=== PATIENT | female | born 1955 | race Caucasian/White ===

== ENCOUNTER 2016-07-11 09:20 | Inpatient (IN) | payer BC, MEDICARE ==
[2016-07-11] MEDS ORDERED: methylPREDNISolone Sodium Succinate 125 MG/2 ML SDV IVPUSH ONE (09:24)
[2016-07-11] MEDS ORDERED: Sodium Chloride 0.9% 1,000 ML IV ONE ×2 (09:27→10:46)
[2016-07-11] MEDS ORDERED: Levofloxacin/Dextrose 5%-Water 750 MG in Premix Bag 1 BAG IV ONE (09:28)
[2016-07-11] MEDS ORDERED: Albuterol/Ipratropium 3.0-0.5 MG/3 ML Neb Soln NEB PRN (09:31)
--- NOTE | 2016-07-11 09:35 | EDM.PDOC ---
ED HISTORY OF PRESENT ILLNESS - General Chief Complaint: Respiratory Problem Stated Complaint: LUNGS ISSUE Time Seen by Provider: 07/11/16 10:00 - History of Present Illness INITIAL COMMENTS - FREE TEXT/NARRATIVE: History of present illness: [60-year-old female history of COPD , CHF, diabetes diagnosed with DIP pneumonia presents with hypoxemia. Her oxygen saturation at home was 60% on 3 liters of oxygen. She was treated for pneumonia recently with levaquin for 5 days. She is not improving. She is sob, fever, not able to urinate, dizzy, diffuse muscle aches, productive cough. ] Review of systems: As per history of present illness and below otherwise all systems reviewed and negative. Past medical history: As per history of present illness and as reviewed below otherwise noncontributory. Surgical history: As per history of present illness and as reviewed below otherwise noncontributory. Social history: No reported history of drug or alcohol abuse. Family history: As per history of present illness and as reviewed below otherwise noncontributory. Physical exam: General: Well developed, well nourished in NAD HEENT: Atraumatic, normocephalic, pupils reactive, negative for conjunctival pallor or scleral icterus, mucous membranes moist, throat clear, neck supple, nontender, trachea midline. Lungs: Decreased breath sounds bilaterally. chest nontender. Heart: S1S2, regular, negative for clicks, rubs, or JVD. Abdomen: Soft, nondistended, nontender. Negative for masses or hepatosplenomegaly. Negative for costovertebral tenderness. Pelvis: Stable nontender. Genitourinary: Deferred. Rectal: Deferred. Extremities: Atraumatic, negative for cords or calf pain. Neurovascular unremarkable. Neuro: Awake, alert, oriented. Cranial nerves II through XII unremarkable. Cerebellum unremarkable. Motor and sensory unremarkable throughout. Exam nonfocal. Diagnostics: [ADC, CMP, chest x-ray, BMP, EKG,] Therapeutics: [IV Vanco, IV Levaquin Zosyn, IV, IV fluids x2, DuoNeb, Solu-Medrol] Impression: [Pneumonia Sepsis] Plan: [Admit to ICU for I.V antibiotics and IVF. ] Definitive disposition and diagnosis as appropriate pending reevaluation and review of above. - Related Data Allergies/ADRs: Allergies Allergy/AdvReac Type Severity Reaction Status Date / Time amlodipine besylate Allergy Headache Verified 07/11/16 09:27 [From Norvasc] ketorolac Allergy Itching Verified 07/11/16 09:27 milnacipran HCl Allergy Headache Verified 07/11/16 09:27 [From [facility]] Home Meds: Home Meds Pioglitazone [Actos] 30 mg PO DAILY 03/28/15 [History] levETIRAcetam [Keppra] 1,000 mg PO BID 03/28/15 [History] Glimepiride [Amaryl] 1 mg PO WITHBREAKFAST 09/14/15 [History] Pantoprazole [ProTONIX] 40 mg PO ACBREAKFAST 09/14/15 [History] Temazepam [Restoril] 15 mg PO BEDTIME PRN 09/14/15 [History] Citalopram Hydrobromide [Celexa] 20 mg PO DAILY 09/18/15 [History] Calcium Carbonate/Vitamin D3 [Calcium 500 + Vit D 400] 1 each PO 1200,2100 07/11 [History] Divalproex Sodium 250 mg PO TIDMEALS 07/11/16 [History] Gabapentin [Neurontin] 600 mg PO TID 07/11/16 [History] Silver Sulfadiazine [Silvadene 1% Cream 20 GM] 1 appful TOP DAILY 07/11/16 [ History] buPROPion [Wellbutrin XL] 150 mg PO DAILY 07/11/16 [History] Past Medical History HEENT History: Reports: Glaucoma Cardiovascular History: Reports: Heart Failure, Hypertension Other Cardiovascular History: CHF Respiratory History: Reports: COPD, Interstitial lung disease, Pulmonary fibrosis, Other (see below) Other Respiratory History: DIPF,. 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: Musculoskeletal History: Reports: Fibromyalgia, Osteoporosis Neurological History: Reports: Neuropathy, diabetic, Neuropathy, peripheral, Seizure Psychiatric History: Reports: Anxiety, Depression Endocrine/Metabolic History: Reports: Diabetes, type II, Obesity/BMI 30+, Osteoporosis Hematologic History: Reports: Anemia, Blood transfusion(s) Immunologic History: Reports: None Oncologic (Cancer) History: Reports: Renal, Other (see below) Other Oncologic History: mets to liver with unknown primary Dermatologic History: Reports: None - Infectious Disease History Infectious Disease History: Reports: MRSA - Past Surgical History Respiratory Surgical History: Reports: Lung Biopsies GI Surgical History: Reports: EGD, Other (see below) Other GI Surgeries/Procedures: EGD done September 15 2015 Musculoskeletal Surgical History: Reports: Other (see below) Other Musculoskeletal Surgeries/Procedures:: right ankle x3, left ankle x1 Social & Family History - Family History Family Medical History: Noncontributory - Tobacco Use Smoking Status *Q: Former Smoker Years of Tobacco use: 30 Packs/Tins Daily: 1 Used Tobacco, but Quit: Yes Month Tobacco Last Used: Feb 2015 Second Hand Smoke Exposure: No - Caffeine Use Caffeine Use: Reports: Soda, Tea - Recreational Drug Use Recreational Drug Use: No ED ROS GENERAL - Review of Systems Review Of Systems: See Below (See history of present illness) ED EXAM, GENERAL - Physical Exam Exam: See Below (See history of present illness) Course - Vital Signs Last Recorded V/S: Last Vital Signs Temp 102.1 F H 07/11/16 11:10 Pulse 83 07/11/16 11:10 Resp 26 H 07/11/16 11:10 BP 131/98 H 07/11/16 11:10 Pulse Ox 95 07/11/16 11:10 - Orders/Labs/Meds Orders: Active Orders 24 hr Category Date Time Status EKG Documentation Completion [RC] STAT Care 07/11/16 09:36 Active RT Aerosol Therapy [RC] ASDIRECTED Care 07/11/16 09:31 Active CULTURE BLOOD [BC] Stat Lab 07/11/16 09:44 Received CULTURE BLOOD [BC] Stat Lab 07/11/16 10:05 Received UA W/MICROSCOPIC [URIN] Stat Lab 07/11/16 09:50 Uncollected Albuterol/Ipratropium [DuoNeb 3.0-0.5 MG/3 ML] Med 07/11/16 09:31 Active 3 ml NEB Q4HRRT PRN Sodium Chloride 0.9% [Normal Saline] 1,000 ml Med 07/11/16 10:46 Active IV STAT Blood Culture x2 Reflex Set [OM.PC] Stat Oth 07/11/16 09:30 Ordered Medication Orders Albuterol/Ipratropium (Duoneb 3.0-0.5 Mg/3 Ml) 3 ml NEB Q4HRRT PRN PRN Reason: Shortness of Breath Last Admin: 07/11/16 10:26 Dose: 3 ml Sodium Chloride (Normal Saline) 1,000 mls @ 999 mls/hr IV STAT ONE Stop: 07/11/16 11:46 Last Admin: 07/11/16 10:50 Dose: 999 mls/hr Labs: Laboratory Tests 07/11/16 07/11/16 07/11/16 Range/Units 09:44 09:44 09:44 WBC 9.39 (4.0-11.0) K/uL RBC 2.92 L (4.30-5.90) M/uL Hgb 8.0 L (12.0-16.0) g/dL Hct 27.4 L (36.0-46.0) % MCV 93.8 (80.0-98.0) fL MCH 27.4 (27.0-32.0) pg MCHC 29.2 L (31.0-37.0) g/dL RDW Std Deviation 56.7 (28.0-62.0) fl RDW Coeff of Morales 17 H (11.0-15.0) % Plt Count 171 (150-400) K/uL MPV 8.40 (7.40-12.00) fL Neut % (Auto) 80.8 H (48.0-80.0) % Lymph % (Auto) 8.2 L (16.0-40.0) % Mora % (Auto) 8.2 (0.0-15.0) % Eos % (Auto) 2.2 (0.0-7.0) % Baso % (Auto) 0.6 (0.0-1.5) % Neut # (Auto) 7.6 H (1.4-5.7) K/uL Lymph # (Auto) 0.8 (0.6-2.4) K/uL Mora # (Auto) 0.8 (0.0-0.8) K/uL Eos # (Auto) 0.2 (0.0-0.7) K/uL Baso # (Auto) 0.1 (0.0-0.1) K/uL Nucleated RBC % 0.7 /100WBC Nucleated RBCs # 0 K/uL ABG pH (7.35-7.45) ABG pCO2 (35-45) mmHG ABG pO2 (75-100) mmHG ABG HCO3 (22-26) mEq/L ABG Total CO2 ABG Base Excess (-2.0-2.0) Lactate (0.20-2.00) mmol/L Sodium 142 (136-146) mmol/L Potassium 5.4 H (3.5-5.1) mmol/L Chloride 102 (98-110) mmol/L Carbon Dioxide 28 (21-31) mmol/L BUN 18 (6.0-23.0) mg/dL Creatinine 1.3 (0.6-1.5) mg/dL Est Cr Clr Drug Dosing 47.77 mL/min Estimated GFR (MDRD) 42.1 ml/min Glucose 142 H (60-110) mg/dL POC Glucose (60-110) mg/dL Calcium 9.1 (8.8-10.8) mg/dL Total Bilirubin 0.5 (0.1-1.5) mg/dL AST 15 (5-40) IU/L ALT 11 (8-54) IU/L Alkaline Phosphatase 91 (40-150) Troponin I < 0.10 (0.0-0.29) NG/ML B-Natriuretic Peptide (<100) PG/ML Total Protein 7.8 (6.0-8.0) g/dL Albumin 3.6 (3.5-5.0) g/dL Globulin 4.2 H (2.0-3.5) g/dL Albumin/Globulin Ratio 0.9 L (1.3-2.8) 07/11/16 07/11/16 07/11/16 Range/Units 09:44 09:44 09:55 WBC (4.0-11.0) K/uL RBC (4.30-5.90) M/uL Hgb (12.0-16.0) g/dL Hct (36.0-46.0) % MCV (80.0-98.0) fL MCH (27.0-32.0) pg MCHC (31.0-37.0) g/dL RDW Std Deviation (28.0-62.0) fl RDW Coeff of Morales (11.0-15.0) % Plt Count (150-400) K/uL MPV (7.40-12.00) fL Neut % (Auto) (48.0-80.0) % Lymph % (Auto) (16.0-40.0) % Mora % (Auto) (0.0-15.0) % Eos % (Auto) (0.0-7.0) % Baso % (Auto) (0.0-1.5) % Neut # (Auto) (1.4-5.7) K/uL Lymph # (Auto) (0.6-2.4) K/uL Mora # (Auto) (0.0-0.8) K/uL Eos # (Auto) (0.0-0.7) K/uL Baso # (Auto) (0.0-0.1) K/uL Nucleated RBC % /100WBC Nucleated RBCs # K/uL ABG pH 7.371 (7.35-7.45) ABG pCO2 64 H (35-45) mmHG ABG pO2 32 L* (75-100) mmHG ABG HCO3 37 H (22-26) mEq/L ABG Total CO2 35.8 ABG Base Excess 10.7 H (-2.0-2.0) Lactate 4.1 H (0.20-2.00) mmol/L Sodium (136-146) mmol/L Potassium (3.5-5.1) mmol/L Chloride (98-110) mmol/L Carbon Dioxide (21-31) mmol/L BUN (6.0-23.0) mg/dL Creatinine (0.6-1.5) mg/dL Est Cr Clr Drug Dosing mL/min Estimated GFR (MDRD) ml/min Glucose (60-110) mg/dL POC Glucose (60-110) mg/dL Calcium (8.8-10.8) mg/dL Total Bilirubin (0.1-1.5) mg/dL AST (5-40) IU/L ALT (8-54) IU/L Alkaline Phosphatase (40-150) Troponin I (0.0-0.29) NG/ML B-Natriuretic Peptide 542 H (<100) PG/ML Total Protein (6.0-8.0) g/dL Albumin (3.5-5.0) g/dL Globulin (2.0-3.5) g/dL Albumin/Globulin Ratio (1.3-2.8) 07/11/16 Range/Units 11:14 WBC (4.0-11.0) K/uL RBC (4.30-5.90) M/uL Hgb (12.0-16.0) g/dL Hct (36.0-46.0) % MCV (80.0-98.0) fL MCH (27.0-32.0) pg MCHC (31.0-37.0) g/dL RDW Std Deviation (28.0-62.0) fl RDW Coeff of Morales (11.0-15.0) % Plt Count (150-400) K/uL MPV (7.40-12.00) fL Neut % (Auto) (48.0-80.0) % Lymph % (Auto) (16.0-40.0) % Mora % (Auto) (0.0-15.0) % Eos % (Auto) (0.0-7.0) % Baso % (Auto) (0.0-1.5) % Neut # (Auto) (1.4-5.7) K/uL Lymph # (Auto) (0.6-2.4) K/uL Mora # (Auto) (0.0-0.8) K/uL Eos # (Auto) (0.0-0.7) K/uL Baso # (Auto) (0.0-0.1) K/uL Nucleated RBC % /100WBC Nucleated RBCs # K/uL ABG pH (7.35-7.45) ABG pCO2 (35-45) mmHG ABG pO2 (75-100) mmHG ABG HCO3 (22-26) mEq/L ABG Total CO2 ABG Base Excess (-2.0-2.0) Lactate (0.20-2.00) mmol/L Sodium (136-146) mmol/L Potassium (3.5-5.1) mmol/L Chloride (98-110) mmol/L Carbon Dioxide (21-31) mmol/L BUN (6.0-23.0) mg/dL Creatinine (0.6-1.5) mg/dL Est Cr Clr Drug Dosing mL/min Estimated GFR (MDRD) ml/min Glucose (60-110) mg/dL POC Glucose 110 (60-110) mg/dL Calcium (8.8-10.8) mg/dL Total Bilirubin (0.1-1.5) mg/dL AST (5-40) IU/L ALT (8-54) IU/L Alkaline Phosphatase (40-150) Troponin I (0.0-0.29) NG/ML B-Natriuretic Peptide (<100) PG/ML Total Protein (6.0-8.0) g/dL Albumin (3.5-5.0) g/dL Globulin (2.0-3.5) g/dL Albumin/Globulin Ratio (1.3-2.8) Meds: Medications Generic Name Dose Route Start Last Admin Trade Name Freq PRN Reason Stop Dose Admin Albuterol/Ipratropium 3 ml 07/11/16 09:31 07/11/16 10:26 Duoneb 3.0-0.5 Mg/3 Ml NEB 3 ml Q4HRRT PRN Administration Shortness of Breath Sodium Chloride 1,000 mls @ 999 mls/hr 07/11/16 10:46 07/11/16 10:50 Normal Saline IV 07/11/16 11:46 999 mls/hr STAT ONE Administration Discontinued Medications Generic Name Dose Route Start Last Admin Trade Name Freq PRN Reason Stop Dose Admin Sodium Chloride 1,000 mls @ 999 mls/hr 07/11/16 09:27 07/11/16 09:42 Normal Saline IV 07/11/16 10:27 999 mls/hr STAT ONE Administration Levofloxacin/Dextrose 750 mg/ 150 mls @ 100 mls/hr 07/11/16 09:28 07/11/16 10 :09 Premix IV 07/11/16 10:57 100 mls/hr ONETIME ONE Administration Piperacillin Sod/Tazobactam 100 mls @ 100 mls/hr 07/11/16 09:27 07/11/16 11: 20 Sod 4.5 gm/ Sodium Chloride IV 07/11/16 10:26 100 mls/hr ONETIME ONE Administration Vancomycin HCl 1 gm/ Sodium 250 mls @ 250 mls/hr 07/11/16 09:28 07/11/16 10: 20 Chloride IV 07/11/16 10:27 250 mls/hr ONETIME ONE Administration Methylprednisolone Sodium Succinate 125 mg 07/11/16 09:24 07/11/16 10:27 Solu-Medrol IVPUSH 07/11/16 09:25 125 mg ONETIME ONE Administration Departure - Departure Time of Disposition: 11:46 Disposition: Admitted As Inpatient 68 Condition: fair Clinical Impression: Sepsis, Pneumonia Referrals: Lex Mcclelland MD [Primary Care Provider] - Forms: ED Department Discharge - My Orders Last 24 Hours: My Active Orders 07/11/16 09:30 Blood Culture x2 Reflex Set [OM.PC] Stat 07/11/16 09:31 RT Aerosol Therapy [RC] ASDIRECTED Albuterol/Ipratropium [DuoNeb 3.0-0.5 MG/3 ML] 3 ml NEB Q4HRRT PRN 07/11/16 09:36 EKG Documentation Completion [RC] STAT 07/11/16 09:44 CULTURE BLOOD [BC] Stat 07/11/16 09:50 UA W/MICROSCOPIC [URIN] Stat 07/11/16 10:05 CULTURE BLOOD [BC] Stat 07/11/16 10:46 Sodium Chloride 0.9% [Normal Saline] 1,000 ml IV STAT - Assessment/Plan Last 24 Hours: My Active Orders 07/11/16 09:30 Blood Culture x2 Reflex Set [OM.PC] Stat 07/11/16 09:31 RT Aerosol Therapy [RC] ASDIRECTED Albuterol/Ipratropium [DuoNeb 3.0-0.5 MG/3 ML] 3 ml NEB Q4HRRT PRN 07/11/16 09:36 EKG Documentation Completion [RC] STAT 07/11/16 09:44 CULTURE BLOOD [BC] Stat 07/11/16 09:50 UA W/MICROSCOPIC [URIN] Stat 07/11/16 10:05 CULTURE BLOOD [BC] Stat 07/11/16 10:46 Sodium Chloride 0.9% [Normal Saline] 1,000 ml IV STAT
[2016-07-11] MEDS: Piperacillin/Tazobactam 4.5 GM in Sodium Chloride 0.9% 100 ML IV ONE ×2 (10:01→11:20)
--- NOTE | 2016-07-11 10:57 | CR ---
EXAMINATION: Portable chest radiograph. HISTORY: Shortness of breath. FINDINGS: The trachea is midline. The cardiac silhouette is not well characterized due to dense consolidation within the lower two thirds of the left hemithorax. Mildly increased interstitial prominence noted w ithin the right hemithorax. A pleural effusion is not excluded. Osseous structures appear unremarkable. IMPRESSION: 1. Dense consolidation within the left hemithorax, likely combination of infiltrate and/or pleural e ffusion.
--- NOTE | 2016-07-11 12:04 | PCM.HP ---
H&P History of Present Illness - General Date of Service: 07/11/16 Source of Information: Patient, Old records, Provider - History of Present Illness Initial Comments - Free Text/Narative: She presented to the emergency department today with a complaint of cough fever and body aches. She states she had a little vomiting. He was seen and evaluated in the emergency department and diagnosed with a left-sided pneumonia and sepsis. Admission to the hospital is recommended body Pain Score (Numeric/FACES): 6 - Related Data Allergies/Adverse Reactions: Allergies Allergy/AdvReac Type Severity Reaction Status Date / Time amlodipine besylate Allergy Headache Verified 07/11/16 09:27 [From Norvasc] ketorolac Allergy Itching Verified 07/11/16 09:27 milnacipran HCl Allergy Headache Verified 07/11/16 09:27 [From [facility]] Home Medications: Home Meds Pioglitazone [Actos] 30 mg PO DAILY 03/28/15 [History] levETIRAcetam [Keppra] 1,000 mg PO BID 03/28/15 [History] Glimepiride [Amaryl] 1 mg PO WITHBREAKFAST 09/14/15 [History] Pantoprazole [ProTONIX] 40 mg PO ACBREAKFAST 09/14/15 [History] Temazepam [Restoril] 15 mg PO BEDTIME PRN 09/14/15 [History] Citalopram Hydrobromide [Celexa] 20 mg PO DAILY 09/18/15 [History] Calcium Carbonate/Vitamin D3 [Calcium 500 + Vit D 400] 1 each PO 1200,2100 07/11 [History] Divalproex Sodium 250 mg PO TIDMEALS 07/11/16 [History] Gabapentin [Neurontin] 600 mg PO TID 07/11/16 [History] Silver Sulfadiazine [Silvadene 1% Cream 20 GM] 1 appful TOP DAILY 07/11/16 [ History] buPROPion [Wellbutrin XL] 150 mg PO DAILY 07/11/16 [History] Past Medical History HEENT History: Reports: Glaucoma Cardiovascular History: Reports: Heart Failure, Hypertension Other Cardiovascular History: CHF Respiratory History: Reports: COPD, Interstitial lung disease, Pulmonary fibrosis, Other (see below) Other Respiratory History: DIPF,. 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 Dermatologic History: Reports: None - Infectious Disease History Infectious Disease History: Reports: MRSA - Past Surgical History Respiratory Surgical History: Reports: Lung Biopsies GI Surgical History: Reports: EGD, Other (see below) Other GI Surgeries/Procedures: EGD done September 15 2015 Female Surgical History: Reports: Nephrectomy Musculoskeletal Surgical History: Reports: Other (see below) Other Musculoskeletal Surgeries/Procedures:: right ankle x3, left ankle x1 Social & Family History - Family History Family Medical History: Noncontributory - Tobacco Use Smoking Status *Q: Former Smoker Years of Tobacco use: 30 Packs/Tins Daily: 1 Used Tobacco, but Quit: Yes Month Tobacco Last Used: Feb 2015 Smoking Cessation Information Given Comment: She quit smoking about a year ago Second Hand Smoke Exposure: No - Caffeine Use Caffeine Use: Reports: Soda, Tea - Recreational Drug Use Recreational Drug Use: No H&P Review of Systems - Review of Systems: Review Of Systems: See Below General: Reports: fever, chills Pulmonary: Reports: Shortness of Breath, Cough Cardiovascular: Reports: chest pain (Diffuse body aches) Gastrointestinal: Reports: Abdominal pain (Diffuse aching over her entire torso and extremities), Vomiting. Denies: Hematemesis, Hematochezia Genitourinary: Denies: dysuria, hematuria Psychiatric: Denies: agitation Exam - Exam Exam: See Below - Vital Signs Vital Signs: Last Vital Signs Temp 102.1 F H 07/11/16 11:10 Pulse 83 07/11/16 11:10 Resp 26 H 07/11/16 11:10 BP 131/98 H 07/11/16 11:10 Pulse Ox 95 07/11/16 11:10 Weight: 153.2 kg - Exam General: alert. No: severe distress HEENT: EOMI, Other Neck: supple (Dry oral mucosa), trachea midline Lungs: Clear to auscultation, Normal respiratory effort, Other (Respiratory exam /lung exam is impaired by body habitus somewhat) Abdomen: soft, tenderness (Mild diffuse tenderness most likely tenderness of the abdominal wall). No: guarding, rigidity, rebound (Female) Exam: Deferred Extremities: edema (Open wound) Neurological: cranial nerves intact, normal speech ( no purulent drainage noted) Psychiatric: No: agitated - Patient Data Result Diagrams: 07/11/16 09:44 07/11/16 09:44 *Q Meaningful Use (ADM) - VTE *Q VTE Criteria *Q: - Stroke *Q Stroke Criteria *Q: - AMI *Q AMI Criteria *Q: - Problem List (1) History of CHF (congestive heart failure) SNOMED Code(s): 717097483 ICD Code: Z86.79 - PERSONAL HISTORY OF OTHER DISEASES OF THE CIRCULATORY SYSTEM Status: Acute Current Visit: Yes (2) Pneumonia SNOMED Code(s): 896289809 ICD Code: J18.9 - PNEUMONIA, UNSPECIFIED ORGANISM Status: Acute Current Visit: Yes (3) Sepsis SNOMED Code(s): 93062627 ICD Code: A41.9 - SEPSIS, UNSPECIFIED ORGANISM Status: Acute Current Visit: Yes (4) Diabetes SNOMED Code(s): 83155103 ICD Code: E11.9 - TYPE 2 DIABETES MELLITUS WITHOUT COMPLICATIONS Status: Acute Priority: High Current Visit: No Problem Details: Sliding scale insulin Qualifiers: Diabetes mellitus type: type 2 Diabetes mellitus complication status: with neurologic complications Diabetes mellitus complication detail: with autonomic neuropathy Diabetes mellitus intermediate manager insulin use: without retirement use Qualified Code(s): E11.43 - Type 2 diabetes mellitus with diabetic autonomic (poly)neuropathy (5) Anemia SNOMED Code(s): 598106390 ICD Code: D64.9 - ANEMIA, UNSPECIFIED Status: Chronic Priority: High Current Visit: No Qualifiers: Anemia type: iron deficiency Iron deficiency anemia type: chronic blood loss Qualified Code(s): D50.0 - Iron deficiency anemia secondary to blood loss (chronic) (6) Diffuse interstitial pulmonary fibrosis SNOMED Code(s): 302234208 ICD Code: J84.10 - PULMONARY FIBROSIS, UNSPECIFIED Status: Chronic Priority: High Current Visit: No (7) History of nephrectomy SNOMED Code(s): 43448465256885 ICD Code: Z90.5 - ACQUIRED ABSENCE OF KIDNEY Status: Acute Current Visit : Yes Problem List Initiated/Reviewed/Updated: Yes Orders Last 24hrs: Medication Orders Albuterol/Ipratropium (Duoneb 3.0-0.5 Mg/3 Ml) 3 ml NEB Q4HRRT PRN PRN Reason: Shortness of Breath Last Admin: 07/11/16 10:26 Dose: 3 ml Assessment/Plan Comment:: Admit to intensive care unit. See orders Ryan Lazo MD
[2016-07-11] MEDS ORDERED: Ondansetron 4 MG/2 ML SDV IVPUSH PRN (12:41)
[2016-07-11] MEDS ORDERED: Acetaminophen 500 MG Tab ONE (12:42)
[2016-07-11] MEDS ORDERED: Acetaminophen 500 MG Tab PO ONE (12:42)
[2016-07-11] MEDS ORDERED: Temazepam 15 MG Cap PO PRN (12:49)
--- NOTE | 2016-07-11 13:09 | PCM.SN ---
- Free Text/Narrative Note: her spouse states that she had a recent fall. She has post surgical changes after multiple ankle surgeries with fusion. Will order plain films both ankles 2 mm open wound plantar left heel. When stabilized she may need a bone scan. I discussed resuscitation status with patient and her . she will remain code level 1 at this time, for now. Ryan Lazo MD
[2016-07-11] MEDS: Gabapentin 300 MG Cap PO SCH ×2 (13:45→21:01)
[2016-07-11] MEDS: HYDROmorphone 1 MG/ML Syringe IVPUSH PRN ×2 (13:46→20:40)
[2016-07-11] MEDS: Divalproex Sodium Delayed-Release 250 MG Tab.CR PO SCH ×2 (13:52→18:02)
[2016-07-11] MEDS: Albuterol/Ipratropium 3.0-0.5 MG/3 ML Neb Soln NEB SCH ×3 (14:55→21:22)
--- NOTE | 2016-07-11 16:17 | CR ---
EXAM DATE: 07/11/16 PATIENT'S AGE: 60 Patient: VALERIA KC Facility: [place], [place] Site . Site : 1955 Study: XRay Extremity Right Ankle [id number]/30/2017 2:31:48 PM Ordering Physician: Violet Davis Final Report: Indication: Pain after fall. Comparison: 28 March 2015. Findings: Presumed resection of the distal fibula. Instrumented fusion of the tibia, through talus into calcaneus. Solid bony bridging across the tibiotalar ankle joint is not assured. Neurostimulator implant leads. No acute fracture. No hardware complication or failure. Profound diffuse osteopenia. Dictated by Rolando Menjivar MD @ Jul 11 2016 2:43PM (Electronic Signature) Report Signed by Proxy and Original Signed Document filed in the Medical Record. [employer]
--- NOTE | 2016-07-11 16:18 | CR ---
EXAM DATE: 07/11/16 PATIENT'S AGE: 60 Patient: VALERIA KC Facility: [place], [place] Site . Site : 1955 Study: XRay Extremity Left Ankle [id number]/30/2017 2:32:46 PM Ordering Physician: Violet Davis Final Report: Indication: Pain after fall. Comparison: 23 January 2016. Findings: Diffuse profound osteopenia. Instrumented fusion tibia through talus and calcaneus. Some lucency around the oblique screw extending from the posterior process of the calcaneus into the anterior tibial metaphysis. Subtle somewhat broad transverse lucency suggested on the AP view through the medial tibia roughly 3 cm above the tip of the medial malleolus. No definite lucency on the lateral. Acute fracture not excluded. Soft tissue swelling laterally. Resection of the distal fibula. Dictated by Rolando Menjivar MD @ Jul 11 2016 2:46PM (Electronic Signature) Report Signed by Proxy and Original Signed Document filed in the Medical Record. MTDD
[2016-07-11] MEDS: Insulin Aspart 100 Units/ML 3 ML Pen SUBCUT SCH (17:52)
[2016-07-11] MEDS: Piperacillin/Tazobactam 3.375 GM in Sodium Chloride 0.9% 50 ML IV SCH (18:00)
[2016-07-11] MEDS: Acetaminophen 325 MG Tab PO PRN (18:15)
[2016-07-11] MEDS: levETIRAcetam 500 MG Tab PO SCH (21:01)
[2016-07-11] MEDS: Docusate Sodium 100 MG Cap PO SCH (21:01)
[2016-07-12] MEDS: Piperacillin/Tazobactam 3.375 GM in Sodium Chloride 0.9% 50 ML IV SCH ×5 (00:13→23:37)
[2016-07-12] MEDS: Albuterol/Ipratropium 3.0-0.5 MG/3 ML Neb Soln NEB SCH ×6 (01:57→21:15)
[2016-07-12] MEDS: HYDROmorphone 1 MG/ML Syringe IVPUSH PRN ×3 (02:07→22:20)
[2016-07-12] MEDS: Acetaminophen/oxyCODONE 325-5 MG Tab PO PRN ×3 (03:31→17:13)
[2016-07-12] MEDS: Gabapentin 300 MG Cap PO SCH ×3 (06:00→22:04)
[2016-07-12] MEDS: Pantoprazole 40 MG Tab.CR PO SCH (06:31)
[2016-07-12] MEDS: Insulin Aspart 100 Units/ML 3 ML Pen SUBCUT SCH ×3 (07:24→17:21)
[2016-07-12] MEDS: Glimepiride 2 MG Tab PO SCH (08:41)
[2016-07-12] MEDS: Docusate Sodium 100 MG Cap PO SCH ×2 (08:41→20:52)
[2016-07-12] MEDS: levETIRAcetam 500 MG Tab PO SCH ×2 (08:41→20:52)
[2016-07-12] MEDS: Citalopram 20 MG Tab PO SCH (08:41)
[2016-07-12] MEDS: buPROPion 150 MG Tab.ER PO SCH (08:42)
[2016-07-12] MEDS: Divalproex Sodium Delayed-Release 250 MG Tab.CR PO SCH ×3 (08:42→17:13)
--- NOTE | 2016-07-12 11:52 | PCM.PN ---
- General Info Date of Service: 07/12/16 Admission Dx/Problem (Free Text): anemia pulmonary fibrosis, morbid obesity - Review of Systems General: Reports: Other (dyspnea during night helped by resp Rx) HEENT: Reports: no symptoms Pulmonary: Reports: shortness of breath Cardiovascular: Reports: No Symptoms Gastrointestinal: Reports: No symptoms Genitourinary: Reports: other ([place]) Musculoskeletal: Reports: foot pain Skin: Reports: no symptoms, other (reports some recent drainge R ankle ? sinus tract) Neurological: Reports: No Symptoms Psychiatric: Reports: no symptoms - Patient Data Vitals - most recent: Last Vital Signs Temp 36.6 C 07/12/16 10:49 Pulse 73 07/12/16 11:00 Resp 13 07/12/16 11:00 BP 110/44 L 07/12/16 11:00 Pulse Ox 97 07/12/16 11:00 Weight - most recent: 150.6 kg I&O - last 24 hours: Intake & Output 07/11/16 07/12/16 07/12/16 22:59 06:59 14:59 Intake Total 400 1050 0 Output Total 400 1000 Balance 0 50 0 Lab Results last 24 hrs: Laboratory Results - last 24 hr 07/11/16 07/11/16 07/11/16 Range/Units 11:50 15:21 17:52 WBC (4.0-11.0) K/uL RBC (4.30-5.90) M/uL Hgb (12.0-16.0) g/dL Hct (36.0-46.0) % MCV (80.0-98.0) fL MCH (27.0-32.0) pg MCHC (31.0-37.0) g/dL RDW Std Deviation (28.0-62.0) fl RDW Coeff of Morales (11.0-15.0) % Plt Count (150-400) K/uL MPV (7.40-12.00) fL Neut % (Auto) (48.0-80.0) % Lymph % (Auto) (16.0-40.0) % [place] % (Auto) (0.0-15.0) % Eos % (Auto) (0.0-7.0) % Baso % (Auto) (0.0-1.5) % Neut # (Auto) (1.4-5.7) K/uL Lymph # (Auto) (0.6-2.4) K/uL [place] # (Auto) (0.0-0.8) K/uL Eos # (Auto) (0.0-0.7) K/uL Baso # (Auto) (0.0-0.1) K/uL Nucleated RBC % /100WBC Nucleated RBCs # K/uL Lactate 0.6 (0.20-2.00) mmol/L Sodium (136-146) mmol/L Potassium (3.5-5.1) mmol/L Chloride (98-110) mmol/L Carbon Dioxide (21-31) mmol/L BUN (6.0-23.0) mg/dL Creatinine (0.6-1.5) mg/dL Est Cr Clr Drug Dosing mL/min Estimated GFR (MDRD) ml/min Glucose (60-110) mg/dL POC Glucose 148 H (60-110) mg/dL Calcium (8.8-10.8) mg/dL Magnesium (1.5-2.3) mEq/L Total Bilirubin (0.1-1.5) mg/dL AST (5-40) IU/L ALT (8-54) IU/L Alkaline Phosphatase (40-150) Total Protein (6.0-8.0) g/dL Albumin (3.5-5.0) g/dL Globulin (2.0-3.5) g/dL Albumin/Globulin Ratio (1.3-2.8) Urine Color YELLOW Urine Appearance CLEAR Urine pH 6.0 (5.0-8.0) Ur Specific [place] 1.015 (1.001-1.035) Urine Protein NEGATIVE (NEGATIVE) mg/dL Urine Glucose (UA) NEGATIVE (NEGATIVE) mg/dL Urine Ketones NEGATIVE (NEGATIVE) mg/dL Urine Occult Blood NEGATIVE (NEGATIVE) Urine Nitrite NEGATIVE (NEGATIVE) Urine Bilirubin NEGATIVE (NEGATIVE) Urine Urobilinogen 0.2 (<2.0) EU/dL Ur Leukocyte Esterase NEGATIVE (NEGATIVE) Urine RBC 0-1 (0-2/HPF) Urine WBC 0-1 (0-5/HPF) Ur Epithelial Cells RARE (NONE-FEW) Urine Bacteria RARE (NEGATIVE) Blood Type Antibody Screen Crossmatch 07/12/16 07/12/1607/12/17 Range/Units 04:28 04:28 04:28 WBC 7.10 (4.0-11.0) K/uL RBC 2.52 L (4.30-5.90) M/uL Hgb 6.9 L (12.0-16.0) g/dL Hct 23.5 L (36.0-46.0) % MCV 93.3 (80.0-98.0) fL MCH 27.4 (27.0-32.0) pg MCHC 29.4 L (31.0-37.0) g/dL RDW Std Deviation 55.4 (28.0-62.0) fl RDW Coeff of Morales 16 H (11.0-15.0) % Plt Count 131 L (150-400) K/uL MPV 8.50 (7.40-12.00) fL Neut % (Auto) 74.4 (48.0-80.0) % Lymph % (Auto) 14.8 L (16.0-40.0) % [place] % (Auto) 10.7 (0.0-15.0) % Eos % (Auto) 0.0 (0.0-7.0) % Baso % (Auto) 0.1 (0.0-1.5) % Neut # (Auto) 5.3 (1.4-5.7) K/uL Lymph # (Auto) 1.1 (0.6-2.4) K/uL [place] # (Auto) 0.8 (0.0-0.8) K/uL Eos # (Auto) 0.0 (0.0-0.7) K/uL Baso # (Auto) 0.0 (0.0-0.1) K/uL Nucleated RBC % 0.0 /100WBC Nucleated RBCs # 0 K/uL Lactate 0.9 (0.20-2.00) mmol/L Sodium 141 (136-146) mmol/L Potassium 4.5 (3.5-5.1) mmol/L Chloride 102 (98-110) mmol/L Carbon Dioxide 31 (21-31) mmol/L BUN 20 (6.0-23.0) mg/dL Creatinine 1.2 (0.6-1.5) mg/dL Est Cr Clr Drug Dosing 51.75 mL/min Estimated GFR (MDRD) 46.1 ml/min Glucose 86 (60-110) mg/dL POC Glucose (60-110) mg/dL Calcium 8.8 (8.8-10.8) mg/dL Magnesium 1.8 (1.5-2.3) mEq/L Total Bilirubin 0.4 (0.1-1.5) mg/dL AST 11 (5-40) IU/L ALT 9 (8-54) IU/L Alkaline Phosphatase 71 (40-150) Total Protein 7.0 (6.0-8.0) g/dL Albumin 3.1 L (3.5-5.0) g/dL Globulin 3.9 H (2.0-3.5) g/dL Albumin/Globulin Ratio 0.8 L (1.3-2.8) Urine Color Urine Appearance Urine pH (5.0-8.0) Ur Specific [place] (1.001-1.035) Urine Protein (NEGATIVE) mg/dL Urine Glucose (UA) (NEGATIVE) mg/dL Urine Ketones (NEGATIVE) mg/dL Urine Occult Blood (NEGATIVE) Urine Nitrite (NEGATIVE) Urine Bilirubin (NEGATIVE) Urine Urobilinogen (<2.0) EU/dL Ur Leukocyte Esterase (NEGATIVE) Urine RBC (0-2/HPF) Urine WBC (0-5/HPF) Ur Epithelial Cells (NONE-FEW) Urine Bacteria (NEGATIVE) Blood Type Antibody Screen Crossmatch 07/12/16 07/12/16 Range/Units 06:30 06:54 WBC (4.0-11.0) K/uL RBC (4.30-5.90) M/uL Hgb (12.0-16.0) g/dL Hct (36.0-46.0) % MCV (80.0-98.0) fL MCH (27.0-32.0) pg MCHC (31.0-37.0) g/dL RDW Std Deviation (28.0-62.0) fl RDW Coeff of Morales (11.0-15.0) % Plt Count (150-400) K/uL MPV (7.40-12.00) fL Neut % (Auto) (48.0-80.0) % Lymph % (Auto) (16.0-40.0) % [place] % (Auto) (0.0-15.0) % Eos % (Auto) (0.0-7.0) % Baso % (Auto) (0.0-1.5) % Neut # (Auto) (1.4-5.7) K/uL Lymph # (Auto) (0.6-2.4) K/uL [place] # (Auto) (0.0-0.8) K/uL Eos # (Auto) (0.0-0.7) K/uL Baso # (Auto) (0.0-0.1) K/uL Nucleated RBC % /100WBC Nucleated RBCs # K/uL Lactate (0.20-2.00) mmol/L Sodium (136-146) mmol/L Potassium (3.5-5.1) mmol/L Chloride (98-110) mmol/L Carbon Dioxide (21-31) mmol/L BUN (6.0-23.0) mg/dL Creatinine (0.6-1.5) mg/dL Est Cr Clr Drug Dosing mL/min Estimated GFR (MDRD) ml/min Glucose (60-110) mg/dL POC Glucose 121 H (60-110) mg/dL Calcium (8.8-10.8) mg/dL Magnesium (1.5-2.3) mEq/L Total Bilirubin (0.1-1.5) mg/dL AST (5-40) IU/L ALT (8-54) IU/L Alkaline Phosphatase (40-150) Total Protein (6.0-8.0) g/dL Albumin (3.5-5.0) g/dL Globulin (2.0-3.5) g/dL Albumin/Globulin Ratio (1.3-2.8) Urine Color Urine Appearance Urine pH (5.0-8.0) Ur Specific [place] (1.001-1.035) Urine Protein (NEGATIVE) mg/dL Urine Glucose (UA) (NEGATIVE) mg/dL Urine Ketones (NEGATIVE) mg/dL Urine Occult Blood (NEGATIVE) Urine Nitrite (NEGATIVE) Urine Bilirubin (NEGATIVE) Urine Urobilinogen (<2.0) EU/dL Ur Leukocyte Esterase (NEGATIVE) Urine RBC (0-2/HPF) Urine WBC (0-5/HPF) Ur Epithelial Cells (NONE-FEW) Urine Bacteria (NEGATIVE) Blood Type O POSITIVE Antibody Screen NEGATIVE Crossmatch See Detail Med Orders - Current: Current Medications Acetaminophen (Tylenol) 650 mg PO Q4H PRN PRN Reason: Pain (Mild 1-3)/fever Last Admin: 07/11/16 18:15 Dose: 650 mg Albuterol/Ipratropium (Duoneb 3.0-0.5 Mg/3 Ml) 3 ml NEB Q4HRRT [facility] Last Admin: 07/12/16 10:01 Dose: 3 ml Bupropion HCl (Wellbutrin Xl) 150 mg PO DAILY [facility] Last Admin: 07/12/16 08:42 Dose: 150 mg Citalopram Hydrobromide (Celexa) 20 mg PO DAILY [facility] Last Admin: 07/12/16 08:41 Dose: 20 mg Divalproex Sodium (Divalproex Sodium) 250 mg PO TIDMEALS [facility] Last Admin: 07/12/16 08:42 Dose: 250 mg Docusate Sodium (Colace) 100 mg PO BID [facility] Last Admin: 07/12/16 08:41 Dose: 100 mg Gabapentin (Neurontin) 600 mg PO TID [facility] Last Admin: 07/12/16 06:00 Dose: 600 mg Glimepiride (Amaryl) 1 mg PO WITHBREAKFAST [facility] Last Admin: 07/12/16 08:41 Dose: 1 mg Hydromorphone HCl (Dilaudid) 1 mg IVPUSH Q2H PRN PRN Reason: Pain (severe 7-10) Last Admin: 07/12/16 02:07 Dose: 1 mg Levofloxacin/Dextrose 750 mg/ (Premix) 150 mls @ 100 mls/hr IV Q48H [facility] Piperacillin Sod/Tazobactam (Sod 3.375 gm/ Sodium Chloride) 50 mls @ 100 mls/ hr IV Q6H [facility] Last Admin: 07/12/16 05:59 Dose: 100 mls/hr Vancomycin HCl 1,500 mg/ (Sodium Chloride) 500 mls @ 250 mls/hr IV Q12H [facility] Last Admin: 07/11/16 21:57 Dose: 250 mls/hr Insulin Aspart (Novolog) 0 - 8 unit SUBCUT TIDAC [facility] PRN Reason: Protocol Last Admin: 07/12/16 07:24 Dose: Not Given Levetiracetam (Keppra) 1,000 mg PO BID [facility] Last Admin: 07/12/16 08:41 Dose: 1,000 mg Ondansetron HCl (Zofran) 4 mg IVPUSH Q4H PRN PRN Reason: Nausea Oxycodone/Acetaminophen (Percocet 325-5 Mg) 1 tab PO Q4H PRN PRN Reason: Pain Last Admin: 07/12/16 08:56 Dose: 1 tab Pantoprazole Sodium (Protonix) 40 mg PO ACBREAKFAST [facility] Last Admin: 07/12/16 06:31 Dose: 40 mg Temazepam (Restoril) 15 mg PO BEDTIME PRN PRN Reason: Sleep Vancomycin HCl (Pharmacy To Dose - Vancomycin) 1 dose .XX ASDIRECTED [facility] Discontinued Medications Acetaminophen (Tylenol Extra Strength) 1,000 mg PO ONETIME ONE Stop: 07/11/16 12:43 Last Admin: 07/11/16 12:42 Dose: 1,000 mg Acetaminophen (Tylenol Extra Strength) Confirm Administered Dose 1,000 mg .ROUTE .STK-MED ONE Stop: 07/11/16 12:43 Last Admin: 07/11/16 15:21 Dose: Not Given Albuterol/Ipratropium (Duoneb 3.0-0.5 Mg/3 Ml) 3 ml NEB Q4HRRT PRN PRN Reason: Shortness of Breath Last Admin: 07/11/16 10:26 Dose: 3 ml Sodium Chloride (Normal Saline) 1,000 mls @ 999 mls/hr IV STAT ONE Stop: 07/11/16 10:27 Last Admin: 07/11/16 09:42 Dose: 999 mls/hr Levofloxacin/Dextrose 750 mg/ (Premix) 150 mls @ 100 mls/hr IV ONETIME ONE Stop: 07/11/16 10:57 Last Admin: 07/11/16 10:09 Dose: 100 mls/hr Piperacillin Sod/Tazobactam (Sod 4.5 gm/ Sodium Chloride) 100 mls @ 100 mls/hr IV ONETIME ONE Stop: 07/11/16 10:26 Last Admin: 07/11/16 11:20 Dose: 100 mls/hr Vancomycin HCl 1 gm/ Sodium (Chloride) 250 mls @ 250 mls/hr IV ONETIME ONE Stop: 07/11/16 10:27 Last Admin: 07/11/16 10:20 Dose: 250 mls/hr Sodium Chloride (Normal Saline) 1,000 mls @ 999 mls/hr IV STAT ONE Stop: 07/11/16 11:46 Last Admin: 07/11/16 10:50 Dose: 999 mls/hr Vancomycin HCl 1,500 mg/ (Sodium Chloride) 500 mls @ 250 mls/hr IV Q12H [facility] Methylprednisolone Sodium Succinate (Solu-Medrol) 125 mg IVPUSH ONETIME ONE Stop: 07/11/16 09:25 Last Admin: 07/11/16 10:27 Dose: 125 mg Temazepam (Restoril) 15 mg PO BEDTIME PRN PRN Reason: Insomnia - Exam Quality Assessment: supplemental oxygen General: alert HEENT: Other (not tested) Neck: trachea midline, no JVD Lungs: Decreased breath sounds Cardiovascular: Regular Rate, Regular Rhythm Abdomen: bowel sounds present, soft, no tenderness, no distension (Female) Exam: Deferred Back Exam: other (not examined) Extremities: edema (mild swelling L foot, tender, no current drainage almost pinpoint opening medial L ankle, ) Skin: warm, dry, intact Wound/Incisions: other (staff reports some bruising, no open areas) Neurological: no new focal deficit Psy/Mental Status: alert, normal affect, normal mood - Problem List Review Problem List Initiated/Reviewed/Updated: Yes - My Orders Last 24 Hours: My Active Orders 07/12/16 12:00 HEMOGLOBIN/HEMATOCRIT,HH [HEME] Routine - Assessment Assessment:: has been tranfused, re-check h&h pending will get CT L foot and ankle r/o osteo mobilize with PT consult - Plan Plan:: Admit to intensive care unit. See orders Ryan Lazo MD
--- NOTE | 2016-07-12 16:47 | NM ---
EXAMINATION: 3 phase bone scan of the bilateral feet and ankles HISTORY: Draining sinus of the left lower extremity post ORIF COMPARISON: 07/11/2016, radiographs TECHNIQUE: Planar images were obtained of the lower extremities during the angiographic phase, blood pool phase, and delayed phases following the administration of 23.4 mCi of Tech [id number] labeled MDP. FINDINGS: There is mild asymmetric blood flow to the left lower extremity. There is also increased u ptake during the blood pool phase involving the distal left tibia, hindfoot and midfoot and less so within the first digit. There is also increased delayed uptake within this region. IMPRESSION: 1. Asymmetrically increased blood flow, blood pool, and delayed uptake within the distal tibia, hind foot, and midfoot of the left lower extremity suggestive of osteomyelitis.
[2016-07-12] MEDS: Temazepam 15 MG Cap PO PRN (23:49)
[2016-07-13] MEDS: HYDROmorphone 1 MG/ML Syringe IVPUSH PRN ×7 (00:24→23:16)
[2016-07-13] MEDS: Albuterol/Ipratropium 3.0-0.5 MG/3 ML Neb Soln NEB SCH ×6 (02:14→21:07)
[2016-07-13] MEDS: Piperacillin/Tazobactam 3.375 GM in Sodium Chloride 0.9% 50 ML IV SCH ×4 (05:55→23:18)
[2016-07-13] MEDS: Gabapentin 300 MG Cap PO SCH ×3 (05:55→21:17)
[2016-07-13] MEDS: Pantoprazole 40 MG Tab.CR PO SCH (07:51)
[2016-07-13] MEDS: Insulin Aspart 100 Units/ML 3 ML Pen SUBCUT SCH ×3 (07:51→17:13)
[2016-07-13] MEDS: Docusate Sodium 100 MG Cap PO SCH ×2 (08:01→21:18)
[2016-07-13] MEDS: levETIRAcetam 500 MG Tab PO SCH ×2 (08:01→21:17)
[2016-07-13] MEDS: Divalproex Sodium Delayed-Release 250 MG Tab.CR PO SCH ×3 (08:01→16:38)
[2016-07-13] MEDS: Glimepiride 2 MG Tab PO SCH (08:01)
[2016-07-13] MEDS: Citalopram 20 MG Tab PO SCH (08:01)
[2016-07-13] MEDS: buPROPion 150 MG Tab.ER PO SCH (08:01)
--- NOTE | 2016-07-13 08:38 | PCM.PN ---
- General Info Date of Service: 07/13/16 Subjective Update: bad night. Pain in foot ,non productive cough Unhappy with diet Concerned over "low" blood sugars 64-81 Not symptomatic Functional Status: Reports: other (see above) - Review of Systems General: Reports: No Symptoms HEENT: Reports: no symptoms Pulmonary: Reports: cough Cardiovascular: Reports: No Symptoms Gastrointestinal: Reports: No symptoms Genitourinary: Reports: no symptoms Musculoskeletal: Reports: foot pain Skin: Reports: no symptoms Neurological: Reports: No Symptoms Psychiatric: Reports: depression - Patient Data Vitals - most recent: Last Vital Signs Temp 36.4 C 07/13/16 07:00 Pulse 67 07/13/16 06:00 Resp 17 07/13/16 08:00 BP 130/76 07/13/16 08:00 Pulse Ox 94 L 07/13/16 08:00 Weight - most recent: 150.3 kg I&O - last 24 hours: Intake & Output 07/12/16 07/13/16 07/13/16 22:59 06:59 14:59 Intake Total 600 2200 Output Total 2600 Balance 600 -400 Imaging Impressions - last 24 hrs: Bone scan suggest several foci of osteomyeliitis tibia fore foot and toe Lab Results last 24 hrs: Laboratory Results - last 24 hr 07/12/16 07/12/16 07/12/16 Range/Units 06:30 11:56 12:23 WBC (4.0-11.0) K/uL RBC (4.30-5.90) M/uL Hgb 8.0 L (12.0-16.0) g/dL Hct 27.1 L (36.0-46.0) % MCV (80.0-98.0) fL MCH (27.0-32.0) pg MCHC (31.0-37.0) g/dL RDW Std Deviation (28.0-62.0) fl RDW Coeff of Morales (11.0-15.0) % Plt Count (150-400) K/uL MPV (7.40-12.00) fL Neut % (Auto) (48.0-80.0) % Lymph % (Auto) (16.0-40.0) % [place] % (Auto) (0.0-15.0) % Eos % (Auto) (0.0-7.0) % Baso % (Auto) (0.0-1.5) % Neut # (Auto) (1.4-5.7) K/uL Lymph # (Auto) (0.6-2.4) K/uL [place] # (Auto) (0.0-0.8) K/uL Eos # (Auto) (0.0-0.7) K/uL Baso # (Auto) (0.0-0.1) K/uL Nucleated RBC % /100WBC Nucleated RBCs # K/uL Sodium (136-146) mmol/L Potassium (3.5-5.1) mmol/L Chloride (98-110) mmol/L Carbon Dioxide (21-31) mmol/L BUN (6.0-23.0) mg/dL Creatinine (0.6-1.5) mg/dL Est Cr Clr Drug Dosing mL/min Estimated GFR (MDRD) ml/min Glucose (60-110) mg/dL POC Glucose 81 (60-110) mg/dL Calcium (8.8-10.8) mg/dL Total Bilirubin (0.1-1.5) mg/dL AST (5-40) IU/L ALT (8-54) IU/L Alkaline Phosphatase (40-150) Total Protein (6.0-8.0) g/dL Albumin (3.5-5.0) g/dL Globulin (2.0-3.5) g/dL Albumin/Globulin Ratio (1.3-2.8) Blood Type O POSITIVE Antibody Screen NEGATIVE Crossmatch See Detail 07/12/16 07/13/16 07/13/16 Range/Units 17:18 06:45 06:45 WBC 8.43 (4.0-11.0) K/uL RBC 2.93 L (4.30-5.90) M/uL Hgb 8.1 L (12.0-16.0) g/dL Hct 27.4 L (36.0-46.0) % MCV 93.5 (80.0-98.0) fL MCH 27.6 (27.0-32.0) pg MCHC 29.6 L (31.0-37.0) g/dL RDW Std Deviation 55.8 (28.0-62.0) fl RDW Coeff of [place]ales 16 H (11.0-15.0) % Plt Count 152 (150-400) K/uL MPV 8.60 (7.40-12.00) fL Neut % (Auto) 63.4 (48.0-80.0) % Lymph % (Auto) 22.4 (16.0-40.0) % [place] % (Auto) 11.0 (0.0-15.0) % Eos % (Auto) 2.7 (0.0-7.0) % Baso % (Auto) 0.5 (0.0-1.5) % Neut # (Auto) 5.3 (1.4-5.7) K/uL Lymph # (Auto) 1.9 (0.6-2.4) K/uL [place] # (Auto) 0.9 H (0.0-0.8) K/uL Eos # (Auto) 0.2 (0.0-0.7) K/uL Baso # (Auto) 0.0 (0.0-0.1) K/uL Nucleated RBC % 0.6 /100WBC Nucleated RBCs # 0 K/uL Sodium 141 (136-146) mmol/L Potassium 4.3 (3.5-5.1) mmol/L Chloride 101 (98-110) mmol/L Carbon Dioxide 34 H (21-31) mmol/L BUN 22 (6.0-23.0) mg/dL Creatinine 1.1 (0.6-1.5) mg/dL Est Cr Clr Drug Dosing 56.46 mL/min Estimated GFR (MDRD) 51.0 ml/min Glucose 70 (60-110) mg/dL POC Glucose 68 (60-110) mg/dL Calcium 8.6 L (8.8-10.8) mg/dL Total Bilirubin 0.4 (0.1-1.5) mg/dL AST 11 (5-40) IU/L ALT 10 (8-54) IU/L Alkaline Phosphatase 70 (40-150) Total Protein 7.2 (6.0-8.0) g/dL Albumin 3.3 L (3.5-5.0) g/dL Globulin 3.9 H (2.0-3.5) g/dL Albumin/Globulin Ratio 0.9 L (1.3-2.8) Blood Type Antibody Screen Crossmatch 07/13/16 Range/Units 07:37 WBC (4.0-11.0) K/uL RBC (4.30-5.90) M/uL Hgb (12.0-16.0) g/dL Hct (36.0-46.0) % MCV (80.0-98.0) fL MCH (27.0-32.0) pg MCHC (31.0-37.0) g/dL RDW Std Deviation (28.0-62.0) fl RDW Coeff of Morales (11.0-15.0) % Plt Count (150-400) K/uL MPV (7.40-12.00) fL Neut % (Auto) (48.0-80.0) % Lymph % (Auto) (16.0-40.0) % [place] % (Auto) (0.0-15.0) % Eos % (Auto) (0.0-7.0) % Baso % (Auto) (0.0-1.5) % Neut # (Auto) (1.4-5.7) K/uL Lymph # (Auto) (0.6-2.4) K/uL [place] # (Auto) (0.0-0.8) K/uL Eos # (Auto) (0.0-0.7) K/uL Baso # (Auto) (0.0-0.1) K/uL Nucleated RBC % /100WBC Nucleated RBCs # K/uL Sodium (136-146) mmol/L Potassium (3.5-5.1) mmol/L Chloride (98-110) mmol/L Carbon Dioxide (21-31) mmol/L BUN (6.0-23.0) mg/dL Creatinine (0.6-1.5) mg/dL Est Cr Clr Drug Dosing mL/min Estimated GFR (MDRD) ml/min Glucose (60-110) mg/dL POC Glucose 64 (60-110) mg/dL Calcium (8.8-10.8) mg/dL Total Bilirubin (0.1-1.5) mg/dL AST (5-40) IU/L ALT (8-54) IU/L Alkaline Phosphatase (40-150) Total Protein (6.0-8.0) g/dL Albumin (3.5-5.0) g/dL Globulin (2.0-3.5) g/dL Albumin/Globulin Ratio (1.3-2.8) Blood Type Antibody Screen Crossmatch Med Orders - Current: Current Medications Acetaminophen (Tylenol) 650 mg PO Q4H PRN PRN Reason: Pain (Mild 1-3)/fever Last Admin: 07/11/16 18:15 Dose: 650 mg Albuterol/Ipratropium (Duoneb 3.0-0.5 Mg/3 Ml) 3 ml NEB Q4HRRT [facility] Last Admin: 07/13/16 06:14 Dose: 3 ml Bupropion HCl (Wellbutrin Xl) 150 mg PO DAILY [facility] Last Admin: 07/13/16 08:01 Dose: 150 mg Citalopram Hydrobromide (Celexa) 20 mg PO DAILY [facility] Last Admin: 07/13/16 08:01 Dose: 20 mg Divalproex Sodium (Divalproex Sodium) 250 mg PO TIDMEALS [facility] Last Admin: 07/13/16 08:01 Dose: 250 mg Docusate Sodium (Colace) 100 mg PO BID [facility] Last Admin: 07/13/16 08:01 Dose: 100 mg Gabapentin (Neurontin) 600 mg PO TID [facility] Last Admin: 07/13/16 05:55 Dose: 600 mg Glimepiride (Amaryl) 1 mg PO WITHBREAKFAST [facility] Last Admin: 07/13/16 08:01 Dose: 1 mg Hydromorphone HCl (Dilaudid) 1 mg IVPUSH Q2H PRN PRN Reason: Pain (severe 7-10) Last Admin: 07/13/16 05:55 Dose: 1 mg Levofloxacin/Dextrose 750 mg/ (Premix) 150 mls @ 100 mls/hr IV Q48H [facility] Piperacillin Sod/Tazobactam (Sod 3.375 gm/ Sodium Chloride) 50 mls @ 100 mls/ hr IV Q6H [facility] Last Admin: 07/13/16 05:55 Dose: 100 mls/hr Vancomycin HCl 1,500 mg/ (Sodium Chloride) 500 mls @ 250 mls/hr IV Q12H [facility] Last Admin: 07/13/16 00:13 Dose: 250 mls/hr Insulin Aspart (Novolog) 0 - 8 unit SUBCUT TIDAC [facility] PRN Reason: Protocol Last Admin: 07/13/16 07:51 Dose: Not Given Levetiracetam (Keppra) 1,000 mg PO BID [facility] Last Admin: 07/13/16 08:01 Dose: 1,000 mg Ondansetron HCl (Zofran) 4 mg IVPUSH Q4H PRN PRN Reason: Nausea Oxycodone/Acetaminophen (Percocet 325-5 Mg) 1 tab PO Q4H PRN PRN Reason: Pain Last Admin: 07/12/16 17:13 Dose: 1 tab Pantoprazole Sodium (Protonix) 40 mg PO ACBREAKFAST [facility] Last Admin: 07/13/16 07:51 Dose: 40 mg Temazepam (Restoril) 15 mg PO BEDTIME PRN PRN Reason: Sleep Last Admin: 07/12/16 23:49 Dose: 15 mg Vancomycin HCl (Pharmacy To Dose - Vancomycin) 1 dose .XX ASDIRECTED [facility] Discontinued Medications Acetaminophen (Tylenol Extra Strength) 1,000 mg PO ONETIME ONE Stop: 07/11/16 12:43 Last Admin: 07/11/16 12:42 Dose: 1,000 mg Acetaminophen (Tylenol Extra Strength) Confirm Administered Dose 1,000 mg .ROUTE .STK-MED ONE Stop: 07/11/16 12:43 Last Admin: 07/11/16 15:21 Dose: Not Given Albuterol/Ipratropium (Duoneb 3.0-0.5 Mg/3 Ml) 3 ml NEB Q4HRRT PRN PRN Reason: Shortness of Breath Last Admin: 07/11/16 10:26 Dose: 3 ml Sodium Chloride (Normal Saline) 1,000 mls @ 999 mls/hr IV STAT ONE Stop: 07/11/16 10:27 Last Admin: 07/11/16 09:42 Dose: 999 mls/hr Levofloxacin/Dextrose 750 mg/ (Premix) 150 mls @ 100 mls/hr IV ONETIME ONE Stop: 07/11/16 10:57 Last Admin: 07/11/16 10:09 Dose: 100 mls/hr Piperacillin Sod/Tazobactam (Sod 4.5 gm/ Sodium Chloride) 100 mls @ 100 mls/hr IV ONETIME ONE Stop: 07/11/16 10:26 Last Admin: 07/11/16 11:20 Dose: 100 mls/hr Vancomycin HCl 1 gm/ Sodium (Chloride) 250 mls @ 250 mls/hr IV ONETIME ONE Stop: 07/11/16 10:27 Last Admin: 07/11/16 10:20 Dose: 250 mls/hr Sodium Chloride (Normal Saline) 1,000 mls @ 999 mls/hr IV STAT ONE Stop: 07/11/16 11:46 Last Admin: 07/11/16 10:50 Dose: 999 mls/hr Vancomycin HCl 1,500 mg/ (Sodium Chloride) 500 mls @ 250 mls/hr IV Q12H QUINN Vancomycin HCl 1,500 mg/ (Sodium Chloride) 500 mls @ 250 mls/hr IV Q12H QUINN Last Admin: 07/12/16 12:19 Dose: Not Given Methylprednisolone Sodium Succinate (Solu-Medrol) 125 mg IVPUSH ONETIME ONE Stop: 07/11/16 09:25 Last Admin: 07/11/16 10:27 Dose: 125 mg Temazepam (Restoril) 15 mg PO BEDTIME PRN PRN Reason: Insomnia - Problem List Review Problem List Initiated/Reviewed/Updated: Yes - My Orders Last 24 Hours: My Active Orders 07/12/16 12:16 PT Evaluation and Treatment [CONS] Routine 07/13/16 08:13 Consult to Ski Technician [CONS] Routine - Assessment Assessment:: Discussed implication of bone scan with patient. Low likelyhood of resolution without further surgery. Amputation was even discussed at time of last intervention. I believe her best option is transfer to Dr Mark in [place] when her functional status improves hemoglobin still marginal at 8.1 has been tranfused, re-check h&h pending will get CT L foot and ankle r/o osteo mobilize with PT consult - Plan Plan:: Admit to intensive care unit. See orders Carlyn Davis Give further transfusion Will continue triple antibiotics , PT to get her in better shape for whatever is in the cards
[2016-07-13] MEDS: Levofloxacin/Dextrose 5%-Water 750 MG in Premix Bag 1 BAG IV SCH (12:27)
[2016-07-13] MEDS: Temazepam 15 MG Cap PO PRN (21:23)
[2016-07-13] MEDS: Acetaminophen 325 MG Tab PO PRN (23:43)
[2016-07-14] MEDS: Albuterol/Ipratropium 3.0-0.5 MG/3 ML Neb Soln NEB SCH ×6 (02:03→21:28)
[2016-07-14] MEDS: HYDROmorphone 1 MG/ML Syringe IVPUSH PRN ×5 (03:49→19:39)
[2016-07-14] MEDS: Acetaminophen 325 MG Tab PO PRN (05:32)
[2016-07-14] MEDS: Piperacillin/Tazobactam 3.375 GM in Sodium Chloride 0.9% 50 ML IV SCH ×3 (05:53→17:00)
[2016-07-14] MEDS: Gabapentin 300 MG Cap PO SCH ×3 (06:25→21:35)
[2016-07-14] MEDS: Pantoprazole 40 MG Tab.CR PO SCH (06:33)
[2016-07-14] MEDS: Insulin Aspart 100 Units/ML 3 ML Pen SUBCUT SCH ×3 (07:25→16:33)
[2016-07-14] MEDS: Glimepiride 2 MG Tab PO SCH (07:39)
[2016-07-14] MEDS: Divalproex Sodium Delayed-Release 250 MG Tab.CR PO SCH ×3 (07:55→16:34)
[2016-07-14] MEDS: Citalopram 20 MG Tab PO SCH (08:01)
[2016-07-14] MEDS: Docusate Sodium 100 MG Cap PO SCH ×2 (08:01→20:34)
[2016-07-14] MEDS: buPROPion 150 MG Tab.ER PO SCH (08:01)
[2016-07-14] MEDS: levETIRAcetam 500 MG Tab PO SCH ×2 (08:01→20:34)
--- NOTE | 2016-07-14 13:28 | PCM.PN ---
- General Info Date of Service: 07/14/16 Functional Status: Reports: tolerating diet ( brought something in) - Review of Systems General: Reports: No Symptoms HEENT: Reports: no symptoms Pulmonary: Reports: shortness of breath (says humidity makes it worse) Cardiovascular: Reports: No Symptoms Gastrointestinal: Reports: No symptoms Genitourinary: Reports: no symptoms (has del castillo) Musculoskeletal: Reports: foot pain (on and off) Skin: Reports: no symptoms Neurological: Reports: No Symptoms Psychiatric: Reports: no symptoms - Patient Data Vitals - most recent: Last Vital Signs Temp 36.2 C 07/14/16 12:00 Pulse 73 07/14/16 12:00 Resp 15 07/14/16 12:00 BP 155/61 H 07/14/16 12:00 Pulse Ox 99 07/14/16 12:00 Weight - most recent: 154.1 kg I&O - last 24 hours: Intake & Output 07/13/16 07/14/16 07/14/16 22:59 06:59 14:59 Intake Total 1730 1600 Output Total 0046 2600 Balance -245 -1000 Lab Results last 24 hrs: Laboratory Results - last 24 hr 07/12/16 07/13/16 07/14/16 Range/Units 06:30 17:12 06:35 WBC (4.0-11.0) K/uL RBC (4.30-5.90) M/uL Hgb (12.0-16.0) g/dL Hct (36.0-46.0) % MCV (80.0-98.0) fL MCH (27.0-32.0) pg MCHC (31.0-37.0) g/dL RDW Std Deviation (28.0-62.0) fl RDW Coeff of Morales (11.0-15.0) % Plt Count (150-400) K/uL MPV (7.40-12.00) fL Neut % (Auto) (48.0-80.0) % Lymph % (Auto) (16.0-40.0) % Harmon % (Auto) (0.0-15.0) % Eos % (Auto) (0.0-7.0) % Baso % (Auto) (0.0-1.5) % Neut # (Auto) (1.4-5.7) K/uL Lymph # (Auto) (0.6-2.4) K/uL Harmon # (Auto) (0.0-0.8) K/uL Eos # (Auto) (0.0-0.7) K/uL Baso # (Auto) (0.0-0.1) K/uL Nucleated RBC % /100WBC Nucleated RBCs # K/uL Sodium (136-146) mmol/L Potassium (3.5-5.1) mmol/L Chloride (98-110) mmol/L Carbon Dioxide (21-31) mmol/L BUN (6.0-23.0) mg/dL Creatinine (0.6-1.5) mg/dL Est Cr Clr Drug Dosing mL/min Estimated GFR (MDRD) ml/min Glucose (60-110) mg/dL POC Glucose 140 H 91 (60-110) mg/dL Calcium (8.8-10.8) mg/dL Vancomycin Trough (5-15) ug/mL Blood Type O POSITIVE Antibody Screen NEGATIVE Crossmatch See Detail 07/14/16 07/14/16 07/14/16 Range/Units 07:24 07:24 07:24 WBC 6.67 (4.0-11.0) K/uL RBC 3.19 L (4.30-5.90) M/uL Hgb 8.9 L (12.0-16.0) g/dL Hct 29.7 L (36.0-46.0) % MCV 93.1 (80.0-98.0) fL MCH 27.9 (27.0-32.0) pg MCHC 30.0 L (31.0-37.0) g/dL RDW Std Deviation 55.2 (28.0-62.0) fl RDW Coeff of Morales 16 H (11.0-15.0) % Plt Count 164 (150-400) K/uL MPV 8.80 (7.40-12.00) fL Neut % (Auto) 58.9 (48.0-80.0) % Lymph % (Auto) 26.2 (16.0-40.0) % Harmon % (Auto) 10.0 (0.0-15.0) % Eos % (Auto) 4.5 (0.0-7.0) % Baso % (Auto) 0.4 (0.0-1.5) % Neut # (Auto) 3.9 (1.4-5.7) K/uL Lymph # (Auto) 1.8 (0.6-2.4) K/uL Harmon # (Auto) 0.7 (0.0-0.8) K/uL Eos # (Auto) 0.3 (0.0-0.7) K/uL Baso # (Auto) 0.0 (0.0-0.1) K/uL Nucleated RBC % 0.8 /100WBC Nucleated RBCs # 0 K/uL Sodium 142 (136-146) mmol/L Potassium 4.8 (3.5-5.1) mmol/L Chloride 102 (98-110) mmol/L Carbon Dioxide 34 H (21-31) mmol/L BUN 18 (6.0-23.0) mg/dL Creatinine 1.1 (0.6-1.5) mg/dL Est Cr Clr Drug Dosing 56.46 mL/min Estimated GFR (MDRD) 51.0 ml/min Glucose 80 (60-110) mg/dL POC Glucose (60-110) mg/dL Calcium 8.9 (8.8-10.8) mg/dL Vancomycin Trough 21.0 H (5-15) ug/mL Blood Type Antibody Screen Crossmatch 07/14/16 Range/Units 12:02 WBC (4.0-11.0) K/uL RBC (4.30-5.90) M/uL Hgb (12.0-16.0) g/dL Hct (36.0-46.0) % MCV (80.0-98.0) fL MCH (27.0-32.0) pg MCHC (31.0-37.0) g/dL RDW Std Deviation (28.0-62.0) fl RDW Coeff of Morales (11.0-15.0) % Plt Count (150-400) K/uL MPV (7.40-12.00) fL Neut % (Auto) (48.0-80.0) % Lymph % (Auto) (16.0-40.0) % Harmon % (Auto) (0.0-15.0) % Eos % (Auto) (0.0-7.0) % Baso % (Auto) (0.0-1.5) % Neut # (Auto) (1.4-5.7) K/uL Lymph # (Auto) (0.6-2.4) K/uL Harmon # (Auto) (0.0-0.8) K/uL Eos # (Auto) (0.0-0.7) K/uL Baso # (Auto) (0.0-0.1) K/uL Nucleated RBC % /100WBC Nucleated RBCs # K/uL Sodium (136-146) mmol/L Potassium (3.5-5.1) mmol/L Chloride (98-110) mmol/L Carbon Dioxide (21-31) mmol/L BUN (6.0-23.0) mg/dL Creatinine (0.6-1.5) mg/dL Est Cr Clr Drug Dosing mL/min Estimated GFR (MDRD) ml/min Glucose (60-110) mg/dL POC Glucose 99 (60-110) mg/dL Calcium (8.8-10.8) mg/dL Vancomycin Trough (5-15) ug/mL Blood Type Antibody Screen Crossmatch Med Orders - Current: Current Medications Acetaminophen (Tylenol) 650 mg PO Q4H PRN PRN Reason: Pain (Mild 1-3)/fever Last Admin: 07/14/16 05:32 Dose: 650 mg Albuterol/Ipratropium (Duoneb 3.0-0.5 Mg/3 Ml) 3 ml NEB Q4HRRT [facility] Last Admin: 07/14/16 10:20 Dose: 3 ml Bupropion HCl (Wellbutrin Xl) 150 mg PO DAILY [facility] Last Admin: 07/14/16 08:01 Dose: 150 mg Citalopram Hydrobromide (Celexa) 20 mg PO DAILY [facility] Last Admin: 07/14/16 08:01 Dose: 20 mg Divalproex Sodium (Divalproex Sodium) 250 mg PO TIDMEALS [facility] Last Admin: 07/14/16 12:50 Dose: 250 mg Docusate Sodium (Colace) 100 mg PO BID [facility] Last Admin: 07/14/16 08:01 Dose: 100 mg Gabapentin (Neurontin) 600 mg PO TID [facility] Last Admin: 07/14/16 13:08 Dose: 600 mg Glimepiride (Amaryl) 1 mg PO WITHBREAKFAST [facility] Last Admin: 07/14/16 07:39 Dose: 1 mg Hydromorphone HCl (Dilaudid) 1 mg IVPUSH Q2H PRN PRN Reason: Pain (severe 7-10) Last Admin: 07/14/16 11:59 Dose: 1 mg Levofloxacin/Dextrose 750 mg/ (Premix) 150 mls @ 100 mls/hr IV Q48H [facility] Last Admin: 07/13/16 12:27 Dose: 100 mls/hr Piperacillin Sod/Tazobactam (Sod 3.375 gm/ Sodium Chloride) 50 mls @ 100 mls/ hr IV Q6H [facility] Last Admin: 07/14/16 11:52 Dose: 100 mls/hr Vancomycin HCl 1,500 mg/ (Sodium Chloride) 500 mls @ 250 mls/hr IV Q16H [facility] Last Admin: 07/14/16 08:11 Dose: 250 mls/hr Insulin Aspart (Novolog) 0 - 8 unit SUBCUT TIDAC [facility] PRN Reason: Protocol Last Admin: 07/14/16 12:03 Dose: Not Given Levetiracetam (Keppra) 1,000 mg PO BID [facility] Last Admin: 07/14/16 08:01 Dose: 1,000 mg Ondansetron HCl (Zofran) 4 mg IVPUSH Q4H PRN PRN Reason: Nausea Oxycodone/Acetaminophen (Percocet 325-5 Mg) 1 tab PO Q4H PRN PRN Reason: Pain Last Admin: 07/12/16 17:13 Dose: 1 tab Pantoprazole Sodium (Protonix) 40 mg PO ACBREAKFAST [facility] Last Admin: 07/14/16 06:33 Dose: 40 mg Temazepam (Restoril) 15 mg PO BEDTIME PRN PRN Reason: Sleep Last Admin: 07/13/16 21:23 Dose: 15 mg Vancomycin HCl (Pharmacy To Dose - Vancomycin) 1 dose .XX ASDIRECTED [facility] Discontinued Medications Acetaminophen (Tylenol Extra Strength) 1,000 mg PO ONETIME ONE Stop: 07/11/16 12:43 Last Admin: 07/11/16 12:42 Dose: 1,000 mg Acetaminophen (Tylenol Extra Strength) Confirm Administered Dose 1,000 mg .ROUTE .STK-MED ONE Stop: 07/11/16 12:43 Last Admin: 07/11/16 15:21 Dose: Not Given Albuterol/Ipratropium (Duoneb 3.0-0.5 Mg/3 Ml) 3 ml NEB Q4HRRT PRN PRN Reason: Shortness of Breath Last Admin: 07/11/16 10:26 Dose: 3 ml Sodium Chloride (Normal Saline) 1,000 mls @ 999 mls/hr IV STAT ONE Stop: 07/11/16 10:27 Last Admin: 07/11/16 09:42 Dose: 999 mls/hr Levofloxacin/Dextrose 750 mg/ (Premix) 150 mls @ 100 mls/hr IV ONETIME ONE Stop: 07/11/16 10:57 Last Admin: 07/11/16 10:09 Dose: 100 mls/hr Piperacillin Sod/Tazobactam (Sod 4.5 gm/ Sodium Chloride) 100 mls @ 100 mls/hr IV ONETIME ONE Stop: 07/11/16 10:26 Last Admin: 07/11/16 11:20 Dose: 100 mls/hr Vancomycin HCl 1 gm/ Sodium (Chloride) 250 mls @ 250 mls/hr IV ONETIME ONE Stop: 07/11/16 10:27 Last Admin: 07/11/16 10:20 Dose: 250 mls/hr Sodium Chloride (Normal Saline) 1,000 mls @ 999 mls/hr IV STAT ONE Stop: 07/11/16 11:46 Last Admin: 07/11/16 10:50 Dose: 999 mls/hr Vancomycin HCl 1,500 mg/ (Sodium Chloride) 500 mls @ 250 mls/hr IV Q12H [facility] Vancomycin HCl 1,500 mg/ (Sodium Chloride) 500 mls @ 250 mls/hr IV Q12H [facility] Last Admin: 07/12/16 12:19 Dose: Not Given Vancomycin HCl 1,500 mg/ (Sodium Chloride) 500 mls @ 250 mls/hr IV Q12H [facility] Last Admin: 07/13/16 12:07 Dose: Not Given Methylprednisolone Sodium Succinate (Solu-Medrol) 125 mg IVPUSH ONETIME ONE Stop: 07/11/16 09:25 Last Admin: 07/11/16 10:27 Dose: 125 mg Temazepam (Restoril) 15 mg PO BEDTIME PRN PRN Reason: Insomnia - Exam Quality Assessment: supplemental oxygen General: alert, no acute distress HEENT: Pupils equal Neck: trachea midline Lungs: Decreased breath sounds Cardiovascular: Regular Rate Abdomen: bowel sounds present, soft (Female) Exam: Deferred Back Exam: normal inspection Skin: warm Wound/Incisions: other (no drainage medialshin, small dry ulcer l heel w/o sign of infection) Neurological: no new focal deficit Psy/Mental Status: normal mood (much improved, jocular at times) - Problem List Review Problem List Initiated/Reviewed/Updated: Yes - My Orders Last 24 Hours: My Active Orders 07/14/16 13:03 Consult to Physician [CONS] Routine 07/14/16 13:04 Notify Provider Consults [RC] ASDIRECTED - Assessment Assessment:: Discussed implication of bone scan with patient. Low likelyhood of resolution without further surgery. Amputation was even discussed at time of last intervention. I believe her best option is transfer to Dr Mark in [place] when her functional status improves hemoglobin still marginal at 8.1 has been tranfused, re-check h&h pending will get CT L foot and ankle r/o osteo mobilize with PT consult diuresing. hemoglobin up to 8.9 w 2nd unit will continue same consult orthopedics for guidance on further course - Plan Plan:: Admit to intensive care unit. See orders Carlyn Davis Give further transfusion Will continue triple antibiotics , PT to get her in better shape for whatever is in the cards
[2016-07-15] MEDS: Piperacillin/Tazobactam 3.375 GM in Sodium Chloride 0.9% 50 ML IV SCH ×5 (00:26→23:31)
[2016-07-15] MEDS: HYDROmorphone 1 MG/ML Syringe IVPUSH PRN ×6 (01:38→23:23)
[2016-07-15] MEDS: Albuterol/Ipratropium 3.0-0.5 MG/3 ML Neb Soln NEB SCH ×6 (02:25→21:15)
[2016-07-15] MEDS: Gabapentin 300 MG Cap PO SCH ×3 (05:59→21:45)
--- NOTE | 2016-07-15 06:18 | CONS ---
DATE OF CONSULTATION: 07/14/2016 DATE OF : 1955 PRIMARY CARE PHYSICIAN: Lex Mcclelland M.D. HISTORY OF PRESENT ILLNESS: The patient is a 60-year-old female with multiple medical comorbidities, who is admitted to the hospital for the past few days, being treated for pneumonia. I was consulted today regarding evaluation of her left ankle. The patient has a very complex history with respect to her bilateral ankles. She has been treated by a foot and ankle specialist in [place]. She has had multiple surgeries on each ankle. Most recently, she had a left ankle hindfoot fusion procedure performed approximately 3 months ago. This also involved placement of a fusion stimulator device. She recently was seen by her treating orthopedic surgeon who cleared her to begin some basic physical therapy exercises. She has been attempting to perform some of these over the past couple weeks. This has resulted in some pain involving her left ankle. She has also had some slightly increased swelling over that time. There is some question as to whether there has been drainage from the ankle at any point recently. According to the patient's and the patient, there has been no drainage from either any of the incisions sites. There are incisions involving the medial ankle, lateral ankle, and a stab incision inferiorly. None have healed completely and have shown some scabbing but there has been no drainage according to the . Apparently, there may have been some drainage from the medial incision evident around the time of her admission, although this is unclear. According to the patient's , they have previously discussed the possible need for amputation of one or both of these ankles in the past. However, at the last visit, this was not discussed and the patient was told by her surgeon that things looked okay and that she could progress with some basic therapy as described previously. At baseline, the patient essentially transfers from bed to wheelchair only. She is not able to ambulate even with a walker. She has severe diabetes and obviously has a component of Charcot arthropathy. The original injuries to both ankles were fractures. On the right side, the fracture was open; on the left side, it was a closed injury. Both injuries occurred around the same time and with minimal trauma/weightbearing. PAST MEDICAL HISTORY: Heart failure, hypertension, COPD, pulmonary fibrosis, diabetes, fibromyalgia, diabetic neuropathy, anxiety, depression, obesity, anemia, renal cancer. PAST SURGICAL HISTORY: Multiple ankle surgeries as described above. She has also had a nephrectomy and lung biopsy procedures. SOCIAL HISTORY: She is a former smoker of 30 pack years. She quit about one year ago. She denies recreational drug use. She is accompanied in the hospital room by her . REVIEW OF SYSTEMS: Notable for the pulmonary issues leading to her admission as well as a recent history of abdominal pain and vomiting. PHYSICAL EXAMINATION: GENERAL: Reveals a woman in no apparent distress. She is somewhat drowsy during the examination and history and much of the history noted above was obtained by her . VITAL SIGNS: She has been afebrile. Current pulse is 73, blood pressure 155/61, respiratory rate 15, saturating 99% on oxygen by nasal cannula. EXTREMITIES: Evaluation of her left lower extremity shows mild to moderate swelling in the region of the foot and ankle. There is no redness. There is no warmth. There is no drainage from any of the incision site at this time. There is a small area of scabbing involving the central portion of the medial incision as well as the lateral incision. I am not able to express any drainage from this site. There is also a small area of scab plantarly in the region of the calcaneus. Again, I am not to express any drainage. There is no surrounding redness of either of any of these locations. She has a relatively dense neuropathy with minimal sensation to light touch involving either foot. She does have brisk capillary refill to the toes. She has mild tenderness with palpation of the calf bilaterally. RESULTS REVIEWED: Laboratory results were reviewed. Her hemoglobin is low at 8.9, hematocrit 29.7, white blood cell count is 6.67, platelets 164, 58% neutrophils. Chemistries were reviewed as well. Plain films of her bilateral ankles dated 11 July 2016 were reviewed. These show evidence of hindfoot fusion performed bilaterally. On the right side, it appears there is clear fusion of the subtalar joint. There may be fusion of the tibiotalar joint as well, although there is a bit more lucency at this location. No obvious or gross loosening of the hardware evident. The inferiorly directed posterior screw does potentially sit slightly prominent in the posterior soft tissues. Plain films of the left ankle were reviewed as well. These also show evidence of the hindfoot fusion procedure. There is a screw directed superiorly through the posterior aspect of the calcaneus. There is some lucency around the screw which could indicate loosening or possible osteomyelitis. There is diffuse and profound osteopenia. There may be some slight bony lucency involving the medial aspect of the distal tibia, although this is difficult to interpret in the setting of the diffuse osteopenic changes. There is fusion stimulation hardware in place in this extremity as well. This is true for the right ankle as well. A three phase bone scan was reviewed as well. I have access to the radiologist's interpretation. This was a three phase bone scan performed with technetium. The radiologist felt that there was asymmetrically increased blood flow, blood pool, and delayed uptake within the distal tibia, hindfoot, and midfoot of the left lower extremity suggestive of osteomyelitis. The results also need to be interpreted in the setting of an extensive surgery to this extremity 3 months ago. The areas of increased uptake do not directly correspond to lucency in the calcaneus previously described above. ASSESSMENT: Complex history of bilateral hindfoot fusion procedures in a patient with poorly- controlled diabetes and multiple comorbidities. Her most recent surgery was performed 3 months ago on the left side. There is a possible history of a draining sinus involving this extremity and bone scan findings concerning for possible osteomyelitis. On my evaluation today, I see no obvious signs of acute infection affecting her left lower extremity. There is no drainage currently. There is no warmth or significant redness. She seems to be responding well to antibiotic treatment for her pneumonia. The patient is under care for her bilateral lower extremities from a foot and ankle specialist in [place]. I think that followup with this specialist is appropriate. They have apparently discussed the possible need for amputation in the future depending on how she progresses postoperatively. There is no urgent or emergent need for consideration of amputation at this time. The possible osteomyelitis in the left lower extremity is a chronic issue and unrelated to her current acute hospital admission for pneumonia. I recommend follow up with her foot and ankle specialist in [place] for determination of whether further surgical intervention to include possible amputation will be required. This can be done on an outpatient basis if feasible from a travel perspective. As noted above, the patient did have some mild tenderness involving her calf and does have a slightly increased swelling of the left lower extremity as compared to the right. There are several reasons why this swelling could be somewhat asymmetric and including more recent surgery, possible osteomyelitis, and increased attempts at mobilization recently. I did talk with the primary provider Dr. Cardenas about potentially considering a Doppler as she is at increased risk for DVT. He will consider this and order the study if he feels it is appropriate. Thank you for this consultation. ALFONSO BURNETT /[id number]
[2016-07-15] MEDS: Pantoprazole 40 MG Tab.CR PO SCH (06:33)
[2016-07-15] MEDS: Insulin Aspart 100 Units/ML 3 ML Pen SUBCUT SCH ×3 (06:40→17:37)
[2016-07-15] MEDS: Divalproex Sodium Delayed-Release 250 MG Tab.CR PO SCH ×3 (08:19→17:37)
[2016-07-15] MEDS: buPROPion 150 MG Tab.ER PO SCH (08:20)
[2016-07-15] MEDS: Docusate Sodium 100 MG Cap PO SCH ×2 (08:20→21:45)
[2016-07-15] MEDS: levETIRAcetam 500 MG Tab PO SCH ×2 (08:20→21:45)
[2016-07-15] MEDS: Glimepiride 2 MG Tab PO SCH (08:20)
[2016-07-15] MEDS: Citalopram 20 MG Tab PO SCH (08:21)
[2016-07-15] MEDS: Acetaminophen/oxyCODONE 325-5 MG Tab PO PRN (10:43)
[2016-07-15] MEDS: Levofloxacin/Dextrose 5%-Water 750 MG in Premix Bag 1 BAG IV SCH (12:52)
--- NOTE | 2016-07-15 14:57 | PCM.PN ---
- General Info Date of Service: 07/15/16 Admission Dx/Problem (Free Text): says not feeling well yet wants to go home. Breathing hard "humidity" Functional Status: Reports: pain controlled - Review of Systems General: Reports: No Symptoms HEENT: Reports: no symptoms Pulmonary: Reports: shortness of breath Cardiovascular: Reports: No Symptoms Gastrointestinal: Reports: No symptoms Genitourinary: Reports: no symptoms Musculoskeletal: Reports: no symptoms Skin: Reports: no symptoms, dryness Psychiatric: Reports: no symptoms - Patient Data Vitals - most recent: Last Vital Signs Temp 36.3 C 07/15/16 11:00 Pulse 72 07/15/16 11:00 Resp 18 07/15/16 11:00 BP 116/54 L 07/15/16 11:00 Pulse Ox 90 L 07/15/16 11:00 Weight - most recent: 157 kg I&O - last 24 hours: Intake & Output 07/14/16 07/15/16 07/15/16 22:59 06:59 14:59 Intake Total 1550 400 Output Total 2875 2500 Balance -1325 -2100 Lab Results last 24 hrs: Laboratory Results - last 24 hr 07/14/16 07/15/16 07/15/16 Range/Units 16:33 05:13 05:13 WBC 7.08 (4.0-11.0) K/uL RBC 3.27 L (4.30-5.90) M/uL Hgb 9.1 L (12.0-16.0) g/dL Hct 30.2 L (36.0-46.0) % MCV 92.4 (80.0-98.0) fL MCH 27.8 (27.0-32.0) pg MCHC 30.1 L (31.0-37.0) g/dL RDW Std Deviation 54.0 (28.0-62.0) fl RDW Coeff of Morales 16 H (11.0-15.0) % Plt Count 154 (150-400) K/uL MPV 8.70 (7.40-12.00) fL Neut % (Auto) 62.4 (48.0-80.0) % Lymph % (Auto) 22.9 (16.0-40.0) % [place] % (Auto) 9.6 (0.0-15.0) % Eos % (Auto) 4.5 (0.0-7.0) % Baso % (Auto) 0.6 (0.0-1.5) % Neut # (Auto) 4.4 (1.4-5.7) K/uL Lymph # (Auto) 1.6 (0.6-2.4) K/uL [place] # (Auto) 0.7 (0.0-0.8) K/uL Eos # (Auto) 0.3 (0.0-0.7) K/uL Baso # (Auto) 0.0 (0.0-0.1) K/uL Nucleated RBC % 0.5 /100WBC Nucleated RBCs # 0 K/uL Sodium 142 (136-146) mmol/L Potassium 4.8 (3.5-5.1) mmol/L Chloride 102 (98-110) mmol/L Carbon Dioxide 34 H (21-31) mmol/L BUN 16 (6.0-23.0) mg/dL Creatinine 1.0 (0.6-1.5) mg/dL Est Cr Clr Drug Dosing 62.10 mL/min Estimated GFR (MDRD) 56.9 ml/min Glucose 100 (60-110) mg/dL POC Glucose 91 (60-110) mg/dL Calcium 8.9 (8.8-10.8) mg/dL 07/15/16 07/15/16 Range/Units 06:35 11:32 WBC (4.0-11.0) K/uL RBC (4.30-5.90) M/uL Hgb (12.0-16.0) g/dL Hct (36.0-46.0) % MCV (80.0-98.0) fL MCH (27.0-32.0) pg MCHC (31.0-37.0) g/dL RDW Std Deviation (28.0-62.0) fl RDW Coeff of Morales (11.0-15.0) % Plt Count (150-400) K/uL MPV (7.40-12.00) fL Neut % (Auto) (48.0-80.0) % Lymph % (Auto) (16.0-40.0) % [place] % (Auto) (0.0-15.0) % Eos % (Auto) (0.0-7.0) % Baso % (Auto) (0.0-1.5) % Neut # (Auto) (1.4-5.7) K/uL Lymph # (Auto) (0.6-2.4) K/uL [place] # (Auto) (0.0-0.8) K/uL Eos # (Auto) (0.0-0.7) K/uL Baso # (Auto) (0.0-0.1) K/uL Nucleated RBC % /100WBC Nucleated RBCs # K/uL Sodium (136-146) mmol/L Potassium (3.5-5.1) mmol/L Chloride (98-110) mmol/L Carbon Dioxide (21-31) mmol/L BUN (6.0-23.0) mg/dL Creatinine (0.6-1.5) mg/dL Est Cr Clr Drug Dosing mL/min Estimated GFR (MDRD) ml/min Glucose (60-110) mg/dL POC Glucose 160 H 71 (60-110) mg/dL Calcium (8.8-10.8) mg/dL Med Orders - Current: Current Medications Acetaminophen (Tylenol) 650 mg PO Q4H PRN PRN Reason: Pain (Mild 1-3)/fever Last Admin: 07/14/16 05:32 Dose: 650 mg Albuterol/Ipratropium (Duoneb 3.0-0.5 Mg/3 Ml) 3 ml NEB Q4HRRT [facility] Last Admin: 07/15/16 13:50 Dose: 3 ml Bupropion HCl (Wellbutrin Xl) 150 mg PO DAILY [facility] Last Admin: 07/15/16 08:20 Dose: 150 mg Citalopram Hydrobromide (Celexa) 20 mg PO DAILY [facility] Last Admin: 07/15/16 08:21 Dose: 20 mg Divalproex Sodium (Divalproex Sodium) 250 mg PO TIDMEALS [facility] Last Admin: 07/15/16 12:20 Dose: 250 mg Docusate Sodium (Colace) 100 mg PO BID [facility] Last Admin: 07/15/16 08:20 Dose: 100 mg Gabapentin (Neurontin) 600 mg PO TID [facility] Last Admin: 07/15/16 13:40 Dose: 600 mg Glimepiride (Amaryl) 1 mg PO WITHBREAKFAST [facility] Last Admin: 07/15/16 08:20 Dose: 1 mg Hydromorphone HCl (Dilaudid) 1 mg IVPUSH Q2H PRN PRN Reason: Pain (severe 7-10) Last Admin: 07/15/16 14:09 Dose: 1 mg Levofloxacin/Dextrose 750 mg/ (Premix) 150 mls @ 100 mls/hr IV Q48H [facility] Last Admin: 07/15/16 12:52 Dose: 100 mls/hr Piperacillin Sod/Tazobactam (Sod 3.375 gm/ Sodium Chloride) 50 mls @ 100 mls/ hr IV Q6H [facility] Last Admin: 07/15/16 11:54 Dose: 100 mls/hr Vancomycin HCl 1,500 mg/ (Sodium Chloride) 500 mls @ 250 mls/hr IV Q16H [facility] Last Admin: 07/15/16 01:02 Dose: 250 mls/hr Insulin Aspart (Novolog) 0 - 8 unit SUBCUT TIDAC [facility] PRN Reason: Protocol Last Admin: 07/15/16 11:37 Dose: Not Given Levetiracetam (Keppra) 1,000 mg PO BID [facility] Last Admin: 07/15/16 08:20 Dose: 1,000 mg Ondansetron HCl (Zofran) 4 mg IVPUSH Q4H PRN PRN Reason: Nausea Last Admin: 07/15/16 10:03 Dose: 4 mg Oxycodone/Acetaminophen (Percocet 325-5 Mg) 1 tab PO Q4H PRN PRN Reason: Pain Last Admin: 07/15/16 10:43 Dose: 1 tab Pantoprazole Sodium (Protonix) 40 mg PO ACBREAKFAST [facility] Last Admin: 07/15/16 06:33 Dose: 40 mg Temazepam (Restoril) 15 mg PO BEDTIME PRN PRN Reason: Sleep Last Admin: 07/13/16 21:23 Dose: 15 mg Vancomycin HCl (Pharmacy To Dose - Vancomycin) 1 dose .XX ASDIRECTED [facility] Discontinued Medications Acetaminophen (Tylenol Extra Strength) 1,000 mg PO ONETIME ONE Stop: 07/11/16 12:43 Last Admin: 07/11/16 12:42 Dose: 1,000 mg Acetaminophen (Tylenol Extra Strength) Confirm Administered Dose 1,000 mg .ROUTE .STK-MED ONE Stop: 07/11/16 12:43 Last Admin: 07/11/16 15:21 Dose: Not Given Albuterol/Ipratropium (Duoneb 3.0-0.5 Mg/3 Ml) 3 ml NEB Q4HRRT PRN PRN Reason: Shortness of Breath Last Admin: 07/11/16 10:26 Dose: 3 ml Sodium Chloride (Normal Saline) 1,000 mls @ 999 mls/hr IV STAT ONE Stop: 07/11/16 10:27 Last Admin: 07/11/16 09:42 Dose: 999 mls/hr Levofloxacin/Dextrose 750 mg/ (Premix) 150 mls @ 100 mls/hr IV ONETIME ONE Stop: 07/11/16 10:57 Last Admin: 07/11/16 10:09 Dose: 100 mls/hr Piperacillin Sod/Tazobactam (Sod 4.5 gm/ Sodium Chloride) 100 mls @ 100 mls/hr IV ONETIME ONE Stop: 07/11/16 10:26 Last Admin: 07/11/16 11:20 Dose: 100 mls/hr Vancomycin HCl 1 gm/ Sodium (Chloride) 250 mls @ 250 mls/hr IV ONETIME ONE Stop: 07/11/16 10:27 Last Admin: 07/11/16 10:20 Dose: 250 mls/hr Sodium Chloride (Normal Saline) 1,000 mls @ 999 mls/hr IV STAT ONE Stop: 07/11/16 11:46 Last Admin: 07/11/16 10:50 Dose: 999 mls/hr Vancomycin HCl 1,500 mg/ (Sodium Chloride) 500 mls @ 250 mls/hr IV Q12H [facility] Vancomycin HCl 1,500 mg/ (Sodium Chloride) 500 mls @ 250 mls/hr IV Q12H [facility] Last Admin: 07/12/16 12:19 Dose: Not Given Vancomycin HCl 1,500 mg/ (Sodium Chloride) 500 mls @ 250 mls/hr IV Q12H [facility] Last Admin: 07/13/16 12:07 Dose: Not Given Methylprednisolone Sodium Succinate (Solu-Medrol) 125 mg IVPUSH ONETIME ONE Stop: 07/11/16 09:25 Last Admin: 07/11/16 10:27 Dose: 125 mg Temazepam (Restoril) 15 mg PO BEDTIME PRN PRN Reason: Insomnia Comments:: still diuresing well Hgb today 9.1 - Exam Quality Assessment: supplemental oxygen General: alert, oriented HEENT: Pupils equal Neck: trachea midline Lungs: Decreased breath sounds Cardiovascular: Regular Rate Abdomen: soft (Female) Exam: Deferred Back Exam: full range of motion (not checked pt in bed) Extremities: no edema Skin: warm Wound/Incisions: no drainage Neurological: no new focal deficit Psy/Mental Status: alert, depressed - Problem List Review Problem List Initiated/Reviewed/Updated: Yes - Assessment Assessment:: Discussed implication of bone scan with patient. Low likelyhood of resolution without further surgery. Amputation was even discussed at time of last intervention. I believe her best option is transfer to Dr Mark in [place] when her functional status improves hemoglobin still marginal at 8.1 has been tranfused, re-check h&h pending will get CT L foot and ankle r/o osteo mobilize with PT consult diuresing. hemoglobin up to 8.9 w 2nd unit will continue same consult orthopedics for guidance on further course remains very deconditioned. Pt maintains she can transfer on own but that is doubtful - Plan Plan:: Admit to intensive care unit. See orders Carlyn Davis Give further transfusion Will continue triple antibiotics , PT to get her in better shape for whatever is in the cards continue present regimen including antibiotics. Pt continues to work in strengthening and evaluating her capacity for transfer bed to [facility] and back
--- NOTE | 2016-07-15 15:52 | ECHO ---
The echocardiogram report can be seen in this patient's EMR (Electronic Medical Record) in the Reports section. DOE
[2016-07-16] MEDS: Albuterol/Ipratropium 3.0-0.5 MG/3 ML Neb Soln NEB SCH ×6 (01:14→21:08)
[2016-07-16] MEDS: HYDROmorphone 1 MG/ML Syringe IVPUSH PRN ×6 (01:29→21:32)
[2016-07-16] MEDS: Temazepam 15 MG Cap PO PRN (01:36)
[2016-07-16] MEDS: Gabapentin 300 MG Cap PO SCH ×3 (05:32→21:41)
[2016-07-16] MEDS: Piperacillin/Tazobactam 3.375 GM in Sodium Chloride 0.9% 50 ML IV SCH (05:33)
[2016-07-16] MEDS: Insulin Aspart 100 Units/ML 3 ML Pen SUBCUT SCH ×3 (06:42→17:46)
[2016-07-16] MEDS: Pantoprazole 40 MG Tab.CR PO SCH (06:43)
[2016-07-16] MEDS: Glimepiride 2 MG Tab PO SCH (08:04)
[2016-07-16] MEDS: Divalproex Sodium Delayed-Release 250 MG Tab.CR PO SCH ×3 (08:06→18:09)
--- NOTE | 2016-07-16 09:19 | PCM.PN ---
- General Info Date of Service: 07/16/16 Functional Status: Reports: pain controlled - Review of Systems General: Reports: Other (had prolonged, more or less pleuritic upper chest pain going to back of throat associated eith burping, sl nausea, says helped by NTG at home, never tried an acid eventually went back to sleep) Pulmonary: Reports: no symptoms Cardiovascular: Reports: Chest Pain (see above) Gastrointestinal: Reports: No symptoms Genitourinary: Reports: no symptoms Musculoskeletal: Reports: no symptoms Skin: Reports: no symptoms Neurological: Reports: No Symptoms Psychiatric: Reports: no symptoms - Patient Data Vitals - most recent: Last Vital Signs Temp 36.2 C 07/16/16 07:00 Pulse 70 07/16/16 07:00 Resp 16 07/16/16 07:00 BP 136/65 07/16/16 07:00 Pulse Ox 32 L 07/16/16 07:00 Weight - most recent: 155 kg I&O - last 24 hours: Intake & Output 07/15/16 07/16/16 07/16/16 22:59 06:59 14:59 Intake Total 1700 500 500 Output Total 2500 1600 Balance -800 -1100 500 Lab Results last 24 hrs: Laboratory Results - last 24 hr 07/15/16 07/15/16 07/15/16 Range/Units 11:32 15:29 17:03 Sodium (136-146) mmol/L Potassium (3.5-5.1) mmol/L Chloride (98-110) mmol/L Carbon Dioxide (21-31) mmol/L BUN (6.0-23.0) mg/dL Creatinine (0.6-1.5) mg/dL Est Cr Clr Drug Dosing mL/min Estimated GFR (MDRD) ml/min Glucose (60-110) mg/dL POC Glucose 71 154 H (60-110) mg/dL Calcium (8.8-10.8) mg/dL Vancomycin Trough 21.4 H (5-15) ug/mL 07/16/16 Range/Units 06:10 Sodium 143 (136-146) mmol/L Potassium 4.5 (3.5-5.1) mmol/L Chloride 101 (98-110) mmol/L Carbon Dioxide 35 H (21-31) mmol/L BUN 15 (6.0-23.0) mg/dL Creatinine 1.0 (0.6-1.5) mg/dL Est Cr Clr Drug Dosing 62.10 mL/min Estimated GFR (MDRD) 56.9 ml/min Glucose 74 (60-110) mg/dL POC Glucose (60-110) mg/dL Calcium 8.9 (8.8-10.8) mg/dL Vancomycin Trough (5-15) ug/mL Med Orders - Current: Current Medications Acetaminophen (Tylenol) 650 mg PO Q4H PRN PRN Reason: Pain (Mild 1-3)/fever Last Admin: 07/14/16 05:32 Dose: 650 mg Albuterol/Ipratropium (Duoneb 3.0-0.5 Mg/3 Ml) 3 ml NEB Q4HRRT [facility] Last Admin: 07/16/16 05:57 Dose: 3 ml Bupropion HCl (Wellbutrin Xl) 150 mg PO DAILY [facility] Last Admin: 07/15/16 08:20 Dose: 150 mg Citalopram Hydrobromide (Celexa) 20 mg PO DAILY [facility] Last Admin: 07/15/16 08:21 Dose: 20 mg Divalproex Sodium (Divalproex Sodium) 250 mg PO TIDMEALS [facility] Last Admin: 07/16/16 08:06 Dose: 250 mg Docusate Sodium (Colace) 100 mg PO BID [facility] Last Admin: 07/15/16 21:45 Dose: 100 mg Gabapentin (Neurontin) 600 mg PO TID [facility] Last Admin: 07/16/16 05:32 Dose: 600 mg Glimepiride (Amaryl) 1 mg PO WITHBREAKFAST [facility] Last Admin: 07/16/16 08:04 Dose: 1 mg Hydromorphone HCl (Dilaudid) 1 mg IVPUSH Q2H PRN PRN Reason: Pain (severe 7-10) Last Admin: 07/16/16 07:56 Dose: 1 mg Levofloxacin/Dextrose 750 mg/ (Premix) 150 mls @ 100 mls/hr IV Q48H [facility] Last Admin: 07/15/16 12:52 Dose: 100 mls/hr Piperacillin Sod/Tazobactam (Sod 3.375 gm/ Sodium Chloride) 50 mls @ 100 mls/ hr IV Q6H [facility] Last Admin: 07/16/16 05:33 Dose: 100 mls/hr Vancomycin HCl 1,500 mg/ (Sodium Chloride) 500 mls @ 250 mls/hr IV Q16H [facility] Last Admin: 07/16/16 08:04 Dose: 250 mls/hr Insulin Aspart (Novolog) 0 - 8 unit SUBCUT TIDAC [facility] PRN Reason: Protocol Last Admin: 07/16/16 06:42 Dose: Not Given Levetiracetam (Keppra) 1,000 mg PO BID [facility] Last Admin: 07/15/16 21:45 Dose: 1,000 mg Ondansetron HCl (Zofran) 4 mg IVPUSH Q4H PRN PRN Reason: Nausea Last Admin: 07/15/16 10:03 Dose: 4 mg Oxycodone/Acetaminophen (Percocet 325-5 Mg) 1 tab PO Q4H PRN PRN Reason: Pain Last Admin: 07/15/16 10:43 Dose: 1 tab Pantoprazole Sodium (Protonix) 40 mg PO ACBREAKFAST [facility] Last Admin: 07/16/16 06:43 Dose: 40 mg Temazepam (Restoril) 15 mg PO BEDTIME PRN PRN Reason: Sleep Last Admin: 07/16/16 01:36 Dose: 15 mg Vancomycin HCl (Pharmacy To Dose - Vancomycin) 1 dose .XX ASDIRECTED [facility] Discontinued Medications Acetaminophen (Tylenol Extra Strength) 1,000 mg PO ONETIME ONE Stop: 07/11/16 12:43 Last Admin: 07/11/16 12:42 Dose: 1,000 mg Acetaminophen (Tylenol Extra Strength) Confirm Administered Dose 1,000 mg .ROUTE .STK-MED ONE Stop: 07/11/16 12:43 Last Admin: 07/11/16 15:21 Dose: Not Given Albuterol/Ipratropium (Duoneb 3.0-0.5 Mg/3 Ml) 3 ml NEB Q4HRRT PRN PRN Reason: Shortness of Breath Last Admin: 07/11/16 10:26 Dose: 3 ml Sodium Chloride (Normal Saline) 1,000 mls @ 999 mls/hr IV STAT ONE Stop: 07/11/16 10:27 Last Admin: 07/11/16 09:42 Dose: 999 mls/hr Levofloxacin/Dextrose 750 mg/ (Premix) 150 mls @ 100 mls/hr IV ONETIME ONE Stop: 07/11/16 10:57 Last Admin: 07/11/16 10:09 Dose: 100 mls/hr Piperacillin Sod/Tazobactam (Sod 4.5 gm/ Sodium Chloride) 100 mls @ 100 mls/hr IV ONETIME ONE Stop: 07/11/16 10:26 Last Admin: 07/11/16 11:20 Dose: 100 mls/hr Vancomycin HCl 1 gm/ Sodium (Chloride) 250 mls @ 250 mls/hr IV ONETIME ONE Stop: 07/11/16 10:27 Last Admin: 07/11/16 10:20 Dose: 250 mls/hr Sodium Chloride (Normal Saline) 1,000 mls @ 999 mls/hr IV STAT ONE Stop: 07/11/16 11:46 Last Admin: 07/11/16 10:50 Dose: 999 mls/hr Vancomycin HCl 1,500 mg/ (Sodium Chloride) 500 mls @ 250 mls/hr IV Q12H [facility] Vancomycin HCl 1,500 mg/ (Sodium Chloride) 500 mls @ 250 mls/hr IV Q12H [facility] Last Admin: 07/12/16 12:19 Dose: Not Given Vancomycin HCl 1,500 mg/ (Sodium Chloride) 500 mls @ 250 mls/hr IV Q12H [facility] Last Admin: 07/13/16 12:07 Dose: Not Given Methylprednisolone Sodium Succinate (Solu-Medrol) 125 mg IVPUSH ONETIME ONE Stop: 07/11/16 09:25 Last Admin: 07/11/16 10:27 Dose: 125 mg Temazepam (Restoril) 15 mg PO BEDTIME PRN PRN Reason: Insomnia - Exam Quality Assessment: supplemental oxygen General: alert HEENT: Pupils equal Neck: trachea midline Lungs: Clear to auscultation Cardiovascular: Regular Rhythm, Murmurs (seft ELVIE at base) Abdomen: bowel sounds present (Female) Exam: Deferred Back Exam: other (not seen, flat in bed) Extremities: no edema Skin: warm Wound/Incisions: no drainage Neurological: no new focal deficit Psy/Mental Status: normal mood - Problem List Review Problem List Initiated/Reviewed/Updated: Yes - Assessment Assessment:: Discussed implication of bone scan with patient. Low likelyhood of resolution without further surgery. Amputation was even discussed at time of last intervention. I believe her best option is transfer to Dr Alicia? in [place] when her functional status improves hemoglobin still marginal at 8.1 has been tranfused, re-check h&h pending will get CT L foot and ankle r/o osteo mobilize with PT consult diuresing. hemoglobin up to 8.9 w 2nd unit will continue same consult orthopedics for guidance on further course remains very deconditioned. Pt maintains she can transfer on own but that is doubtful marginal performance status will try to observe during PT today pneumonitis clearing up switch to oral antibiotics anemia stable - Plan Plan:: Admit to intensive care unit. See orders Carlyn Davis Give further transfusion Will continue triple antibiotics , PT to get her in better shape for whatever is in the cards continue present regimen including antibiotics. Pt continues to work in strengthening and evaluating her capacity for transfer bed to chair and back
[2016-07-16] MEDS: levETIRAcetam 500 MG Tab PO SCH ×2 (09:59→20:31)
[2016-07-16] MEDS: Docusate Sodium 100 MG Cap PO SCH ×2 (09:59→20:31)
[2016-07-16] MEDS: buPROPion 150 MG Tab.ER PO SCH (10:00)
[2016-07-16] MEDS: Citalopram 20 MG Tab PO SCH (10:00)
[2016-07-16] MEDS ORDERED: Piperacillin/Tazobactam 3.375 GM in Sodium Chloride 0.9% 50 ML IV SCH (10:00)
[2016-07-16] MEDS: Levofloxacin 500 MG Tab PO SCH (10:29)
--- NOTE | 2016-07-16 14:01 | PCM.DCSUM1 ---
Discharge Summary - Hospital Course Free Text/Narrative:: 60 y o diabetic woman with history of pulmonary fibrosis and hypercarbic COPD admitted with cough, fever and L sided infiltrate Pneumonia treated as health care associated with iv levaquin, zosyn an vancomycin switched to oral levquin on day 5 diabetes, with neuropathy moderately controlled on insulin History extensive surgery of open ankle fracture with draining sinus L [place] and probable osteomyelitis. Unfortunate acute injury to feeton being wheeled out hospital No visible injury by xray but pt cannot walk Kept overnight and plan changed to transfer to [facility], given 2 units of prbcs history of seizures pt continued on meds w.o incident morbid obesity remote history nephrectomy for cancer - Discharge Data Discharge Date: 07/17/16 Discharge Disposition: DC/Tfer to Acute Hospital 02 Condition: Fair - Patient Summary/Data Operative Procedure(s) Performed: Esophagogastroduodenoscopy with biopsy Consults: Consultations 07/12/16 12:16 PT Evaluation and Treatment [CONS] Routine 07/13/16 08:13 Consult to Aquaculture Worker [CONS] Routine 07/14/16 13:03 Consult to Physician [CONS] Routine Recommended Follow-up Testing/Procedures: will be going to [facility] for fitting of foot brace and will be seeing her surgeon Dr Whitlock at [facility] regarding the probable osteomyelitis - Patient Instructions Diet: Diabetic Diet Activity: As Tolerated - Discharge Plan Prescriptions/Med Rec: Temazepam [Restoril] 15 mg PO BEDTIME PRN #20 cap PRN Reason: Insomnia oxyCODONE HCl/Acetaminophen [oxyCODONE-Acetaminophen 5-325] 5 - 325 mg PO TID PRN #60 tablet PRN Reason: Pain Home Medications: Home Meds Pioglitazone [Actos] 30 mg PO DAILY 03/28/15 [History] levETIRAcetam [Keppra] 1,000 mg PO BID 03/28/15 [History] Glimepiride [Amaryl] 1 mg PO WITHBREAKFAST 09/14/15 [History] Pantoprazole [ProTONIX] 40 mg PO ACBREAKFAST 09/14/15 [History] Citalopram Hydrobromide [Celexa] 20 mg PO DAILY 09/18/15 [History] Calcium Carbonate/Vitamin D3 [Calcium 500 + Vit D 400] 1 each PO 1200,2100 07/11 [History] Cyclobenzaprine HCl 10 mg PO TID PRN 07/11/16 [History] Divalproex Sodium 250 mg PO TIDMEALS 07/11/16 [History] Gabapentin [Neurontin] 600 mg PO TID 07/11/16 [History] Silver Sulfadiazine [Silvadene 1% Cream 20 GM] 1 appful TOP DAILY 07/11/16 [ History] atorvaSTATin [Lipitor] 10 mg PO DAILY PRN 07/11/16 [History] buPROPion [Wellbutrin XL] 150 mg PO DAILY 07/11/16 [History] Albuterol/Ipratropium [DuoNeb 3.0-0.5 MG/3 ML] 3 ml NEB Q4HRRT neb 07/16/16 [Rx ] Insulin Aspart [NovoLOG] 0 - 8 unit SUBCUT TIDAC pen 07/16/16 [Rx] Temazepam [Restoril] 15 mg PO BEDTIME PRN #20 cap 07/16/16 [Rx] oxyCODONE HCl/Acetaminophen [oxyCODONE-Acetaminophen 5-325] 5 - 325 mg PO TID PRN #60 tablet 07/16/16 [Rx] Patient Handouts: Acetaminophen; Oxycodone capsules, Sepsis, Adult, Temazepam tablets or capsules, Levofloxacin tablets, Docusate capsules, Community- Acquired Pneumonia, Adult, [id number] Referrals: Lex Mcclelland MD [Primary Care Provider] - 07/23/16 10:15 am - Discharge Summary/Plan Comment DC Time >30 min.: Yes Discharge Summary/Plan Comment: transferred to [facility] 06/16/2016 - General Info Date of Service: 07/17/16 Functional Status: Reports: pain controlled - Review of Systems General: Reports: No Symptoms HEENT: Reports: no symptoms Pulmonary: Reports: no symptoms Cardiovascular: Reports: No Symptoms Gastrointestinal: Reports: No symptoms Genitourinary: Reports: no symptoms Musculoskeletal: Reports: no symptoms Skin: Reports: no symptoms Neurological: Reports: No Symptoms Psychiatric: Reports: no symptoms - Patient Data Vitals - Most Recent: Last Vital Signs Temp 36.6 C 07/16/16 11:00 Pulse 70 07/16/16 11:00 Resp 16 07/16/16 11:00 BP 125/64 07/16/16 11:00 Pulse Ox 88 L 07/16/16 11:00 Weight - Most Recent: 155 kg I&O - Last 24 hours: Intake & Output 07/15/16 07/16/16 07/16/16 22:59 06:59 14:59 Intake Total 1700 500 550 Output Total 2500 1600 Balance -800 -1100 550 Lab Results - Last 24 hrs: Laboratory Results - last 24 hr 07/15/16 07/15/16 07/16/16 Range/Units 15:29 17:03 06:10 WBC 6.19 (4.0-11.0) K/uL RBC 3.15 L (4.30-5.90) M/uL Hgb 8.7 L (12.0-16.0) g/dL Hct 29.3 L (36.0-46.0) % MCV 93.0 (80.0-98.0) fL MCH 27.6 (27.0-32.0) pg MCHC 29.7 L (31.0-37.0) g/dL RDW Std Deviation 55.1 (28.0-62.0) fl RDW Coeff of Morales 16 H (11.0-15.0) % Plt Count 152 (150-400) K/uL MPV 8.60 (7.40-12.00) fL Neut % (Auto) 56.3 (48.0-80.0) % Lymph % (Auto) 27.8 (16.0-40.0) % [place] % (Auto) 10.8 (0.0-15.0) % Eos % (Auto) 4.5 (0.0-7.0) % Baso % (Auto) 0.6 (0.0-1.5) % Neut # (Auto) 3.5 (1.4-5.7) K/uL Lymph # (Auto) 1.7 (0.6-2.4) K/uL [place] # (Auto) 0.7 (0.0-0.8) K/uL Eos # (Auto) 0.3 (0.0-0.7) K/uL Baso # (Auto) 0.0 (0.0-0.1) K/uL Nucleated RBC % 0.0 /100WBC Nucleated RBCs # 0 K/uL Sodium (136-146) mmol/L Potassium (3.5-5.1) mmol/L Chloride (98-110) mmol/L Carbon Dioxide (21-31) mmol/L BUN (6.0-23.0) mg/dL Creatinine (0.6-1.5) mg/dL Est Cr Clr Drug Dosing mL/min Estimated GFR (MDRD) ml/min Glucose (60-110) mg/dL POC Glucose 154 H (60-110) mg/dL Calcium (8.8-10.8) mg/dL Vancomycin Trough 21.4 H (5-15) ug/mL 07/16/16 07/16/16 07/16/16 Range/Units 06:10 06:36 08:54 WBC (4.0-11.0) K/uL RBC (4.30-5.90) M/uL Hgb (12.0-16.0) g/dL Hct (36.0-46.0) % MCV (80.0-98.0) fL MCH (27.0-32.0) pg MCHC (31.0-37.0) g/dL RDW Std Deviation (28.0-62.0) fl RDW Coeff of Morales (11.0-15.0) % Plt Count (150-400) K/uL MPV (7.40-12.00) fL Neut % (Auto) (48.0-80.0) % Lymph % (Auto) (16.0-40.0) % [place] % (Auto) (0.0-15.0) % Eos % (Auto) (0.0-7.0) % Baso % (Auto) (0.0-1.5) % Neut # (Auto) (1.4-5.7) K/uL Lymph # (Auto) (0.6-2.4) K/uL [place] # (Auto) (0.0-0.8) K/uL Eos # (Auto) (0.0-0.7) K/uL Baso # (Auto) (0.0-0.1) K/uL Nucleated RBC % /100WBC Nucleated RBCs # K/uL Sodium 143 (136-146) mmol/L Potassium 4.5 (3.5-5.1) mmol/L Chloride 101 (98-110) mmol/L Carbon Dioxide 35 H (21-31) mmol/L BUN 15 (6.0-23.0) mg/dL Creatinine 1.0 (0.6-1.5) mg/dL Est Cr Clr Drug Dosing 62.10 mL/min Estimated GFR (MDRD) 56.9 ml/min Glucose 74 (60-110) mg/dL POC Glucose 93 169 H (60-110) mg/dL Calcium 8.9 (8.8-10.8) mg/dL Vancomycin Trough (5-15) ug/mL 07/16/16 Range/Units 11:44 WBC (4.0-11.0) K/uL RBC (4.30-5.90) M/uL Hgb (12.0-16.0) g/dL Hct (36.0-46.0) % MCV (80.0-98.0) fL MCH (27.0-32.0) pg MCHC (31.0-37.0) g/dL RDW Std Deviation (28.0-62.0) fl RDW Coeff of Morales (11.0-15.0) % Plt Count (150-400) K/uL MPV (7.40-12.00) fL Neut % (Auto) (48.0-80.0) % Lymph % (Auto) (16.0-40.0) % [place] % (Auto) (0.0-15.0) % Eos % (Auto) (0.0-7.0) % Baso % (Auto) (0.0-1.5) % Neut # (Auto) (1.4-5.7) K/uL Lymph # (Auto) (0.6-2.4) K/uL Scre[place] # (Auto) (0.0-0.8) K/uL Eos # (Auto) (0.0-0.7) K/uL Baso # (Auto) (0.0-0.1) K/uL Nucleated RBC % /100WBC Nucleated RBCs # K/uL Sodium (136-146) mmol/L Potassium (3.5-5.1) mmol/L Chloride (98-110) mmol/L Carbon Dioxide (21-31) mmol/L BUN (6.0-23.0) mg/dL Creatinine (0.6-1.5) mg/dL Est Cr Clr Drug Dosing mL/min Estimated GFR (MDRD) ml/min Glucose (60-110) mg/dL POC Glucose 87 (60-110) mg/dL Calcium (8.8-10.8) mg/dL Vancomycin Trough (5-15) ug/mL Med Orders - Current: Current Medications Acetaminophen (Tylenol) 650 mg PO Q4H PRN PRN Reason: Pain (Mild 1-3)/fever Last Admin: 07/14/16 05:32 Dose: 650 mg Albuterol/Ipratropium (Duoneb 3.0-0.5 Mg/3 Ml) 3 ml NEB Q4HRRT [facility] Last Admin: 07/16/16 10:26 Dose: 3 ml Bupropion HCl (Wellbutrin Xl) 150 mg PO DAILY [facility] Last Admin: 07/16/16 10:00 Dose: 150 mg Citalopram Hydrobromide (Celexa) 20 mg PO DAILY [facility] Last Admin: 07/16/16 10:00 Dose: 20 mg Divalproex Sodium (Divalproex Sodium) 250 mg PO TIDMEALS [facility] Last Admin: 07/16/16 13:20 Dose: 250 mg Docusate Sodium (Colace) 100 mg PO BID [facility] Last Admin: 07/16/16 09:59 Dose: 100 mg Gabapentin (Neurontin) 600 mg PO TID [facility] Last Admin: 07/16/16 05:32 Dose: 600 mg Glimepiride (Amaryl) 1 mg PO WITHBREAKFAST [facility] Last Admin: 07/16/16 08:04 Dose: 1 mg Hydromorphone HCl (Dilaudid) 1 mg IVPUSH Q2H PRN PRN Reason: Pain (severe 7-10) Last Admin: 07/16/16 13:21 Dose: 1 mg Insulin Aspart (Novolog) 0 - 8 unit SUBCUT TIDAC [facility] PRN Reason: Protocol Last Admin: 07/16/16 12:03 Dose: Not Given Levetiracetam (Keppra) 1,000 mg PO BID [facility] Last Admin: 07/16/16 09:59 Dose: 1,000 mg Levofloxacin (Levaquin) 500 mg PO Q24H [facility] Last Admin: 07/16/16 10:29 Dose: 500 mg Ondansetron HCl (Zofran) 4 mg IVPUSH Q4H PRN PRN Reason: Nausea Last Admin: 07/15/16 10:03 Dose: 4 mg Oxycodone/Acetaminophen (Percocet 325-5 Mg) 1 tab PO Q4H PRN PRN Reason: Pain Last Admin: 07/15/16 10:43 Dose: 1 tab Pantoprazole Sodium (Protonix) 40 mg PO ACBREAKFAST [facility] Last Admin: 07/16/16 06:43 Dose: 40 mg Temazepam (Restoril) 15 mg PO BEDTIME PRN PRN Reason: Sleep Last Admin: 07/16/16 01:36 Dose: 15 mg Discontinued Medications Acetaminophen (Tylenol Extra Strength) 1,000 mg PO ONETIME ONE Stop: 07/11/16 12:43 Last Admin: 07/11/16 12:42 Dose: 1,000 mg Acetaminophen (Tylenol Extra Strength) Confirm Administered Dose 1,000 mg .ROUTE .STK-MED ONE Stop: 07/11/16 12:43 Last Admin: 07/11/16 15:21 Dose: Not Given Albuterol/Ipratropium (Duoneb 3.0-0.5 Mg/3 Ml) 3 ml NEB Q4HRRT PRN PRN Reason: Shortness of Breath Last Admin: 07/11/16 10:26 Dose: 3 ml Sodium Chloride (Normal Saline) 1,000 mls @ 999 mls/hr IV STAT ONE Stop: 07/11/16 10:27 Last Admin: 07/11/16 09:42 Dose: 999 mls/hr Levofloxacin/Dextrose 750 mg/ (Premix) 150 mls @ 100 mls/hr IV ONETIME ONE Stop: 07/11/16 10:57 Last Admin: 07/11/16 10:09 Dose: 100 mls/hr Piperacillin Sod/Tazobactam (Sod 4.5 gm/ Sodium Chloride) 100 mls @ 100 mls/hr IV ONETIME ONE Stop: 07/11/16 10:26 Last Admin: 07/11/16 11:20 Dose: 100 mls/hr Vancomycin HCl 1 gm/ Sodium (Chloride) 250 mls @ 250 mls/hr IV ONETIME ONE Stop: 07/11/16 10:27 Last Admin: 07/11/16 10:20 Dose: 250 mls/hr Sodium Chloride (Normal Saline) 1,000 mls @ 999 mls/hr IV STAT ONE Stop: 07/11/16 11:46 Last Admin: 07/11/16 10:50 Dose: 999 mls/hr Levofloxacin/Dextrose 750 mg/ (Premix) 150 mls @ 100 mls/hr IV Q48H [facility] Last Admin: 07/15/16 12:52 Dose: 100 mls/hr Piperacillin Sod/Tazobactam (Sod 3.375 gm/ Sodium Chloride) 50 mls @ 100 mls/ hr IV Q6H [facility] Last Admin: 07/16/16 05:33 Dose: 100 mls/hr Vancomycin HCl 1,500 mg/ (Sodium Chloride) 500 mls @ 250 mls/hr IV Q12H [facility] Vancomycin HCl 1,500 mg/ (Sodium Chloride) 500 mls @ 250 mls/hr IV Q12H [facility] Last Admin: 07/12/16 12:19 Dose: Not Given Vancomycin HCl 1,500 mg/ (Sodium Chloride) 500 mls @ 250 mls/hr IV Q12H [facility] Last Admin: 07/13/16 12:07 Dose: Not Given Vancomycin HCl 1,500 mg/ (Sodium Chloride) 500 mls @ 250 mls/hr IV Q16H [facility] Last Admin: 07/16/16 08:04 Dose: 250 mls/hr Piperacillin Sod/Tazobactam (Sod 3.375 gm/ Sodium Chloride) 50 mls @ 100 mls/ hr IV Q6H [facility] Last Admin: 07/16/16 10:14 Dose: 100 mls/hr Methylprednisolone Sodium Succinate (Solu-Medrol) 125 mg IVPUSH ONETIME ONE Stop: 07/11/16 09:25 Last Admin: 07/11/16 10:27 Dose: 125 mg Temazepam (Restoril) 15 mg PO BEDTIME PRN PRN Reason: Insomnia Vancomycin HCl (Pharmacy To Dose - Vancomycin) 1 dose .XX ASDIRECTED [facility]N - Exam General: Reports: alert HEENT: Reports: Pupils equal Neck: Reports: trachea midline Lungs: Reports: Decreased breath sounds Cardiovascular: Reports: Regular Rate Abdomen: Reports: bowel sounds present, other (enormous. several ecchymoses from injections) (Female) Exam: Deferred Rectal (Female) Exam: Deferred Back Exam: Reports: normal inspection Extremities: Reports: no edema Skin: Reports: warm Wound/Incisions: Reports: no drainage (at L ankle site) Neurological: Reports: no new focal deficit Psy/Mental Status: Reports: normal mood *Q Meaningful Use (DIS) - VTE *Q VTE Criteria *Q: - Stroke *Q Stroke Criteria *Q: - AMI *Q AMI Criteria *Q: - Orders Orders Last 24hrs: Active Orders 24 hr Category Date Time Status BASIC METABOLIC PANEL,BMP [CHEM] DAILY Lab 07/17/16 05:00 Ordered CBC WITH AUTO DIFF [HEME] DAILY Lab 07/17/16 05:00 Ordered Levofloxacin [Levaquin] Med 07/16/16 10:00 Active 500 mg PO Q24H Medication Orders Acetaminophen (Tylenol) 650 mg PO Q4H PRN PRN Reason: Pain (Mild 1-3)/fever Last Admin: 07/14/16 05:32 Dose: 650 mg Admin: 07/13/16 23:43 Dose: 650 mg Admin: 07/11/16 18:15 Dose: 650 mg Albuterol/Ipratropium (Duoneb 3.0-0.5 Mg/3 Ml) 3 ml NEB Q4HRRT [facility] Last Admin: 07/16/16 10:26 Dose: 3 ml Admin: 07/16/16 05:57 Dose: 3 ml Admin: 07/16/16 01:14 Dose: 3 ml Admin: 07/15/16 21:15 Dose: 3 ml Admin: 07/15/16 18:28 Dose: 3 ml Admin: 07/15/16 13:50 Dose: 3 ml Admin: 07/15/16 09:59 Dose: 3 ml Admin: 07/15/16 05:59 Dose: 3 ml Admin: 07/15/16 02:25 Dose: 3 ml Admin: 07/14/16 21:28 Dose: 3 ml Admin: 07/14/16 18:20 Dose: 3 ml Admin: 07/14/16 14:04 Dose: 3 ml Admin: 07/14/16 10:20 Dose: 3 ml Admin: 07/14/16 06:30 Dose: 3 ml Admin: 07/14/16 02:03 Dose: Not Given Admin: 07/13/16 21:07 Dose: 3 ml Admin: 07/13/16 17:56 Dose: 3 ml Admin: 07/13/16 13:48 Dose: 3 ml Admin: 07/13/16 10:09 Dose: 3 ml Admin: 07/13/16 06:14 Dose: 3 ml Admin: 07/13/16 02:14 Dose: Not Given Admin: 07/12/16 21:15 Dose: 3 ml Admin: 07/12/16 17:53 Dose: 3 ml Admin: 07/12/16 13:48 Dose: 3 ml Admin: 07/12/16 10:01 Dose: 3 ml Admin: 07/12/16 06:27 Dose: 3 ml Admin: 07/12/16 01:57 Dose: 3 ml Admin: 07/11/16 21:22 Dose: 3 ml Admin: 07/11/16 17:13 Dose: 3 ml Admin: 07/11/16 14:55 Dose: 3 ml Bupropion HCl (Wellbutrin Xl) 150 mg PO DAILY [facility] Last Admin: 07/16/16 10:00 Dose: 150 mg Admin: 07/15/16 08:20 Dose: 150 mg Admin: 07/14/16 08:01 Dose: 150 mg Admin: 07/13/16 08:01 Dose: 150 mg Admin: 07/12/16 08:42 Dose: 150 mg Citalopram Hydrobromide (Celexa) 20 mg PO DAILY [facility] Last Admin: 07/16/16 10:00 Dose: 20 mg Admin: 07/15/16 08:21 Dose: 20 mg Admin: 07/14/16 08:01 Dose: 20 mg Admin: 07/13/16 08:01 Dose: 20 mg Admin: 07/12/16 08:41 Dose: 20 mg Divalproex Sodium (Divalproex Sodium) 250 mg PO TIDMEALS [facility] Last Admin: 07/16/16 13:20 Dose: 250 mg Admin: 07/16/16 08:06 Dose: 250 mg Admin: 07/15/16 17:37 Dose: 250 mg Admin: 07/15/16 12:20 Dose: 250 mg Admin: 07/15/16 08:19 Dose: 250 mg Admin: 07/14/16 16:34 Dose: 250 mg Admin: 07/14/16 12:50 Dose: 250 mg Admin: 07/14/16 07:55 Dose: 250 mg Admin: 07/13/16 16:38 Dose: 250 mg Admin: 07/13/16 12:31 Dose: 250 mg Admin: 07/13/16 08:01 Dose: 250 mg Admin: 07/12/16 17:13 Dose: 250 mg Admin: 07/12/16 12:25 Dose: 250 mg Admin: 07/12/16 08:42 Dose: 250 mg Admin: 07/11/16 18:02 Dose: 250 mg Admin: 07/11/16 13:52 Dose: 250 mg Docusate Sodium (Colace) 100 mg PO BID [facility] Last Admin: 07/16/16 09:59 Dose: 100 mg Admin: 07/15/16 21:45 Dose: 100 mg Admin: 07/15/16 08:20 Dose: 100 mg Admin: 07/14/16 20:34 Dose: 100 mg Admin: 07/14/16 08:01 Dose: 100 mg Admin: 07/13/16 21:18 Dose: 100 mg Admin: 07/13/16 08:01 Dose: 100 mg Admin: 07/12/16 20:52 Dose: 100 mg Admin: 07/12/16 08:41 Dose: 100 mg Admin: 07/11/16 21:01 Dose: 100 mg Gabapentin (Neurontin) 600 mg PO TID [facility] Last Admin: 07/16/16 14:05 Dose: 600 mg Admin: 07/16/16 05:32 Dose: 600 mg Admin: 07/15/16 21:45 Dose: 600 mg Admin: 07/15/16 13:40 Dose: 600 mg Admin: 07/15/16 05:59 Dose: 600 mg Admin: 07/14/16 21:35 Dose: 600 mg Admin: 07/14/16 13:08 Dose: 600 mg Admin: 07/14/16 06:25 Dose: 600 mg Admin: 07/13/16 21:17 Dose: 600 mg Admin: 07/13/16 14:08 Dose: 600 mg Admin: 07/13/16 05:55 Dose: 600 mg Admin: 07/12/16 22:04 Dose: 600 mg Admin: 07/12/16 15:43 Dose: 600 mg Admin: 07/12/16 06:00 Dose: 600 mg Admin: 07/11/16 21:01 Dose: 600 mg Admin: 07/11/16 13:45 Dose: 600 mg Glimepiride (Amaryl) 1 mg PO WITHBREAKFAST [facility] Last Admin: 07/16/16 08:04 Dose: 1 mg Admin: 07/15/16 08:20 Dose: 1 mg Admin: 07/14/16 07:39 Dose: 1 mg Admin: 07/13/16 08:01 Dose: 1 mg Admin: 07/12/16 08:41 Dose: 1 mg Hydromorphone HCl (Dilaudid) 1 mg IVPUSH Q2H PRN PRN Reason: Pain (severe 7-10) Last Admin: 07/16/16 13:21 Dose: 1 mg Admin: 07/16/16 10:08 Dose: 1 mg Admin: 07/16/16 07:56 Dose: 1 mg Admin: 07/16/16 01:29 Dose: 1 mg Admin: 07/15/16 23:23 Dose: 1 mg Admin: 07/15/16 17:28 Dose: 1 mg Admin: 07/15/16 14:09 Dose: 1 mg Admin: 07/15/16 09:29 Dose: 1 mg Admin: 07/15/16 04:29 Dose: 1 mg Admin: 07/15/16 01:38 Dose: 1 mg Admin: 07/14/16 19:39 Dose: 1 mg Admin: 07/14/16 16:34 Dose: 1 mg Admin: 07/14/16 11:59 Dose: 1 mg Admin: 07/14/16 06:26 Dose: 1 mg Admin: 07/14/16 03:49 Dose: 1 mg Admin: 07/13/16 23:16 Dose: 1 mg Admin: 07/13/16 19:09 Dose: 1 mg Admin: 07/13/16 15:03 Dose: 1 mg Admin: 07/13/16 10:05 Dose: 1 mg Admin: 07/13/16 05:55 Dose: 1 mg Admin: 07/13/16 02:20 Dose: 1 mg Admin: 07/13/16 00:24 Dose: 1 mg Admin: 07/12/16 22:20 Dose: 1 mg Admin: 07/12/16 20:24 Dose: 1 mg Admin: 07/12/16 02:07 Dose: 1 mg Admin: 07/11/16 20:40 Dose: 1 mg Admin: 07/11/16 13:46 Dose: 1 mg Insulin Aspart (Novolog) 0 - 8 unit SUBCUT TIDAC [facility] PRN Reason: Protocol Last Admin: 07/16/16 12:03 Dose: Not Given Admin: 07/16/16 06:42 Dose: Not Given Admin: 07/15/16 17:37 Dose: 2 units Admin: 07/15/16 11:37 Dose: Not Given Admin: 07/15/16 06:40 Dose: 2 units Admin: 07/14/16 16:33 Dose: Not Given Admin: 07/14/16 12:03 Dose: Not Given Admin: 07/14/16 07:25 Dose: Not Given Admin: 07/13/16 17:13 Dose: Not Given Admin: 07/13/16 11:21 Dose: Not Given Admin: 07/13/16 07:51 Dose: Not Given Admin: 07/12/16 17:21 Dose: Not Given Admin: 07/12/16 12:24 Dose: Not Given Admin: 07/12/16 07:24 Dose: Not Given Admin: 07/11/16 17:52 Dose: Not Given Levetiracetam (Keppra) 1,000 mg PO BID [facility] Last Admin: 07/16/16 09:59 Dose: 1,000 mg Admin: 07/15/16 21:45 Dose: 1,000 mg Admin: 07/15/16 08:20 Dose: 1,000 mg Admin: 07/14/16 20:34 Dose: 1,000 mg Admin: 07/14/16 08:01 Dose: 1,000 mg Admin: 07/13/16 21:17 Dose: 1,000 mg Admin: 07/13/16 08:01 Dose: 1,000 mg Admin: 07/12/16 20:52 Dose: 1,000 mg Admin: 07/12/16 08:41 Dose: 1,000 mg Admin: 07/11/16 21:01 Dose: 1,000 mg Levofloxacin (Levaquin) 500 mg PO Q24H [facility] Last Admin: 07/16/16 10:29 Dose: 500 mg Ondansetron HCl (Zofran) 4 mg IVPUSH Q4H PRN PRN Reason: Nausea Last Admin: 07/15/16 10:03 Dose: 4 mg Oxycodone/Acetaminophen (Percocet 325-5 Mg) 1 tab PO Q4H PRN PRN Reason: Pain Last Admin: 07/15/16 10:43 Dose: 1 tab Admin: 07/12/16 17:13 Dose: 1 tab Admin: 07/12/16 08:56 Dose: 1 tab Admin: 07/12/16 03:31 Dose: 1 tab Pantoprazole Sodium (Protonix) 40 mg PO ACBREAKFAST [facility] Last Admin: 07/16/16 06:43 Dose: 40 mg Admin: 07/15/16 06:33 Dose: 40 mg Admin: 07/14/16 06:33 Dose: 40 mg Admin: 07/13/16 07:51 Dose: 40 mg Admin: 07/12/16 06:31 Dose: 40 mg Temazepam (Restoril) 15 mg PO BEDTIME PRN PRN Reason: Sleep Last Admin: 07/16/16 01:36 Dose: 15 mg Admin: 07/13/16 21:23 Dose: 15 mg Admin: 07/12/16 23:49 Dose: 15 mg
--- NOTE | 2016-07-16 17:13 | CR ---
EXAMINATION: Left knee, left tibia fibula, and left foot HISTORY: Twisted leg COMPARISON: 07/11/2016 TECHNIQUE: 2 views of the left knee, 2 views of the left tibia and fibula, and 2 views of the left f oot FINDINGS: There is no definite acute osseous abnormality, dislocation, or fracture. There is likely a healing subacute to chronic proximal fibular fracture noted. There is an intramedullary madi within the distal tibia extending into the talus and calcaneus. There is a single screw extending from the posterior calcaneus through the subtalar and tibiotalar joints. There is a single horizontal screw extending from the calcaneus into the mid tarsal bones. Overall the osseous structures appear osteop enic. A bone stimulator device projects over the medial malleolus and lateral malleolus. There is a chronic fracture deformity of the medial malleolus, grossly unchanged. There is a small ossific den sity inferior to the distal aspect of the medial malleolus, similar in appearance from the previous radiograph. Prior resection of the distal fibula is noted. There is loss of cortex overlying the med ial malleolus and the lateral aspect of the tibial plateau. There is no suprapatellar joint effusion . There is generalized edema noted. IMPRESSION: 1. Hardware fixation of the distal tibia and hindfoot. 2. No acute osseous abnormalities noted. 3. A bone growth stimulator is noted projecting over the ankle. 4. Erosive changes and loss of cortex is noted along the lateral aspect of the distal tibia and the medial malleolus. Grossly unchanged.
--- NOTE | 2016-07-16 17:14 | CR ---
EXAMINATION: Right knee HISTORY: Twisted leg COMPARISON: None TECHNIQUE: 2 views FINDINGS/IMPRESSION: There is no acute osseous abnormality, dislocation, effusion or fracture identi fied. The osseous structures appear osteopenic. There is likely a remote healed fracture of the prox imal fibular diaphysis. There is generalized soft tissue edema.
--- NOTE | 2016-07-16 17:29 | PCM.SN ---
- Free Text/Narrative Note: While being wheeled out for discharge, pt caught her foot on floor, apparently plantar flexing it despite heavy boot braces. Then trying to get in van, she was now unable to bear weight on injured foot and hurt the other one as well. Extensive xrays of the LLE and 2views of the R knee reveal no acute injury but complex hardware and stimulating device on L. as well as severe osteoporosis with loss of bone cortex in several places Pt now unable to go home. Will cancel discharge, resume prior treatment, reevaluate in a m. contact Dr Moses in [facility] .
[2016-07-17] MEDS: Temazepam 15 MG Cap PO PRN (00:32)
[2016-07-17] MEDS: Albuterol/Ipratropium 3.0-0.5 MG/3 ML Neb Soln NEB SCH ×3 (01:13→09:36)
[2016-07-17] MEDS: HYDROmorphone 1 MG/ML Syringe IVPUSH PRN ×2 (02:47→06:43)
[2016-07-17] MEDS: Gabapentin 300 MG Cap PO SCH (06:33)
[2016-07-17] MEDS: Pantoprazole 40 MG Tab.CR PO SCH (06:33)
[2016-07-17] MEDS: Insulin Aspart 100 Units/ML 3 ML Pen SUBCUT SCH ×2 (06:34→11:56)
[2016-07-17] MEDS: Divalproex Sodium Delayed-Release 250 MG Tab.CR PO SCH ×2 (08:04→11:56)
[2016-07-17] MEDS: Glimepiride 2 MG Tab PO SCH (08:04)
[2016-07-17] MEDS: buPROPion 150 MG Tab.ER PO SCH (08:05)
[2016-07-17] MEDS: Docusate Sodium 100 MG Cap PO SCH (08:05)
[2016-07-17] MEDS: levETIRAcetam 500 MG Tab PO SCH (08:05)
[2016-07-17] MEDS: Citalopram 20 MG Tab PO SCH (08:05)
[2016-07-17] MEDS: Acetaminophen/oxyCODONE 325-5 MG Tab PO PRN (08:10)
[2016-07-17] MEDS ORDERED: HYDROmorphone 2 MG/ML Syringe IVPUSH PRN (10:29)
[2016-07-17] MEDS ORDERED: Acetaminophen/oxyCODONE 325-5 MG Tab PO PRN (10:35)
[2016-07-17] MEDS ORDERED: HYDROmorphone 1 MG/ML Syringe IVPUSH PRN (10:36)
[2016-07-17] MEDS: Levofloxacin 500 MG Tab PO SCH ×2 (11:02→11:52)
[2016-07-17 14:13] VITALS: BP 130/67
== END 2016-07-17 13:30 | DRG 720 ==
LOC: MW.ED 09:20 → MW.ICU 11:48 → MW.MS 07-15 02:15
PROVIDERS: ADMIT Family Medicine; ATTEND Family Medicine
PROC: 30233N1 Transfusion of Nonautologous Red Blood Cells into Peripheral Vein, Percutaneous Approach (ICD-10-PCS; principal; 2016-07-12)
DX: A41.9 Sepsis, unspecified organism (principal); J44.0 Chronic obstructive pulmonary disease with (acute) lower respiratory infection; J18.9 Pneumonia, unspecified organism; R09.02 Hypoxemia; I50.9 Heart failure, unspecified; E11.43 Type 2 diabetes mellitus with diabetic autonomic (poly)neuropathy; D50.0 Iron deficiency anemia secondary to blood loss (chronic); J84.10 Pulmonary fibrosis, unspecified; F41.8 Other specified anxiety disorders; E66.9 Obesity, unspecified; T14.90 Injury, unspecified; X58.XXXA Exposure to other specified factors, initial encounter; Y93.89 Activity, other specified; Y92.239 Unspecified place in hospital as the place of occurrence of the external cause; Z68.45 Body mass index [BMI] 70 or greater, adult; Z79.899 Other long term (current) drug therapy; Z88.8 Allergy status to other drugs, medicaments and biological substances; Z90.5 Acquired absence of kidney; Z87.891 Personal history of nicotine dependence
CPT/HCPCS: 36415; 36430; 36600; 51703; 71010; 71010-26; 73560-26-LT; 73560-26-RT; 73560-LT; 73560-RT; 73590-26-LT; 73590-LT; 73600-26-LT; 73600-26-RT; 73600-LT; 73600-RT; 73620-26-LT; 73620-LT; 78315; 78315-26; 80048; 80053; 80202; 81001; 82607; 82728; 82746; 82803; 82962; 83605; 83735; 83880; 84484; 85014; 85018; 85025; 85045; 86850; 86900; 86901; 86920; 86921; 86922; 87040; 93005; 93306; 94640; 96365; 96366; 96368; 96375; 97110-GP; 97162-GP; 97530-GP; 97802; 99285; 99285-25; A9270-GY; A9503; J1170; J1815-GY; J1956; J2405; J2543; J2930; J3370; J7030; J7040; J7050; P9016

== ENCOUNTER 2016-07-22 13:15 | Emergency (ER) | payer BC ==
[2016-07-22] MEDS ORDERED: Lidocaine 1% 20 ML MDV INJECT ONE (13:26)
[2016-07-22] MEDS ORDERED: Bupivacaine 0.5% 10 ML SDV INJECT ONE (13:26)
--- NOTE | 2016-07-22 14:56 | EDM.PDOC ---
ED HPI Skin/Rash - General Chief Complaint: Laceration Stated Complaint: UNK Time Seen by Provider: 07/22/16 13:17 Source: Reports: Patient History Limitations: Reports: No limitations - History of Present Illness INITIAL COMMENTS - FREE TEXT/NARRATIVE: History of present illness: [] Patient is obese diabetic patient who has difficulty with mobility at home was getting out of bed to use her bedside commode and caught her left small and fourth toes on unknown object. Review of systems: As per history of present illness and below otherwise all systems reviewed and negative. Past medical history: As per history of present illness and as reviewed below otherwise noncontributory. Surgical history: As per history of present illness and as reviewed below otherwise noncontributory. Social history: No reported history of drug or alcohol abuse. Family history: As per history of present illness and as reviewed below otherwise noncontributory. Physical exam: General: Well developed, well nourished in NAD HEENT: Atraumatic, normocephalic, pupils reactive, negative for conjunctival pallor or scleral icterus, mucous membranes moist, throat clear, neck supple, nontender, trachea midline. Lungs: Clear to auscultation, breath sounds equal bilaterally, chest nontender. Heart: S1S2, regular, negative for clicks, rubs, or JVD. Abdomen: Soft, nondistended, nontender. Negative for masses or hepatosplenomegaly. Negative for costovertebral tenderness. Pelvis: Stable nontender. Genitourinary: Deferred. Rectal: Deferred. Extremities: Atraumatic, negative for cords or calf pain. Neurovascular unremarkable. Neuro: Awake, alert, oriented. Cranial nerves II through XII unremarkable. Cerebellum unremarkable. Motor and sensory unremarkable throughout. Exam nonfocal. Diagnostics: [] glucose is 91, x-ray of the foot shows fracture of the fifth phalanx with displacement Therapeutics: [] Laceration was sutured, antibiotics and given IM and a prescription by mouth patient is given a hard shoe and she is to followup with orthopedic Impression: [] Laceration left foot Plan: [] Keflex 4 times a day followup with Definitive disposition and diagnosis as appropriate pending reevaluation and review of above. - Related Data Allergies Allergy/AdvReac Type Severity Reaction Status Date / Time amlodipine besylate Allergy Headache Verified 07/22/16 13:25 [From [facility]] ketorolac Allergy Itching Verified 07/22/16 13:25 milnacipran HCl Allergy Headache Verified 07/22/16 13:25 [From [facility]] Home Meds: Ambulatory Orders Medication Instructions Recorded Confirmed Pioglitazone [Actos] 30 mg PO DAILY 03/28/15 07/22/16 levETIRAcetam [Keppra] 1,000 mg PO BID 03/28/15 07/22/16 Glimepiride [Amaryl] 1 mg PO WITHBREAKFAST 09/14/15 07/22/16 Pantoprazole [ProTONIX] 40 mg PO ACBREAKFAST 09/14/15 07/22/16 Citalopram Hydrobromide [Celexa] 20 mg PO DAILY 09/18/15 07/22/16 Calcium Carbonate/Vitamin D3 1 each PO 1200,2100 07/11/16 07/22/16 [Calcium 500 + Vit D 400] Cyclobenzaprine HCl 10 mg PO TID PRN 07/11/16 07/22/16 Divalproex Sodium 250 mg PO TIDMEALS 07/11/16 07/22/16 Gabapentin [Neurontin] 600 mg PO TID 07/11/16 07/22/16 Silver Sulfadiazine [Silvadene 1% 1 appful TOP DAILY 07/11/16 07/22/16 Cream 20 GM] atorvaSTATin [Lipitor] 10 mg PO DAILY PRN 07/11/16 07/22/16 buPROPion [Wellbutrin XL] 150 mg PO DAILY 07/11/16 07/22/16 Albuterol/Ipratropium [DuoNeb 3 ml NEB Q4HRRT neb 07/16/16 07/22/16 3.0-0.5 MG/3 ML] Insulin Aspart [NovoLOG] 0 - 8 unit SUBCUT TIDAC pen 07/16/16 07/22/16 Temazepam [Restoril] 15 mg PO BEDTIME PRN #20 cap 07/16/16 07/22/16 oxyCODONE HCl/Acetaminophen 5 - 325 mg PO TID PRN #60 tablet 07/16/16 07/22/16 [oxyCODONE-Acetaminophen 5-325] Cephalexin [Keflex] 500 mg PO QID #40 capsule 07/22/16 Past Medical History HEENT History: Reports: Glaucoma Cardiovascular History: Reports: Heart Failure, Hypertension Other Cardiovascular History: CHF Respiratory History: Reports: COPD, Interstitial lung disease, Pulmonary fibrosis, Other (see below) Other Respiratory History: DIPF,. home O2 dependent at 3L Gastrointestinal History: Reports: Gastritis Genitourinary History: Reports: Other (see below) Other Genitourinary History: only has left kidney PLAYGROUND MONITOR History: Reports: Musculoskeletal History: Reports: Fibromyalgia, Osteoporosis Neurological History: Reports: Neuropathy, diabetic, Neuropathy, peripheral, Seizure Psychiatric History: Reports: Anxiety, Depression Endocrine/Metabolic History: Reports: Diabetes, type II, Obesity/BMI 30+, Osteoporosis Hematologic History: Reports: Anemia, Blood transfusion(s) Immunologic History: Reports: None Oncologic (Cancer) History: Reports: Renal, Other (see below) Other Oncologic History: mets to liver treated without recurrence. Dermatologic History: Reports: None - Infectious Disease History Infectious Disease History: Reports: Chicken pox, Measles Other Infectious Disease History: Not sure - Past Surgical History Respiratory Surgical History: Reports: Lung Biopsies GI Surgical History: Reports: EGD, Other (see below) Other GI Surgeries/Procedures: EGD done September 15 2015 Female Surgical History: Reports: Nephrectomy Musculoskeletal Surgical History: Reports: Other (see below) Other Musculoskeletal Surgeries/Procedures:: right ankle x3, left ankle x1 Social & Family History - Family History Family Medical History: Noncontributory - Tobacco Use Smoking Status *Q: Never Smoker Years of Tobacco use: 30 Packs/Tins Daily: 1 Used Tobacco, but Quit: Yes Month Tobacco Last Used: Feb 2015 Second Hand Smoke Exposure: No - Caffeine Use Caffeine Use: Reports: Soda, Tea - Recreational Drug Use Recreational Drug Use: No ED ROS GENERAL - Review of Systems Review Of Systems: See Below (See history of present illness) ED EXAM, SKIN/RASH Exam: See Below (See history of present illness) ED SKIN PROCEDURES - Laceration/Wound Repair Left Foot Appearance: subcutaneous Anesthetic type: local Local anesthesia - Lidocaine (Xylocaine): 1% plain Local anesthesia - Bupivicaine (Marcaine): 0.5% plain Local anesthetic volume: 2cc Skin prep: saline Exploration/Debridement/Repair: wound explored Closed with: sutures Suture size: other # of sutures: 5 Repaired with: vicryl Complications: No Course - Vital Signs Last Recorded V/S: Last Vital Signs Temp 36.1 C 04/10/17 14:55 Pulse 73 07/22/16 14:55 Resp 20 07/22/16 14:55 BP 141/68 H 07/22/16 14:55 Pulse Ox 98 07/22/16 14:55 - Orders/Labs/Meds Orders: Active Orders 24 hr Category Date Time Status Blood Glucose Check, Bedside [RC] ONETIME Care 07/22/16 14:16 Active Orthopedic Device Education [RC] Click To Edit Care 07/22/16 15:15 Active Foot 2V Lt [CR] Stat Exams 07/22/16 14:16 Taken Meds: Medications Discontinued Medications Generic Name Dose Route Start Last Admin Trade Name Freq PRN Reason Stop Dose Admin Bupivacaine HCl 10 ml 07/22/16 13:26 Sensorcaine-Mpf 0.5% INJECT 07/22/16 13:27 ONETIME ONE Cefazolin Sodium 1 gm 07/22/16 15:16 Ancef IM 07/22/16 15:17 ONETIME ONE Lidocaine HCl 20 ml 07/22/16 13:26 Xylocaine 1% INJECT 07/22/16 13:27 ONETIME ONE Departure - Departure Time of Disposition: 15:21 Disposition: Home, Self-Care 01 Condition: good Clinical Impression: Open fracture of fifth toe of left foot Prescriptions: Cephalexin [Keflex] 500 mg PO QID #40 capsule Forms: ED Department Discharge Additional Instructions: The following information is given to patients seen in the emergency department who are being discharged to home. This information is to outline your options for follow-up care. We provide all patients seen in our emergency department with a follow-up referral. The need for follow-up, as well as the timing and circumstances, are variable depending upon the specifics of your emergency department visit. If you don't have a primary care physician on staff, we will provide you with a referral. We always advise you to contact your personal physician following an emergency department visit to inform them of the circumstance of the visit and for follow-up with them and/or the need for any referrals to a consulting specialist. The emergency department will also refer you to a specialist when appropriate. This referral assures that you have the opportunity for follow-up care with a specialist. All of these measure are taken in an effort to provide you with optimal care, which includes your follow-up. Under all circumstances we always encourage you to contact your private physician who remains a resource for coordinating your care. When calling for follow-up care, please make the office aware that this follow-up is from your recent emergency room visit. If for any reason you are refused follow-up, please contact the [facility] Emergency Department at and asked to speak to the emergency department charge nurse. Keflex 4 times a day for 10 days [facility] [address], [address] [place] [address] - My Orders Last 24 Hours: My Active Orders 07/22/16 14:16 Blood Glucose Check, Bedside [RC] ONETIME Foot 2V Lt [CR] Stat 07/22/16 15:15 Orthopedic Device Education [RC] Click To Edit - Assessment/Plan Last 24 Hours: My Active Orders 07/22/16 14:16 Blood Glucose Check, Bedside [RC] ONETIME Foot 2V Lt [CR] Stat 07/22/16 15:15 Orthopedic Device Education [RC] Click To Edit
[2016-07-22] MEDS ORDERED: ceFAZolin 1 GM Vial IM ONE (15:16)
--- NOTE | 2016-07-22 16:36 | CR ---
EXAM DATE: 07/22/16 PATIENT'S AGE: 60 Patient: VALERIA KC Facility: [place], [place] Site . Site : 1955 Study: XRay Extremity Left [id number]/10/2017 2:45:40 PM Ordering Physician: Aravind Workman Final Report: INDICATION: Fell. Great toe laceration. COMPARISON: 07/16/2016. FINDINGS/IMPRESSION: Left foot, 2 views. Fracture of the distal shaft of the proximal phalanx of the left 5th toe with mild lateral displacement and angulation of the distal fragment, new compared to the previous exam. Unchanged probable chronic fracture at the medial aspect of the base of the 2nd metatarsal with suggestion of mild lateral subluxation of the 2nd metatarsal base. Subacute to chronic healing fracture of the distal shaft of the 2nd metatarsal, as before. Marked diffuse osteopenia. Midfoot DJD changes. Postoperative changes of fusion of the ankle and subtalar joint, as before. Dictated by Ori Nunn MD @ 07/22/2016 3:02:28 PM Dictated by: Ori Nunn MD @ 07/22/2016 15:02:49 (Electronic Signature) Report Signed by Proxy and Original Signed Document filed in the Medical Record. MTDD
[2016-07-22 19:39] VITALS: BP 147/65
== END 2016-07-22 16:30 | disposition home or self-care (01) ==
LOC: MW.ED 13:15
DX: S92.512B Displaced fracture of proximal phalanx of left lesser toe(s), initial encounter for open fracture (principal); S91.312A Laceration without foreign body, left foot, initial encounter; W23.0XXA Caught, crushed, jammed, or pinched between moving objects, initial encounter; I10 Essential (primary) hypertension; I50.9 Heart failure, unspecified; J44.9 Chronic obstructive pulmonary disease, unspecified; F41.8 Other specified anxiety disorders; E11.9 Type 2 diabetes mellitus without complications; E66.9 Obesity, unspecified; Z68.30 Body mass index [BMI] 30.0-30.9, adult; D64.9 Anemia, unspecified; Z98.890 Other specified postprocedural states; Z87.891 Personal history of nicotine dependence; Z90.5 Acquired absence of kidney; Z79.4 Long term (current) use of insulin; Z79.899 Other long term (current) drug therapy; Z88.8 Allergy status to other drugs, medicaments and biological substances; Z88.6 Allergy status to analgesic agent
CPT/HCPCS: 12001; 73620-26-LT; 73620-LT; 99283

== ENCOUNTER 2016-08-28 18:13 | Emergency (ER) | payer BC, MEDICARE ==
--- NOTE | 2016-08-28 18:20 | EDM.PDOC ---
ED HPI GENERAL MEDICAL PROBLEM - General Stated Complaint: POSIBLE BROKEN LEG Time Seen by Provider: 08/28/16 18:15 Source of Information: Reports: Patient, EMS History Limitations: Reports: No Limitations - History of Present Illness INITIAL COMMENTS - FREE TEXT/NARRATIVE: HISTORY AND PHYSICAL: History of present illness: [Patient is brought to the emergency room by EMS. She states that she fell around 1 PM today and was unable to get herself up. She was home alone. Her found her laying on the floor around 5:30 this afternoon and called 911. She complains of bilateral lower leg pain but is unable to identify the exact location that hurts. She did not pass out nor did she hit her head. She states that when she fell she landed directly on her buttocks and that her lower legs stayed planted on the floor. Denies abdominal pain, chest pain, shortness of breath and difficulty breathing. Following x-rays patient complains of buttock pain. Has a history of bilateral ankle surgeries by Dr. Payan at [facility]. History of type 2 diabetes, CHF, osteomyelitis and bilateral ankle surgeries.] Review of systems: As per history of present illness and below otherwise all systems reviewed and negative. Past medical history: As per history of present illness and as reviewed below otherwise noncontributory. Surgical history: As per history of present illness and as reviewed below otherwise noncontributory. Social history: No reported history of drug or alcohol abuse. Family history: As per history of present illness and as reviewed below otherwise noncontributory. Physical exam: HEENT: Atraumatic, normocephalic. No tender areas to her scalp or face. PERRLA. EOMI. Oral mucous membranes moist. No C-spine tenderness. Has full range of motion of her neck. Lungs: Clear to auscultation, breath sounds equal bilaterally. Heart: S1S2, regular rate and rhythm., negative for clicks, rubs, or JVD. Abdomen: Obese. Soft, nondistended, nontender. N Genitourinary: Deferred. Rectal: Deferred. Extremities: Capillary refill 2+ and equal to bilateral lower extremities. Pupils are 2+ and equal bilaterally. Skin is somewhat cool. No edema to lower legs. Exquisitely tender with any movement of her lower extremities. Neurovascular unremarkable. Neuro: Awake, alert, oriented. Motor and sensory unremarkable throughout. Exam nonfocal. Diagnostics: [Bilateral tib/fib x-rays, bilateral knee x-rays, bilateral tib-fib x-rays] Therapeutics: [Dilaudid 1mg, zofran 4mg , morphine 2 mg IV, Wiggins catheter] Impression: [Bilateral tib-fib fractures Anemia] Plan: [Patient's hemoglobin 4.7. X-rays show bilateral tib-fib fractures. Discussed with orthopedist Dr. Hemphill at [facility] who recommends patient be transported to ER at [facility] for further evaluation and workup. Patient is notified and is in agreement with transport. [employer] will trasport patient. Definitive disposition and diagnosis as appropriate pending reevaluation and review of above. Bilateral Knee Pain Score (Numeric/FACES): 8 - Related Data Allergies Allergy/AdvReac Type Severity Reaction Status Date / Time amlodipine besylate Allergy Headache Verified 08/28/16 18:33 [From Norvasc] ketorolac Allergy Itching Verified 08/28/16 18:33 milnacipran HCl Allergy Headache Verified 08/28/16 18:33 [From Savella] Home Meds: Home Meds Pioglitazone [Actos] 30 mg PO DAILY 03/28/15 [History] levETIRAcetam [Keppra] 1,000 mg PO BID 03/28/15 [History] Glimepiride [Amaryl] 1 mg PO WITHBREAKFAST 09/14/15 [History] Pantoprazole [ProTONIX] 40 mg PO ACBREAKFAST 09/14/15 [History] Citalopram Hydrobromide [Celexa] 20 mg PO DAILY 09/18/15 [History] Calcium Carbonate/Vitamin D3 [Calcium 500 + Vit D 400] 1 each PO 1200,2100 07/11 [History] Cyclobenzaprine HCl 10 mg PO TID PRN 07/11/16 [History] Divalproex Sodium 250 mg PO TIDMEALS 07/11/16 [History] Gabapentin [Neurontin] 600 mg PO TID 07/11/16 [History] Silver Sulfadiazine [Silvadene 1% Cream 20 GM] 1 appful TOP DAILY 07/11/16 [ History] atorvaSTATin [Lipitor] 10 mg PO DAILY PRN 07/11/16 [History] buPROPion [Wellbutrin XL] 150 mg PO DAILY 07/11/16 [History] Albuterol/Ipratropium [DuoNeb 3.0-0.5 MG/3 ML] 3 ml NEB Q4HRRT neb 07/16/16 [Rx ] Insulin Aspart [NovoLOG] 0 - 8 unit SUBCUT TIDAC pen 07/16/16 [Rx] Temazepam [Restoril] 15 mg PO BEDTIME PRN #20 cap 07/16/16 [Rx] oxyCODONE HCl/Acetaminophen [oxyCODONE-Acetaminophen 5-325] 5 - 325 mg PO TID PRN #60 tablet 07/16/16 [Rx] Cephalexin [Keflex] 500 mg PO QID #40 capsule 07/22/16 [Rx] Past Medical History HEENT History: Reports: Glaucoma Cardiovascular History: Reports: Heart Failure, Hypertension Other Cardiovascular History: CHF Respiratory History: Reports: COPD, Interstitial Lung Disease, Pulmonary Fibrosis, Other (See Below) Other Respiratory History: DIPF,. 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 Dermatologic History: Reports: None - Infectious Disease History Infectious Disease History: Reports: Chicken Pox, Measles Other Infectious Disease History: Not sure - Past Surgical History GI Surgical History: Reports: EGD, Other (See Below) Musculoskeletal Surgical History: Reports: Other (See Below) Social & Family History - Family History Family Medical History: Noncontributory - Tobacco Use Smoking Status *Q: Never Smoker Years of Tobacco use: 30 Packs/Tins Daily: 1 Used Tobacco, but Quit: Yes Month Tobacco Last Used: Feb 2015 Second Hand Smoke Exposure: No - Caffeine Use Caffeine Use: Reports: Soda, Tea - Recreational Drug Use Recreational Drug Use: No Review of Systems - Review of Systems Review Of Systems: ROS reveals no pertinent complaints other than HPI. Trauma Exam - Physical Exam Exam: See Below Course - Vital Signs Last Recorded V/S: Last Vital Signs Temp 97.7 F 08/28/16 21:24 Pulse 94 08/28/16 21:24 Resp 20 08/28/16 21:24 BP 99/57 L 08/28/16 20:06 Pulse Ox 95 08/28/16 21:24 - Orders/Labs/Meds Orders: Active Orders 24 hr Category Date Time Status Communication Order [RC] PER UNIT ROUTINE Care 08/28/16 20:13 Active Wiggins Catheter Insertion [Insert Urinary Catheter] [OM. Care 08/28/16 18:45 Ordered PC] Q24H Urinary Catheter Assessment [RC] ASDIRECTED Care 08/28/16 18:37 Active Ankle 2V Lt [CR] Stat Exams 08/28/16 18:20 Taken Ankle 2V Rt [CR] Stat Exams 08/28/16 18:20 Taken Knee 1V or 2V Lt [CR] Stat Exams 08/28/16 18:20 Taken Knee 1V or 2V Rt [CR] Stat Exams 08/28/16 18:20 Taken Tibia Fibula Lt [CR] Stat Exams 08/28/16 18:20 Taken Tibia Fibula Rt [CR] Stat Exams 08/28/16 18:20 Taken RED BLOOD CELLS LP [BBK] Stat Lab 08/28/16 18:56 Results TYPE AND SCREEN [BBK] Stat Lab 08/28/16 18:56 Results Sodium Chloride 0.9% [Normal Saline] 1,000 ml Med 08/28/16 20:15 Active IV STAT Transfuse PRBC [Transfuse Red Blood Cells] [COMM] Stat Oth 08/28/16 19:22 Ordered Medication Orders Sodium Chloride (Normal Saline) 1,000 mls @ 500 mls/hr IV STAT ONE Stop: 08/28/16 22:14 Last Admin: 08/28/16 20:23 Dose: 500 mls/hr Labs: Laboratory Tests 08/28/16 08/28/16 08/28/16 Range/Units 18:34 18:34 18:56 WBC 8.36 (4.0-11.0) K/uL RBC 1.96 L (4.30-5.90) M/uL Hgb 4.7 L* (12.0-16.0) g/dL Hct 17.0 L (36.0-46.0) % MCV 86.7 (80.0-98.0) fL MCH 24.0 L (27.0-32.0) pg MCHC 27.6 L (31.0-37.0) g/dL RDW Std Deviation 56.5 (28.0-62.0) fl RDW Coeff of Morales 18 H (11.0-15.0) % Plt Count 180 (150-400) K/uL MPV 8.20 (7.40-12.00) fL Neut % (Auto) 83.8 H (48.0-80.0) % Lymph % (Auto) 7.1 L (16.0-40.0) % Davison % (Auto) 7.7 (0.0-15.0) % Eos % (Auto) 0.8 (0.0-7.0) % Baso % (Auto) 0.6 (0.0-1.5) % Neut # (Auto) 7.0 H (1.4-5.7) K/uL Lymph # (Auto) 0.6 (0.6-2.4) K/uL Davison # (Auto) 0.6 (0.0-0.8) K/uL Eos # (Auto) 0.1 (0.0-0.7) K/uL Baso # (Auto) 0.1 (0.0-0.1) K/uL Nucleated RBC % 1.7 /100WBC Nucleated RBCs # 0 K/uL Sodium 143 (136-146) mmol/L Potassium 5.0 (3.5-5.1) mmol/L Chloride 102 (98-110) mmol/L Carbon Dioxide 27 (21-31) mmol/L BUN 19 (6.0-23.0) mg/dL Creatinine 1.4 (0.6-1.5) mg/dL Est Cr Clr Drug Dosing 44.18 mL/min Estimated GFR (MDRD) 38.6 ml/min Glucose 124 H (60-110) mg/dL Calcium 9.4 (8.8-10.8) mg/dL Total Bilirubin 1.0 (0.1-1.5) mg/dL AST 73 H (5-40) IU/L ALT 98 H (8-54) IU/L Alkaline Phosphatase 128 (40-150) Creatine Kinase 358 H (9-236) IU/L Total Protein 7.3 (6.0-8.0) g/dL Albumin 3.8 (3.5-5.0) g/dL Globulin 3.5 (2.0-3.5) g/dL Albumin/Globulin Ratio 1.1 L (1.3-2.8) Urine Color Urine Appearance Urine pH (5.0-8.0) Ur Specific Lane (1.001-1.035) Urine Protein (NEGATIVE) mg/dL Urine Glucose (UA) (NEGATIVE) mg/dL Urine Ketones (NEGATIVE) mg/dL Urine Occult Blood (NEGATIVE) Urine Nitrite (NEGATIVE) Urine Bilirubin (NEGATIVE) Urine Urobilinogen (<2.0) EU/dL Ur Leukocyte Esterase (NEGATIVE) Urine RBC (0-2/HPF) Urine WBC (0-5/HPF) Ur Epithelial Cells (NONE-FEW) Urine Bacteria (NEGATIVE) Blood Type O POSITIVE Antibody Screen NEGATIVE Crossmatch See Detail 08/28/16 08/28/16 Range/Units 18:56 20:57 WBC 8.83 (4.0-11.0) K/uL RBC 1.95 L (4.30-5.90) M/uL Hgb 4.7 L* (12.0-16.0) g/dL Hct 16.8 L (36.0-46.0) % MCV 86.2 (80.0-98.0) fL MCH 24.1 L (27.0-32.0) pg MCHC 28.0 L (31.0-37.0) g/dL RDW Std Deviation 58.0 (28.0-62.0) fl RDW Coeff of Morales 18 H (11.0-15.0) % Plt Count 183 (150-400) K/uL MPV 8.10 (7.40-12.00) fL Neut % (Auto) 86.6 H (48.0-80.0) % Lymph % (Auto) 5.9 L (16.0-40.0) % Davison % (Auto) 7.1 (0.0-15.0) % Eos % (Auto) 0.1 (0.0-7.0) % Baso % (Auto) 0.3 (0.0-1.5) % Neut # (Auto) 7.6 H (1.4-5.7) K/uL Lymph # (Auto) 0.5 L (0.6-2.4) K/uL Davison # (Auto) 0.6 (0.0-0.8) K/uL Eos # (Auto) 0.0 (0.0-0.7) K/uL Baso # (Auto) 0.0 (0.0-0.1) K/uL Nucleated RBC % 2.1 /100WBC Nucleated RBCs # 0 K/uL Sodium (136-146) mmol/L Potassium (3.5-5.1) mmol/L Chloride (98-110) mmol/L Carbon Dioxide (21-31) mmol/L BUN (6.0-23.0) mg/dL Creatinine (0.6-1.5) mg/dL Est Cr Clr Drug Dosing mL/min Estimated GFR (MDRD) ml/min Glucose (60-110) mg/dL Calcium (8.8-10.8) mg/dL Total Bilirubin (0.1-1.5) mg/dL AST (5-40) IU/L ALT (8-54) IU/L Alkaline Phosphatase (40-150) Creatine Kinase (9-236) IU/L Total Protein (6.0-8.0) g/dL Albumin (3.5-5.0) g/dL Globulin (2.0-3.5) g/dL Albumin/Globulin Ratio (1.3-2.8) Urine Color YELLOW Urine Appearance CLEAR Urine pH 5.5 (5.0-8.0) Ur Specific Lane <= 1.005 (1.001-1.035) Urine Protein NEGATIVE (NEGATIVE) mg/dL Urine Glucose (UA) NEGATIVE (NEGATIVE) mg/dL Urine Ketones NEGATIVE (NEGATIVE) mg/dL Urine Occult Blood NEGATIVE (NEGATIVE) Urine Nitrite NEGATIVE (NEGATIVE) Urine Bilirubin NEGATIVE (NEGATIVE) Urine Urobilinogen 0.2 (<2.0) EU/dL Ur Leukocyte Esterase NEGATIVE (NEGATIVE) Urine RBC NONE SEEN (0-2/HPF) Urine WBC NONE SEEN (0-5/HPF) Ur Epithelial Cells OCCASIONAL (NONE-FEW) Urine Bacteria FEW (NEGATIVE) Blood Type Antibody Screen Crossmatch Meds: Medications Generic Name Dose Route Start Last Admin Trade Name Rodo PRN Reason Stop Dose Admin Sodium Chloride 1,000 mls @ 500 mls/hr 08/28/16 20:15 08/28/16 20:23 Normal Saline IV 08/28/16 22:14 500 mls/hr STAT ONE Administration Discontinued Medications Generic Name Dose Route Start Last Admin Trade Name Rodo PRN Reason Stop Dose Admin Hydromorphone HCl 0.5 mg 08/28/16 19:16 08/28/16 19:29 Dilaudid IVPUSH 08/28/16 19:17 Not Given ONETIME ONE Hydromorphone HCl 1 mg 08/28/16 19:18 08/28/16 19:20 Dilaudid IV 08/28/16 19:19 1 mg ONETIME ONE Administration Hydromorphone HCl 1 mg 08/28/16 19:31 08/28/16 21:14 Dilaudid IVPUSH 08/28/16 19:32 Not Given ONETIME ONE Sodium Chloride 1,000 mls @ 999 mls/hr 08/28/16 20:09 Normal Saline IV 08/28/16 21:09 STAT ONE Morphine Sulfate 2 mg 08/28/16 20:35 08/28/16 20:59 Morphine IVPUSH 08/28/16 20:36 2 mg ONETIME ONE Administration Ondansetron HCl 4 mg 08/28/16 19:16 08/28/16 19:22 Zofran IVPUSH 08/28/16 19:17 4 mg ONETIME ONE Administration Departure - Departure Time of Disposition: 21:30 Disposition: DC/Tfer to Acute Hospital 02 Clinical Impression: Tibia/fibula fracture Qualifiers: Encounter type: initial encounter Fracture type: closed Laterality: left Qualified Code(s): S82.202A - Unspecified fracture of shaft of left tibia, initial encounter for closed fracture; S82.402A - Unspecified fracture of shaft of left fibula, initial encounter for closed fracture Tibia/fibula fracture Qualifiers: Encounter type: initial encounter Fracture type: closed Laterality: left Qualified Code(s): S82.202A - Unspecified fracture of shaft of left tibia, initial encounter for closed fracture; S82.402A - Unspecified fracture of shaft of left fibula, initial encounter for closed fracture Tibia/fibula fracture Qualifiers: Encounter type: initial encounter Fracture type: closed Laterality: left Qualified Code(s): S82.202A - Unspecified fracture of shaft of left tibia, initial encounter for closed fracture; S82.402A - Unspecified fracture of shaft of left fibula, initial encounter for closed fracture Tibia/fibula fracture Qualifiers: Encounter type: initial encounter Fracture type: closed Laterality: left Qualified Code(s): S82.202A - Unspecified fracture of shaft of left tibia, initial encounter for closed fracture; S82.402A - Unspecified fracture of shaft of left fibula, initial encounter for closed fracture Fracture tibia/fibula Qualifiers: Encounter type: initial encounter Fracture type: closed Laterality: left Qualified Code(s): S82.202A - Unspecified fracture of shaft of left tibia, initial encounter for closed fracture; S82.402A - Unspecified fracture of shaft of left fibula, initial encounter for closed fracture - Discharge Information - My Orders Last 24 Hours: My Active Orders 08/28/16 18:20 Ankle 2V Lt [CR] Stat Ankle 2V Rt [CR] Stat Knee 1V or 2V Lt [CR] Stat Knee 1V or 2V Rt [CR] Stat Tibia Fibula Lt [CR] Stat Tibia Fibula Rt [CR] Stat 08/28/16 18:37 Urinary Catheter Assessment [RC] ASDIRECTED 08/28/16 18:45 Wiggins Catheter Insertion [Insert Urinary Catheter] [OM.PC] Q24H 08/28/16 18:56 RED BLOOD CELLS LP [BBK] Stat TYPE AND SCREEN [BBK] Stat 08/28/16 19:22 Transfuse PRBC [Transfuse Red Blood Cells] [COMM] Stat 08/28/16 20:15 Sodium Chloride 0.9% [Normal Saline] 1,000 ml IV STAT - Assessment/Plan Last 24 Hours: My Active Orders 08/28/16 18:20 Ankle 2V Lt [CR] Stat Ankle 2V Rt [CR] Stat Knee 1V or 2V Lt [CR] Stat Knee 1V or 2V Rt [CR] Stat Tibia Fibula Lt [CR] Stat Tibia Fibula Rt [CR] Stat 08/28/16 18:37 Urinary Catheter Assessment [RC] ASDIRECTED 08/28/16 18:45 Wiggins Catheter Insertion [Insert Urinary Catheter] [OM.PC] Q24H 08/28/16 18:56 RED BLOOD CELLS LP [BBK] Stat TYPE AND SCREEN [BBK] Stat 08/28/16 19:22 Transfuse PRBC [Transfuse Red Blood Cells] [COMM] Stat 08/28/16 20:15 Sodium Chloride 0.9% [Normal Saline] 1,000 ml IV STAT
[2016-08-28] MEDS ORDERED: HYDROmorphone 2 MG/ML Syringe IVPUSH ONE (19:16)
[2016-08-28] MEDS ORDERED: Ondansetron 4 MG/2 ML SDV IVPUSH ONE (19:16)
[2016-08-28] MEDS ORDERED: HYDROmorphone 1 MG/ML Syringe IV ONE (19:18)
[2016-08-28] MEDS ORDERED: HYDROmorphone 1 MG/ML Syringe IVPUSH ONE (19:31)
[2016-08-28] MEDS ORDERED: Sodium Chloride 0.9% 1,000 ML IV ONE ×2 (20:09→20:15)
[2016-08-28] MEDS ORDERED: Morphine 2 MG/ML Syringe IVPUSH ONE (20:35)
[2016-08-28 21:28] VITALS: BP 88/47
--- NOTE | 2016-08-29 10:18 | CR ---
EXAM DATE: 08/28/16 PATIENT'S AGE: 60 Patient: VALERIA KC Facility: [place], [place] Site . Site : 1955 Study: XRay Extremity Left TibFib [id number]/17/2017 7:56:19 PM Ordering Physician: Doctor Brewer Final Report: LEFT KNEE, LEFT TIBIA/FIBULA, AND LEFT ANKLE INDICATION: Fall. Bilateral lower leg pain. COMPARISON: 07/16/2016 left tibia/fibula radiographs. FINDINGS/IMPRESSION: Acute mildly comminuted fracture of the proximal left tibial diametaphysis with mild lateral displacement of the distal fragment. Acute nondisplaced fracture of the proximal fibular shaft. Status post resection of the distal left fibula and instrumented fusion of the left ankle and subtalar joint, as before, with intact surgical hardware. Electrical stimulator remains present. Dictated by Ori Nunn MD @ 08/28/2016 8:38:08 PM Dictated by: Ori Nunn MD @ 08/28/2016 20:39:08 (Electronic Signature) Report Signed by Proxy. [facility]
--- NOTE | 2016-08-29 10:18 | CR ---
EXAM DATE: 08/28/16 PATIENT'S AGE: 60 Patient: VALERIA KC Facility: [place], [place] Site . Site : 1955 Study: XRay Extremity Left Ankle [id number]/17/2017 7:54:35 PM Ordering Physician: Doctor Brewer Final Report: LEFT KNEE, LEFT TIBIA/FIBULA, AND LEFT ANKLE INDICATION: Fall. Bilateral lower leg pain. COMPARISON: 07/16/2016 left tibia/fibula radiographs. FINDINGS/IMPRESSION: Acute mildly comminuted fracture of the proximal left tibial diametaphysis with mild lateral displacement of the distal fragment. Acute nondisplaced fracture of the proximal fibular shaft. Status post resection of the distal left fibula and instrumented fusion of the left ankle and subtalar joint, as before, with intact surgical hardware. Electrical stimulator remains present. Dictated by Ori Nunn MD @ 08/28/2016 8:38:08 PM Dictated by: Ori Nunn MD @ 08/28/2016 20:38:49 (Electronic Signature) Report Signed by Proxy. [facility]
--- NOTE | 2016-08-29 10:19 | CR ---
EXAM DATE: 08/28/16 PATIENT'S AGE: 60 Patient: VALERIA KC Facility: [place], [place] Site . Site : 1955 Study: XRay Knee Left [id number]/17/2017 7:57:45 PM Ordering Physician: Doctor Brewer Final Report: LEFT KNEE, LEFT TIBIA/FIBULA, AND LEFT ANKLE INDICATION: Fall. Bilateral lower leg pain. COMPARISON: 07/16/2016 left tibia/fibula radiographs. FINDINGS/IMPRESSION: Acute mildly comminuted fracture of the proximal left tibial diametaphysis with mild lateral displacement of the distal fragment. Acute nondisplaced fracture of the proximal fibular shaft. Status post resection of the distal left fibula and instrumented fusion of the left ankle and subtalar joint, as before, with intact surgical hardware. Electrical stimulator remains present. Dictated by Ori Nunn MD @ 08/28/2016 8:38:08 PM Dictated by: Ori Nunn MD @ 08/28/2016 20:39:25 (Electronic Signature) Report Signed by Proxy. [facility]
--- NOTE | 2016-08-29 10:20 | CR ---
EXAM DATE: 08/28/16 PATIENT'S AGE: 60 Patient: VALERIA KC Facility: [place], [place] Site . Site : 1955 Study: XRay Extremity Right Ankle [id number]/17/2017 8:01:44 PM Ordering Physician: Doctor Brewer Final Report: RIGHT TIBIA/FIBULA AND RIGHT ANKLE INDICATION: Fall. Bilateral lower leg pain. COMPARISON: 07/11/2016 right ankle radiographs and 07/16/2016 right knee radiographs. FINDINGS/IMPRESSION: Acute fracture of the right proximal tibial diametaphysis with mild lateral displacement of the distal fragment. Nondisplaced vertical fractures extending into the proximal tibial shaft and extending into the tibial metaphysis at the tibial spines. No other acute fractures identified. Status post resection of the distal right fibula and instrumented fusion of the right ankle, as before, with intact surgical hardware. Electrical stimulator remains present. Dictated by Ori Nunn MD @ 08/28/2016 8:30:08 PM Dictated by: Ori Nunn MD @ 08/28/2016 20:33:26 (Electronic Signature) Report Signed by Proxy. [facility]
--- NOTE | 2016-08-29 10:21 | CR ---
EXAM DATE: 08/28/16 PATIENT'S AGE: 60 Patient: VALERIA KC Facility: [place], [place] Site . Site : 1955 Study: XRay Extremity Right TibF [id number]/17/2017 8:06:56 PM Ordering Physician: Doctor Brewer Final Report: RIGHT TIBIA/FIBULA AND RIGHT ANKLE INDICATION: Fall. Bilateral lower leg pain. COMPARISON: 07/11/2016 right ankle radiographs and 07/16/2016 right knee radiographs. FINDINGS/IMPRESSION: Acute fracture of the right proximal tibial diametaphysis with mild lateral displacement of the distal fragment. Nondisplaced vertical fractures extending into the proximal tibial shaft and extending into the tibial metaphysis at the tibial spines. No other acute fractures identified. Status post resection of the distal right fibula and instrumented fusion of the right ankle, as before, with intact surgical hardware. Electrical stimulator remains present. Dictated by Ori Nunn MD @ 08/28/2016 8:30:08 PM Dictated by: Ori Nunn MD @ 08/28/2016 20:33:10 (Electronic Signature) Report Signed by Proxy. [facility]
--- NOTE | 2016-08-29 10:22 | CR ---
EXAM DATE: 08/28/16 PATIENT'S AGE: 60 Patient: VALERIA KC Facility: [place], [place] : 1955 Study: XRay Knee Right [id number]/17/2017 8:13:56 PM Ordering Physician: Sujata Final Report: INDICATION: Status post fall, bilateral lower leg pain. TECHNIQUE: Knee radiographs 3 views COMPARISON: 07/16/2016. FINDINGS: New oblique proximal right tibial metaphysis fracture with medial displacement of the distal fracture fragment. Vertical component of fracture does not appear to extend to the tibial articular surface on this study. No joint effusion. Severe degenerative changes of patellofemoral compartment. IMPRESSION: 1. New proximal right tibial metaphysis fracture with medial displacement. No definite extension to the tibial articular surface. Dictated by Ryan Adams MD @ 08/28/2016 8:55:03 PM Dictated by: Ryan Adams MD @ 08/28/2016 20:55:13 (Electronic Signature) Report Signed by Proxy. [facility]
== END 2016-08-28 21:50 ==
LOC: MW.ED 18:13
DX: S82.252A Displaced comminuted fracture of shaft of left tibia, initial encounter for closed fracture (principal); S82.402A Unspecified fracture of shaft of left fibula, initial encounter for closed fracture; W19.XXXA Unspecified fall, initial encounter; D64.9 Anemia, unspecified; I11.0 Hypertensive heart disease with heart failure; I50.9 Heart failure, unspecified; J44.9 Chronic obstructive pulmonary disease, unspecified; M81.0 Age-related osteoporosis without current pathological fracture; F41.8 Other specified anxiety disorders; E66.9 Obesity, unspecified; E11.42 Type 2 diabetes mellitus with diabetic polyneuropathy; Z79.4 Long term (current) use of insulin; Z87.891 Personal history of nicotine dependence; Z79.899 Other long term (current) drug therapy; Z88.6 Allergy status to analgesic agent; Z88.8 Allergy status to other drugs, medicaments and biological substances; Z99.81 Dependence on supplemental oxygen
CPT/HCPCS: 36415; 36430; 73560; 73590; 73600; 80053; 81001; 82550; 85025; 86850; 86900; 86901; 86920; 86921; 86922; 96361; 96374; 96375; 99285; J1170; J2270; J2405; J7040; P9016

== ENCOUNTER 2016-12-30 18:51 | Emergency (ER) | payer BC, MEDICARE ==
--- NOTE | 2016-12-30 19:01 | EDM.PDOC ---
ED HPI GENERAL MEDICAL PROBLEM - General Chief Complaint: Genitourinary Problem Stated Complaint: URINATING BLOOD Time Seen by Provider: 12/30/16 18:58 Source of Information: Reports: Patient, EMS History Limitations: Reports: No Limitations - History of Present Illness INITIAL COMMENTS - FREE TEXT/NARRATIVE: HISTORY AND PHYSICAL: [] 61-year-old female presenting by EMS with concerns over blood in her urine History of Present Illness: []Patient has noticed this just today and is having some lower abdominal pain with this Patient has been under treatment by Dr. Mercado for her UTIs Review of Systems: As per history of present illness and below otherwise all systems reviewed and negative. Past medical history: As per history of present illness and as reviewed below otherwise noncontributory. Surgical history: As per history of present illness and as reviewed below otherwise noncontributory. Social history: No reported history of drug or alcohol abuse. Family history: As per history of present illness and as reviewed below otherwise noncontributory. Physical exam: Obese female who has oxygen history of COPD answers questions when asked. HEENT: Atraumatic, normocehpalic, pupils reactive, negative for conjunctival pallor or scleral icterus, mucous membranes moist, throat clear, neck supple, nontender, trachea midline. Lungs: Clear to auscultation, diminished breath sounds equal bilaterally, chest non tender. Heart: S1S2, regular, negative for clicks, rubs, or JVD. Abdomen: Soft, distended, tender. Negative for masses or hepatossplenmegaly. Negative for costovertebral tenderness. Pelvis: Stable nontender. Genitourinary: Deferred. Rectal: Deferred Extremities: Atraumatic, negative for cords or calf pain. Neurovascular unremarkable. Neuro: Awake, alert, oriented. Cranial nerves II through XII unremarkable. Cerebellum unremarkable. Motor and sensory unremarkable throughout. Exam nonfocal. Have discussed with family and patient that she has a UTI with hematuria. we will change her medications send her home. Patient's expresses his concern of sending her home. Diagnostics: [UA urine culture] Therapeutics: [] Impression: [Urine tract infection] Plan: []Discharged to home Definitive disposition and diagnosis as appropriate pending reevaluation and review of above. Onset: Today Abdominal Pain Score (Numeric/FACES): 7 - Related Data Allergies Allergy/AdvReac Type Severity Reaction Status Date / Time amlodipine besylate Allergy Headache Verified 12/30/16 18:58 [From [facility]] doxepin Allergy unknown Verified 12/30/16 19:00 doxycycline Allergy unknown Verified 12/30/16 19:00 hydromorphone Allergy unknown Verified 12/30/16 19:00 ketorolac Allergy Itching Verified 12/30/16 18:58 latex Allergy unknown Verified 12/30/16 19:00 milnacipran HCl Allergy Headache Verified 12/30/16 18:58 [From [facility]] aspirin AdvReac Abdominal Verified 12/30/16 19:00 Pain codeine AdvReac Itching Verified 12/30/16 19:24 Home Meds: Home Meds Pioglitazone [Actos] 30 mg PO DAILY 03/28/15 [History] levETIRAcetam [Keppra] 1,000 mg PO BID 03/28/15 [History] Pantoprazole [ProTONIX] 40 mg PO ACBREAKFAST 09/14/15 [History] Citalopram Hydrobromide [Celexa] 20 mg PO DAILY 09/18/15 [History] Calcium Carbonate/Vitamin D3 [Calcium 500 + Vit D 400] 1 each PO BID 07/11/16 [ History] Divalproex Sodium 250 mg PO TIDMEALS 07/11/16 [History] Gabapentin [Neurontin] 600 mg PO TID 07/11/16 [History] Silver Sulfadiazine [Silvadene 1% Cream 20 GM] 1 appful TOP DAILY 07/11/16 [ History] atorvaSTATin [Lipitor] 20 mg PO DAILY 07/11/16 [History] buPROPion [Wellbutrin XL] 150 mg PO DAILY 07/11/16 [History] Insulin Aspart [NovoLOG] 0 - 8 unit SUBCUT TIDAC pen 07/16/16 [Rx] Temazepam [Restoril] 15 mg PO BEDTIME PRN #20 cap 07/16/16 [Rx] Apixaban [Eliquis] 2.5 mg PO BID 12/30/16 [History] Ferrous Sulfate 325 mg PO BID 12/30/16 [History] Hydrocodone/Acetaminophen [[place] 5-325] 1 tab PO Q4HR PRN 12/30/16 [History] Nitrofurantoin 100 gm MC BID #20 powder 12/30/16 [Rx] Sulfamethoxazole/Trimethoprim [Bactrim Ds Tablet] 1 tab PO BID 12/30/16 [History ] glipiZIDE [Glucotrol XL] 2.5 mg PO DAILY 12/30/16 [History] Past Medical History HEENT History: Reports: Glaucoma Cardiovascular History: Reports: Heart Failure, Hypertension Other Cardiovascular History: CHF Respiratory History: Reports: COPD, Interstitial Lung Disease, Pulmonary Fibrosis, Other (See Below) Other Respiratory History: DIPF,. 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 Dermatologic History: Reports: None - Infectious Disease History Infectious Disease History: Reports: Chicken Pox, Measles Other Infectious Disease History: Not sure - Past Surgical History GI Surgical History: Reports: EGD, Other (See Below) Musculoskeletal Surgical History: Reports: Other (See Below) Social & Family History - Family History Family Medical History: Noncontributory - Tobacco Use Smoking Status *Q: Never Smoker Years of Tobacco use: 30 Packs/Tins Daily: 1 Used Tobacco, but Quit: Yes Month Tobacco Last Used: Feb 2015 Second Hand Smoke Exposure: No - Caffeine Use Caffeine Use: Reports: Soda, Tea - Recreational Drug Use Recreational Drug Use: No ED ROS GENERAL - Review of Systems Review Of Systems: ROS reveals no pertinent complaints other than HPI. ED EXAM, RENAL/ - Physical Exam Exam: See Below (See dictation) Course - Vital Signs Last Recorded V/S: Last Vital Signs Temp 36.6 C 12/30/16 19:01 Pulse 65 12/30/16 19:01 Resp 16 12/30/16 19:01 BP 123/62 12/30/16 19:01 Pulse Ox 94 L 12/30/16 19:01 - Orders/Labs/Meds Orders: Active Orders 24 hr Category Date Time Status CULTURE URINE [RM] Stat Lab 12/30/16 19:06 Received Labs: Laboratory Tests 12/30/16 Range/Units 19:06 Urine Color YELLOW Urine Appearance CLEAR Urine pH 6.0 (5.0-8.0) Ur Specific [place] 1.015 (1.001-1.035) Urine Protein NEGATIVE (NEGATIVE) mg/dL Urine Glucose (UA) NEGATIVE (NEGATIVE) mg/dL Urine Ketones NEGATIVE (NEGATIVE) mg/dL Urine Occult Blood MODERATE (NEGATIVE) Urine Nitrite NEGATIVE (NEGATIVE) Urine Bilirubin SMALL H (NEGATIVE) Urine Ictotest Urine Urobilinogen 0.2 (<2.0) EU/dL Ur Leukocyte Esterase MODERATE (NEGATIVE) Urine RBC 0-2 (0-2/HPF) Urine WBC 10-15 (0-5/HPF) Ur Epithelial Cells OCCASIONAL (NONE-FEW) Urine Bacteria 1+ H (NEGATIVE) Urinalysis Comment Departure - Departure Time of Disposition: 19:58 Disposition: Home, Self-Care 01 Condition: Good Clinical Impression: UTI, Urinary tract infectious disease Hematuria Qualifiers: Hematuria type: unspecified type Qualified Code(s): R31.9 - Hematuria, unspecified - Discharge Information Prescriptions: Nitrofurantoin 100 gm MC BID #20 powder Referrals: PCP,None [Primary Care Provider] - Forms: ED Department Discharge Additional Instructions: The following information is given to patients seen in the emergency department who are being discharged to home. This information is to outline your options for follow-up care. We provide all patients seen in our emergency department with a follow-up referral. The need for follow-up, as well as the timing and circumstances, are variable depending upon the specifics of your emergency department visit. If you don't have a primary care physician on staff, we will provide you with a referral. We always advise you to contact your personal physician following an emergency department visit to inform them of the circumstance of the visit and for follow-up with them and/or the need for any referrals to a consulting specialist. The emergency department will also refer you to a specialist when appropriate. This referral assures that you have the opportunity for followup care with a specialist. All of these measure are taken in an effort to provide you with optimal care, which includes your followup. Under all circumstances we always encourage you to contact your private physician who remains a resource for coordinating your care. When calling for followup care, please make the office aware that this follow-up is from your recent emergency room visit. If for any reason you are refused follow-up, please contact the [facility] emergency department at and asked to speak to the emergency department charge nurse. You were found to have loading your urine and a urinary tract infection Prescription for nitrofurantoin 100 mg twice a day has been sent to your pharmacy You were given a shot of Rocephin while in the emergency department Follow-up with your primary care doctor in 2 days - My Orders Last 24 Hours: My Active Orders 12/30/16 19:06 CULTURE URINE [RM] Stat - Assessment/Plan Last 24 Hours: My Active Orders 12/30/16 19:06 CULTURE URINE [RM] Stat
[2016-12-30 19:03] VITALS: BP 123/62
[2016-12-30] MEDS ORDERED: cefTRIAXone 1,000 MG in Lidocaine 1% 4 ML IM ONE (20:00)
== END 2016-12-30 20:40 | disposition home or self-care (01) ==
LOC: MW.ED 18:51
DX: N39.0 Urinary tract infection, site not specified (principal); I11.0 Hypertensive heart disease with heart failure; I50.9 Heart failure, unspecified; J44.9 Chronic obstructive pulmonary disease, unspecified; E11.40 Type 2 diabetes mellitus with diabetic neuropathy, unspecified; F41.9 Anxiety disorder, unspecified; F32.9 Major depressive disorder, single episode, unspecified; E66.9 Obesity, unspecified; D64.9 Anemia, unspecified; Z88.8 Allergy status to other drugs, medicaments and biological substances; Z88.1 Allergy status to other antibiotic agents; Z88.6 Allergy status to analgesic agent; Z91.040 Latex allergy status; Z88.5 Allergy status to narcotic agent; Z79.899 Other long term (current) drug therapy
CPT/HCPCS: 81001; 87086; 96372; 99283; J0696; 87088; 87186

== ENCOUNTER 2017-01-02 16:05 | Inpatient (IN) | payer BC, MEDICARE ==
[2017-01-02] MEDS ORDERED: Nystatin Crm 30 GM Tube TOP SCH (18:15)
[2017-01-02] MEDS ORDERED: Pantoprazole 40 MG in Sodium Chloride 0.9% 10 ML IVPUSH SCH (18:15)
[2017-01-02] MEDS ORDERED: Sodium Chloride 0.9% 1,000 ML IV SCH (18:15)
[2017-01-02] MEDS ORDERED: Ondansetron 4 MG/2 ML SDV IVPUSH PRN (18:18)
--- NOTE | 2017-01-02 18:57 | PCM.HP ---
H&P History of Present Illness - General Admit Problem/Dx: Admission Diagnosis/Problem Admission Diagnosis/Problem UTI, Urinary tract infectious disease - History of Present Illness Initial Comments - Free Text/Narative: 61 yo female with pmh of DM, pulmonary fibrosis, chronic respiratory failure, oxygen dependent, on Eliquis as bedridden for history of bilateral lower extremity fractures, diabetic neuropathy, and seizure disorder. She presented to the ED earlier this week do to complaints of blood in her urine. She was discharged home on antibiotic for UTI. On follow up in Dr. Mcclelland's clinic she was noted to be lethargic and requiring more than her normal 3 liters of oxygen. She reports myalgias and conitnues to have blood in urine as well as stool. Direct admission was arranged. - Related Data Allergies/Adverse Reactions: Allergies Allergy/AdvReac Type Severity Reaction Status Date / Time amlodipine besylate Allergy Headache Verified 12/30/16 18:58 [From [facility]] doxepin Allergy unknown Verified 12/30/16 19:00 doxycycline Allergy unknown Verified 12/30/16 19:00 hydromorphone Allergy unknown Verified 12/30/16 19:00 ketorolac Allergy Itching Verified 12/30/16 18:58 latex Allergy unknown Verified 12/30/16 19:00 milnacipran HCl Allergy Headache Verified 12/30/16 18:58 [From [facility]] aspirin AdvReac Abdominal Verified 12/30/16 19:00 Pain Home Medications: Home Meds Pioglitazone [Actos] 30 mg PO DAILY 03/28/15 [History] levETIRAcetam [Keppra] 1,000 mg PO BID 03/28/15 [History] Pantoprazole [ProTONIX] 40 mg PO ACBREAKFAST 09/14/15 [History] Calcium Carbonate/Vitamin D3 [Calcium 500 + Vit D 400] 1 each PO BID 07/11/16 [ History] Divalproex Sodium 250 mg PO TIDMEALS 07/11/16 [History] Gabapentin [Neurontin] 600 mg PO TID 07/11/16 [History] atorvaSTATin [Lipitor] 20 mg PO DAILY 07/11/16 [History] buPROPion [Wellbutrin XL] 150 mg PO DAILY 07/11/16 [History] Temazepam [Restoril] 15 mg PO BEDTIME PRN #20 cap 07/16/16 [Rx] Apixaban [Eliquis] 2.5 mg PO BID 12/30/16 [History] Ferrous Sulfate 325 mg PO BID 12/30/16 [History] Hydrocodone/Acetaminophen [[place] 5-325] 1 tab PO Q4HR PRN 12/30/16 [History] Nitrofurantoin 100 gm MC BID #20 powder 12/30/16 [Rx] glipiZIDE [Glucotrol XL] 2.5 mg PO DAILY 12/30/16 [History] Albuterol [IJD: Albuterol] 1 inh INH Q4H PRN 01/03/17 [History] Ascorbic Acid 1 tab PO DAILY 01/03/17 [History] Budesonide [Pulmicort] 1 inh INH BID 01/03/17 [History] Docusate Sodium [Colace] 2 cap PO DAILY 01/03/17 [History] Furosemide 1 tab PO DAILY 01/03/17 [History] Insulin Lispro [Humalog Kwikpen U-100] 0 unit SUBCUT ASDIRECTED 01/03/17 [ History] Lactobacillus Acidophilus [Acidophilus Lactobacillus] 1 cap PO BID 01/03/17 [ History] Levalbuterol HCl [Xopenex] 1 inh INH Q4H PRN 01/03/17 [History] Nitroglycerin [Nitrostat] 1 tab SL ASDIRECTED PRN 01/03/17 [History] Past Medical History HEENT History: Reports: Glaucoma Cardiovascular History: Reports: Heart Failure, Hypertension Other Cardiovascular History: CHF Respiratory History: Reports: COPD, Interstitial Lung Disease, Pulmonary Fibrosis, Other (See Below) Other Respiratory History: DIPF,. 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 Dermatologic History: Reports: None - Infectious Disease History Infectious Disease History: Reports: Chicken Pox, Measles Other Infectious Disease History: Not sure - Past Surgical History GI Surgical History: Reports: EGD, Other (See Below) Musculoskeletal Surgical History: Reports: Other (See Below) Social & Family History - Family History Family Medical History: Noncontributory - Tobacco Use Smoking Status *Q: Current Every Day Smoker Years of Tobacco use: 30 Packs/Tins Daily: 0.2 Used Tobacco, but Quit: Yes Month Tobacco Last Used: Feb 2015 Second Hand Smoke Exposure: No - Caffeine Use Caffeine Use: Reports: Coffee, Soda - Recreational Drug Use Recreational Drug Use: No H&P Review of Systems - Review of Systems: Review Of Systems: ROS reveals no pertinent complaints other than HPI. Exam - Exam Exam: See Below - Vital Signs Vital Signs: Last Vital Signs Temp Pulse Resp BP Pulse Ox 95 01/02/17 18:18 Weight: 155.3 kg - Exam General: Alert, Cooperative. No: Mild Distress HEENT: Mucosa Moist & [place], Posterior Pharynx Clear Neck: Supple Lungs: Normal Respiratory Effort, Decreased Breath Sounds Cardiovascular: Regular Rate, Regular Rhythm GI/Abdominal Exam: Normal Bowel Sounds, Soft, Non-Tender, No Distention, Pelvis Stable Extremities: Pedal Edema Skin: Warm, Dry, Intact - Patient Data Lab Results Last 24 hrs: Laboratory Results - last 24 hr 01/02/17 01/02/17 01/02/17 Range/Units 16:49 16:49 17:03 WBC 5.25 (4.0-11.0) K/uL RBC 2.57 L (4.30-5.90) M/uL Hgb 8.7 L (12.0-16.0) g/dL Hct 29.7 L (36.0-46.0) % MCV 115.6 H (80.0-98.0) fL MCH 33.9 H (27.0-32.0) pg MCHC 29.3 L (31.0-37.0) g/dL RDW Std Deviation 89.4 H (28.0-62.0) fl RDW Coeff of Morales 21 H (11.0-15.0) % Plt Count 99 L (150-400) K/uL MPV 9.70 (7.40-12.00) fL Neut % (Auto) 66.7 (48.0-80.0) % Lymph % (Auto) 17.1 (16.0-40.0) % [place] % (Auto) 12.0 (0.0-15.0) % Eos % (Auto) 3.2 (0.0-7.0) % Baso % (Auto) 1.0 (0.0-1.5) % Neut # (Auto) 3.5 (1.4-5.7) K/uL Lymph # (Auto) 0.9 (0.6-2.4) K/uL [place] # (Auto) 0.6 (0.0-0.8) K/uL Eos # (Auto) 0.2 (0.0-0.7) K/uL Baso # (Auto) 0.1 (0.0-0.1) K/uL Nucleated RBC % 1.3 /100WBC Nucleated RBCs # 0 K/uL Sodium 137 (136-146) mmol/L Potassium 4.9 (3.5-5.1) mmol/L Chloride 98 (98-110) mmol/L Carbon Dioxide 31 (21-31) mmol/L BUN 25 H (6.0-23.0) mg/dL Creatinine 1.6 H (0.6-1.5) mg/dL Est Cr Clr Drug Dosing 38.19 mL/min Estimated GFR (MDRD) 33.0 ml/min Glucose 57 L (60-110) mg/dL POC Glucose 56 L (60-110) mg/dL Calcium 9.3 (8.8-10.8) mg/dL Total Bilirubin 0.4 (0.1-1.5) mg/dL AST 50 H (5-40) IU/L ALT 41 (8-54) IU/L Alkaline Phosphatase 99 (40-150) Total Protein 7.2 (6.0-8.0) g/dL Albumin 3.4 L (3.5-5.0) g/dL Globulin 3.8 H (2.0-3.5) g/dL Albumin/Globulin Ratio 0.9 L (1.3-2.8) 01/02/17 Range/Units 17:55 WBC (4.0-11.0) K/uL RBC (4.30-5.90) M/uL Hgb (12.0-16.0) g/dL Hct (36.0-46.0) % MCV (80.0-98.0) fL MCH (27.0-32.0) pg MCHC (31.0-37.0) g/dL RDW Std Deviation (28.0-62.0) fl RDW Coeff of [place] (11.0-15.0) % Plt Count (150-400) K/uL MPV (7.40-12.00) fL Neut % (Auto) (48.0-80.0) % Lymph % (Auto) (16.0-40.0) % [place] % (Auto) (0.0-15.0) % Eos % (Auto) (0.0-7.0) % Baso % (Auto) (0.0-1.5) % Neut # (Auto) (1.4-5.7) K/uL Lymph # (Auto) (0.6-2.4) K/uL [place] # (Auto) (0.0-0.8) K/uL Eos # (Auto) (0.0-0.7) K/uL Baso # (Auto) (0.0-0.1) K/uL Nucleated RBC % /100WBC Nucleated RBCs # K/uL Sodium (136-146) mmol/L Potassium (3.5-5.1) mmol/L Chloride (98-110) mmol/L Carbon Dioxide (21-31) mmol/L BUN (6.0-23.0) mg/dL Creatinine (0.6-1.5) mg/dL Est Cr Clr Drug Dosing mL/min Estimated GFR (MDRD) ml/min Glucose (60-110) mg/dL POC Glucose 64 (60-110) mg/dL Calcium (8.8-10.8) mg/dL Total Bilirubin (0.1-1.5) mg/dL AST (5-40) IU/L ALT (8-54) IU/L Alkaline Phosphatase (40-150) Total Protein (6.0-8.0) g/dL Albumin (3.5-5.0) g/dL Globulin (2.0-3.5) g/dL Albumin/Globulin Ratio (1.3-2.8) Result Diagrams: 01/04/17 18:52 01/04/17 05:06 Jack Results Last 24 hrs: Microbiology 01/02/17 17:04 Anaerobic Blood Culture - Final Blood - Venous *Q Meaningful Use (ADM) - VTE *Q VTE Criteria *Q: - Stroke *Q Stroke Criteria *Q: - AMI *Q AMI Criteria *Q: Problem List Initiated/Reviewed/Updated: Yes Orders Last 24hrs: Active Orders 24 hr Category Date Time Status Admission Status [Patient Status] [ADT] Routine ADT 01/02/17 18:08 Active Antiembolic Devices [RC] PER UNIT ROUTINE Care 01/02/17 18:19 Active Hemoccult [Fecal Occult Blood Collection] [RC] Care 01/02/17 18:16 Active ASDIRECTED Oxygen Therapy [RC] PRN Care 01/02/17 18:18 Active Up With Assistance [RC] ASDIRECTED Care 01/02/17 18:18 Active Vital Signs [RC] Q4H Care 01/02/17 18:18 Active ADA Diabetic [[place] [employer] Diet] [DIET Diet 01/02/17 Dinner Active ] CXR [Chest 1V Frontal] [CR] Stat Exams 01/02/17 16:36 Taken ABG [BLOOD GAS ARTERIAL] [BG] Routine Lab 01/02/17 18:43 Ordered BASIC METABOLIC PANEL,BMP [CHEM] AM Lab 01/03/17 05:11 Ordered BASIC METABOLIC PANEL,BMP [CHEM] AM Lab 01/04/17 05:11 Ordered BASIC METABOLIC PANEL,BMP [CHEM] AM Lab 01/05/17 05:11 Ordered BASIC METABOLIC PANEL,BMP [CHEM] AM Lab 01/06/17 05:11 Ordered CBC WITH AUTO DIFF [HEME] AM Lab 01/03/17 05:11 Ordered CBC WITH AUTO DIFF [HEME] AM Lab 01/04/17 05:11 Ordered CBC WITH AUTO DIFF [HEME] AM Lab 01/05/17 05:11 Ordered CULTURE BLOOD [BC] Stat Lab 01/02/17 17:04 Results CULTURE BLOOD [BC] Stat Lab 01/02/17 17:20 Received CULTURE URINE [RM] Routine Lab 01/02/17 16:34 Uncollected Hemoccult [OCCULT BLOOD DIAGNOSTIC] [OP] Routine Lab 01/02/17 18:16 Uncollected UA W/MICROSCOPIC [URIN] Routine Lab 01/02/17 16:34 Uncollected VANCOMYCIN TROUGH [CHEM] Routine Lab 01/04/17 05:00 Ordered Acetaminophen/HYDROcodone [[place] 325-5 MG] Med 01/02/17 18:20 Active 1 tab PO Q4H PRN Divalproex Sodium Med 01/03/17 08:00 Active 250 mg PO TIDMEALS Ferrous Sulfate Med 01/02/17 21:00 Active 325 mg PO BID Gabapentin [Neurontin] Med 01/02/17 22:00 Active 600 mg PO TID Insulin Aspart [NovoLOG] Med 01/02/17 18:15 Active See Protocol SUBCUT TIDAC Levofloxacin/Dextrose 5%-Water [Levaquin in D5W 750 MG/ Med 01/02/17 19:00 Ordered 150 ML] 750 mg Premix Bag 1 bag IV Q24H Nystatin [Nystatin Crm] Med 01/02/17 18:15 Active 0 gm TOP TID Ondansetron [Zofran] Med 01/02/17 18:18 Active 4 mg IVPUSH Q4H PRN Pantoprazole [ProTONIX IV] 40 mg Med 01/02/17 18:15 Active Sodium Chloride 0.9% [Normal Saline] 10 ml IVPUSH Q12H Piperacillin/Tazobactam [Piperacil-Tazobact] 3.375 gm Med 01/02/17 19:00 Ordered Sodium Chloride 0.9% [Normal Saline] 50 ml IV Q6H Vancomycin 2,000 mg Med 01/02/17 17:15 Active Sodium Chloride 0.9% [Normal Saline] 500 ml IV Q12H Vancomycin Pharmacy to Dose [Pharmacy to Dose - Med 01/02/17 17:00 Active Vancomycin] 1 dose .XX ASDIRECTED atorvaSTATin [Lipitor] Med 01/03/17 09:00 Active 20 mg PO DAILY buPROPion [Wellbutrin XL] Med 01/03/17 09:00 Active 150 mg PO DAILY levETIRAcetam [Keppra] Med 01/02/17 21:00 Active 1,000 mg PO BID Blood Culture x2 Reflex Set [OM.PC] Stat Oth 01/02/17 16:42 Ordered Sequential Compression Device [OM.PC] Per Unit Routine Oth 01/02/17 18:19 Ordered Resuscitation Status Routine Resus Stat 01/02/17 18:18 Ordered Medication Orders Hydrocodone Bitart/Acetaminophen ([place] 325-5 Mg) 1 tab PO Q4H PRN PRN Reason: Pain Atorvastatin Calcium (Lipitor) 20 mg PO DAILY QUINN Bupropion HCl (Wellbutrin Xl) 150 mg PO DAILY QUINN Divalproex Sodium (Divalproex Sodium) 250 mg PO TIDMEALS QUINN Ferrous Sulfate (Ferrous Sulfate) 325 mg PO BID QUINN Gabapentin (Neurontin) 600 mg PO TID [facility] Vancomycin HCl 2,000 mg/ (Sodium Chloride) 500 mls @ 250 mls/hr IV Q12H [facility] Last Admin: 01/02/17 17:44 Dose: 250 mls/hr Pantoprazole Sodium 40 mg/ (Sodium Chloride) 10 mls @ 300 mls/hr IVPUSH Q12H QUINN Levofloxacin/Dextrose 750 mg/ (Premix) 150 mls @ 100 mls/hr IV Q24H [facility] Piperacillin Sod/Tazobactam (Sod 3.375 gm/ Sodium Chloride) 50 mls @ 100 mls/ hr IV Q6H [facility] Insulin Aspart (Novolog) 0 unit SUBCUT TIDAC [facility] PRN Reason: Protocol Levetiracetam (Keppra) 1,000 mg PO BID QUINN Nystatin (Nystatin Crm) 0 gm TOP TID QUINN Ondansetron HCl (Zofran) 4 mg IVPUSH Q4H PRN PRN Reason: Nausea Vancomycin HCl (Pharmacy To Dose - Vancomycin) 1 dose .XX ASDIRECTED [facility] Assessment/Plan Comment:: 61 yo female admitted for enterococcus UTI and possible pneumonia from gram negative madi respiratory infection. Enterococcus UTI: on Vancomycin Possible Pneumonia: CXR reports infiltrates which could be pneumonia vs pulmonary edema vs interstitial lung disease. We will treat with levaquin, zosyn, and vancomycin, cultures pending Acute on chronic respiratory failure due to pulmonary fibrosis, and pneumonia, requiring 3 L NC, Prior echo reported preserved ejection fraction, patient will likely need sleep study in future. Cellulitis vs candidial intertrigo: on antibiotics and nystatin powder Hematuria/rectal bleeding/Anemia of chronic disease: will hold eliquis, will monitor Hgb, on iron Seizure disorder: resume home meds DM: sliding scale insulin.
[2017-01-02] MEDS: Insulin Aspart 100 Units/ML 3 ML Pen SUBCUT SCH (18:58)
[2017-01-02] MEDS ORDERED: Levofloxacin/Dextrose 5%-Water 750 MG in Premix Bag 1 BAG IV SCH (19:00)
[2017-01-02] MEDS: Nicotine 14 MG/24 Hr Patch TRDERM SCH (20:25)
[2017-01-02] MEDS: Nystatin Topical Powder 15 GM Bottle TOP SCH ×2 (20:32→21:35)
[2017-01-02] MEDS: Piperacillin/Tazobactam 3.375 GM in Sodium Chloride 0.9% 50 ML IV SCH (20:32)
[2017-01-02] MEDS: Pantoprazole 40 MG in Sodium Chloride 0.9% 10 ML IVPUSH SCH (20:33)
[2017-01-02] MEDS: Ferrous Sulfate 325 MG Tab PO SCH (20:34)
[2017-01-02] MEDS ORDERED: Lidocaine 2% 5 ML SDV ONE (20:34)
[2017-01-02] MEDS: levETIRAcetam 500 MG Tab PO SCH (20:34)
--- NOTE | 2017-01-02 21:18 | PCM.SN ---
- Free Text/Narrative Note: Called to Pt bedside for ABG. Unable to feel pulse strong radial pulse. Ultrasound used and ABG obtained high radial.
[2017-01-02] MEDS: Gabapentin 300 MG Cap PO SCH (21:25)
[2017-01-02] MEDS: Levofloxacin/Dextrose 5%-Water 750 MG in Premix Bag 1 BAG IV SCH (21:25)
[2017-01-02] MEDS: Acetaminophen/HYDROcodone 325-5 MG Tab PO PRN (22:54)
[2017-01-03] MEDS: Piperacillin/Tazobactam 3.375 GM in Sodium Chloride 0.9% 50 ML IV SCH ×4 (02:18→20:43)
[2017-01-03] MEDS: Acetaminophen/HYDROcodone 325-5 MG Tab PO PRN ×3 (03:09→16:29)
[2017-01-03] MEDS: Gabapentin 300 MG Cap PO SCH ×3 (05:03→21:31)
[2017-01-03] MEDS: Nystatin Topical Powder 15 GM Bottle TOP SCH ×3 (05:03→21:51)
[2017-01-03] MEDS: Insulin Aspart 100 Units/ML 3 ML Pen SUBCUT SCH ×3 (06:45→17:08)
[2017-01-03] MEDS: levETIRAcetam 500 MG Tab PO SCH ×2 (08:03→21:51)
[2017-01-03] MEDS: atorvaSTATin 10 MG Tab PO SCH (08:03)
[2017-01-03] MEDS: buPROPion 150 MG Tab.ER PO SCH (08:03)
[2017-01-03] MEDS: Ferrous Sulfate 325 MG Tab PO SCH ×2 (08:03→20:44)
[2017-01-03] MEDS: Divalproex Sodium Delayed-Release 250 MG Tab.CR PO SCH ×3 (08:05→16:38)
[2017-01-03] MEDS: Pantoprazole 40 MG in Sodium Chloride 0.9% 10 ML IVPUSH SCH ×2 (08:05→20:43)
[2017-01-03] MEDS ORDERED: Furosemide 40 MG in Sodium Chloride 0.9% 50 ML IV STA (09:32)
[2017-01-03] MEDS ORDERED: Furosemide 40 MG/4 ML VIAL IV ONE (09:45)
--- NOTE | 2017-01-03 11:57 | CR ---
EXAM DATE: 01/02/17 PATIENT'S AGE: 61 Patient: VALERIA KC Facility: [place], [place] Site . Site : 1955 Study: XRay Chest [id number] 5:23:23 PM Ordering Physician: Luis Alberto Rivera Final Report: HISTORY: Hypoxia. FINDINGS: AP portable chest radiograph is compared with 11 July 2016. Exam is limited by technique. There is stable cardiomegaly. Pulmonary vasculature is pump and poorly-defined with increased perihilar and lower lobe density. Left hemidiaphragm is not well visualized. IMPRESSION: 1. Cardiomegaly with pulmonary venous congestion. 2. Persistent alveolar density left perihilar and in the lower lung augustine. This may represent pulmonary edema versus pneumonia. Dictated by Adelaide Lindquist MD @ 01/02/2017 5:49:42 PM Dictated by: Adelaide Lindquist MD @ 01/02/2017 17:49:52 (Electronic Signature) Report Signed by Proxy. [facility]
--- NOTE | 2017-01-03 14:19 | PCM.PN ---
- Review of Systems Systems Review Comment:: lethargic this morning, reports feeling ill, short of breath. - Patient Data Vitals - Most Recent: Last Vital Signs Temp 37.0 C 01/03/17 08:00 Pulse Resp 15 01/03/17 13:00 BP 145/54 H 01/03/17 13:00 Pulse Ox 93 L 01/03/17 13:00 Weight - Most Recent: 157.3 kg I&O - Last 24 Hours: Intake & Output 01/02/17 01/03/17 01/03/17 22:59 06:59 14:59 Intake Total 1060 700 60 Output Total 700 1000 Balance 360 -300 60 Lab Results Last 24 Hours: Laboratory Results - last 24 hr 01/02/17 01/02/17 01/02/17 Range/Units 16:49 16:49 17:03 WBC 5.25 (4.0-11.0) K/uL RBC 2.57 L (4.30-5.90) M/uL Hgb 8.7 L (12.0-16.0) g/dL Hct 29.7 L (36.0-46.0) % MCV 115.6 H (80.0-98.0) fL MCH 33.9 H (27.0-32.0) pg MCHC 29.3 L (31.0-37.0) g/dL RDW Std Deviation 89.4 H (28.0-62.0) fl RDW Coeff of Morales 21 H (11.0-15.0) % Plt Count 99 L (150-400) K/uL MPV 9.70 (7.40-12.00) fL Neut % (Auto) 66.7 (48.0-80.0) % Lymph % (Auto) 17.1 (16.0-40.0) % [place] % (Auto) 12.0 (0.0-15.0) % Eos % (Auto) 3.2 (0.0-7.0) % Baso % (Auto) 1.0 (0.0-1.5) % Neut # (Auto) 3.5 (1.4-5.7) K/uL Lymph # (Auto) 0.9 (0.6-2.4) K/uL [place] # (Auto) 0.6 (0.0-0.8) K/uL Eos # (Auto) 0.2 (0.0-0.7) K/uL Baso # (Auto) 0.1 (0.0-0.1) K/uL Nucleated RBC % 1.3 /100WBC Nucleated RBCs # 0 K/uL INR (0.86-1.11) ABG pH (7.35-7.45) ABG pCO2 (35-45) mmHG ABG pO2 (75-100) mmHG ABG HCO3 (22-26) mEq/L ABG Total CO2 ABG Base Excess (-2.0-2.0) Sodium 137 (136-146) mmol/L Potassium 4.9 (3.5-5.1) mmol/L Chloride 98 (98-110) mmol/L Carbon Dioxide 31 (21-31) mmol/L BUN 25 H (6.0-23.0) mg/dL Creatinine 1.6 H (0.6-1.5) mg/dL Est Cr Clr Drug Dosing 38.19 mL/min Estimated GFR (MDRD) 33.0 ml/min Glucose 57 L (60-110) mg/dL POC Glucose 56 L (60-110) mg/dL Calcium 9.3 (8.8-10.8) mg/dL Total Bilirubin 0.4 (0.1-1.5) mg/dL AST 50 H (5-40) IU/L ALT 41 (8-54) IU/L Alkaline Phosphatase 99 (40-150) Total Protein 7.2 (6.0-8.0) g/dL Albumin 3.4 L (3.5-5.0) g/dL Globulin 3.8 H (2.0-3.5) g/dL Albumin/Globulin Ratio 0.9 L (1.3-2.8) Urine Color Urine Appearance Urine pH (5.0-8.0) Ur Specific Gove (1.001-1.035) Urine Protein (NEGATIVE) mg/dL Urine Glucose (UA) (NEGATIVE) mg/dL Urine Ketones (NEGATIVE) mg/dL Urine Occult Blood (NEGATIVE) Urine Nitrite (NEGATIVE) Urine Bilirubin (NEGATIVE) Urine Urobilinogen (<2.0) EU/dL Ur Leukocyte Esterase (NEGATIVE) Urine RBC (0-2/HPF) Urine WBC (0-5/HPF) Ur Epithelial Cells (NONE-FEW) Urine Bacteria (NEGATIVE) Blood Type Antibody Screen 01/02/17 01/02/17 01/02/17 Range/Units 17:20 17:20 17:55 WBC (4.0-11.0) K/uL RBC (4.30-5.90) M/uL Hgb (12.0-16.0) g/dL Hct (36.0-46.0) % MCV (80.0-98.0) fL MCH (27.0-32.0) pg MCHC (31.0-37.0) g/dL RDW Std Deviation (28.0-62.0) fl RDW Coeff of [place] (11.0-15.0) % Plt Count (150-400) K/uL MPV (7.40-12.00) fL Neut % (Auto) (48.0-80.0) % Lymph % (Auto) (16.0-40.0) % [place] % (Auto) (0.0-15.0) % Eos % (Auto) (0.0-7.0) % Baso % (Auto) (0.0-1.5) % Neut # (Auto) (1.4-5.7) K/uL Lymph # (Auto) (0.6-2.4) K/uL [place] # (Auto) (0.0-0.8) K/uL Eos # (Auto) (0.0-0.7) K/uL Baso # (Auto) (0.0-0.1) K/uL Nucleated RBC % /100WBC Nucleated RBCs # K/uL INR 1.12 H (0.86-1.11) ABG pH (7.35-7.45) ABG pCO2 (35-45) mmHG ABG pO2 (75-100) mmHG ABG HCO3 (22-26) mEq/L ABG Total CO2 ABG Base Excess (-2.0-2.0) Sodium (136-146) mmol/L Potassium (3.5-5.1) mmol/L Chloride (98-110) mmol/L Carbon Dioxide (21-31) mmol/L BUN (6.0-23.0) mg/dL Creatinine (0.6-1.5) mg/dL Est Cr Clr Drug Dosing mL/min Estimated GFR (MDRD) ml/min Glucose (60-110) mg/dL POC Glucose 64 (60-110) mg/dL Calcium (8.8-10.8) mg/dL Total Bilirubin (0.1-1.5) mg/dL AST (5-40) IU/L ALT (8-54) IU/L Alkaline Phosphatase (40-150) Total Protein (6.0-8.0) g/dL Albumin (3.5-5.0) g/dL Globulin (2.0-3.5) g/dL Albumin/Globulin Ratio (1.3-2.8) Urine Color Urine Appearance Urine pH (5.0-8.0) Ur Specific [place]ove (1.001-1.035) Urine Protein (NEGATIVE) mg/dL Urine Glucose (UA) (NEGATIVE) mg/dL Urine Ketones (NEGATIVE) mg/dL Urine Occult Blood (NEGATIVE) Urine Nitrite (NEGATIVE) Urine Bilirubin (NEGATIVE) Urine Urobilinogen (<2.0) EU/dL Ur Leukocyte Esterase (NEGATIVE) Urine RBC (0-2/HPF) Urine WBC (0-5/HPF) Ur Epithelial Cells (NONE-FEW) Urine Bacteria (NEGATIVE) Blood Type O POSITIVE Antibody Screen NEGATIVE 01/02/17 01/02/17 01/02/17 Range/Units 19:47 21:10 22:36 WBC (4.0-11.0) K/uL RBC (4.30-5.90) M/uL Hgb (12.0-16.0) g/dL Hct (36.0-46.0) % MCV (80.0-98.0) fL MCH (27.0-32.0) pg MCHC (31.0-37.0) g/dL RDW Std Deviation (28.0-62.0) fl RDW Coeff of Morales (11.0-15.0) % Plt Count (150-400) K/uL MPV (7.40-12.00) fL Neut % (Auto) (48.0-80.0) % Lymph % (Auto) (16.0-40.0) % [place] % (Auto) (0.0-15.0) % Eos % (Auto) (0.0-7.0) % Baso % (Auto) (0.0-1.5) % Neut # (Auto) (1.4-5.7) K/uL Lymph # (Auto) (0.6-2.4) K/uL [place] # (Auto) (0.0-0.8) K/uL Eos # (Auto) (0.0-0.7) K/uL Baso # (Auto) (0.0-0.1) K/uL Nucleated RBC % /100WBC Nucleated RBCs # K/uL INR (0.86-1.11) ABG pH 7.297 L (7.35-7.45) ABG pCO2 70 H (35-45) mmHG ABG pO2 61 L (75-100) mmHG ABG HCO3 34 H (22-26) mEq/L ABG Total CO2 33.2 ABG Base Excess 6.4 H (-2.0-2.0) Sodium (136-146) mmol/L Potassium (3.5-5.1) mmol/L Chloride (98-110) mmol/L Carbon Dioxide (21-31) mmol/L BUN (6.0-23.0) mg/dL Creatinine (0.6-1.5) mg/dL Est Cr Clr Drug Dosing mL/min Estimated GFR (MDRD) ml/min Glucose (60-110) mg/dL POC Glucose 98 (60-110) mg/dL Calcium (8.8-10.8) mg/dL Total Bilirubin (0.1-1.5) mg/dL AST (5-40) IU/L ALT (8-54) IU/L Alkaline Phosphatase (40-150) Total Protein (6.0-8.0) g/dL Albumin (3.5-5.0) g/dL Globulin (2.0-3.5) g/dL Albumin/Globulin Ratio (1.3-2.8) Urine Color YELLOW Urine Appearance CLEAR Urine pH 6.0 (5.0-8.0) Ur Specific [place]ove 1.010 (1.001-1.035) Urine Protein NEGATIVE (NEGATIVE) mg/dL Urine Glucose (UA) NEGATIVE (NEGATIVE) mg/dL Urine Ketones NEGATIVE (NEGATIVE) mg/dL Urine Occult Blood NEGATIVE (NEGATIVE) Urine Nitrite NEGATIVE (NEGATIVE) Urine Bilirubin NEGATIVE (NEGATIVE) Urine Urobilinogen 0.2 (<2.0) EU/dL Ur Leukocyte Esterase NEGATIVE (NEGATIVE) Urine RBC 0-1 (0-2/HPF) Urine WBC 0-2 (0-5/HPF) Ur Epithelial Cells FEW (NONE-FEW) Urine Bacteria FEW (NEGATIVE) Blood Type Antibody Screen 01/03/17 01/03/17 01/03/17 Range/Units 06:05 06:05 06:38 WBC 4.59 (4.0-11.0) K/uL RBC 2.28 L (4.30-5.90) M/uL Hgb 7.7 L (12.0-16.0) g/dL Hct 26.7 L (36.0-46.0) % MCV 117.1 H (80.0-98.0) fL MCH 33.8 H (27.0-32.0) pg MCHC 28.8 L (31.0-37.0) g/dL RDW Std Deviation 89.4 H (28.0-62.0) fl RDW Coeff of Morales 21 H (11.0-15.0) % Plt Count 94 L (150-400) K/uL MPV 9.00 (7.40-12.00) fL Neut % (Auto) 56.8 (48.0-80.0) % Lymph % (Auto) 25.9 (16.0-40.0) % [place] % (Auto) 13.5 (0.0-15.0) % Eos % (Auto) 3.1 (0.0-7.0) % Baso % (Auto) 0.7 (0.0-1.5) % Neut # (Auto) 2.6 (1.4-5.7) K/uL Lymph # (Auto) 1.2 (0.6-2.4) K/uL [place] # (Auto) 0.6 (0.0-0.8) K/uL Eos # (Auto) 0.1 (0.0-0.7) K/uL Baso # (Auto) 0.0 (0.0-0.1) K/uL Nucleated RBC % 2.0 /100WBC Nucleated RBCs # 0 K/uL INR (0.86-1.11) ABG pH (7.35-7.45) ABG pCO2 (35-45) mmHG ABG pO2 (75-100) mmHG ABG HCO3 (22-26) mEq/L ABG Total CO2 ABG Base Excess (-2.0-2.0) Sodium 140 (136-146) mmol/L Potassium 5.0 (3.5-5.1) mmol/L Chloride 101 (98-110) mmol/L Carbon Dioxide 31 (21-31) mmol/L BUN 21 (6.0-23.0) mg/dL Creatinine 1.3 (0.6-1.5) mg/dL Est Cr Clr Drug Dosing 47.19 mL/min Estimated GFR (MDRD) 41.9 ml/min Glucose 74 (60-110) mg/dL POC Glucose 72 (60-110) mg/dL Calcium 9.0 (8.8-10.8) mg/dL Total Bilirubin (0.1-1.5) mg/dL AST (5-40) IU/L ALT (8-54) IU/L Alkaline Phosphatase (40-150) Total Protein (6.0-8.0) g/dL Albumin (3.5-5.0) g/dL Globulin (2.0-3.5) g/dL Albumin/Globulin Ratio (1.3-2.8) Urine Color Urine Appearance Urine pH (5.0-8.0) Ur Specific Gove (1.001-1.035) Urine Protein (NEGATIVE) mg/dL Urine Glucose (UA) (NEGATIVE) mg/dL Urine Ketones (NEGATIVE) mg/dL Urine Occult Blood (NEGATIVE) Urine Nitrite (NEGATIVE) Urine Bilirubin (NEGATIVE) Urine Urobilinogen (<2.0) EU/dL Ur Leukocyte Esterase (NEGATIVE) Urine RBC (0-2/HPF) Urine WBC (0-5/HPF) Ur Epithelial Cells (NONE-FEW) Urine Bacteria (NEGATIVE) Blood Type Antibody Screen 01/03/17 Range/Units 11:58 WBC (4.0-11.0) K/uL RBC (4.30-5.90) M/uL Hgb (12.0-16.0) g/dL Hct (36.0-46.0) % MCV (80.0-98.0) fL MCH (27.0-32.0) pg MCHC (31.0-37.0) g/dL RDW Std Deviation (28.0-62.0) fl RDW Coeff of Morales (11.0-15.0) % Plt Count (150-400) K/uL MPV (7.40-12.00) fL Neut % (Auto) (48.0-80.0) % Lymph % (Auto) (16.0-40.0) % [place] % (Auto) (0.0-15.0) % Eos % (Auto) (0.0-7.0) % Baso % (Auto) (0.0-1.5) % Neut # (Auto) (1.4-5.7) K/uL Lymph # (Auto) (0.6-2.4) K/uL [place] # (Auto) (0.0-0.8) K/uL Eos # (Auto) (0.0-0.7) K/uL Baso # (Auto) (0.0-0.1) K/uL Nucleated RBC % /100WBC Nucleated RBCs # K/uL INR (0.86-1.11) ABG pH (7.35-7.45) ABG pCO2 (35-45) mmHG ABG pO2 (75-100) mmHG ABG HCO3 (22-26) mEq/L ABG Total CO2 ABG Base Excess (-2.0-2.0) Sodium (136-146) mmol/L Potassium (3.5-5.1) mmol/L Chloride (98-110) mmol/L Carbon Dioxide (21-31) mmol/L BUN (6.0-23.0) mg/dL Creatinine (0.6-1.5) mg/dL Est Cr Clr Drug Dosing mL/min Estimated GFR (MDRD) ml/min Glucose (60-110) mg/dL POC Glucose 100 (60-110) mg/dL Calcium (8.8-10.8) mg/dL Total Bilirubin (0.1-1.5) mg/dL AST (5-40) IU/L ALT (8-54) IU/L Alkaline Phosphatase (40-150) Total Protein (6.0-8.0) g/dL Albumin (3.5-5.0) g/dL Globulin (2.0-3.5) g/dL Albumin/Globulin Ratio (1.3-2.8) Urine Color Urine Appearance Urine pH (5.0-8.0) Ur Specific [place]ove (1.001-1.035) Urine Protein (NEGATIVE) mg/dL Urine Glucose (UA) (NEGATIVE) mg/dL Urine Ketones (NEGATIVE) mg/dL Urine Occult Blood (NEGATIVE) Urine Nitrite (NEGATIVE) Urine Bilirubin (NEGATIVE) Urine Urobilinogen (<2.0) EU/dL Ur Leukocyte Esterase (NEGATIVE) Urine RBC (0-2/HPF) Urine WBC (0-5/HPF) Ur Epithelial Cells (NONE-FEW) Urine Bacteria (NEGATIVE) Blood Type Antibody Screen Jack Results Last 24 Hours: Microbiology 01/03/17 08:25 Gram Stain - Final Sputum - Expectorated 01/02/17 17:04 Anaerobic Blood Culture - Final Blood - Venous Med Orders - Current: Current Medications Hydrocodone Bitart/Acetaminophen ([place] 325-5 Mg) 1 tab PO Q4H PRN PRN Reason: Pain Last Admin: 01/03/17 08:42 Dose: 1 tab Atorvastatin Calcium (Lipitor) 20 mg PO DAILY [facility] Last Admin: 01/03/17 08:03 Dose: 20 mg Bupropion HCl (Wellbutrin Xl) 150 mg PO DAILY [facility] Last Admin: 01/03/17 08:03 Dose: 150 mg Divalproex Sodium (Divalproex Sodium) 250 mg PO TIDMEALS [facility] Last Admin: 01/03/17 12:48 Dose: 250 mg Ferrous Sulfate (Ferrous Sulfate) 325 mg PO BID [facility] Last Admin: 01/03/17 08:03 Dose: 325 mg Gabapentin (Neurontin) 600 mg PO TID [facility] Last Admin: 01/03/17 13:52 Dose: 600 mg Vancomycin HCl 2,000 mg/ (Sodium Chloride) 500 mls @ 250 mls/hr IV Q12H [facility] Last Admin: 01/03/17 05:03 Dose: 250 mls/hr Piperacillin Sod/Tazobactam (Sod 3.375 gm/ Sodium Chloride) 50 mls @ 100 mls/ hr IV Q6H [facility] Last Admin: 01/03/17 13:52 Dose: 100 mls/hr Levofloxacin/Dextrose 750 mg/ (Premix) 150 mls @ 100 mls/hr IV Q24H [facility] Last Admin: 01/02/17 21:25 Dose: 100 mls/hr Pantoprazole Sodium 40 mg/ (Sodium Chloride) 10 mls @ 300 mls/hr IVPUSH Q12H [facility] Last Admin: 01/03/17 08:05 Dose: 300 mls/hr Insulin Aspart (Novolog) 0 unit SUBCUT TIDAC QUINN PRN Reason: Protocol Last Admin: 01/03/17 12:02 Dose: Not Given Levetiracetam (Keppra) 1,000 mg PO BID [facility] Last Admin: 01/03/17 08:03 Dose: 1,000 mg Nicotine (Habitrol) 14 mg TRDERM Q24H [facility] Last Admin: 01/02/17 20:25 Dose: Not Given Nystatin (Nystop) 0 gm TOP TID [facility] Last Admin: 01/03/17 13:19 Dose: 1 applic Ondansetron HCl (Zofran) 4 mg IVPUSH Q4H PRN PRN Reason: Nausea Vancomycin HCl (Pharmacy To Dose - Vancomycin) 1 dose .XX ASDIRECTED [facility] Discontinued Medications Furosemide (Lasix) 40 mg IV ONETIME ONE Stop: 01/03/17 09:46 Last Admin: 01/03/17 10:15 Dose: 40 mg Sodium Chloride (Normal Saline) 1,000 mls @ 125 mls/hr IV ASDIRECTED [facility] Pantoprazole Sodium 40 mg/ (Sodium Chloride) 10 mls @ 300 mls/hr IVPUSH Q12H [facility] Last Admin: 01/02/17 19:30 Dose: Not Given Levofloxacin/Dextrose 750 mg/ (Premix) 150 mls @ 100 mls/hr IV Q24H [facility] Last Admin: 01/02/17 20:47 Dose: Not Given Furosemide 40 mg/ Sodium (Chloride) 54 mls @ 100 mls/hr IV NOW STA Stop: 01/03/17 10:04 Last Admin: 01/03/17 10:18 Dose: Not Given Lidocaine (Xylocaine-Mpf 2%) Confirm Administered Dose 5 ml .ROUTE .STK-MED ONE Stop: 01/02/17 20:35 Last Admin: 01/02/17 21:25 Dose: 5 ml Nystatin (Nystatin Crm) 0 gm TOP TID [facility] Last Admin: 01/02/17 19:28 Dose: Not Given - Exam General: Alert, Cooperative Lungs: Clear to Auscultation, Normal Respiratory Effort, Decreased Breath Sounds Cardiovascular: Regular Rate, Regular Rhythm GI/Abdominal Exam: Normal Bowel Sounds, Soft, No Distention Skin: Warm, Dry, Intact Neurological: No New Focal Deficit - Problem List Review Problem List Initiated/Reviewed/Updated: Yes - My Orders Last 24 Hours: My Active Orders 01/02/17 16:42 Blood Culture x2 Reflex Set [OM.PC] Stat 01/02/17 17:00 Vancomycin Pharmacy to Dose [Pharmacy to Dose - Vancomycin] 1 dose .XX ASDIRECTED 01/02/17 17:04 CULTURE BLOOD [BC] Stat 01/02/17 17:15 Vancomycin 2,000 mg Sodium Chloride 0.9% [Normal Saline] 500 ml IV Q12H 01/02/17 17:20 CULTURE BLOOD [BC] Stat 01/02/17 18:08 Admission Status [Patient Status] [ADT] Routine 01/02/17 18:15 Insulin Aspart [NovoLOG] See Protocol SUBCUT TIDAC 01/02/17 18:16 Hemoccult [Fecal Occult Blood Collection] [RC] ASDIRECTED Hemoccult [OCCULT BLOOD DIAGNOSTIC] [OP] Routine 01/02/17 18:18 Oxygen Therapy [RC] PRN Up With Assistance [RC] ASDIRECTED Vital Signs [RC] Q1H Ondansetron [Zofran] 4 mg IVPUSH Q4H PRN Resuscitation Status Routine 01/02/17 18:19 Antiembolic Devices [RC] PER UNIT ROUTINE Sequential Compression Device [OM.PC] Per Unit Routine 01/02/17 18:20 Acetaminophen/HYDROcodone [[place] 325-5 MG] 1 tab PO Q4H PRN 01/02/17 19:00 Insert Urinary Catheter [OM.PC] Stat 01/02/17 19:47 CULTURE URINE [RM] Routine 01/02/17 20:00 Nicotine [Habitrol] 14 mg TRDERM Q24H Nystatin [Nystop] See Dose Instructions TOP TID Pantoprazole [ProTONIX IV] 40 mg Sodium Chloride 0.9% [Normal Saline] 10 ml IVPUSH Q12H Piperacillin/Tazobactam [Piperacil-Tazobact] 3.375 gm Sodium Chloride 0.9% [ Normal Saline] 50 ml IV Q6H 01/02/17 21:00 Ferrous Sulfate 325 mg PO BID Levofloxacin/Dextrose 5%-Water [Levaquin in D5W 750 MG/150 ML] 750 mg Premix Bag 1 bag IV Q24H levETIRAcetam [Keppra] 1,000 mg PO BID 01/02/17 22:00 Gabapentin [Neurontin] 600 mg PO TID 01/02/17 Dinner ADA Diabetic [[place] [employer] Diet] [DIET] 01/03/17 08:00 Divalproex Sodium 250 mg PO TIDMEALS 01/03/17 08:25 CULTURE SPUTUM + SMEAR [RM] Routine 01/03/17 09:00 atorvaSTATin [Lipitor] 20 mg PO DAILY buPROPion [Wellbutrin XL] 150 mg PO DAILY 01/04/17 05:00 VANCOMYCIN TROUGH [CHEM] Routine 01/04/17 05:11 BASIC METABOLIC PANEL,BMP [CHEM] AM CBC WITH AUTO DIFF [HEME] AM 01/05/17 05:11 BASIC METABOLIC PANEL,BMP [CHEM] AM CBC WITH AUTO DIFF [HEME] AM 01/06/17 05:11 BASIC METABOLIC PANEL,BMP [CHEM] AM - Plan Plan:: 61 yo female admitted for enterococcus UTI and possible pneumonia from gram negative madi respiratory infection. Enterococcus UTI: on Vancomycin Possible Pneumonia: We will treat with levaquin, zosyn, and vancomycin, cultures pending Acute on chronic respiratory failure due to pulmonary fibrosis, with pneumonia vs pulmonary edema, requiring 3 L NC, will use BIPAP when sleeping, lasix IV given this morning Cellulitis vs candidial intertrigo: on antibiotics and nystatin powder Hematuria/rectal bleeding/Anemia of chronic disease: will hold eliquis, will monitor Hgb, on iron Seizure disorder: continue home meds DM: sliding scale insulin.
[2017-01-03] MEDS ORDERED: Albuterol 0.083% 2.5 MG/3 ML Neb Soln NEB PRN (17:14)
[2017-01-03] MEDS ORDERED: Levalbuterol HCl 0.63 MG/3 ML Neb NEB PRN (17:15)
[2017-01-03] MEDS: Docusate Sodium 100 MG Cap PO SCH (17:46)
[2017-01-03] MEDS: Nicotine 14 MG/24 Hr Patch TRDERM SCH (20:57)
[2017-01-03] MEDS: Levofloxacin/Dextrose 5%-Water 750 MG in Premix Bag 1 BAG IV SCH (21:31)
[2017-01-03] MEDS ORDERED: levETIRAcetam Soln 500 MG/5 ML Cup PO ONE (21:50)
[2017-01-04] MEDS: Calcium Carbonate 500 MG Tab.Chew PO PRN (00:12)
[2017-01-04] MEDS: Acetaminophen/HYDROcodone 325-5 MG Tab PO PRN ×3 (00:12→23:12)
[2017-01-04] MEDS: Piperacillin/Tazobactam 3.375 GM in Sodium Chloride 0.9% 50 ML IV SCH ×4 (01:30→20:07)
[2017-01-04] MEDS: Gabapentin 300 MG Cap PO SCH ×3 (06:09→21:24)
[2017-01-04] MEDS: Nystatin Topical Powder 15 GM Bottle TOP SCH ×3 (06:09→21:25)
[2017-01-04] MEDS: Insulin Aspart 100 Units/ML 3 ML Pen SUBCUT SCH ×3 (07:29→18:07)
[2017-01-04] MEDS: Divalproex Sodium Delayed-Release 250 MG Tab.CR PO SCH ×3 (08:41→18:07)
[2017-01-04] MEDS: Docusate Sodium 100 MG Cap PO SCH (08:41)
[2017-01-04] MEDS: levETIRAcetam 500 MG Tab PO SCH ×2 (08:41→21:24)
[2017-01-04] MEDS: atorvaSTATin 10 MG Tab PO SCH (08:42)
[2017-01-04] MEDS: buPROPion 150 MG Tab.ER PO SCH (08:42)
[2017-01-04] MEDS: Pantoprazole 40 MG in Sodium Chloride 0.9% 10 ML IVPUSH SCH ×2 (08:42→20:00)
[2017-01-04] MEDS: Ferrous Sulfate 325 MG Tab PO SCH ×2 (08:42→21:24)
--- NOTE | 2017-01-04 12:23 | PCM.PN ---
- Review of Systems Systems Review Comment:: patient reports feeling better today, but still lethargic - Patient Data Vitals - Most Recent: Last Vital Signs Temp 36.3 C 01/04/17 09:00 Pulse Resp 12 01/04/17 12:00 BP 152/49 H 01/04/17 12:00 Pulse Ox 95 01/04/17 12:00 Weight - Most Recent: 156.1 kg I&O - Last 24 Hours: Intake & Output 01/03/17 01/04/17 01/04/17 22:59 06:59 14:59 Intake Total 710 1100 Output Total 350 650 Balance 360 450 Lab Results Last 24 Hours: Laboratory Results - last 24 hr 01/03/17 01/03/17 01/04/17 Range/Units 16:49 20:51 05:06 WBC (4.0-11.0) K/uL RBC (4.30-5.90) M/uL Hgb (12.0-16.0) g/dL Hct (36.0-46.0) % MCV (80.0-98.0) fL MCH (27.0-32.0) pg MCHC (31.0-37.0) g/dL RDW Std Deviation (28.0-62.0) fl RDW Coeff of Morales (11.0-15.0) % Plt Count (150-400) K/uL MPV (7.40-12.00) fL Neut % (Auto) (48.0-80.0) % Lymph % (Auto) (16.0-40.0) % Anderson % (Auto) (0.0-15.0) % Eos % (Auto) (0.0-7.0) % Baso % (Auto) (0.0-1.5) % Neut # (Auto) (1.4-5.7) K/uL Lymph # (Auto) (0.6-2.4) K/uL Anderson # (Auto) (0.0-0.8) K/uL Eos # (Auto) (0.0-0.7) K/uL Baso # (Auto) (0.0-0.1) K/uL Nucleated RBC % /100WBC Nucleated RBCs # K/uL Sodium (136-146) mmol/L Potassium (3.5-5.1) mmol/L Chloride (98-110) mmol/L Carbon Dioxide (21-31) mmol/L BUN (6.0-23.0) mg/dL Creatinine (0.6-1.5) mg/dL Est Cr Clr Drug Dosing mL/min Estimated GFR (MDRD) ml/min Glucose (60-110) mg/dL POC Glucose 90 124 H (60-110) mg/dL Calcium (8.8-10.8) mg/dL Vancomycin Trough 28.3 H (5-15) ug/mL 01/04/17 01/04/17 01/04/17 Range/Units 05:06 05:06 07:16 WBC 4.50 (4.0-11.0) K/uL RBC 2.27 L (4.30-5.90) M/uL Hgb 7.7 L (12.0-16.0) g/dL Hct 26.8 L (36.0-46.0) % MCV 118.1 H (80.0-98.0) fL MCH 33.9 H (27.0-32.0) pg MCHC 28.7 L (31.0-37.0) g/dL RDW Std Deviation 90.6 H (28.0-62.0) fl RDW Coeff of Morales 21 H (11.0-15.0) % Plt Count 89 L (150-400) K/uL MPV 9.00 (7.40-12.00) fL Neut % (Auto) 58.3 (48.0-80.0) % Lymph % (Auto) 24.2 (16.0-40.0) % Anderson % (Auto) 14.4 (0.0-15.0) % Eos % (Auto) 2.2 (0.0-7.0) % Baso % (Auto) 0.9 (0.0-1.5) % Neut # (Auto) 2.6 (1.4-5.7) K/uL Lymph # (Auto) 1.1 (0.6-2.4) K/uL Anderson # (Auto) 0.7 (0.0-0.8) K/uL Eos # (Auto) 0.1 (0.0-0.7) K/uL Baso # (Auto) 0.0 (0.0-0.1) K/uL Nucleated RBC % 2.9 /100WBC Nucleated RBCs # 0 K/uL Sodium 143 (136-146) mmol/L Potassium 4.5 (3.5-5.1) mmol/L Chloride 100 (98-110) mmol/L Carbon Dioxide 36 H (21-31) mmol/L BUN 16 (6.0-23.0) mg/dL Creatinine 1.1 (0.6-1.5) mg/dL Est Cr Clr Drug Dosing 55.77 mL/min Estimated GFR (MDRD) 50.8 ml/min Glucose 72 (60-110) mg/dL POC Glucose 74 (60-110) mg/dL Calcium 8.9 (8.8-10.8) mg/dL Vancomycin Trough (5-15) ug/mL 01/04/17 Range/Units 12:12 WBC (4.0-11.0) K/uL RBC (4.30-5.90) M/uL Hgb (12.0-16.0) g/dL Hct (36.0-46.0) % MCV (80.0-98.0) fL MCH (27.0-32.0) pg MCHC (31.0-37.0) g/dL RDW Std Deviation (28.0-62.0) fl RDW Coeff of Morales (11.0-15.0) % Plt Count (150-400) K/uL MPV (7.40-12.00) fL Neut % (Auto) (48.0-80.0) % Lymph % (Auto) (16.0-40.0) % Anderson % (Auto) (0.0-15.0) % Eos % (Auto) (0.0-7.0) % Baso % (Auto) (0.0-1.5) % Neut # (Auto) (1.4-5.7) K/uL Lymph # (Auto) (0.6-2.4) K/uL Anderson # (Auto) (0.0-0.8) K/uL Eos # (Auto) (0.0-0.7) K/uL Baso # (Auto) (0.0-0.1) K/uL Nucleated RBC % /100WBC Nucleated RBCs # K/uL Sodium (136-146) mmol/L Potassium (3.5-5.1) mmol/L Chloride (98-110) mmol/L Carbon Dioxide (21-31) mmol/L BUN (6.0-23.0) mg/dL Creatinine (0.6-1.5) mg/dL Est Cr Clr Drug Dosing mL/min Estimated GFR (MDRD) ml/min Glucose (60-110) mg/dL POC Glucose 115 H (60-110) mg/dL Calcium (8.8-10.8) mg/dL Vancomycin Trough (5-15) ug/mL Jack Results Last 24 Hours: Microbiology 01/02/17 19:47 Urine Culture - Final Urine, Catheterized No Growth 01/02/17 17:20 Aerobic Blood Culture - Preliminary Blood - Venous - Lab Draw NO GROWTH AFTER 1 DAY Anaerobic Blood Culture - Preliminary NO GROWTH AFTER 1 DAY 01/02/17 17:04 Aerobic Blood Culture - Preliminary Blood - Venous NO GROWTH AFTER 1 DAY Anaerobic Blood Culture - Final 01/03/17 08:25 Gram Stain - Final Sputum - Expectorated Med Orders - Current: Current Medications Hydrocodone Bitart/Acetaminophen ([place] 325-5 Mg) 1 tab PO Q4H PRN PRN Reason: Pain Last Admin: 01/04/17 11:12 Dose: 1 tab Albuterol (Proventil Neb Soln) 2.5 mg NEB Q4HRRT PRN PRN Reason: Shortness of Breath Atorvastatin Calcium (Lipitor) 20 mg PO DAILY [facility] Last Admin: 01/04/17 08:42 Dose: 20 mg Bupropion HCl (Wellbutrin Xl) 150 mg PO DAILY [facility] Last Admin: 01/04/17 08:42 Dose: 150 mg Calcium Carbonate/Glycine (Tums) 1,000 mg PO QID PRN PRN Reason: Indigestion Last Admin: 01/04/17 00:12 Dose: 1,000 mg Divalproex Sodium (Divalproex Sodium) 250 mg PO TIDMEALS [facility] Last Admin: 01/04/17 11:13 Dose: 250 mg Docusate Sodium (Colace) 200 mg PO DAILY [facility] Last Admin: 01/04/17 08:41 Dose: 200 mg Ferrous Sulfate (Ferrous Sulfate) 325 mg PO BID [facility] Last Admin: 01/04/17 08:42 Dose: 325 mg Gabapentin (Neurontin) 600 mg PO TID [facility] Last Admin: 01/04/17 06:09 Dose: 600 mg Piperacillin Sod/Tazobactam (Sod 3.375 gm/ Sodium Chloride) 50 mls @ 100 mls/ hr IV Q6H [facility] Last Admin: 01/04/17 08:42 Dose: 100 mls/hr Levofloxacin/Dextrose 750 mg/ (Premix) 150 mls @ 100 mls/hr IV Q24H [facility] Last Admin: 01/03/17 21:31 Dose: 100 mls/hr Pantoprazole Sodium 40 mg/ (Sodium Chloride) 10 mls @ 300 mls/hr IVPUSH Q12H [facility] Last Admin: 01/04/17 08:42 Dose: 300 mls/hr Vancomycin HCl 1,250 mg/ (Sodium Chloride) 250 mls @ 166.667 mls/hr IV Q12H [facility] Insulin Aspart (Novolog) 0 unit SUBCUT TIDAC [facility] PRN Reason: Protocol Last Admin: 01/04/17 07:29 Dose: Not Given Levalbuterol HCl (Xopenex) 0.63 mg NEB Q4HRRT PRN PRN Reason: Shortness of Breath Levetiracetam (Keppra) 1,000 mg PO BID [facility] Last Admin: 01/04/17 08:41 Dose: 1,000 mg Nicotine (Habitrol) 14 mg TRDERM Q24H [facility] Last Admin: 01/03/17 20:57 Dose: Not Given Nystatin (Nystop) 0 gm TOP TID [facility] Last Admin: 01/04/17 06:09 Dose: 1 applic Ondansetron HCl (Zofran) 4 mg IVPUSH Q4H PRN PRN Reason: Nausea Vancomycin HCl (Pharmacy To Dose - Vancomycin) 1 dose .XX ASDIRECTED [facility] Discontinued Medications Furosemide (Lasix) 40 mg IV ONETIME ONE Stop: 01/03/17 09:46 Last Admin: 01/03/17 10:15 Dose: 40 mg Vancomycin HCl 2,000 mg/ (Sodium Chloride) 500 mls @ 250 mls/hr IV Q12H [facility] Last Admin: 01/04/17 05:40 Dose: Not Given Sodium Chloride (Normal Saline) 1,000 mls @ 125 mls/hr IV ASDIRECTED [facility] Pantoprazole Sodium 40 mg/ (Sodium Chloride) 10 mls @ 300 mls/hr IVPUSH Q12H [facility] Last Admin: 01/02/17 19:30 Dose: Not Given Levofloxacin/Dextrose 750 mg/ (Premix) 150 mls @ 100 mls/hr IV Q24H [facility] Last Admin: 01/02/17 20:47 Dose: Not Given Furosemide 40 mg/ Sodium (Chloride) 54 mls @ 100 mls/hr IV NOW STA Stop: 01/03/17 10:04 Last Admin: 01/03/17 10:18 Dose: Not Given Levetiracetam (Keppra) 1,000 mg PO NOW ONE Stop: 01/03/17 21:51 Last Admin: 01/03/17 21:57 Dose: 1,000 mg Lidocaine (Xylocaine-Mpf 2%) Confirm Administered Dose 5 ml .ROUTE .STK-MED ONE Stop: 01/02/17 20:35 Last Admin: 01/02/17 21:25 Dose: 5 ml Nystatin (Nystatin Crm) 0 gm TOP TID [facility] Last Admin: 01/02/17 19:28 Dose: Not Given - Exam General: Lethargic Lungs: Decreased Breath Sounds. No: Crackles, Rhonchi GI/Abdominal Exam: Other (obese) Extremities: Non-Tender, Pedal Edema Skin: Warm, Dry, Intact Neurological: No New Focal Deficit - Problem List Review Problem List Initiated/Reviewed/Updated: Yes - My Orders Last 24 Hours: My Active Orders 01/04/17 14:00 Vancomycin 1,250 mg Sodium Chloride 0.9% [Normal Saline] 250 ml IV Q12H 01/05/17 05:11 BASIC METABOLIC PANEL,BMP [CHEM] AM CBC WITH AUTO DIFF [HEME] AM 01/06/17 05:11 BASIC METABOLIC PANEL,BMP [CHEM] AM - Plan Plan:: 61 yo female admitted for enterococcus UTI and possible pneumonia from gram negative madi respiratory infection. Enterococcus UTI: on Vancomycin Possible Pneumonia: We will continue levaquin, zosyn, and vancomycin, cultures pending Acute on chronic respiratory failure due to pulmonary fibrosis, with pneumonia vs pulmonary edema, requiring 3 L NC, Bicarb increased to 36. patient not tolerating bipap for more than few hours. Cellulitis vs candidial intertrigo: on antibiotics and nystatin powder Hematuria/rectal bleeding/Anemia of chronic disease: no blood in urine or stool noted since admission, will hold eliquis, will monitor Hgb, on iron Seizure disorder: continue home meds DM: sliding scale insulin.
[2017-01-04] MEDS: Nicotine 14 MG/24 Hr Patch TRDERM SCH (20:05)
[2017-01-04] MEDS: Levofloxacin/Dextrose 5%-Water 750 MG in Premix Bag 1 BAG IV SCH (20:47)
[2017-01-05] MEDS: Piperacillin/Tazobactam 3.375 GM in Sodium Chloride 0.9% 50 ML IV SCH ×3 (02:08→13:11)
[2017-01-05] MEDS: Gabapentin 300 MG Cap PO SCH ×3 (06:00→21:03)
[2017-01-05] MEDS: Nystatin Topical Powder 15 GM Bottle TOP SCH ×3 (06:00→21:03)
[2017-01-05 06:09] LABS: CHLORIDE,CL 100 mmol/L (98-110); SODIUM,NA 143 mmol/L (136-146)
[2017-01-05] MEDS: Insulin Aspart 100 Units/ML 3 ML Pen SUBCUT SCH ×3 (06:33→17:41)
[2017-01-05] MEDS: Docusate Sodium 100 MG Cap PO SCH (08:21)
[2017-01-05] MEDS: levETIRAcetam 500 MG Tab PO SCH ×2 (08:22→20:01)
[2017-01-05] MEDS: atorvaSTATin 10 MG Tab PO SCH (08:22)
[2017-01-05] MEDS: Acetaminophen/HYDROcodone 325-5 MG Tab PO PRN ×3 (08:22→23:42)
[2017-01-05] MEDS: buPROPion 150 MG Tab.ER PO SCH (08:22)
[2017-01-05] MEDS: Pantoprazole 40 MG in Sodium Chloride 0.9% 10 ML IVPUSH SCH ×2 (08:22→19:19)
[2017-01-05] MEDS: Divalproex Sodium Delayed-Release 250 MG Tab.CR PO SCH ×3 (08:23→17:41)
[2017-01-05] MEDS: Ferrous Sulfate 325 MG Tab PO SCH ×2 (08:23→20:00)
[2017-01-05] MEDS ORDERED: Furosemide 40 MG/4 ML VIAL IVPUSH ONE (14:36)
--- NOTE | 2017-01-05 14:38 | PCM.PN ---
- Review of Systems Systems Review Comment:: patient much more alert today. - Patient Data Vitals - Most Recent: Last Vital Signs Temp 36.5 C 01/05/17 04:00 Pulse Resp 17 01/05/17 13:00 BP 108/45 L 01/05/17 13:00 Pulse Ox 94 L 01/05/17 13:00 Weight - Most Recent: 156.4 kg I&O - Last 24 Hours: Intake & Output 01/04/17 01/05/17 01/05/17 22:59 06:59 14:59 Intake Total 950 1250 Output Total 850 850 Balance 100 400 Lab Results Last 24 Hours: Laboratory Results - last 24 hr 01/04/17 01/04/17 01/05/17 Range/Units 17:59 18:52 05:37 WBC 5.57 4.87 (4.0-11.0) K/uL RBC 2.48 L 2.26 L (4.30-5.90) M/uL Hgb 8.4 L 7.7 L (12.0-16.0) g/dL Hct 29.7 L 27.1 L (36.0-46.0) % MCV 119.8 H 119.9 H (80.0-98.0) fL MCH 33.9 H 34.1 H (27.0-32.0) pg MCHC 28.3 L 28.4 L (31.0-37.0) g/dL RDW Std Deviation 90.4 H 91.1 H (28.0-62.0) fl RDW Coeff of Morales 21 H 21 H (11.0-15.0) % Plt Count 105 L 86 L (150-400) K/uL MPV 9.30 9.40 (7.40-12.00) fL Neut % (Auto) 68.0 57.6 (48.0-80.0) % Lymph % (Auto) 17.8 24.8 (16.0-40.0) % Clayton % (Auto) 11.0 12.3 (0.0-15.0) % Eos % (Auto) 2.7 4.3 (0.0-7.0) % Baso % (Auto) 0.5 1.0 (0.0-1.5) % Neut # (Auto) 3.8 2.8 (1.4-5.7) K/uL Lymph # (Auto) 1.0 1.2 (0.6-2.4) K/uL Clayton # (Auto) 0.6 0.6 (0.0-0.8) K/uL Eos # (Auto) 0.2 0.2 (0.0-0.7) K/uL Baso # (Auto) 0.0 0.1 (0.0-0.1) K/uL Nucleated RBC % 2.6 1.8 /100WBC Nucleated RBCs # 0 0 K/uL Sodium (136-146) mmol/L Potassium (3.5-5.1) mmol/L Chloride (98-110) mmol/L Carbon Dioxide (21-31) mmol/L BUN (6.0-23.0) mg/dL Creatinine (0.6-1.5) mg/dL Est Cr Clr Drug Dosing mL/min Estimated GFR (MDRD) ml/min Glucose (60-110) mg/dL POC Glucose 99 (60-110) mg/dL Calcium (8.8-10.8) mg/dL 01/05/17 01/05/17 01/05/17 Range/Units 05:37 06:18 06:58 WBC (4.0-11.0) K/uL RBC (4.30-5.90) M/uL Hgb (12.0-16.0) g/dL Hct (36.0-46.0) % MCV (80.0-98.0) fL MCH (27.0-32.0) pg MCHC (31.0-37.0) g/dL RDW Std Deviation (28.0-62.0) fl RDW Coeff of Morales (11.0-15.0) % Plt Count (150-400) K/uL MPV (7.40-12.00) fL Neut % (Auto) (48.0-80.0) % Lymph % (Auto) (16.0-40.0) % Clayton % (Auto) (0.0-15.0) % Eos % (Auto) (0.0-7.0) % Baso % (Auto) (0.0-1.5) % Neut # (Auto) (1.4-5.7) K/uL Lymph # (Auto) (0.6-2.4) K/uL Clayton # (Auto) (0.0-0.8) K/uL Eos # (Auto) (0.0-0.7) K/uL Baso # (Auto) (0.0-0.1) K/uL Nucleated RBC % /100WBC Nucleated RBCs # K/uL Sodium 143 (136-146) mmol/L Potassium 4.5 (3.5-5.1) mmol/L Chloride 100 (98-110) mmol/L Carbon Dioxide 36 H (21-31) mmol/L BUN 13 (6.0-23.0) mg/dL Creatinine 0.9 (0.6-1.5) mg/dL Est Cr Clr Drug Dosing 68.16 mL/min Estimated GFR (MDRD) > 60.0 ml/min Glucose 70 (60-110) mg/dL POC Glucose 64 101 (60-110) mg/dL Calcium 9.0 (8.8-10.8) mg/dL 01/05/17 Range/Units 12:25 WBC (4.0-11.0) K/uL RBC (4.30-5.90) M/uL Hgb (12.0-16.0) g/dL Hct (36.0-46.0) % MCV (80.0-98.0) fL MCH (27.0-32.0) pg MCHC (31.0-37.0) g/dL RDW Std Deviation (28.0-62.0) fl RDW Coeff of Morales (11.0-15.0) % Plt Count (150-400) K/uL MPV (7.40-12.00) fL Neut % (Auto) (48.0-80.0) % Lymph % (Auto) (16.0-40.0) % Clayton % (Auto) (0.0-15.0) % Eos % (Auto) (0.0-7.0) % Baso % (Auto) (0.0-1.5) % Neut # (Auto) (1.4-5.7) K/uL Lymph # (Auto) (0.6-2.4) K/uL Clayton # (Auto) (0.0-0.8) K/uL Eos # (Auto) (0.0-0.7) K/uL Baso # (Auto) (0.0-0.1) K/uL Nucleated RBC % /100WBC Nucleated RBCs # K/uL Sodium (136-146) mmol/L Potassium (3.5-5.1) mmol/L Chloride (98-110) mmol/L Carbon Dioxide (21-31) mmol/L BUN (6.0-23.0) mg/dL Creatinine (0.6-1.5) mg/dL Est Cr Clr Drug Dosing mL/min Estimated GFR (MDRD) ml/min Glucose (60-110) mg/dL POC Glucose 102 (60-110) mg/dL Calcium (8.8-10.8) mg/dL Jack Results Last 24 Hours: Microbiology 01/03/17 08:25 Gram Stain - Final Sputum - Expectorated Sputum Culture - Final Normal Eve 01/04/17 17:40 Stool Occult Blood (JACK) - Final Stool / Feces POSITIVE OCCULT BLOOD 01/02/17 17:20 Aerobic Blood Culture - Preliminary Blood - Venous - Lab Draw NO GROWTH AFTER 2 DAYS Anaerobic Blood Culture - Preliminary NO GROWTH AFTER 2 DAYS 01/02/17 17:04 Aerobic Blood Culture - Preliminary Blood - Venous NO GROWTH AFTER 2 DAYS Anaerobic Blood Culture - Final Med Orders - Current: Current Medications Hydrocodone Bitart/Acetaminophen ([place] 325-5 Mg) 1 tab PO Q4H PRN PRN Reason: Pain Last Admin: 01/05/17 08:22 Dose: 1 tab Albuterol (Proventil Neb Soln) 2.5 mg NEB Q4HRRT PRN PRN Reason: Shortness of Breath Atorvastatin Calcium (Lipitor) 20 mg PO DAILY [facility] Last Admin: 01/05/17 08:22 Dose: 20 mg Bupropion HCl (Wellbutrin Xl) 150 mg PO DAILY [facility] Last Admin: 01/05/17 08:22 Dose: 150 mg Calcium Carbonate/Glycine (Tums) 1,000 mg PO QID PRN PRN Reason: Indigestion Last Admin: 01/04/17 00:12 Dose: 1,000 mg Divalproex Sodium (Divalproex Sodium) 250 mg PO TIDMEALS [facility] Last Admin: 01/05/17 13:11 Dose: 250 mg Docusate Sodium (Colace) 200 mg PO DAILY [facility] Last Admin: 01/05/17 08:21 Dose: 200 mg Ferrous Sulfate (Ferrous Sulfate) 325 mg PO BID [facility] Last Admin: 01/05/17 08:23 Dose: 325 mg Gabapentin (Neurontin) 600 mg PO TID [facility] Last Admin: 01/05/17 13:11 Dose: 600 mg Levofloxacin/Dextrose 750 mg/ (Premix) 150 mls @ 100 mls/hr IV Q24H [facility] Last Admin: 01/04/17 20:47 Dose: 100 mls/hr Pantoprazole Sodium 40 mg/ (Sodium Chloride) 10 mls @ 300 mls/hr IVPUSH Q12H [facility] Last Admin: 01/05/17 08:22 Dose: 300 mls/hr Vancomycin HCl 1,250 mg/ (Sodium Chloride) 250 mls @ 166.667 mls/hr IV Q12H [facility] Last Admin: 01/05/17 13:46 Dose: 166.667 mls/hr Insulin Aspart (Novolog) 0 unit SUBCUT TIDAC [facility] PRN Reason: Protocol Last Admin: 01/05/17 12:26 Dose: Not Given Levalbuterol HCl (Xopenex) 0.63 mg NEB Q4HRRT PRN PRN Reason: Shortness of Breath Levetiracetam (Keppra) 1,000 mg PO BID [facility] Last Admin: 01/05/17 08:22 Dose: 1,000 mg Nicotine (Habitrol) 14 mg TRDERM Q24H [facility] Last Admin: 01/04/17 20:05 Dose: Not Given Nystatin (Nystop) 0 gm TOP TID [facility] Last Admin: 01/05/17 13:12 Dose: 1 applic Ondansetron HCl (Zofran) 4 mg IVPUSH Q4H PRN PRN Reason: Nausea Vancomycin HCl (Pharmacy To Dose - Vancomycin) 1 dose .XX ASDIRECTED [facility] Discontinued Medications Furosemide (Lasix) 40 mg IV ONETIME ONE Stop: 01/03/17 09:46 Last Admin: 01/03/17 10:15 Dose: 40 mg Vancomycin HCl 2,000 mg/ (Sodium Chloride) 500 mls @ 250 mls/hr IV Q12H [facility] Last Admin: 01/04/17 05:40 Dose: Not Given Sodium Chloride (Normal Saline) 1,000 mls @ 125 mls/hr IV ASDIRECTED [facility] Pantoprazole Sodium 40 mg/ (Sodium Chloride) 10 mls @ 300 mls/hr IVPUSH Q12H [facility] Last Admin: 01/02/17 19:30 Dose: Not Given Levofloxacin/Dextrose 750 mg/ (Premix) 150 mls @ 100 mls/hr IV Q24H [facility] Last Admin: 01/02/17 20:47 Dose: Not Given Piperacillin Sod/Tazobactam (Sod 3.375 gm/ Sodium Chloride) 50 mls @ 100 mls/ hr IV Q6H [facility] Last Admin: 01/05/17 13:11 Dose: 100 mls/hr Furosemide 40 mg/ Sodium (Chloride) 54 mls @ 100 mls/hr IV NOW STA Stop: 01/03/17 10:04 Last Admin: 01/03/17 10:18 Dose: Not Given Levetiracetam (Keppra) 1,000 mg PO NOW ONE Stop: 01/03/17 21:51 Last Admin: 01/03/17 21:57 Dose: 1,000 mg Lidocaine (Xylocaine-Mpf 2%) Confirm Administered Dose 5 ml .ROUTE .STK-MED ONE Stop: 01/02/17 20:35 Last Admin: 01/02/17 21:25 Dose: 5 ml Nystatin (Nystatin Crm) 0 gm TOP TID [facility] Last Admin: 01/02/17 19:28 Dose: Not Given - Exam General: Alert, Oriented Lungs: Clear to Auscultation, Normal Respiratory Effort Cardiovascular: Regular Rate, Regular Rhythm GI/Abdominal Exam: Normal Bowel Sounds, No Distention Extremities: Pedal Edema Skin: Warm, Dry, Intact Neurological: No New Focal Deficit - Problem List Review Problem List Initiated/Reviewed/Updated: Yes - My Orders Last 24 Hours: My Active Orders 01/04/17 14:00 Vancomycin 1,250 mg Sodium Chloride 0.9% [Normal Saline] 250 ml IV Q12H 01/05/17 06:31 Accu Check [Blood Glucose Check, Bedside] [RC] TIDAC 01/06/17 01:00 VANCOMYCIN TROUGH [CHEM] Routine 01/06/17 05:11 BASIC METABOLIC PANEL,BMP [CHEM] AM CBC WITH AUTO DIFF [HEME] AM 01/07/17 05:11 CBC WITH AUTO DIFF [HEME] AM - Plan Plan:: 61 yo female admitted for enterococcus UTI and possible pneumonia Enterococcus UTI: on Vancomycin Possible Pneumonia: will continue levaquin, d/c zosyn. lasix prn Cellulitis vs candidial intertrigo: on antibiotics and nystatin powder Hematuria/rectal bleeding/Anemia of chronic disease: will hold eliquis, will monitor Hgb, on iron Seizure disorder: resume home meds DM: sliding scale insulin. dispo: likely discharge home tomorrow.
[2017-01-05] MEDS: Nicotine 14 MG/24 Hr Patch TRDERM SCH (19:56)
[2017-01-05] MEDS: Levofloxacin/Dextrose 5%-Water 750 MG in Premix Bag 1 BAG IV SCH (20:01)
[2017-01-05] MEDS: Calcium Carbonate 500 MG Tab.Chew PO PRN (20:21)
[2017-01-06] MEDS: Gabapentin 300 MG Cap PO SCH (05:48)
[2017-01-06] MEDS: Nystatin Topical Powder 15 GM Bottle TOP SCH (06:13)
[2017-01-06] MEDS: Insulin Aspart 100 Units/ML 3 ML Pen SUBCUT SCH ×2 (07:03→11:22)
[2017-01-06 07:25] VITALS: BP 105/58
[2017-01-06] MEDS: Pantoprazole 40 MG in Sodium Chloride 0.9% 10 ML IVPUSH SCH (07:53)
[2017-01-06] MEDS: Docusate Sodium 100 MG Cap PO SCH ×2 (08:03→08:10)
[2017-01-06] MEDS: Acetaminophen/HYDROcodone 325-5 MG Tab PO PRN (08:03)
[2017-01-06] MEDS: Ferrous Sulfate 325 MG Tab PO SCH (08:04)
[2017-01-06] MEDS: buPROPion 150 MG Tab.ER PO SCH (08:04)
[2017-01-06] MEDS: atorvaSTATin 10 MG Tab PO SCH (08:04)
[2017-01-06] MEDS: Divalproex Sodium Delayed-Release 250 MG Tab.CR PO SCH ×2 (09:36→11:18)
[2017-01-06] MEDS: levETIRAcetam 500 MG Tab PO SCH (09:36)
--- NOTE | 2017-01-06 09:41 | PCM.DCSUM1 ---
Discharge Summary - Hospital Course Brief History: This 61 yo female with pmh of DM, pulmonary fibrosis, chronic respiratory failure, oxygen dependent, on Eliquis as bedridden for history of bilateral lower extremity fractures, diabetic neuropathy, and seizure disorder. She presented to the ED earlier this week do to complaints of blood in her urine. She was discharged home on antibiotic for UTI. On follow up in Dr. Mcclelland's clinic she was noted to be lethargic and requiring more than her normal 3 liters of oxygen. She reports myalgias and continues to have blood in urine as well as stool. Direct admission was arranged. On admission WBC 5,250. Hgb 8.7, pH 7.29, PCO2 70, PO2 61 BUN 25, Cr 1.6. Stool was heme positive. UC from ED admission returned with Enterococcus resistant to many antibiotics. She was admitted for Enterococcus UTI, possible pneumonia, and hematuria, rectal bleeding. PCP, Dr Mcclelland. - Discharge Data Discharge Date: 01/06/17 Discharge Disposition: Home, Self-Care 01 Condition: Good - Patient Instructions Diet: Diabetic Diet Activity: As Tolerated Showering/Bathing: May Shower Notify Provider of: Fever, Increased Pain, Swelling and Redness, Drainage, Nausea and/or Vomiting - Discharge Plan Prescriptions/Med Rec: Azithromycin [IJD: Azithromycin] 250 mg PO DAILY #2 tab Linezolid 600 mg PO BID #14 tablet Nicotine [Habitrol] 14 mg TRDERM Q24H #30 patch Nystatin [Nystop] 100,000 units TOP TID #1 bottle Home Medications: Home Meds Pioglitazone [Actos] 30 mg PO DAILY 03/28/15 [History] levETIRAcetam [Keppra] 1,000 mg PO BID 03/28/15 [History] Pantoprazole [ProTONIX] 40 mg PO ACBREAKFAST 09/14/15 [History] Calcium Carbonate/Vitamin D3 [Calcium 500 + Vit D 400] 1 each PO BID 07/11/16 [ History] Divalproex Sodium 250 mg PO TIDMEALS 07/11/16 [History] Gabapentin [Neurontin] 600 mg PO TID 07/11/16 [History] atorvaSTATin [Lipitor] 20 mg PO DAILY 07/11/16 [History] buPROPion [Wellbutrin XL] 150 mg PO DAILY 07/11/16 [History] Temazepam [Restoril] 15 mg PO BEDTIME PRN #20 cap 07/16/16 [Rx] Ferrous Sulfate 325 mg PO BID 12/30/16 [History] Hydrocodone/Acetaminophen [Macon 5-325] 1 tab PO Q4HR PRN 12/30/16 [History] Nitrofurantoin 100 gm MC BID #20 powder 12/30/16 [Rx] glipiZIDE [Glucotrol XL] 2.5 mg PO DAILY 12/30/16 [History] Albuterol [IJD: Albuterol] 1 inh INH Q4H PRN 01/03/17 [History] Ascorbic Acid 1 tab PO DAILY 01/03/17 [History] Budesonide [Pulmicort] 1 inh INH BID 01/03/17 [History] Docusate Sodium [Colace] 2 cap PO DAILY 01/03/17 [History] Furosemide 1 tab PO DAILY 01/03/17 [History] Insulin Lispro [Humalog Kwikpen U-100] 0 unit SUBCUT ASDIRECTED 01/03/17 [ History] Lactobacillus Acidophilus [Acidophilus Lactobacillus] 1 cap PO BID 01/03/17 [ History] Levalbuterol HCl [Xopenex] 1 inh INH Q4H PRN 01/03/17 [History] Nitroglycerin [Nitrostat] 1 tab SL ASDIRECTED PRN 01/03/17 [History] Azithromycin [IJD: Azithromycin] 250 mg PO DAILY #2 tab 01/06/17 [Rx] Linezolid 600 mg PO BID #14 tablet 01/06/17 [Rx] Nicotine [Habitrol] 14 mg TRDERM Q24H #30 patch 01/06/17 [Rx] Nystatin [Nystop] 100,000 units TOP TID #1 bottle 01/06/17 [Rx] Patient Handouts: Nystatin topical powder, Linezolid tablets, Azithromycin tablets, Urinary Tract Infection, Adult, Nicotine skin patches Referrals: [facility] [Outside] Lex Mcclelland MD [Physician] - 01/13/17 2:00 pm - Discharge Summary/Plan Comment DC Time >30 min.: No Discharge Summary/Plan Comment: Discharge Diagnoses: Acute on chronic hypoxic respiratory failure. Enterococcus UTI Pneumonia DM type 2 with neuropathy pulmonary fibrosis Oxygen dependent Non-ambulatory hx Bilateral lower leg fractures Obesity Seizure disorder Depression Alley was admitted and treated with broad spectrum IV antibiotics for suspected gram negative pneumonia and Enterococcus UTI. She was treated with Bipap sparingly due to tolerance for acute hypercapnic respiratory failure. This acute on chronic respiratory failure was likely secondary to VENKATA, pulmonary fibrosis and pneumonia. Over next couple days she become more alert. She reported not being able to tolerate Bipap, because of clausterphobia with the mask over her face. She was urged to have sleep study due to VENKATA, she will follow with PCP regarding this. Today she is requesting discharge home. During her stay anemia was noted and her Eliquis was held. Dr. Sahu spoke with Dr. Mcclelland, PCP, who recommended stopping it due to bleeding. She will be high risk for PE due to non-ambulatory status. He will monitor her as outpatient. She will be discharged today with Linezolid 600 mg BID for 7 more days for Enterococcus UTI and Azithromycin for 2 more days for PNA. Due to severe interaction with Linezolid, Wellbutrin will be held during her treatment course and then restarted 24 hours after last dose. Patient and son Donny instructed explicitly regarding this. Otherwise she would need IV antibiotic treatment for UTI, which she declined wanting to do. Dr. Mcclelland was notified of interaction and plan to hold Wellbutrin during treatment and to monitor for Serotonin syndrome closely. Wiggins was removed and she was able to void per self. Patient continues to be alert and requests discharge today. Will discharge home with all home medications, except Eliquis and with orders to HOLD Wellbutrin from next 11 days. She is to follow up with Dr. Mcclelland in 1 week. Monitor hgb, today 7.9, which is stable. She is to monitor for any bleeding at home and return to clinic or ED if concerns should arise. We have encouraged Home Health to follow at this time. She would benefit from this due to needing assistance with medications administration. She also would benefit from PT/OT to evaluate and treated due to continued deconditioning from wheelchair bound and for home safety evaluation. She is wheelchair bound and is unable to leave home without assistance of caregiver to leave home and is unable to drive. If she accepts home health and they will follow, Dr. Mcclelland PCP, will follow plan of care. - General Info Date of Service: 01/06/17 Admission Dx/Problem (Free Text: Admission Diagnosis/Problem Admission Diagnosis/Problem UTI, Urinary tract infectious disease Subjective Update: Alert and oriented. Awake upon assessment, continues to request discharge today and wants to leave [facility]. Functional Status: Reports: Pain Controlled, Tolerating Diet, Urinating - Review of Systems General: Reports: No Symptoms. Denies: Fever HEENT: Reports: No Symptoms. Denies: Headaches, Sinus Congestion, Sore Throat Pulmonary: Reports: Cough, Sputum (light green). Denies: Shortness of Breath, Hemoptysis Cardiovascular: Reports: No Symptoms. Denies: Chest Pain, Palpitations, Edema Gastrointestinal: Reports: Melena. Denies: Abdominal Pain, Nausea, Vomiting Genitourinary: Reports: No Symptoms. Denies: Dysuria, Frequency, Burning, Pain Musculoskeletal: Reports: No Symptoms Skin: Reports: No Symptoms Neurological: Reports: No Symptoms Psychiatric: Reports: No Symptoms - Patient Data Vitals - Most Recent: Last Vital Signs Temp 98.2 F 01/06/17 07:24 Pulse 62 01/06/17 04:00 Resp 18 01/06/17 07:24 BP 105/58 L 01/06/17 07:24 Pulse Ox 92 L 01/06/17 07:24 Weight - Most Recent: 155.3 kg I&O - Last 24 hours: Intake & Output 01/05/17 01/06/17 01/06/17 22:59 06:59 14:59 Intake Total 760 1000 Output Total 2500 4100 Balance -1740 -3100 Lab Results - Last 24 hrs: Laboratory Results - last 24 hr 01/05/17 01/05/17 01/06/17 Range/Units 12:25 17:43 01:09 WBC (4.0-11.0) K/uL RBC (4.30-5.90) M/uL Hgb (12.0-16.0) g/dL Hct (36.0-46.0) % MCV (80.0-98.0) fL MCH (27.0-32.0) pg MCHC (31.0-37.0) g/dL RDW Std Deviation (28.0-62.0) fl RDW Coeff of Morales (11.0-15.0) % Plt Count (150-400) K/uL MPV (7.40-12.00) fL Neut % (Auto) (48.0-80.0) % Lymph % (Auto) (16.0-40.0) % [place] % (Auto) (0.0-15.0) % Eos % (Auto) (0.0-7.0) % Baso % (Auto) (0.0-1.5) % Neut # (Auto) (1.4-5.7) K/uL Lymph # (Auto) (0.6-2.4) K/uL [place] # (Auto) (0.0-0.8) K/uL Eos # (Auto) (0.0-0.7) K/uL Baso # (Auto) (0.0-0.1) K/uL Nucleated RBC % /100WBC Nucleated RBCs # K/uL Sodium 144 (136-146) mmol/L Potassium 4.2 (3.5-5.1) mmol/L Chloride 98 (98-110) mmol/L Carbon Dioxide 38 H (21-31) mmol/L BUN 12 (6.0-23.0) mg/dL Creatinine 1.0 (0.6-1.5) mg/dL Est Cr Clr Drug Dosing 61.35 mL/min Estimated GFR (MDRD) 56.7 ml/min Glucose 126 H (60-110) mg/dL POC Glucose 102 135 H (60-110) mg/dL Calcium 9.0 (8.8-10.8) mg/dL Vancomycin Trough (5-15) ug/mL 01/06/17 01/06/17 01/06/17 Range/Units 01:09 01:09 05:54 WBC 5.91 (4.0-11.0) K/uL RBC 2.31 L (4.30-5.90) M/uL Hgb 7.9 L (12.0-16.0) g/dL Hct 27.6 L (36.0-46.0) % MCV 119.5 H (80.0-98.0) fL MCH 34.2 H (27.0-32.0) pg MCHC 28.6 L (31.0-37.0) g/dL RDW Std Deviation 90.3 H (28.0-62.0) fl RDW Coeff of Morales 21 H (11.0-15.0) % Plt Count 90 L (150-400) K/uL MPV 9.10 (7.40-12.00) fL Neut % (Auto) 63.5 (48.0-80.0) % Lymph % (Auto) 20.3 (16.0-40.0) % [place] % (Auto) 11.3 (0.0-15.0) % Eos % (Auto) 4.1 (0.0-7.0) % Baso % (Auto) 0.8 (0.0-1.5) % Neut # (Auto) 3.8 (1.4-5.7) K/uL Lymph # (Auto) 1.2 (0.6-2.4) K/uL [place] # (Auto) 0.7 (0.0-0.8) K/uL Eos # (Auto) 0.2 (0.0-0.7) K/uL Baso # (Auto) 0.1 (0.0-0.1) K/uL Nucleated RBC % 1.3 /100WBC Nucleated RBCs # 0 K/uL Sodium (136-146) mmol/L Potassium (3.5-5.1) mmol/L Chloride (98-110) mmol/L Carbon Dioxide (21-31) mmol/L BUN (6.0-23.0) mg/dL Creatinine (0.6-1.5) mg/dL Est Cr Clr Drug Dosing mL/min Estimated GFR (MDRD) ml/min Glucose (60-110) mg/dL POC Glucose 88 (60-110) mg/dL Calcium (8.8-10.8) mg/dL Vancomycin Trough 26.4 H (5-15) ug/mL MYAH Results - Last 24 hrs: Microbiology 01/02/17 17:20 Aerobic Blood Culture - Preliminary Blood - Venous - Lab Draw NO GROWTH AFTER 3 DAYS Anaerobic Blood Culture - Preliminary NO GROWTH AFTER 3 DAYS 01/02/17 17:04 Aerobic Blood Culture - Preliminary Blood - Venous NO GROWTH AFTER 3 DAYS Anaerobic Blood Culture - Final 01/03/17 08:25 Gram Stain - Final Sputum - Expectorated Sputum Culture - Final Normal Eve Med Orders - Current: Current Medications Hydrocodone Bitart/Acetaminophen (Macon 325-5 Mg) 1 tab PO Q4H PRN PRN Reason: Pain Last Admin: 01/06/17 08:03 Dose: 1 tab Albuterol (Proventil Neb Soln) 2.5 mg NEB Q4HRRT PRN PRN Reason: Shortness of Breath Atorvastatin Calcium (Lipitor) 20 mg PO DAILY [facility] Last Admin: 01/06/17 08:04 Dose: 20 mg Bupropion HCl (Wellbutrin Xl) 150 mg PO DAILY [facility] Last Admin: 01/06/17 08:04 Dose: 150 mg Calcium Carbonate/Glycine (Tums) 1,000 mg PO QID PRN PRN Reason: Indigestion Last Admin: 01/05/17 20:21 Dose: 1,000 mg Divalproex Sodium (Divalproex Sodium) 250 mg PO TIDMEALS [facility] Last Admin: 01/06/17 09:36 Dose: 250 mg Docusate Sodium (Colace) 200 mg PO DAILY [facility] Last Admin: 01/06/17 08:10 Dose: Not Given Ferrous Sulfate (Ferrous Sulfate) 325 mg PO BID [facility] Last Admin: 01/06/17 08:04 Dose: 325 mg Gabapentin (Neurontin) 600 mg PO TID [facility] Last Admin: 01/06/17 05:48 Dose: 600 mg Levofloxacin/Dextrose 750 mg/ (Premix) 150 mls @ 100 mls/hr IV Q24H [facility] Last Admin: 01/05/17 20:01 Dose: 100 mls/hr Pantoprazole Sodium 40 mg/ (Sodium Chloride) 10 mls @ 300 mls/hr IVPUSH Q12H [facility] Last Admin: 01/06/17 07:53 Dose: 300 mls/hr Vancomycin HCl 0.75 gm/ Sodium (Chloride) 250 mls @ 166.667 mls/hr IV Q12H [facility] Last Admin: 01/06/17 09:19 Dose: 166.667 mls/hr Insulin Aspart (Novolog) 0 unit SUBCUT TIDAC [facility] PRN Reason: Protocol Last Admin: 01/06/17 07:03 Dose: Not Given Levalbuterol HCl (Xopenex) 0.63 mg NEB Q4HRRT PRN PRN Reason: Shortness of Breath Levetiracetam (Keppra) 1,000 mg PO BID [facility] Last Admin: 01/06/17 09:36 Dose: 1,000 mg Nicotine (Habitrol) 14 mg TRDERM Q24H [facility] Last Admin: 01/05/17 19:56 Dose: Not Given Nystatin (Nystop) 0 gm TOP TID [facility] Last Admin: 01/06/17 06:13 Dose: 1 applic Ondansetron HCl (Zofran) 4 mg IVPUSH Q4H PRN PRN Reason: Nausea Last Admin: 01/05/17 21:41 Dose: 4 mg Vancomycin HCl (Pharmacy To Dose - Vancomycin) 1 dose .XX ASDIRECTED [facility] Discontinued Medications Furosemide (Lasix) 40 mg IV ONETIME ONE Stop: 01/03/17 09:46 Last Admin: 01/03/17 10:15 Dose: 40 mg Furosemide (Lasix) 40 mg IVPUSH NOW ONE Stop: 01/05/17 14:37 Last Admin: 01/05/17 15:33 Dose: 40 mg Vancomycin HCl 2,000 mg/ (Sodium Chloride) 500 mls @ 250 mls/hr IV Q12H [facility] Last Admin: 01/04/17 05:40 Dose: Not Given Sodium Chloride (Normal Saline) 1,000 mls @ 125 mls/hr IV ASDIRECTED [facility] Pantoprazole Sodium 40 mg/ (Sodium Chloride) 10 mls @ 300 mls/hr IVPUSH Q12H [facility] Last Admin: 01/02/17 19:30 Dose: Not Given Levofloxacin/Dextrose 750 mg/ (Premix) 150 mls @ 100 mls/hr IV Q24H [facility] Last Admin: 01/02/17 20:47 Dose: Not Given Piperacillin Sod/Tazobactam (Sod 3.375 gm/ Sodium Chloride) 50 mls @ 100 mls/ hr IV Q6H [facility] Last Admin: 01/05/17 13:11 Dose: 100 mls/hr Furosemide 40 mg/ Sodium (Chloride) 54 mls @ 100 mls/hr IV NOW STA Stop: 01/03/17 10:04 Last Admin: 01/03/17 10:18 Dose: Not Given Vancomycin HCl 1,250 mg/ (Sodium Chloride) 250 mls @ 166.667 mls/hr IV Q12H [facility] Last Admin: 01/05/17 13:46 Dose: 166.667 mls/hr Levetiracetam (Keppra) 1,000 mg PO NOW ONE Stop: 01/03/17 21:51 Last Admin: 09/22/17 21:57 Dose: 1,000 mg Lidocaine (Xylocaine-Mpf 2%) Confirm Administered Dose 5 ml .ROUTE .STK-MED ONE Stop: 01/02/17 20:35 Last Admin: 01/02/17 21:25 Dose: 5 ml Nystatin (Nystatin Crm) 0 gm TOP TID QUINN Last Admin: 01/02/17 19:28 Dose: Not Given - Exam Quality Assessment: Reports: Supplemental Oxygen (3-4 L NC) General: Reports: Alert, Oriented, Cooperative, No Acute Distress Lungs: Reports: Clear to Auscultation, Normal Respiratory Effort, Other Cardiovascular: Reports: Regular Rate, Regular Rhythm GI/Abdominal Exam: Normal Bowel Sounds, Soft, Non-Tender, No Organomegaly, No Distention, No Abnormal Bruit, No Mass, Pelvis Stable. No: Distended Extremities: Normal Inspection, Normal Range of Motion, Non-Tender, No Pedal Edema, Normal Capillary Refill Psy/Mental Status: Reports: Alert, Normal Affect, Normal Mood *Q Meaningful Use (DIS) - VTE *Q VTE Criteria *Q: - Stroke *Q Stroke Criteria *Q: - AMI *Q AMI Criteria *Q:
== END 2017-01-06 12:05 | disposition home or self-care (01) | DRG 463 ==
LOC: MW.ICU 16:05
PROVIDERS: ADMIT Internal Medicine; ATTEND Internal Medicine
DX: N39.0 Urinary tract infection, site not specified (principal); B95.2 Enterococcus as the cause of diseases classified elsewhere; J18.9 Pneumonia, unspecified organism; R31.9 Hematuria, unspecified; K62.5 Hemorrhage of anus and rectum; J84.10 Pulmonary fibrosis, unspecified; E11.9 Type 2 diabetes mellitus without complications; J96.10 Chronic respiratory failure, unspecified whether with hypoxia or hypercapnia; E11.42 Type 2 diabetes mellitus with diabetic polyneuropathy; G40.909 Epilepsy, unspecified, not intractable, without status epilepticus; G47.33 Obstructive sleep apnea (adult) (pediatric); F32.9 Major depressive disorder, single episode, unspecified; Z99.81 Dependence on supplemental oxygen
CPT/HCPCS: 36415; 36600; 51701; 71010; 71010-26; 80048; 80053; 80202; 81001; 82272; 82803; 82962; 85025; 85610; 86850; 86900; 86901; 87040; 87070; 87086; 87205; 94660; A9270-GY; C9113; J1940; J1956; J2405; J2543; J3370; J7040; J7050

== ENCOUNTER 2017-01-11 21:07 | Inpatient (IN) | payer BC, MEDICARE ==
[2017-01-11] MEDS ORDERED: Sodium Chloride 0.9% 10 ML Syringe FLUSH PRN (21:19)
[2017-01-11] MEDS ORDERED: Sodium Chloride 0.9% 2.5 ML Syringe FLUSH PRN (21:19)
[2017-01-11] MEDS ORDERED: Sodium Chloride 0.9% 1,000 ML IV ONE (21:23)
--- NOTE | 2017-01-11 21:38 | EDM.PDOC ---
ED HPI GENERAL MEDICAL PROBLEM - General Chief Complaint: Respiratory Problem Stated Complaint: WEAKNESS Time Seen by Provider: 01/11/17 21:11 Source of Information: Reports: Patient History Limitations: Reports: No Limitations - History of Present Illness INITIAL COMMENTS - FREE TEXT/NARRATIVE: HISTORY AND PHYSICAL: History of present illness: Patient is a 61-year-old female who presents to the emergency room today via EMS with complaints of shortness of breath, coughing, weakness 3 days. Patient reports that she was just discharged from the hospital after having pneumonia and a UTI. States since her discharge she has progressively felt her symptoms return. She lives at home alone but does have a caregiver that does come in daily to assess her and assist with her medications. She states that she has a motorized wheelchair which helps her ambulate in her home and remembers reports that for the past 2 days she has been in bed and then sleeping most of the day. EMS reports that when they came to assess patient her oxygen sat was 75% on 5 L per nasal cannula. Upon her arrival to our emergency department her O2 is reading at 90% per nasal cannula. Patient is talking with her eyes closed but easily arousable. Performing her physical examination she does complain of some generalized abdominal tenderness. Patient states she has had some episodes of diarrhea and incontinence of urine and stool. She states she is unable to get up to use the bathroom in an appropriate timeframe. Some bandages are noted to her left arm and right lower extremity area and she denies any recent falls or trauma. Patient denies any headache, fever or chills, or chest pain. Patient has a past medical history of diabetes type 2, pulmonary fibrosis, chronic respiratory failure, oxygen dependent at home, seizure disorder, frequent UTIs, and COPD. Review of systems: As per history of present illness and below otherwise all systems reviewed and negative. Past medical history: As per history of present illness and as reviewed below otherwise noncontributory. Surgical history: As per history of present illness and as reviewed below otherwise noncontributory. Social history: No reported history of drug or alcohol abuse. Family history: As per history of present illness and as reviewed below otherwise noncontributory. Physical exam: Gen.: Obese 61-year-old female. Appears drowsyAble to speak in short sentences however becomes short of breath easily. HEENT: Atraumatic, normocephalic, pupils reactive, negative for conjunctival pallor or scleral icterus, mucous membranes moist, throat clear, neck supple, nontender, trachea midline. Lungs: Diminished throughout, with poor air exchange, chest nontender. Heart: S1S2, regular rate and rhythm Abdomen: Soft, morbidly obese, nondistended, generalized tenderness. Negative for masses. Negative for costovertebral tenderness. Pelvis: Stable nontender. Genitourinary: Deferred. Rectal: Deferred. Extremities: Atraumatic, negative for cords or calf pain. Neurovascular unremarkable. Neuro: Awake, alert, oriented. Cranial nerves II through XII unremarkable. Cerebellum unremarkable. Motor and sensory unremarkable throughout. Exam nonfocal. RT went to the room to perform an ABG, she refused this diagnostic. She was educated on the necessity of this test still declined. Dr. Sahu was consulted on this patient. Here to see patient at 2200. Dr. Farias will monitor for the rest of the lab results to return and will call Dr. Sahu with those results. Care was handed off on patient at 2200. Diagnostics: CBC, CMP, lactic acid, ABG, EKG, chest x-ray, blood cultures 2 Therapeutics: Oxygen, [employer], saline lock Impression: Multi lobular pneumonia, hypoxia Plan: Admit to ICU Definitive disposition and diagnosis as appropriate pending reevaluation and review of above. Onset: Gradual Duration: Day(s): abdominal pain Pain Score (Numeric/FACES): 10 - Related Data Allergies Allergy/AdvReac Type Severity Reaction Status Date / Time amlodipine besylate Allergy Headache Verified 01/11/17 21:11 [From [facility]] doxepin Allergy unknown Verified 01/11/17 21:11 doxycycline Allergy unknown Verified 01/11/17 21:11 hydromorphone Allergy unknown Verified 01/11/17 21:11 ketorolac Allergy Itching Verified 01/11/17 21:11 latex Allergy unknown Verified 01/11/17 21:11 milnacipran HCl Allergy Headache Verified 01/11/17 21:11 [From [facility]] aspirin AdvReac Abdominal Verified 01/11/17 21:11 Pain Home Meds: Home Meds Pioglitazone [Actos] 30 mg PO DAILY 03/28/15 [History] levETIRAcetam [Keppra] 1,000 mg PO BID 03/28/15 [History] Pantoprazole [ProTONIX] 40 mg PO ACBREAKFAST 09/14/15 [History] Calcium Carbonate/Vitamin D3 [Calcium 500 + Vit D 400] 1 each PO BID 07/11/16 [ History] Divalproex Sodium 250 mg PO TIDMEALS 07/11/16 [History] Gabapentin [Neurontin] 600 mg PO TID 07/11/16 [History] atorvaSTATin [Lipitor] 20 mg PO DAILY 07/11/16 [History] buPROPion [Wellbutrin XL] 150 mg PO DAILY 07/11/16 [History] Temazepam [Restoril] 15 mg PO BEDTIME PRN #20 cap 07/16/16 [Rx] Ferrous Sulfate 325 mg PO BID 12/30/16 [History] Hydrocodone/Acetaminophen [Atkins 5-325] 1 tab PO Q4HR PRN 12/30/16 [History] Nitrofurantoin 100 gm MC BID #20 powder 12/30/16 [Rx] glipiZIDE [Glucotrol XL] 2.5 mg PO DAILY 12/30/16 [History] Albuterol [IJD: Albuterol] 1 inh INH Q4H PRN 01/03/17 [History] Ascorbic Acid 1 tab PO DAILY 01/03/17 [History] Budesonide [Pulmicort] 1 inh INH BID 01/03/17 [History] Docusate Sodium [Colace] 2 cap PO DAILY 01/03/17 [History] Furosemide 1 tab PO DAILY 01/03/17 [History] Insulin Lispro [Humalog Kwikpen U-100] 0 unit SUBCUT ASDIRECTED 01/03/17 [ History] Lactobacillus Acidophilus [Acidophilus Lactobacillus] 1 cap PO BID 01/03/17 [ History] Levalbuterol HCl [Xopenex] 1 inh INH Q4H PRN 01/03/17 [History] Nitroglycerin [Nitrostat] 1 tab SL ASDIRECTED PRN 01/03/17 [History] Azithromycin [IJD: Azithromycin] 250 mg PO DAILY #2 tab 01/06/17 [Rx] Linezolid 600 mg PO BID #14 tablet 01/06/17 [Rx] Nicotine [Habitrol] 14 mg TRDERM Q24H #30 patch 01/06/17 [Rx] Nystatin [Nystop] 100,000 units TOP TID #1 bottle 01/06/17 [Rx] Past Medical History HEENT History: Reports: Glaucoma Cardiovascular History: Reports: Heart Failure, Hypertension Other Cardiovascular History: CHF Respiratory History: Reports: COPD, Interstitial Lung Disease, Pulmonary Fibrosis, Other (See Below) Other Respiratory History: DIPF,. home O2 dependent at 3L Gastrointestinal History: Reports: Gastritis Genitourinary History: Reports: Other (See Below) Other Genitourinary History: only has left kidney [employer] History: Reports: Musculoskeletal History: Reports: Fibromyalgia, Osteoporosis Neurological History: Reports: Neuropathy, Diabetic, Neuropathy, Peripheral, Seizure Psychiatric History: Reports: Anxiety, Depression Endocrine/Metabolic History: Reports: Diabetes, Type II, Obesity/BMI 30+, Osteoporosis Hematologic History: Reports: Anemia, Blood Transfusion(s) Immunologic History: Reports: None Oncologic (Cancer) History: Reports: Renal, Other (See Below) Other Oncologic History: mets to liver treated without recurrence. Dermatologic History: Reports: None - Infectious Disease History Infectious Disease History: Reports: Chicken Pox, Measles Other Infectious Disease History: Not sure - Past Surgical History GI Surgical History: Reports: EGD, Other (See Below) Musculoskeletal Surgical History: Reports: Other (See Below) Social & Family History - Family History Family Medical History: Noncontributory - Tobacco Use Smoking Status *Q: Current Every Day Smoker Years of Tobacco use: 30 Packs/Tins Daily: 0.2 Used Tobacco, but Quit: Yes Month Tobacco Last Used: Feb 2015 Second Hand Smoke Exposure: No - Caffeine Use Caffeine Use: Reports: Coffee, Soda - Recreational Drug Use Recreational Drug Use: No ED ROS GENERAL - Review of Systems Review Of Systems: ROS reveals no pertinent complaints other than HPI. ED EXAM, GENERAL - Physical Exam Exam: See Below (See dictation) Course - Vital Signs Last Recorded V/S: Last Vital Signs Temp 36.3 C 01/11/17 21:10 Pulse 71 01/11/17 21:10 Resp 22 H 01/11/17 21:10 BP 106/53 L 01/11/17 21:10 Pulse Ox 97 01/11/17 21:10 - Orders/Labs/Meds Orders: Active Orders 24 hr Category Date Time Status Admission Status [Patient Status] [ADT] Stat ADT 01/11/17 21:56 Ordered EKG Documentation Completion [RC] STAT Care 01/11/17 21:19 Ordered RT Aerosol Therapy [RC] ASDIRECTED Care 01/11/17 21:56 Ordered Chest 1V Frontal [CR] Stat Exams 01/11/17 21:19 Ordered ABG [BLOOD GAS ARTERIAL] [BG] Stat Lab 01/11/17 21:19 Ordered B-TYPE NATRIURETIC PEPTIDE,BNP [CHEM] Stat Lab 01/11/17 21:27 Ordered COMPREHENSIVE METABOLIC PN,CMP [CHEM] Stat Lab 01/11/17 21:19 Ordered CULTURE BLOOD [BC] Stat Lab 01/11/17 21:19 Ordered CULTURE BLOOD [BC] Stat Lab 01/11/17 21:49 Ordered TROPONIN I [CHEM] Stat Lab 01/11/17 21:19 Ordered UA W/MICROSCOPIC [URIN] Stat Lab 01/11/17 21:23 Uncollected Cefepime [Maxipime in D5W 2 GM/50 ML] 2 gm Med 01/11/17 21:54 Ordered Premix Bag 1 bag IV ONETIME Sodium Chloride 0.9% [Saline Flush] Med 01/11/17 21:19 Active 10 ml FLUSH ASDIRECTED PRN Sodium Chloride 0.9% [Saline Flush] Med 01/11/17 21:19 Active 2.5 ml FLUSH ASDIRECTED PRN Vancomycin [Vancocin] 1 gm Med 01/11/17 21:54 Ordered Sodium Chloride 0.9% [Normal Saline] 250 ml IV ONETIME Saline Lock Insert [OM.PC] Stat Oth 01/11/17 21:19 Ordered Medication Orders Cefepime HCl 2 gm/ Premix 50 mls @ 100 mls/hr IV ONETIME ONE Stop: 01/11/17 22:23 Vancomycin HCl 1 gm/ Sodium (Chloride) 250 mls @ 166 mls/hr IV ONETIME ONE Stop: 01/11/17 23:24 Sodium Chloride (Saline Flush) 10 ml FLUSH ASDIRECTED PRN PRN Reason: Keep Vein Open Sodium Chloride (Saline Flush) 2.5 ml FLUSH ASDIRECTED PRN PRN Reason: Keep Vein Open Labs: Laboratory Tests 01/11/17 01/11/17 01/11/17 Range/Units 21:36 21:39 21:39 WBC 4.84 (4.0-11.0) K/uL RBC 2.62 L (4.30-5.90) M/uL Hgb 8.8 L (12.0-16.0) g/dL Hct 31.2 L (36.0-46.0) % MCV 119.1 H (80.0-98.0) fL MCH 33.6 H (27.0-32.0) pg MCHC 28.2 L (31.0-37.0) g/dL RDW Std Deviation 82.5 H (28.0-62.0) fl RDW Coeff of Morales 19 H (11.0-15.0) % Plt Count 80 L (150-400) K/uL MPV 9.00 (7.40-12.00) fL Neut % (Auto) 70.9 (48.0-80.0) % Lymph % (Auto) 15.7 L (16.0-40.0) % Hall % (Auto) 10.3 (0.0-15.0) % Eos % (Auto) 1.9 (0.0-7.0) % Baso % (Auto) 1.2 (0.0-1.5) % Neut # (Auto) 3.4 (1.4-5.7) K/uL Lymph # (Auto) 0.8 (0.6-2.4) K/uL Hall # (Auto) 0.5 (0.0-0.8) K/uL Eos # (Auto) 0.1 (0.0-0.7) K/uL Baso # (Auto) 0.1 (0.0-0.1) K/uL Nucleated RBC % 0.6 /100WBC Nucleated RBCs # 0 K/uL Lactate 1.0 (0.20-2.00) mmol/L Urine Color YELLOW Urine Appearance CLEAR Urine pH 6.0 (5.0-8.0) Ur Specific [place] 1.025 (1.001-1.035) Urine Protein NEGATIVE (NEGATIVE) mg/dL Urine Glucose (UA) NEGATIVE (NEGATIVE) mg/dL Urine Ketones NEGATIVE (NEGATIVE) mg/dL Urine Occult Blood NEGATIVE (NEGATIVE) Urine Nitrite NEGATIVE (NEGATIVE) Urine Bilirubin NEGATIVE (NEGATIVE) Urine Urobilinogen 0.2 (<2.0) EU/dL Ur Leukocyte Esterase NEGATIVE (NEGATIVE) Meds: Medications Generic Name Dose Route Start Last Admin Trade Name Freq PRN Reason Stop Dose Admin Cefepime HCl 2 gm/ Premix 50 mls @ 100 mls/hr 01/11/17 21:54 IV 01/11/17 22:23 ONETIME ONE Vancomycin HCl 1 gm/ Sodium 250 mls @ 166 mls/hr 01/11/17 21:54 Chloride IV 01/11/17 23:24 ONETIME ONE Sodium Chloride 10 ml 01/11/17 21:19 Saline Flush FLUSH ASDIRECTED PRN Keep Vein Open Sodium Chloride 2.5 ml 01/11/17 21:19 Saline Flush FLUSH ASDIRECTED PRN Keep Vein Open Discontinued Medications Generic Name Dose Route Start Last Admin Trade Name Freq PRN Reason Stop Dose Admin Albuterol/Ipratropium 3 ml 01/11/17 21:56 Duoneb 3.0-0.5 Mg/3 Ml NEB 01/11/17 21:57 ONETIME ONE Sodium Chloride 1,000 mls @ 999 mls/hr 01/11/17 21:23 Normal Saline IV 01/11/17 22:23 STAT ONE Departure - Departure Time of Disposition: 22:00 Disposition: Admitted As Inpatient 68 Clinical Impression: Pneumonia, Hypoxia - Discharge Information Forms: ED Department Discharge - My Orders Last 24 Hours: My Active Orders 01/11/17 21:19 EKG Documentation Completion [RC] STAT Chest 1V Frontal [CR] Stat ABG [BLOOD GAS ARTERIAL] [BG] Stat COMPREHENSIVE METABOLIC PN,CMP [CHEM] Stat CULTURE BLOOD [BC] Stat TROPONIN I [CHEM] Stat Sodium Chloride 0.9% [Saline Flush] 10 ml FLUSH ASDIRECTED PRN Sodium Chloride 0.9% [Saline Flush] 2.5 ml FLUSH ASDIRECTED PRN Saline Lock Insert [OM.PC] Stat 01/11/17 21:23 UA W/MICROSCOPIC [URIN] Stat 01/11/17 21:27 B-TYPE NATRIURETIC PEPTIDE,BNP [CHEM] Stat 01/11/17 21:49 CULTURE BLOOD [BC] Stat 01/11/17 21:54 Cefepime [Maxipime in D5W 2 GM/50 ML] 2 gm Premix Bag 1 bag IV ONETIME Vancomycin [Vancocin] 1 gm Sodium Chloride 0.9% [Normal Saline] 250 ml IV ONETIME 01/11/17 21:56 Admission Status [Patient Status] [ADT] Stat RT Aerosol Therapy [RC] ASDIRECTED - Assessment/Plan Last 24 Hours: My Active Orders 01/11/17 21:19 EKG Documentation Completion [RC] STAT Chest 1V Frontal [CR] Stat ABG [BLOOD GAS ARTERIAL] [BG] Stat COMPREHENSIVE METABOLIC PN,CMP [CHEM] Stat CULTURE BLOOD [BC] Stat TROPONIN I [CHEM] Stat Sodium Chloride 0.9% [Saline Flush] 10 ml FLUSH ASDIRECTED PRN Sodium Chloride 0.9% [Saline Flush] 2.5 ml FLUSH ASDIRECTED PRN Saline Lock Insert [OM.PC] Stat 01/11/17 21:23 UA W/MICROSCOPIC [URIN] Stat 01/11/17 21:27 B-TYPE NATRIURETIC PEPTIDE,BNP [CHEM] Stat 01/11/17 21:49 CULTURE BLOOD [BC] Stat 01/11/17 21:54 Cefepime [Maxipime in D5W 2 GM/50 ML] 2 gm Premix Bag 1 bag IV ONETIME Vancomycin [Vancocin] 1 gm Sodium Chloride 0.9% [Normal Saline] 250 ml IV ONETIME 01/11/17 21:56 Admission Status [Patient Status] [ADT] Stat RT Aerosol Therapy [RC] ASDIRECTED
[2017-01-11] MEDS ORDERED: Cefepime 2 GM in Premix Bag 1 BAG IV ONE (21:54)
[2017-01-11] MEDS ORDERED: Albuterol/Ipratropium 3.0-0.5 MG/3 ML Neb Soln NEB ONE (21:56)
[2017-01-11] MEDS ORDERED: Levofloxacin/Dextrose 5%-Water 750 MG in Premix Bag 1 BAG IV ONE (22:15)
[2017-01-11] MEDS ORDERED: Ondansetron 4 MG/2 ML SDV IVPUSH PRN (22:26)
--- NOTE | 2017-01-11 22:38 | PCM.HP ---
H&P History of Present Illness - General Admit Problem/Dx: Admission Diagnosis/Problem Admission Diagnosis/Problem Pneumonia - History of Present Illness Initial Comments - Free Text/Narative: 61 yo female with pmh of DM, pulmonary fibrosis, chronic respiratory failure, oxygen dependent who was discharge last week after hospitalization for acute hypercapnic respiratory failure, Enterococcus UTI, pneumonia and cellulitis. She was discharged on linezolid. She was doing well the first few days after discharge but has had progressive generalized weakness and lethargy. She has been falling asleep during conversations. She has a history of sleep apnea but does not tolerate the mask and has had plans for mask fittings. She is also scheduled for endoscopy in [place] on Friday due to rectal bleeding. Her Eloquis was discontinued during her last hospitalization. Her Hgb today is up from discharge at 8.8. CXR is suggestive of multilobar pneumonia. She had refused ABG and Bipap. abdominal pain Pain Score (Numeric/FACES): 10 - Related Data Allergies/Adverse Reactions: Allergies Allergy/AdvReac Type Severity Reaction Status Date / Time amlodipine besylate Allergy Headache Verified 01/11/17 21:11 [From Norvasc] doxepin Allergy unknown Verified 01/11/17 21:11 doxycycline Allergy unknown Verified 01/11/17 21:11 hydromorphone Allergy unknown Verified 01/11/17 21:11 ketorolac Allergy Itching Verified 01/11/17 21:11 latex Allergy unknown Verified 01/11/17 21:11 milnacipran HCl Allergy Headache Verified 01/11/17 21:11 [From [facility]] aspirin AdvReac Abdominal Verified 01/11/17 21:11 Pain Home Medications: Home Meds Pioglitazone [Actos] 30 mg PO DAILY 03/28/15 [History] levETIRAcetam [Keppra] 1,000 mg PO BID 03/28/15 [History] Pantoprazole [ProTONIX] 40 mg PO ACBREAKFAST 09/14/15 [History] Calcium Carbonate/Vitamin D3 [Calcium 500 + Vit D 400] 1 each PO BID 07/11/16 [ History] Divalproex Sodium 250 mg PO TIDMEALS 07/11/16 [History] Gabapentin [Neurontin] 600 mg PO TID 07/11/16 [History] atorvaSTATin [Lipitor] 20 mg PO DAILY 07/11/16 [History] Temazepam [Restoril] 15 mg PO BEDTIME PRN #20 cap 07/16/16 [Rx] Ferrous Sulfate 325 mg PO BID 12/30/16 [History] Hydrocodone/Acetaminophen [[place] 5-325] 1 tab PO Q4HR PRN 12/30/16 [History] Nitrofurantoin 100 gm MC BID #20 powder 12/30/16 [Rx] glipiZIDE [Glucotrol XL] 2.5 mg PO DAILY 12/30/16 [History] Albuterol [IJD: Albuterol] 1 inh INH Q4H PRN 01/03/17 [History] Ascorbic Acid 1 tab PO DAILY 01/03/17 [History] Budesonide [Pulmicort] 1 inh INH BID 01/03/17 [History] Docusate Sodium [Colace] 2 cap PO DAILY 01/03/17 [History] Furosemide 1 tab PO DAILY 01/03/17 [History] Insulin Lispro [Humalog Kwikpen U-100] 0 unit SUBCUT ASDIRECTED 01/03/17 [ History] Lactobacillus Acidophilus [Acidophilus Lactobacillus] 1 cap PO BID 01/03/17 [ History] Levalbuterol HCl [Xopenex] 1 inh INH Q4H PRN 01/03/17 [History] Nitroglycerin [Nitrostat] 1 tab SL ASDIRECTED PRN 01/03/17 [History] Azithromycin [IJD: Azithromycin] 250 mg PO DAILY #2 tab 01/06/17 [Rx] Linezolid 600 mg PO BID #14 tablet 01/06/17 [Rx] Nicotine [Habitrol] 14 mg TRDERM Q24H #30 patch 01/06/17 [Rx] Nystatin [Nystop] 100,000 units TOP TID #1 bottle 01/06/17 [Rx] Cefuroxime [Ceftin] 500 mg PO BID 5 Days #10 tablet 01/14/17 [Rx] Past Medical History HEENT History: Reports: Glaucoma Cardiovascular History: Reports: Heart Failure, Hypertension Other Cardiovascular History: CHF Respiratory History: Reports: COPD, Interstitial Lung Disease, Pulmonary Fibrosis, Other (See Below) Other Respiratory History: DIPF,. home O2 dependent at 3L Gastrointestinal History: Reports: Gastritis Genitourinary History: Reports: Other (See Below) Other Genitourinary History: only has left kidney [employer] WORK[employer] History: Reports: Musculoskeletal History: Reports: Fibromyalgia, Osteoporosis Neurological History: Reports: Neuropathy, Diabetic, Neuropathy, Peripheral, Seizure Psychiatric History: Reports: Anxiety, Depression Endocrine/Metabolic History: Reports: Diabetes, Type II, Obesity/BMI 30+, Osteoporosis Hematologic History: Reports: Anemia, Blood Transfusion(s) Immunologic History: Reports: None Oncologic (Cancer) History: Reports: Renal, Other (See Below) Other Oncologic History: mets to liver treated without recurrence. Dermatologic History: Reports: None - Infectious Disease History Infectious Disease History: Reports: Chicken Pox, Measles Other Infectious Disease History: Not sure - Past Surgical History GI Surgical History: Reports: EGD, Other (See Below) Musculoskeletal Surgical History: Reports: Other (See Below) Social & Family History - Family History Family Medical History: Noncontributory - Tobacco Use Smoking Status *Q: Current Every Day Smoker Years of Tobacco use: 30 Packs/Tins Daily: 0.2 Used Tobacco, but Quit: Yes Month Tobacco Last Used: Feb 2015 Second Hand Smoke Exposure: No - Caffeine Use Caffeine Use: Reports: Coffee, Soda - Recreational Drug Use Recreational Drug Use: No H&P Review of Systems - Review of Systems: Review Of Systems: ROS reveals no pertinent complaints other than HPI. Exam - Exam Exam: See Below - Vital Signs Vital Signs: Last Vital Signs Temp 36.3 C 01/11/17 21:10 Pulse 71 01/11/17 21:10 Resp 22 H 01/11/17 21:10 BP 106/53 L 01/11/17 21:10 Pulse Ox 97 01/11/17 21:10 Weight: 158.9 kg - Exam General: Cooperative, Lethargic HEENT: Mucosa Moist & [place], Posterior Pharynx Clear Neck: Supple Lungs: Decreased Breath Sounds Cardiovascular: Regular Rate, Regular Rhythm GI/Abdominal Exam: Normal Bowel Sounds, Soft, Non-Tender, Other (obese) Extremities: Pedal Edema (mild pedal edema, multiple abrassion of lower extremities) - Patient Data Lab Results Last 24 hrs: Laboratory Results - last 24 hr 01/11/17 01/11/17 01/11/17 Range/Units 21:36 21:39 21:39 WBC 4.84 (4.0-11.0) K/uL RBC 2.62 L (4.30-5.90) M/uL Hgb 8.8 L (12.0-16.0) g/dL Hct 31.2 L (36.0-46.0) % MCV 119.1 H (80.0-98.0) fL MCH 33.6 H (27.0-32.0) pg MCHC 28.2 L (31.0-37.0) g/dL RDW Std Deviation 82.5 H (28.0-62.0) fl RDW Coeff of Morales 19 H (11.0-15.0) % Plt Count 80 L (150-400) K/uL MPV 9.00 (7.40-12.00) fL Neut % (Auto) 70.9 (48.0-80.0) % Lymph % (Auto) 15.7 L (16.0-40.0) % [place] % (Auto) 10.3 (0.0-15.0) % Eos % (Auto) 1.9 (0.0-7.0) % Baso % (Auto) 1.2 (0.0-1.5) % Neut # (Auto) 3.4 (1.4-5.7) K/uL Lymph # (Auto) 0.8 (0.6-2.4) K/uL [place] # (Auto) 0.5 (0.0-0.8) K/uL Eos # (Auto) 0.1 (0.0-0.7) K/uL Baso # (Auto) 0.1 (0.0-0.1) K/uL Nucleated RBC % 0.6 /100WBC Nucleated RBCs # 0 K/uL Lactate (0.20-2.00) mmol/L Sodium 140 (136-146) mmol/L Potassium 4.4 (3.5-5.1) mmol/L Chloride 95 L (98-110) mmol/L Carbon Dioxide 37 H (21-31) mmol/L BUN 17 (6.0-23.0) mg/dL Creatinine 1.4 (0.6-1.5) mg/dL Est Cr Clr Drug Dosing 43.82 mL/min Estimated GFR (MDRD) 38.5 ml/min Glucose 102 (60-110) mg/dL Calcium 9.2 (8.8-10.8) mg/dL Total Bilirubin 0.3 (0.1-1.5) mg/dL AST 11 (5-40) IU/L ALT 12 (8-54) IU/L Alkaline Phosphatase 90 (40-150) Troponin I (0.0-0.29) NG/ML B-Natriuretic Peptide (<100) PG/ML Total Protein 6.9 (6.0-8.0) g/dL Albumin 3.3 L (3.5-5.0) g/dL Globulin 3.6 H (2.0-3.5) g/dL Albumin/Globulin Ratio 0.9 L (1.3-2.8) Urine Color YELLOW Urine Appearance CLEAR Urine pH 6.0 (5.0-8.0) Ur Specific [place] 1.025 (1.001-1.035) Urine Protein NEGATIVE (NEGATIVE) mg/dL Urine Glucose (UA) NEGATIVE (NEGATIVE) mg/dL Urine Ketones NEGATIVE (NEGATIVE) mg/dL Urine Occult Blood NEGATIVE (NEGATIVE) Urine Nitrite NEGATIVE (NEGATIVE) Urine Bilirubin NEGATIVE (NEGATIVE) Urine Urobilinogen 0.2 (<2.0) EU/dL Ur Leukocyte Esterase NEGATIVE (NEGATIVE) Urine RBC 0-4 (0-2/HPF) Urine WBC 5-10 (0-5/HPF) Ur Epithelial Cells MODERATE (NONE-FEW) Urine Bacteria 1+ H (NEGATIVE) Urine Yeast MODERATE 01/11/17 01/11/17 01/11/17 Range/Units 21:39 21:39 21:39 WBC (4.0-11.0) K/uL RBC (4.30-5.90) M/uL Hgb (12.0-16.0) g/dL Hct (36.0-46.0) % MCV (80.0-98.0) fL MCH (27.0-32.0) pg MCHC (31.0-37.0) g/dL RDW Std Deviation (28.0-62.0) fl RDW Coeff of [place] (11.0-15.0) % Plt Count (150-400) K/uL MPV (7.40-12.00) fL Neut % (Auto) (48.0-80.0) % Lymph % (Auto) (16.0-40.0) % [place] % (Auto) (0.0-15.0) % Eos % (Auto) (0.0-7.0) % Baso % (Auto) (0.0-1.5) % Neut # (Auto) (1.4-5.7) K/uL Lymph # (Auto) (0.6-2.4) K/uL [place] # (Auto) (0.0-0.8) K/uL Eos # (Auto) (0.0-0.7) K/uL Baso # (Auto) (0.0-0.1) K/uL Nucleated RBC % /100WBC Nucleated RBCs # K/uL Lactate 1.0 (0.20-2.00) mmol/L Sodium (136-146) mmol/L Potassium (3.5-5.1) mmol/L Chloride (98-110) mmol/L Carbon Dioxide (21-31) mmol/L BUN (6.0-23.0) mg/dL Creatinine (0.6-1.5) mg/dL Est Cr Clr Drug Dosing mL/min Estimated GFR (MDRD) ml/min Glucose (60-110) mg/dL Calcium (8.8-10.8) mg/dL Total Bilirubin (0.1-1.5) mg/dL AST (5-40) IU/L ALT (8-54) IU/L Alkaline Phosphatase (40-150) Troponin I < 0.10 (0.0-0.29) NG/ML B-Natriuretic Peptide 819 H (<100) PG/ML Total Protein (6.0-8.0) g/dL Albumin (3.5-5.0) g/dL Globulin (2.0-3.5) g/dL Albumin/Globulin Ratio (1.3-2.8) Urine Color Urine Appearance Urine pH (5.0-8.0) Ur Specific [place] (1.001-1.035) Urine Protein (NEGATIVE) mg/dL Urine Glucose (UA) (NEGATIVE) mg/dL Urine Ketones (NEGATIVE) mg/dL Urine Occult Blood (NEGATIVE) Urine Nitrite (NEGATIVE) Urine Bilirubin (NEGATIVE) Urine Urobilinogen (<2.0) EU/dL Ur Leukocyte Esterase (NEGATIVE) Urine RBC (0-2/HPF) Urine WBC (0-5/HPF) Ur Epithelial Cells (NONE-FEW) Urine Bacteria (NEGATIVE) Urine Yeast Result Diagrams: 01/14/17 04:53 01/14/17 04:53 *Q Meaningful Use (ADM) - VTE *Q VTE Criteria *Q: - Stroke *Q Stroke Criteria *Q: - AMI *Q AMI Criteria *Q: Problem List Initiated/Reviewed/Updated: Yes Orders Last 24hrs: Active Orders 24 hr Category Date Time Status Admission Status [Patient Status] [ADT] Stat ADT 01/11/17 21:56 Active Antiembolic Devices [RC] PER UNIT ROUTINE Care 01/11/17 22:29 Active Blood Glucose Check, Bedside [RC] TIDMEALS Care 01/11/17 22:26 Active EKG Documentation Completion [RC] STAT Care 01/11/17 21:19 Active Insert Urinary Catheter [OM.PC] Q24H Care 01/11/17 22:15 Ordered Intake and Output [RC] QSHIFT Care 01/11/17 22:28 Active Oxygen Therapy [RC] PRN Care 01/11/17 22:26 Active RT Aerosol Therapy [RC] ASDIRECTED Care 01/11/17 21:56 Active RT Aerosol Therapy [RC] ASDIRECTED Care 01/11/17 22:29 Active Up ad Tara [RC] ASDIRECTED Care 01/11/17 22:26 Active Urinary Catheter Assessment [RC] ASDIRECTED Care 01/11/17 22:02 Active VTE/DVT Education [RC] PER UNIT ROUTINE Care 01/11/17 22:26 Active Vital Signs [RC] Q4H Care 01/11/17 22:26 Active [place] [employer] Diet [DIET] Diet 01/11/17 Breakfast Active Chest 1V Frontal [CR] Stat Exams 01/11/17 21:19 Taken ABG [BLOOD GAS ARTERIAL] [BG] Stat Lab 01/11/17 21:19 Ordered CBC W/O DIFF,HEMOGRAM [HEME] AM Lab 01/12/17 05:11 Ordered COMPREHENSIVE METABOLIC PN,CMP [CHEM] AM Lab 01/12/17 05:11 Ordered CULTURE BLOOD [BC] Stat Lab 01/11/17 21:39 Received CULTURE BLOOD [BC] Stat Lab 01/11/17 21:58 Received CULTURE SPUTUM + SMEAR [RM] Routine Lab 01/11/17 22:23 Uncollected Albuterol/Ipratropium [DuoNeb 3.0-0.5 MG/3 ML] Med 01/12/17 00:00 Active 3 ml NEB Q6HRRT Budesonide [Pulmicort] Med 01/12/17 09:00 Active 0.5 mg INH BID Cefepime [Maxipime in D5W 2 GM/50 ML] 2 gm Med 01/12/17 06:00 Active Premix Bag 1 bag IV Q8H Insulin Aspart [NovoLOG] Med 01/11/17 22:30 Active See Protocol SUBCUT TIDAC Levofloxacin/Dextrose 5%-Water [Levaquin in D5W 750 MG/ Med 01/11/17 22:15 Active 150 ML] 750 mg Premix Bag 1 bag IV ONETIME Levofloxacin/Dextrose 5%-Water [Levaquin in D5W 750 MG/ Med 01/12/17 22:30 Active 150 ML] 750 mg Premix Bag 1 bag IV Q24H Nystatin [Nystop] Med 01/12/17 06:00 Active 2 gm TOP TID Ondansetron [Zofran] Med 01/11/17 22:26 Active 4 mg IVPUSH Q4H PRN Sodium Chloride 0.9% [Saline Flush] Med 01/11/17 21:19 Active 10 ml FLUSH ASDIRECTED PRN Sodium Chloride 0.9% [Saline Flush] Med 01/11/17 21:19 Active 2.5 ml FLUSH ASDIRECTED PRN Vancomycin Pharmacy to Dose [Pharmacy to Dose - Med 01/11/17 22:30 Ordered Vancomycin] 1 dose .XX ASDIRECTED Vancomycin [Vancocin] 1 gm Med 01/11/17 21:54 Active Sodium Chloride 0.9% [Normal Saline] 250 ml IV ONETIME levETIRAcetam [Keppra] Med 01/12/17 09:00 Active 1,000 mg PO BID predniSONE Med 01/11/17 22:30 Active 40 mg PO DAILY Saline Lock Insert [OM.PC] Stat Oth 01/11/17 21:19 Ordered Sequential Compression Device [OM.PC] Per Unit Routine Oth 01/11/17 22:28 Ordered Resuscitation Status Routine Resus Stat 01/11/17 22:26 Ordered Medication Orders Albuterol/Ipratropium (Duoneb 3.0-0.5 Mg/3 Ml) 3 ml NEB Q6HRRT QUINN Budesonide (Pulmicort) 0.5 mg INH BID QUINN Vancomycin HCl 1 gm/ Sodium (Chloride) 250 mls @ 166 mls/hr IV ONETIME ONE Stop: 01/11/17 23:24 Last Admin: 01/11/17 22:16 Dose: 166 mls/hr Levofloxacin/Dextrose 750 mg/ (Premix) 150 mls @ 100 mls/hr IV ONETIME ONE Stop: 01/11/17 23:44 Cefepime HCl 2 gm/ Premix 50 mls @ 100 mls/hr IV Q8H QUINN Levofloxacin/Dextrose 750 mg/ (Premix) 150 mls @ 100 mls/hr IV Q24H [facility] Insulin Aspart (Novolog) 0 unit SUBCUT TIDAC QUINN PRN Reason: Protocol Levetiracetam (Keppra) 1,000 mg PO BID QUINN Nystatin (Nystop) 2 gm TOP TID QUINN Ondansetron HCl (Zofran) 4 mg IVPUSH Q4H PRN PRN Reason: Nausea Prednisone (Prednisone) 40 mg PO DAILY [facility] Sodium Chloride (Saline Flush) 10 ml FLUSH ASDIRECTED PRN PRN Reason: Keep Vein Open Sodium Chloride (Saline Flush) 2.5 ml FLUSH ASDIRECTED PRN PRN Reason: Keep Vein Open Vancomycin HCl (Pharmacy To Dose - Vancomycin) 1 dose .XX ASDIRECTED [facility] Assessment/Plan Comment:: 61 yo female admitted with pneumonia. Pneumonia: vancomycin, cefepime, and levaquin Acute on chronic respiratory failure: BIPAP as tolerated, DM: sliding scale insuline seizure disorder: resume home meds.
[2017-01-12] MEDS ORDERED: CEFEPIME ONE (00:54)
[2017-01-12] MEDS: Albuterol/Ipratropium 3.0-0.5 MG/3 ML Neb Soln NEB SCH ×4 (00:57→18:14)
[2017-01-12] MEDS ORDERED: Cefepime 50 ML ONE (00:57)
[2017-01-12] MEDS: predniSONE 10 MG Tab PO SCH ×2 (00:57→08:48)
[2017-01-12] MEDS: Sodium Chloride 0.9% 1,000 ML IV SCH ×2 (01:38→12:40)
[2017-01-12] MEDS: Insulin Aspart 100 Units/ML 3 ML Pen SUBCUT SCH ×4 (01:42→17:51)
[2017-01-12] MEDS: Acetaminophen 325 MG Tab PO PRN (04:09)
[2017-01-12] MEDS: Nystatin Topical Powder 15 GM Bottle TOP SCH ×3 (05:04→22:33)
[2017-01-12] MEDS: Cefepime 2 GM in Premix Bag 1 BAG IV SCH ×2 (08:48→16:20)
[2017-01-12] MEDS: levETIRAcetam 500 MG Tab PO SCH ×2 (08:48→20:01)
[2017-01-12] MEDS ORDERED: Budesonide 0.5 MG/2 ML Neb Susp INH SCH (09:00)
[2017-01-12] MEDS: Gabapentin 300 MG Cap PO SCH ×4 (10:49→22:34)
[2017-01-12] MEDS ORDERED: Budesonide 0.5 MG/2 ML Neb Susp NEB ONE ×2 (12:00→18:00)
--- NOTE | 2017-01-12 14:25 | PCM.PN ---
- General Info Admission Dx/Problem (Free Text): Admission Diagnosis/Problem Admission Diagnosis/Problem Pneumonia Subjective Update: Patient feeling somewhat better. no overnight events. - Patient Data Vitals - Most Recent: Last Vital Signs Temp 36.4 C 01/12/17 12:00 Pulse 74 01/11/17 22:54 Resp 16 01/12/17 13:00 BP 132/45 L 01/12/17 13:00 Pulse Ox 91 L 01/12/17 13:00 Weight - Most Recent: 157.4 kg I&O - Last 24 Hours: Intake & Output 01/11/17 01/12/17 01/12/17 22:59 06:59 14:59 Intake Total 1050 1050 Output Total 400 Balance 650 1050 Lab Results Last 24 Hours: Laboratory Results - last 24 hr 01/12/17 01/12/17 01/12/17 Range/Units 01:31 05:58 05:58 WBC 4.42 (4.0-11.0) K/uL RBC 2.60 L (4.30-5.90) M/uL Hgb 8.8 L (12.0-16.0) g/dL Hct 31.1 L (36.0-46.0) % MCV 119.6 H (80.0-98.0) fL MCH 33.8 H (27.0-32.0) pg MCHC 28.3 L (31.0-37.0) g/dL RDW Std Deviation 80.6 H (28.0-62.0) fl RDW Coeff of Mor[place] 19 H (11.0-15.0) % Plt Count 65 L (150-400) K/uL MPV 9.30 (7.40-12.00) fL Nucleated RBC % 0.7 /100WBC Nucleated RBCs # 0 K/uL Sodium 141 (136-146) mmol/L Potassium 4.6 (3.5-5.1) mmol/L Chloride 96 L (98-110) mmol/L Carbon Dioxide 38 H (21-31) mmol/L BUN 18 (6.0-23.0) mg/dL Creatinine 1.2 (0.6-1.5) mg/dL Est Cr Clr Drug Dosing 51.12 mL/min Estimated GFR (MDRD) 46.0 ml/min Glucose 150 H (60-110) mg/dL POC Glucose 80 (60-110) mg/dL Calcium 9.0 (8.8-10.8) mg/dL Total Bilirubin 0.3 (0.1-1.5) mg/dL AST 10 (5-40) IU/L ALT 11 (8-54) IU/L Alkaline Phosphatase 83 (40-150) Total Protein 6.6 (6.0-8.0) g/dL Albumin 3.1 L (3.5-5.0) g/dL Globulin 3.5 (2.0-3.5) g/dL Albumin/Globulin Ratio 0.9 L (1.3-2.8) 01/12/17 01/12/17 Range/Units 07:24 11:33 WBC (4.0-11.0) K/uL RBC (4.30-5.90) M/uL Hgb (12.0-16.0) g/dL Hct (36.0-46.0) % MCV (80.0-98.0) fL MCH (27.0-32.0) pg MCHC (31.0-37.0) g/dL RDW Std Deviation (28.0-62.0) fl RDW Coeff of Morales (11.0-15.0) % Plt Count (150-400) K/uL MPV (7.40-12.00) fL Nucleated RBC % /100WBC Nucleated RBCs # K/uL Sodium (136-146) mmol/L Potassium (3.5-5.1) mmol/L Chloride (98-110) mmol/L Carbon Dioxide (21-31) mmol/L BUN (6.0-23.0) mg/dL Creatinine (0.6-1.5) mg/dL Est Cr Clr Drug Dosing mL/min Estimated GFR (MDRD) ml/min Glucose (60-110) mg/dL POC Glucose 161 H 170 H (60-110) mg/dL Calcium (8.8-10.8) mg/dL Total Bilirubin (0.1-1.5) mg/dL AST (5-40) IU/L ALT (8-54) IU/L Alkaline Phosphatase (40-150) Total Protein (6.0-8.0) g/dL Albumin (3.5-5.0) g/dL Globulin (2.0-3.5) g/dL Albumin/Globulin Ratio (1.3-2.8) Jack Results Last 24 Hours: Microbiology 01/12/17 08:01 Gram Stain - Preliminary Sputum - Expectorated Med Orders - Current: Current Medications Acetaminophen (Tylenol) 650 mg PO Q6H PRN PRN Reason: Pain Last Admin: 01/12/17 04:09 Dose: 650 mg Hydrocodone Bitart/Acetaminophen ([place] 325-5 Mg) 1 tab PO Q4H PRN PRN Reason: Pain Albuterol/Ipratropium (Duoneb 3.0-0.5 Mg/3 Ml) 3 ml NEB Q6HRRT [facility] Last Admin: 01/12/17 11:27 Dose: 3 ml Budesonide (Pulmicort) 0.5 mg NEB BIDRT@0600,1200 [facility] Gabapentin (Neurontin) 600 mg PO TID [facility] Last Admin: 01/12/17 10:49 Dose: 600 mg Cefepime HCl 2 gm/ Premix 50 mls @ 100 mls/hr IV Q8H [facility] Last Admin: 01/12/17 08:48 Dose: 100 mls/hr Levofloxacin/Dextrose 750 mg/ (Premix) 150 mls @ 100 mls/hr IV Q24H [facility] Vancomycin HCl 2 gm/ Sodium (Chloride) 500 mls @ 333.333 mls/hr IV Q24H [facility] Sodium Chloride (Normal Saline) 1,000 mls @ 100 mls/hr IV ASDIRECTED [facility] Last Admin: 01/12/17 12:40 Dose: 100 mls/hr Insulin Aspart (Novolog) 0 unit SUBCUT TIDAC [facility] PRN Reason: Protocol Last Admin: 01/12/17 12:37 Dose: 1 unit Levetiracetam (Keppra) 1,000 mg PO BID [facility] Last Admin: 01/12/17 08:48 Dose: 1,000 mg Nystatin (Nystop) 2 gm TOP TID [facility] Last Admin: 01/12/17 05:04 Dose: 1 applic Ondansetron HCl (Zofran) 4 mg IVPUSH Q4H PRN PRN Reason: Nausea Prednisone (Prednisone) 40 mg PO DAILY [facility] Last Admin: 01/12/17 08:48 Dose: 40 mg Sodium Chloride (Saline Flush) 10 ml FLUSH ASDIRECTED PRN PRN Reason: Keep Vein Open Sodium Chloride (Saline Flush) 2.5 ml FLUSH ASDIRECTED PRN PRN Reason: Keep Vein Open Vancomycin HCl (Pharmacy To Dose - Vancomycin) 1 dose .XX ASDIRECTED QUINN Discontinued Medications Albuterol/Ipratropium (Duoneb 3.0-0.5 Mg/3 Ml) 3 ml NEB ONETIME ONE Stop: 01/11/17 21:57 Last Admin: 01/11/17 22:16 Dose: 3 ml Budesonide (Pulmicort) 0.5 mg NEB ONETIME ONE Stop: 01/12/17 12:01 Last Admin: 01/12/17 11:28 Dose: 0.5 mg Sodium Chloride (Normal Saline) 1,000 mls @ 999 mls/hr IV STAT ONE Stop: 01/11/17 22:23 Last Admin: 01/12/17 09:27 Dose: Not Given Cefepime HCl 2 gm/ Premix 50 mls @ 100 mls/hr IV ONETIME ONE Stop: 01/11/17 22:23 Last Admin: 01/12/17 00:59 Dose: 100 mls/hr Vancomycin HCl 1 gm/ Sodium (Chloride) 250 mls @ 166 mls/hr IV ONETIME ONE Stop: 01/11/17 23:24 Last Admin: 01/11/17 22:16 Dose: 166 mls/hr Levofloxacin/Dextrose 750 mg/ (Premix) 150 mls @ 100 mls/hr IV ONETIME ONE Stop: 01/11/17 23:44 Last Admin: 01/12/17 02:47 Dose: 100 mls/hr Vancomycin HCl 1 gm/ Sodium (Chloride) 250 mls @ 166 mls/hr IV ONETIME ONE Stop: 01/12/17 00:30 Last Admin: 01/12/17 01:23 Dose: 166 mls/hr Cefepime HCl (Maxipime In D5w 1 Gm/50 Ml) Confirm Administered Dose 50 mls @ as directed .ROUTE .STK-MED ONE Stop: 01/12/17 00:55 Last Admin: 01/12/17 00:58 Dose: Not Given Cefepime HCl (Maxipime In D5w 2 Gm/50 Ml) Confirm Administered Dose 50 mls @ as directed .ROUTE .STK-MED ONE Stop: 01/12/17 00:58 Last Admin: 01/12/17 01:11 Dose: Not Given - Exam General: Cooperative, No Acute Distress HEENT: Pupils Equal Neck: Supple, No JVD Lungs: Decreased Breath Sounds Cardiovascular: Regular Rate, Regular Rhythm - Problem List Review Problem List Initiated/Reviewed/Updated: Yes - My Orders Last 24 Hours: My Active Orders 01/12/17 09:02 RT Aerosol Therapy [RC] ASDIRECTED 01/13/17 06:00 Budesonide [Pulmicort] 0.5 mg NEB BIDRT@0600,1200 - Plan Plan:: 61 yo female admitted with pneumonia. Pneumonia: continue vancomycin, cefepime, and levaquin Acute on chronic respiratory failure: BIPAP as tolerated, DM: sliding scale insuline seizure disorder: resume home meds.
[2017-01-12] MEDS: Acetaminophen/HYDROcodone 325-5 MG Tab PO PRN (14:46)
[2017-01-12] MEDS ORDERED: Temazepam 15 MG Cap PO PRN (19:04)
[2017-01-12] MEDS ORDERED: Nitroglycerin 0.4 MG Tab.SL SL PRN (19:04)
[2017-01-12] MEDS: Pantoprazole 40 MG in Sodium Chloride 0.9% 10 ML IVPUSH SCH (20:00)
[2017-01-12] MEDS: Ferrous Sulfate 325 MG Tab PO SCH (20:01)
[2017-01-12] MEDS: Calcium Carbonate/Vitamin D3 1500 MG-400 Units Tab PO SCH (20:01)
[2017-01-12] MEDS: Divalproex Sodium Delayed-Release 250 MG Tab.CR PO SCH (20:01)
[2017-01-12] MEDS ORDERED: Furosemide 40 MG Tab PO ONE (20:01)
[2017-01-12] MEDS: Vancomycin 2 GM in Sodium Chloride 0.9% 500 ML IV SCH (22:34)
[2017-01-13] MEDS ORDERED: Levofloxacin/Dextrose 5%-Water 750 MG in Premix Bag 1 BAG IV SCH (03:30)
[2017-01-13] MEDS: Nystatin Topical Powder 15 GM Bottle TOP SCH ×3 (05:07→21:18)
[2017-01-13] MEDS: Gabapentin 300 MG Cap PO SCH ×3 (05:08→21:17)
[2017-01-13 06:19] LABS: CHLORIDE,CL 100 mmol/L (98-110); SODIUM,NA 141 mmol/L (136-146)
[2017-01-13] MEDS: Insulin Aspart 100 Units/ML 3 ML Pen SUBCUT SCH ×3 (06:48→17:33)
[2017-01-13] MEDS: Albuterol/Ipratropium 3.0-0.5 MG/3 ML Neb Soln NEB SCH ×4 (06:58→18:09)
[2017-01-13] MEDS: Budesonide 0.5 MG/2 ML Neb Susp NEB SCH ×3 (06:59→18:09)
[2017-01-13] MEDS: buPROPion 150 MG Tab.ER PO SCH (08:42)
[2017-01-13] MEDS: Cefepime 2 GM in Premix Bag 1 BAG IV SCH ×4 (08:42→16:41)
[2017-01-13] MEDS: Furosemide 40 MG Tab PO SCH (08:42)
[2017-01-13] MEDS: atorvaSTATin 10 MG Tab PO SCH (08:43)
[2017-01-13] MEDS: levETIRAcetam 500 MG Tab PO SCH ×2 (08:43→20:23)
[2017-01-13] MEDS: predniSONE 10 MG Tab PO SCH (08:43)
[2017-01-13] MEDS: Divalproex Sodium Delayed-Release 250 MG Tab.CR PO SCH ×3 (08:43→16:40)
[2017-01-13] MEDS: Calcium Carbonate/Vitamin D3 1500 MG-400 Units Tab PO SCH ×2 (08:44→20:23)
[2017-01-13] MEDS: Ferrous Sulfate 325 MG Tab PO SCH ×2 (08:44→20:23)
[2017-01-13] MEDS: Docusate Sodium 100 MG Cap PO SCH (08:45)
[2017-01-13] MEDS: Pantoprazole 40 MG in Sodium Chloride 0.9% 10 ML IVPUSH SCH ×2 (08:48→20:24)
[2017-01-13] MEDS: Acetaminophen 325 MG Tab PO PRN ×3 (09:24→22:25)
--- NOTE | 2017-01-13 14:10 | CR ---
EXAM DATE: 01/11/17 PATIENT'S AGE: 61 Patient: VALERIA KC Facility: [place], [place] Site . Site : 1955 Study: XRay Chest [id number]/30/2017 9:45:10 PM Ordering Physician: Doctor Brewer Final Report: INDICATION: 72 percent oxygen. Technique: AP portable chest x-ray. Comparison: Chest x-ray 01/02/2017. Findings: New development of near complete opacification of the left hemithorax with some remaining aerated left lung in the left lung apex and possibly in the left lung base. Findings could be related to progressive diffuse infiltrates and consolidation and/or a component of atelectasis and collapse due to central mucous plugging. Cannot exclude superimposed left pleural effusion. Bronchovascular markings in the right medial lung are increased consistent pulmonary venous congestion. Increased opacity in the right lung base medially could be related to some postop from posed infiltrate. Heart size is stable and within normal limits. Moderately calcified aorta. Chest otherwise negative. Dictated by Kike Shankar MD @ Jan 11 2017 9:57PM (Electronic Signature) Report Signed by Proxy. DOE
[2017-01-13] MEDS ORDERED: Albuterol/Ipratropium 3.0-0.5 MG/3 ML Neb Soln NEB PRN (14:13)
--- NOTE | 2017-01-13 14:20 | PCM.PN ---
- Review of Systems Systems Review Comment:: she aches all over, and reports shortness of breath - Patient Data Vitals - Most Recent: Last Vital Signs Temp 36.1 C 01/13/17 08:00 Pulse 74 01/11/17 22:54 Resp 16 01/13/17 12:00 BP 151/56 H 01/13/17 12:00 Pulse Ox 94 L 01/13/17 12:00 Weight - Most Recent: 161.3 kg I&O - Last 24 Hours: Intake & Output 01/12/17 01/13/17 01/13/17 22:59 06:59 14:59 Intake Total 50 1310 60 Output Total 1225 Balance 50 85 60 Lab Results Last 24 Hours: Laboratory Results - last 24 hr 01/12/17 01/13/17 01/13/17 Range/Units 17:33 05:11 05:11 WBC 5.40 (4.0-11.0) K/uL RBC 2.32 L (4.30-5.90) M/uL Hgb 8.8 L (12.0-16.0) g/dL Hct 26.9 L (36.0-46.0) % MCV 115.9 H (80.0-98.0) fL MCH 37.9 H (27.0-32.0) pg MCHC 32.7 (31.0-37.0) g/dL RDW Std Deviation 75.8 H (28.0-62.0) fl RDW Coeff of Morales 18 H (11.0-15.0) % Plt Count 151 (150-400) K/uL MPV 10.10 (7.40-12.00) fL Neut % (Auto) 65.9 (48.0-80.0) % Lymph % (Auto) 18.9 (16.0-40.0) % [place] % (Auto) 14.1 (0.0-15.0) % Eos % (Auto) 0.4 (0.0-7.0) % Baso % (Auto) 0.7 (0.0-1.5) % Neut # (Auto) 3.6 (1.4-5.7) K/uL Lymph # (Auto) 1.0 (0.6-2.4) K/uL [place] # (Auto) 0.8 (0.0-0.8) K/uL Eos # (Auto) 0.0 (0.0-0.7) K/uL Baso # (Auto) 0.0 (0.0-0.1) K/uL Nucleated RBC % 0.0 /100WBC Nucleated RBCs # 0 K/uL Sodium 141 (136-146) mmol/L Potassium 5.1 (3.5-5.1) mmol/L Chloride 100 (98-110) mmol/L Carbon Dioxide 35 H (21-31) mmol/L Anion Gap 11.1 BUN 18 (6.0-23.0) mg/dL Creatinine 0.9 (0.6-1.5) mg/dL Est Cr Clr Drug Dosing 68.16 mL/min Estimated GFR (MDRD) > 60.0 ml/min BUN/Creatinine Ratio 20.00 Glucose 82 (60-110) mg/dL POC Glucose 146 H (60-110) mg/dL Calcium 8.9 (8.8-10.8) mg/dL Phosphorus 3.0 (2.4-4.7) mg/dL Albumin 3.0 L (3.5-5.0) g/dL 01/13/17 01/13/17 Range/Units 06:47 11:36 WBC (4.0-11.0) K/uL RBC (4.30-5.90) M/uL Hgb (12.0-16.0) g/dL Hct (36.0-46.0) % MCV (80.0-98.0) fL MCH (27.0-32.0) pg MCHC (31.0-37.0) g/dL RDW Std Deviation (28.0-62.0) fl RDW Coeff of Morales (11.0-15.0) % Plt Count (150-400) K/uL MPV (7.40-12.00) fL Neut % (Auto) (48.0-80.0) % Lymph % (Auto) (16.0-40.0) % [place] % (Auto) (0.0-15.0) % Eos % (Auto) (0.0-7.0) % Baso % (Auto) (0.0-1.5) % Neut # (Auto) (1.4-5.7) K/uL Lymph # (Auto) (0.6-2.4) K/uL [place] # (Auto) (0.0-0.8) K/uL Eos # (Auto) (0.0-0.7) K/uL Baso # (Auto) (0.0-0.1) K/uL Nucleated RBC % /100WBC Nucleated RBCs # K/uL Sodium (136-146) mmol/L Potassium (3.5-5.1) mmol/L Chloride (98-110) mmol/L Carbon Dioxide (21-31) mmol/L Anion Gap BUN (6.0-23.0) mg/dL Creatinine (0.6-1.5) mg/dL Est Cr Clr Drug Dosing mL/min Estimated GFR (MDRD) ml/min BUN/Creatinine Ratio Glucose (60-110) mg/dL POC Glucose 82 114 H (60-110) mg/dL Calcium (8.8-10.8) mg/dL Phosphorus (2.4-4.7) mg/dL Albumin (3.5-5.0) g/dL Jack Results Last 24 Hours: Microbiology 01/12/17 08:01 Gram Stain - Preliminary Sputum - Expectorated Med Orders - Current: Current Medications Acetaminophen (Tylenol) 650 mg PO Q6H PRN PRN Reason: Pain Last Admin: 01/13/17 09:24 Dose: 650 mg Hydrocodone Bitart/Acetaminophen ([place] 325-5 Mg) 1 tab PO Q4H PRN PRN Reason: Pain Last Admin: 01/12/17 14:46 Dose: 1 tab Albuterol/Ipratropium (Duoneb 3.0-0.5 Mg/3 Ml) 3 ml NEB Q6HRRT [facility] Last Admin: 01/13/17 12:06 Dose: 3 ml Albuterol/Ipratropium (Duoneb 3.0-0.5 Mg/3 Ml) 3 ml NEB Q1H PRN PRN Reason: Wheezing Atorvastatin Calcium (Lipitor) 20 mg PO DAILY [facility] Last Admin: 01/13/17 08:43 Dose: 20 mg Budesonide (Pulmicort) 0.5 mg NEB BIDRT@0600,1800 [facility] Bupropion HCl (Wellbutrin Xl) 150 mg PO DAILY [facility] Last Admin: 01/13/17 08:42 Dose: 150 mg Calcium Carbonate (Caltrate 600+D 1500 Mg-400 Units) 1 tab PO BID [facility] Last Admin: 01/13/17 08:44 Dose: 1 tab Divalproex Sodium (Divalproex Sodium) 250 mg PO TIDMEALS [facility] Last Admin: 01/13/17 11:48 Dose: 250 mg Docusate Sodium (Colace) 200 mg PO DAILY [facility] Last Admin: 01/13/17 08:45 Dose: Not Given Ferrous Sulfate (Ferrous Sulfate) 325 mg PO BID [facility] Last Admin: 01/13/17 08:44 Dose: 325 mg Furosemide (Lasix) 40 mg PO DAILY [facility] Last Admin: 01/13/17 08:42 Dose: 40 mg Gabapentin (Neurontin) 600 mg PO TID [facility] Last Admin: 01/13/17 14:03 Dose: 600 mg Cefepime HCl 2 gm/ Premix 50 mls @ 100 mls/hr IV Q8H [facility] Last Admin: 01/13/17 08:42 Dose: 100 mls/hr Levofloxacin/Dextrose 750 mg/ (Premix) 150 mls @ 100 mls/hr IV Q24H [facility] Last Admin: 01/13/17 02:35 Dose: 100 mls/hr Vancomycin HCl 2 gm/ Sodium (Chloride) 500 mls @ 333.333 mls/hr IV Q24H [facility] Last Admin: 01/12/17 22:34 Dose: 333.333 mls/hr Pantoprazole Sodium 40 mg/ (Sodium Chloride) 10 mls @ 300 mls/hr IVPUSH BID [facility] Last Admin: 01/13/17 08:48 Dose: 300 mls/hr Insulin Aspart (Novolog) 0 unit SUBCUT TIDAC [facility] PRN Reason: Protocol Last Admin: 01/13/17 11:39 Dose: Not Given Levetiracetam (Keppra) 1,000 mg PO BID [facility] Last Admin: 01/13/17 08:43 Dose: 1,000 mg Nitroglycerin (Nitrostat) 0.4 mg SL ASDIRECTED PRN PRN Reason: Chest Pain Nystatin (Nystop) 2 gm TOP TID [facility] Last Admin: 01/13/17 14:09 Dose: 1 applic Ondansetron HCl (Zofran) 4 mg IVPUSH Q4H PRN PRN Reason: Nausea Prednisone (Prednisone) 40 mg PO DAILY [facility] Last Admin: 01/13/17 08:43 Dose: 40 mg Sodium Chloride (Saline Flush) 10 ml FLUSH ASDIRECTED PRN PRN Reason: Keep Vein Open Sodium Chloride (Saline Flush) 2.5 ml FLUSH ASDIRECTED PRN PRN Reason: Keep Vein Open Temazepam (Restoril) 15 mg PO BEDTIME PRN PRN Reason: Insomnia Last Admin: 01/12/17 21:43 Dose: 15 mg Vancomycin HCl (Pharmacy To Dose - Vancomycin) 1 dose .XX ASDIRECTED [facility] Discontinued Medications Albuterol/Ipratropium (Duoneb 3.0-0.5 Mg/3 Ml) 3 ml NEB ONETIME ONE Stop: 01/11/17 21:57 Last Admin: 01/11/17 22:16 Dose: 3 ml Budesonide (Pulmicort) 0.5 mg NEB ONETIME ONE Stop: 01/12/17 12:01 Last Admin: 01/12/17 11:28 Dose: 0.5 mg Budesonide (Pulmicort) 0.5 mg NEB BIDRT@0600,1200 [facility] Last Admin: 01/13/17 14:11 Dose: Not Given Budesonide (Pulmicort) 0.5 mg NEB ONETIME ONE Stop: 01/12/17 18:01 Last Admin: 01/12/17 18:14 Dose: 0.5 mg Furosemide (Lasix) 40 mg PO ONETIME ONE Stop: 01/12/17 20:02 Last Admin: 01/12/17 20:37 Dose: Not Given Gabapentin (Neurontin) 600 mg PO TID [facility] Last Admin: 01/12/17 21:42 Dose: 600 mg Sodium Chloride (Normal Saline) 1,000 mls @ 999 mls/hr IV STAT ONE Stop: 01/11/17 22:23 Last Admin: 01/12/17 09:27 Dose: Not Given Cefepime HCl 2 gm/ Premix 50 mls @ 100 mls/hr IV ONETIME ONE Stop: 01/11/17 22:23 Last Admin: 01/12/17 00:59 Dose: 100 mls/hr Vancomycin HCl 1 gm/ Sodium (Chloride) 250 mls @ 166 mls/hr IV ONETIME ONE Stop: 01/11/17 23:24 Last Admin: 01/11/17 22:16 Dose: 166 mls/hr Levofloxacin/Dextrose 750 mg/ (Premix) 150 mls @ 100 mls/hr IV ONETIME ONE Stop: 01/11/17 23:44 Last Admin: 01/12/17 02:47 Dose: 100 mls/hr Vancomycin HCl 1 gm/ Sodium (Chloride) 250 mls @ 166 mls/hr IV ONETIME ONE Stop: 01/12/17 00:30 Last Admin: 01/12/17 01:23 Dose: 166 mls/hr Cefepime HCl (Maxipime In D5w 1 Gm/50 Ml) Confirm Administered Dose 50 mls @ as directed .ROUTE .STK-MED ONE Stop: 01/12/17 00:55 Last Admin: 01/12/17 00:58 Dose: Not Given Cefepime HCl (Maxipime In D5w 2 Gm/50 Ml) Confirm Administered Dose 50 mls @ as directed .ROUTE .STK-MED ONE Stop: 01/12/17 00:58 Last Admin: 01/12/17 01:11 Dose: Not Given Sodium Chloride (Normal Saline) 1,000 mls @ 20 mls/hr IV ASDIRECTED [facility] Last Admin: 01/12/17 12:40 Dose: 100 mls/hr - Exam General: Alert, Cooperative Lungs: Decreased Breath Sounds, Rhonchi, Wheezing Cardiovascular: Regular Rate, Regular Rhythm GI/Abdominal Exam: Other (obese) Extremities: Pedal Edema Skin: Warm, Dry, Intact Neurological: No New Focal Deficit - Problem List Review Problem List Initiated/Reviewed/Updated: Yes - My Orders Last 24 Hours: My Active Orders 01/12/17 23:00 Vancomycin 2 gm Sodium Chloride 0.9% [Normal Saline] 500 ml IV Q24H 01/13/17 14:13 Albuterol/Ipratropium [DuoNeb 3.0-0.5 MG/3 ML] 3 ml NEB Q1H PRN 01/13/17 14:14 RT Aerosol Therapy [RC] ASDIRECTED ABG [BLOOD GAS ARTERIAL] [BG] Routine 01/14/17 22:30 VANCOMYCIN TROUGH [CHEM] Routine - Plan Plan:: 61 yo female admitted with pneumonia. Pneumonia: antibiotics cover for possible gram negative madi respiratory infection with vancomycin, cefepime, and levaquin COPD: on prednisone and duonebs Acute on chronic respiratory failure: BIPAP as tolerated, patient currently is refusing bipap DM: sliding scale insulin seizure disorder: resume home meds.
[2017-01-13] MEDS: Acetaminophen/HYDROcodone 325-5 MG Tab PO PRN (20:31)
[2017-01-13] MEDS: Vancomycin 2 GM in Sodium Chloride 0.9% 500 ML IV SCH (22:28)
[2017-01-14] MEDS: Albuterol/Ipratropium 3.0-0.5 MG/3 ML Neb Soln NEB SCH ×3 (00:13→12:22)
[2017-01-14] MEDS: Cefepime 2 GM in Premix Bag 1 BAG IV SCH ×2 (00:17→08:06)
[2017-01-14] MEDS: Gabapentin 300 MG Cap PO SCH (06:09)
[2017-01-14] MEDS: Nystatin Topical Powder 15 GM Bottle TOP SCH (06:10)
[2017-01-14] MEDS: Insulin Aspart 100 Units/ML 3 ML Pen SUBCUT SCH ×2 (06:52→12:22)
[2017-01-14] MEDS: Budesonide 0.5 MG/2 ML Neb Susp NEB SCH ×2 (06:54→09:13)
[2017-01-14] MEDS: Ferrous Sulfate 325 MG Tab PO SCH (08:05)
[2017-01-14] MEDS: levETIRAcetam 500 MG Tab PO SCH (08:05)
[2017-01-14] MEDS: Divalproex Sodium Delayed-Release 250 MG Tab.CR PO SCH ×2 (08:05→11:13)
[2017-01-14] MEDS: buPROPion 150 MG Tab.ER PO SCH (08:05)
[2017-01-14] MEDS: Calcium Carbonate/Vitamin D3 1500 MG-400 Units Tab PO SCH (08:05)
[2017-01-14] MEDS: predniSONE 10 MG Tab PO SCH (08:05)
[2017-01-14] MEDS: atorvaSTATin 10 MG Tab PO SCH (08:05)
[2017-01-14] MEDS: Furosemide 40 MG Tab PO SCH (08:05)
[2017-01-14] MEDS: Pantoprazole 40 MG in Sodium Chloride 0.9% 10 ML IVPUSH SCH (08:48)
[2017-01-14] MEDS: Docusate Sodium 100 MG Cap PO SCH (09:00)
[2017-01-14] MEDS ORDERED: Folic Acid/Vitamin B Complex With C Cap PO SCH (09:00)
[2017-01-14 09:11] VITALS: BP 160/50
--- NOTE | 2017-01-14 09:54 | PCM.PN ---
- General Info Date of Service: 01/14/17 - Patient Data Vitals - Most Recent: Last Vital Signs Temp 36.0 C 01/14/17 08:00 Pulse 64 01/14/17 07:11 Resp 15 01/14/17 09:00 BP 160/50 H 01/14/17 09:00 Pulse Ox 94 L 01/14/17 09:00 Weight - Most Recent: 162.477 kg I&O - Last 24 Hours: Intake & Output 01/13/17 01/14/17 01/14/17 22:59 06:59 14:59 Intake Total 800 1050 50 Output Total 1200 725 Balance -400 325 50 Lab Results Last 24 Hours: Laboratory Results - last 24 hr 01/13/17 01/13/17 01/13/17 Range/Units 05:11 11:36 16:52 WBC (4.0-11.0) K/uL RBC (4.30-5.90) M/uL Hgb (12.0-16.0) g/dL Hct (36.0-46.0) % MCV (80.0-98.0) fL MCH (27.0-32.0) pg MCHC (31.0-37.0) g/dL RDW Std Deviation (28.0-62.0) fl RDW Coeff of Morales (11.0-15.0) % Plt Count 30 L (150-400) K/uL MPV (7.40-12.00) fL Neut % (Auto) (48.0-80.0) % Lymph % (Auto) (16.0-40.0) % [place] % (Auto) (0.0-15.0) % Eos % (Auto) (0.0-7.0) % Baso % (Auto) (0.0-1.5) % Neut # (Auto) (1.4-5.7) K/uL Lymph # (Auto) (0.6-2.4) K/uL [place] # (Auto) (0.0-0.8) K/uL Eos # (Auto) (0.0-0.7) K/uL Baso # (Auto) (0.0-0.1) K/uL Nucleated RBC % /100WBC Nucleated RBCs # K/uL Sodium (136-146) mmol/L Potassium (3.5-5.1) mmol/L Chloride (98-110) mmol/L Carbon Dioxide (21-31) mmol/L BUN (6.0-23.0) mg/dL Creatinine (0.6-1.5) mg/dL Est Cr Clr Drug Dosing mL/min Estimated GFR (MDRD) ml/min Glucose (60-110) mg/dL POC Glucose 114 H 190 H (60-110) mg/dL Calcium (8.8-10.8) mg/dL Magnesium (1.5-2.3) mEq/L 01/14/17 01/14/17 01/14/17 Range/Units 04:53 04:53 06:37 WBC 4.63 (4.0-11.0) K/uL RBC 2.58 L (4.30-5.90) M/uL Hgb 8.6 L (12.0-16.0) g/dL Hct 30.4 L (36.0-46.0) % MCV 117.8 H (80.0-98.0) fL MCH 33.3 H (27.0-32.0) pg MCHC 28.3 L (31.0-37.0) g/dL RDW Std Deviation 76.6 H (28.0-62.0) fl RDW Coeff of [place]ales 18 H (11.0-15.0) % Plt Count 56 L (150-400) K/uL MPV 8.90 (7.40-12.00) fL Neut % (Auto) 61.4 (48.0-80.0) % Lymph % (Auto) 26.8 (16.0-40.0) % [place] % (Auto) 11.0 (0.0-15.0) % Eos % (Auto) 0.4 (0.0-7.0) % Baso % (Auto) 0.4 (0.0-1.5) % Neut # (Auto) 2.8 (1.4-5.7) K/uL Lymph # (Auto) 1.2 (0.6-2.4) K/uL [place] # (Auto) 0.5 (0.0-0.8) K/uL Eos # (Auto) 0.0 (0.0-0.7) K/uL Baso # (Auto) 0.0 (0.0-0.1) K/uL Nucleated RBC % 0.0 /100WBC Nucleated RBCs # 0 K/uL Sodium 142 (136-146) mmol/L Potassium 4.6 (3.5-5.1) mmol/L Chloride 96 L (98-110) mmol/L Carbon Dioxide 41 H (21-31) mmol/L BUN 22 (6.0-23.0) mg/dL Creatinine 1.0 (0.6-1.5) mg/dL Est Cr Clr Drug Dosing 61.35 mL/min Estimated GFR (MDRD) 56.7 ml/min Glucose 86 (60-110) mg/dL POC Glucose 97 (60-110) mg/dL Calcium 9.2 (8.8-10.8) mg/dL Magnesium 1.7 (1.5-2.3) mEq/L Jack Results Last 24 Hours: Microbiology 01/12/17 08:01 Gram Stain - Final Sputum - Expectorated Med Orders - Current: Current Medications Acetaminophen (Tylenol) 650 mg PO Q6H PRN PRN Reason: Pain Last Admin: 01/13/17 22:25 Dose: 650 mg Hydrocodone Bitart/Acetaminophen ([place] 325-5 Mg) 1 tab PO Q4H PRN PRN Reason: Pain Last Admin: 01/13/17 20:31 Dose: 1 tab Albuterol/Ipratropium (Duoneb 3.0-0.5 Mg/3 Ml) 3 ml NEB Q6HRRT [facility] Last Admin: 01/14/17 06:54 Dose: 3 ml Albuterol/Ipratropium (Duoneb 3.0-0.5 Mg/3 Ml) 3 ml NEB Q1H PRN PRN Reason: Wheezing Atorvastatin Calcium (Lipitor) 20 mg PO DAILY [facility] Last Admin: 01/14/17 08:05 Dose: 20 mg Budesonide (Pulmicort) 0.5 mg NEB BIDRT@0600,1800 [facility] Last Admin: 01/14/17 09:13 Dose: Not Given Bupropion HCl (Wellbutrin Xl) 150 mg PO DAILY [facility] Last Admin: 01/14/17 08:05 Dose: 150 mg Calcium Carbonate (Caltrate 600+D 1500 Mg-400 Units) 1 tab PO BID [facility] Last Admin: 01/14/17 08:05 Dose: 1 tab Divalproex Sodium (Divalproex Sodium) 250 mg PO TIDMEALS [facility] Last Admin: 01/14/17 08:05 Dose: 250 mg Docusate Sodium (Colace) 200 mg PO DAILY [facility] Last Admin: 01/14/17 09:00 Dose: Not Given Ferrous Sulfate (Ferrous Sulfate) 325 mg PO BID [facility] Last Admin: 01/14/17 08:05 Dose: 325 mg Furosemide (Lasix) 40 mg PO DAILY [facility] Last Admin: 01/14/17 08:05 Dose: 40 mg Gabapentin (Neurontin) 600 mg PO TID [facility] Last Admin: 01/14/17 06:09 Dose: 600 mg Cefepime HCl 2 gm/ Premix 50 mls @ 100 mls/hr IV Q8H [facility] Last Admin: 01/14/17 08:06 Dose: 100 mls/hr Vancomycin HCl 2 gm/ Sodium (Chloride) 500 mls @ 333.333 mls/hr IV Q24H [facility] [place] Last Admin: 01/13/17 22:28 Dose: 333.333 mls/hr Pantoprazole Sodium 40 mg/ (Sodium Chloride) 10 mls @ 300 mls/hr IVPUSH BID [facility] Last Admin: 01/14/17 08:48 Dose: 300 mls/hr Insulin Aspart (Novolog) 0 unit SUBCUT TIDAC [facility] PRN Reason: Protocol Last Admin: 01/14/17 06:52 Dose: Not Given Levetiracetam (Keppra) 1,000 mg PO BID [facility] Last Admin: 01/14/17 08:05 Dose: 1,000 mg Multivit/Ca Carb/B Cmplx/FA/Prenat (Renal Caps Softgel) 1 cap PO DAILY [facility] Nitroglycerin (Nitrostat) 0.4 mg SL ASDIRECTED PRN PRN Reason: Chest Pain Nystatin (Nystop) 2 gm TOP TID [facility] Last Admin: 01/14/17 06:10 Dose: 1 applic Ondansetron HCl (Zofran) 4 mg IVPUSH Q4H PRN PRN Reason: Nausea Prednisone (Prednisone) 40 mg PO DAILY [facility] [place] Last Admin: 01/14/17 08:05 Dose: 40 mg Sodium Chloride (Saline Flush) 10 ml FLUSH ASDIRECTED PRN PRN Reason: Keep Vein Open Sodium Chloride (Saline Flush) 2.5 ml FLUSH ASDIRECTED PRN PRN Reason: Keep Vein Open Vancomycin HCl (Pharmacy To Dose - Vancomycin) 1 dose .XX ASDIRECTED [facility] Discontinued Medications Albuterol/Ipratropium (Duoneb 3.0-0.5 Mg/3 Ml) 3 ml NEB ONETIME ONE Stop: 01/11/17 21:57 Last Admin: 01/11/17 22:16 Dose: 3 ml Budesonide (Pulmicort) 0.5 mg NEB ONETIME ONE Stop: 01/12/17 12:01 Last Admin: 01/12/17 11:28 Dose: 0.5 mg Budesonide (Pulmicort) 0.5 mg NEB BIDRT@0600,1200 [facility] Last Admin: 01/14/17 06:54 Dose: 0.5 mg Budesonide (Pulmicort) 0.5 mg NEB ONETIME ONE Stop: 01/12/17 18:01 Last Admin: 01/12/17 18:14 Dose: 0.5 mg Furosemide (Lasix) 40 mg PO ONETIME ONE Stop: 01/12/17 20:02 Last Admin: 01/12/17 20:37 Dose: Not Given Gabapentin (Neurontin) 600 mg PO TID [facility] [place] Last Admin: 01/12/17 21:42 Dose: 600 mg Sodium Chloride (Normal Saline) 1,000 mls @ 999 mls/hr IV STAT ONE Stop: 01/11/17 22:23 Last Admin: 01/12/17 09:27 Dose: Not Given Cefepime HCl 2 gm/ Premix 50 mls @ 100 mls/hr IV ONETIME ONE Stop: 01/11/17 22:23 Last Admin: 01/12/17 00:59 Dose: 100 mls/hr Vancomycin HCl 1 gm/ Sodium (Chloride) 250 mls @ 166 mls/hr IV ONETIME ONE Stop: 01/11/17 23:24 Last Admin: 01/11/17 22:16 Dose: 166 mls/hr Levofloxacin/Dextrose 750 mg/ (Premix) 150 mls @ 100 mls/hr IV ONETIME ONE Stop: 01/11/17 23:44 Last Admin: 01/12/17 02:47 Dose: 100 mls/hr Levofloxacin/Dextrose 750 mg/ (Premix) 150 mls @ 100 mls/hr IV Q24H [facility] Last Admin: 01/13/17 02:35 Dose: 100 mls/hr Vancomycin HCl 1 gm/ Sodium (Chloride) 250 mls @ 166 mls/hr IV ONETIME ONE Stop: 01/12/17 00:30 Last Admin: 01/12/17 01:23 Dose: 166 mls/hr Cefepime HCl (Maxipime In D5w 1 Gm/50 Ml) Confirm Administered Dose 50 mls @ as directed .ROUTE .[facility]-MED ONE Stop: 01/12/17 00:55 Last Admin: 01/12/17 00:58 Dose: Not Given Cefepime HCl (Maxipime In D5w 2 Gm/50 Ml) Confirm Administered Dose 50 mls @ as directed .ROUTE .[facility] ONE Stop: 01/12/17 00:58 Last Admin: 01/12/17 01:11 Dose: Not Given Sodium Chloride (Normal Saline) 1,000 mls @ 20 mls/hr IV ASDIRECTED [facility] Last Admin: 01/12/17 12:40 Dose: 100 mls/hr Temazepam (Restoril) 15 mg PO BEDTIME PRN PRN Reason: Insomnia Last Admin: 01/12/17 21:43 Dose: 15 mg - My Orders Last 24 Hours: My Active Orders 01/13/17 09:00 Docusate Sodium [Colace] 200 mg PO DAILY Furosemide [Lasix] 40 mg PO DAILY atorvaSTATin [Lipitor] 20 mg PO DAILY buPROPion [Wellbutrin XL] 150 mg PO DAILY 01/13/17 18:00 Budesonide [Pulmicort] 0.5 mg NEB BIDRT@0600,1800 01/14/17 09:00 Folic Acid/Vitamin B Comp W-C [Renal Caps Softgel] 1 cap PO DAILY - Plan Plan:: 61 yo female admitted with pneumonia. Pneumonia: antibiotics cover for possible gram negative madi respiratory infection with vancomycin, cefepime, and levaquin COPD: on prednisone and duonebs Acute on chronic respiratory failure: BIPAP as tolerated, patient currently is refusing bipap DM: sliding scale insulin seizure disorder: resume home meds. CAP: awaiting cultures macrocytosis chronic respiratory failure: CO2 worsening.
[2017-01-14] MEDS: Acetaminophen 325 MG Tab PO PRN (11:13)
--- NOTE | 2017-01-14 11:40 | PCM.DCSUM1 ---
<Balzuleyka,Brice - Last Filed: 01/14/17 11:32> Discharge Summary - Hospital Course Free Text/Narrative:: 61 year old fm with history of chronic respiratory failure, DM, Seizure disorder , and non-adherence to medical instructions admitted for CAP and Acute on Chronic Respiratory Failure. She was being treating with Vancomycin and Cefepime. On 01/14/17 she informed us that she knows her prognosis is poor and she would like to spend the rest of time at home with family and therefore she would like to be discharged immediately. She was encouraged to stay for IV treatment of pneumonia and worsening of acute respiratory failure. Patient refused and left AMA. She was given prescription of Cefuroxime and recommended to resume her Linezolid which she was on at admission. - Discharge Data Discharge Date: 01/14/17 Discharge Disposition: Against Medical Advice 07 Condition: Stable - Patient Summary/Data Consults: Consultations 01/13/17 19:36 PT Evaluation and Treatment [CONS] Routine - Discharge Plan Prescriptions/Med Rec: Cefuroxime [Ceftin] 500 mg PO BID 5 Days #10 tablet Home Medications: Home Meds Pioglitazone [Actos] 30 mg PO DAILY 03/28/15 [History] levETIRAcetam [Keppra] 1,000 mg PO BID 03/28/15 [History] Pantoprazole [ProTONIX] 40 mg PO ACBREAKFAST 09/14/15 [History] Calcium Carbonate/Vitamin D3 [Calcium 500 + Vit D 400] 1 each PO BID 07/11/16 [ History] Divalproex Sodium 250 mg PO TIDMEALS 07/11/16 [History] Gabapentin [Neurontin] 600 mg PO TID 07/11/16 [History] atorvaSTATin [Lipitor] 20 mg PO DAILY 07/11/16 [History] Temazepam [Restoril] 15 mg PO BEDTIME PRN #20 cap 07/16/16 [Rx] Ferrous Sulfate 325 mg PO BID 12/30/16 [History] Hydrocodone/Acetaminophen [Marathon 5-325] 1 tab PO Q4HR PRN 12/30/16 [History] Nitrofurantoin 100 gm MC BID #20 powder 12/30/16 [Rx] glipiZIDE [Glucotrol XL] 2.5 mg PO DAILY 12/30/16 [History] Albuterol [IJD: Albuterol] 1 inh INH Q4H PRN 01/03/17 [History] Ascorbic Acid 1 tab PO DAILY 01/03/17 [History] Budesonide [Pulmicort] 1 inh INH BID 01/03/17 [History] Docusate Sodium [Colace] 2 cap PO DAILY 01/03/17 [History] Furosemide 1 tab PO DAILY 01/03/17 [History] Insulin Lispro [Humalog Kwikpen U-100] 0 unit SUBCUT ASDIRECTED 01/03/17 [ History] Lactobacillus Acidophilus [Acidophilus Lactobacillus] 1 cap PO BID 01/03/17 [ History] Levalbuterol HCl [Xopenex] 1 inh INH Q4H PRN 01/03/17 [History] Nitroglycerin [Nitrostat] 1 tab SL ASDIRECTED PRN 01/03/17 [History] Azithromycin [IJD: Azithromycin] 250 mg PO DAILY #2 tab 01/06/17 [Rx] Linezolid 600 mg PO BID #14 tablet 01/06/17 [Rx] Nicotine [Habitrol] 14 mg TRDERM Q24H #30 patch 01/06/17 [Rx] Nystatin [Nystop] 100,000 units TOP TID #1 bottle 01/06/17 [Rx] Cefuroxime [Ceftin] 500 mg PO BID 5 Days #10 tablet 01/14/17 [Rx] Patient Handouts: Cefuroxime tablets, Community-Acquired Pneumonia, Adult, Easy -to-Read Referrals: Lex Mcclelland MD [Physician] - - Patient Data Vitals - Most Recent: Last Vital Signs Temp 36.0 C 01/14/17 08:00 Pulse 64 01/14/17 07:11 Resp 15 01/14/17 09:00 BP 160/50 H 01/14/17 09:00 Pulse Ox 94 L 01/14/17 09:00 Weight - Most Recent: 162.477 kg I&O - Last 24 hours: Intake & Output 01/13/17 01/14/17 01/14/17 22:59 06:59 14:59 Intake Total 800 1050 50 Output Total 1200 725 Balance -400 325 50 Lab Results - Last 24 hrs: Laboratory Results - last 24 hr 01/13/17 01/13/17 01/13/17 Range/Units 05:11 11:36 16:52 WBC (4.0-11.0) K/uL RBC (4.30-5.90) M/uL Hgb (12.0-16.0) g/dL Hct (36.0-46.0) % MCV (80.0-98.0) fL MCH (27.0-32.0) pg MCHC (31.0-37.0) g/dL RDW Std Deviation (28.0-62.0) fl RDW Coeff of Morales (11.0-15.0) % Plt Count 30 L (150-400) K/uL MPV (7.40-12.00) fL Neut % (Auto) (48.0-80.0) % Lymph % (Auto) (16.0-40.0) % Cass % (Auto) (0.0-15.0) % Eos % (Auto) (0.0-7.0) % Baso % (Auto) (0.0-1.5) % Neut # (Auto) (1.4-5.7) K/uL Lymph # (Auto) (0.6-2.4) K/uL Cass # (Auto) (0.0-0.8) K/uL Eos # (Auto) (0.0-0.7) K/uL Baso # (Auto) (0.0-0.1) K/uL Nucleated RBC % /100WBC Nucleated RBCs # K/uL Sodium (136-146) mmol/L Potassium (3.5-5.1) mmol/L Chloride (98-110) mmol/L Carbon Dioxide (21-31) mmol/L BUN (6.0-23.0) mg/dL Creatinine (0.6-1.5) mg/dL Est Cr Clr Drug Dosing mL/min Estimated GFR (MDRD) ml/min Glucose (60-110) mg/dL POC Glucose 114 H 190 H (60-110) mg/dL Calcium (8.8-10.8) mg/dL Magnesium (1.5-2.3) mEq/L 01/14/17 01/14/17 01/14/17 Range/Units 04:53 04:53 06:37 WBC 4.63 (4.0-11.0) K/uL RBC 2.58 L (4.30-5.90) M/uL Hgb 8.6 L (12.0-16.0) g/dL Hct 30.4 L (36.0-46.0) % MCV 117.8 H (80.0-98.0) fL MCH 33.3 H (27.0-32.0) pg MCHC 28.3 L (31.0-37.0) g/dL RDW Std Deviation 76.6 H (28.0-62.0) fl RDW Coeff of Morales 18 H (11.0-15.0) % Plt Count 56 L (150-400) K/uL MPV 8.90 (7.40-12.00) fL Neut % (Auto) 61.4 (48.0-80.0) % Lymph % (Auto) 26.8 (16.0-40.0) % Cass % (Auto) 11.0 (0.0-15.0) % Eos % (Auto) 0.4 (0.0-7.0) % Baso % (Auto) 0.4 (0.0-1.5) % Neut # (Auto) 2.8 (1.4-5.7) K/uL Lymph # (Auto) 1.2 (0.6-2.4) K/uL Cass # (Auto) 0.5 (0.0-0.8) K/uL Eos # (Auto) 0.0 (0.0-0.7) K/uL Baso # (Auto) 0.0 (0.0-0.1) K/uL Nucleated RBC % 0.0 /100WBC Nucleated RBCs # 0 K/uL Sodium 142 (136-146) mmol/L Potassium 4.6 (3.5-5.1) mmol/L Chloride 96 L (98-110) mmol/L Carbon Dioxide 41 H (21-31) mmol/L BUN 22 (6.0-23.0) mg/dL Creatinine 1.0 (0.6-1.5) mg/dL Est Cr Clr Drug Dosing 61.35 mL/min Estimated GFR (MDRD) 56.7 ml/min Glucose 86 (60-110) mg/dL POC Glucose 97 (60-110) mg/dL Calcium 9.2 (8.8-10.8) mg/dL Magnesium 1.7 (1.5-2.3) mEq/L MYAH Results - Last 24 hrs: Microbiology 01/12/17 08:01 Gram Stain - Final Sputum - Expectorated Sputum Culture - Final YEAST Normal Respiratory Eve Med Orders - Current: Current Medications Acetaminophen (Tylenol) 650 mg PO Q6H PRN PRN Reason: Pain Last Admin: 01/14/17 11:13 Dose: 650 mg Hydrocodone Bitart/Acetaminophen (Marathon 325-5 Mg) 1 tab PO Q4H PRN PRN Reason: Pain Last Admin: 01/13/17 20:31 Dose: 1 tab Albuterol/Ipratropium (Duoneb 3.0-0.5 Mg/3 Ml) 3 ml NEB Q6HRRT [facility] Last Admin: 01/14/17 06:54 Dose: 3 ml Albuterol/Ipratropium (Duoneb 3.0-0.5 Mg/3 Ml) 3 ml NEB Q1H PRN PRN Reason: Wheezing Atorvastatin Calcium (Lipitor) 20 mg PO DAILY [facility] Last Admin: 01/14/17 08:05 Dose: 20 mg Budesonide (Pulmicort) 0.5 mg NEB BIDRT@0600,1800 [facility] Last Admin: 01/14/17 09:13 Dose: Not Given Bupropion HCl (Wellbutrin Xl) 150 mg PO DAILY [facility] Last Admin: 01/14/17 08:05 Dose: 150 mg Calcium Carbonate (Caltrate 600+D 1500 Mg-400 Units) 1 tab PO BID [facility] Last Admin: 01/14/17 08:05 Dose: 1 tab Divalproex Sodium (Divalproex Sodium) 250 mg PO TIDMEALS [facility] Last Admin: 01/14/17 11:13 Dose: 250 mg Docusate Sodium (Colace) 200 mg PO DAILY [facility] Last Admin: 01/14/17 09:00 Dose: Not Given Ferrous Sulfate (Ferrous Sulfate) 325 mg PO BID [facility] Last Admin: 01/14/17 08:05 Dose: 325 mg Furosemide (Lasix) 40 mg PO DAILY [facility] Last Admin: 01/14/17 08:05 Dose: 40 mg Gabapentin (Neurontin) 600 mg PO TID [facility] Last Admin: 01/14/17 06:09 Dose: 600 mg Cefepime HCl 2 gm/ Premix 50 mls @ 100 mls/hr IV Q8H [facility] Last Admin: 01/14/17 08:06 Dose: 100 mls/hr Vancomycin HCl 2 gm/ Sodium (Chloride) 500 mls @ 333.333 mls/hr IV Q24H [facility] Last Admin: 01/13/17 22:28 Dose: 333.333 mls/hr Pantoprazole Sodium 40 mg/ (Sodium Chloride) 10 mls @ 300 mls/hr IVPUSH BID [facility] Last Admin: 01/14/17 08:48 Dose: 300 mls/hr Insulin Aspart (Novolog) 0 unit SUBCUT TIDAC [facility] PRN Reason: Protocol Last Admin: 01/14/17 06:52 Dose: Not Given Levetiracetam (Keppra) 1,000 mg PO BID [facility] Last Admin: 01/14/17 08:05 Dose: 1,000 mg Multivit/Ca Carb/B Cmplx/FA/Prenat (Renal Caps Softgel) 1 cap PO DAILY [facility] Nitroglycerin (Nitrostat) 0.4 mg SL ASDIRECTED PRN PRN Reason: Chest Pain Nystatin (Nystop) 2 gm TOP TID [facility] Last Admin: 01/14/17 06:10 Dose: 1 applic Ondansetron HCl (Zofran) 4 mg IVPUSH Q4H PRN PRN Reason: Nausea Prednisone (Prednisone) 40 mg PO DAILY [facility] Last Admin: 01/14/17 08:05 Dose: 40 mg Sodium Chloride (Saline Flush) 10 ml FLUSH ASDIRECTED PRN PRN Reason: Keep Vein Open Sodium Chloride (Saline Flush) 2.5 ml FLUSH ASDIRECTED PRN PRN Reason: Keep Vein Open Vancomycin HCl (Pharmacy To Dose - Vancomycin) 1 dose .XX ASDIRECTED [facility] Discontinued Medications Albuterol/Ipratropium (Duoneb 3.0-0.5 Mg/3 Ml) 3 ml NEB ONETIME ONE Stop: 01/11/17 21:57 Last Admin: 01/11/17 22:16 Dose: 3 ml Budesonide (Pulmicort) 0.5 mg NEB ONETIME ONE Stop: 01/12/17 12:01 Last Admin: 01/12/17 11:28 Dose: 0.5 mg Budesonide (Pulmicort) 0.5 mg NEB BIDRT@0600,1200 [facility] Last Admin: 01/14/17 06:54 Dose: 0.5 mg Budesonide (Pulmicort) 0.5 mg NEB ONETIME ONE Stop: 01/12/17 18:01 Last Admin: 01/12/17 18:14 Dose: 0.5 mg Furosemide (Lasix) 40 mg PO ONETIME ONE Stop: 01/12/17 20:02 Last Admin: 01/12/17 20:37 Dose: Not Given Gabapentin (Neurontin) 600 mg PO TID [facility] Last Admin: 01/12/17 21:42 Dose: 600 mg Sodium Chloride (Normal Saline) 1,000 mls @ 999 mls/hr IV STAT ONE Stop: 01/11/17 22:23 Last Admin: 01/12/17 09:27 Dose: Not Given Cefepime HCl 2 gm/ Premix 50 mls @ 100 mls/hr IV ONETIME ONE Stop: 01/11/17 22:23 Last Admin: 01/12/17 00:59 Dose: 100 mls/hr Vancomycin HCl 1 gm/ Sodium (Chloride) 250 mls @ 166 mls/hr IV ONETIME ONE Stop: 01/11/17 23:24 Last Admin: 01/11/17 22:16 Dose: 166 mls/hr Levofloxacin/Dextrose 750 mg/ (Premix) 150 mls @ 100 mls/hr IV ONETIME ONE Stop: 01/11/17 23:44 Last Admin: 01/12/17 02:47 Dose: 100 mls/hr Levofloxacin/Dextrose 750 mg/ (Premix) 150 mls @ 100 mls/hr IV Q24H [facility] Last Admin: 01/13/17 02:35 Dose: 100 mls/hr Vancomycin HCl 1 gm/ Sodium (Chloride) 250 mls @ 166 mls/hr IV ONETIME ONE Stop: 01/12/17 00:30 Last Admin: 01/12/17 01:23 Dose: 166 mls/hr Cefepime HCl (Maxipime In D5w 1 Gm/50 Ml) Confirm Administered Dose 50 mls @ as directed .ROUTE .STK-MED ONE Stop: 01/12/17 00:55 Last Admin: 01/12/17 00:58 Dose: Not Given Cefepime HCl (Maxipime In D5w 2 Gm/50 Ml) Confirm Administered Dose 50 mls @ as directed .ROUTE .STK-MED ONE Stop: 01/12/17 00:58 Last Admin: 01/12/17 01:11 Dose: Not Given Sodium Chloride (Normal Saline) 1,000 mls @ 20 mls/hr IV ASDIRECTED [facility] Last Admin: 01/12/17 12:40 Dose: 100 mls/hr Temazepam (Restoril) 15 mg PO BEDTIME PRN PRN Reason: Insomnia Last Admin: 01/12/17 21:43 Dose: 15 mg *Q Meaningful Use (DIS) - VTE *Q VTE Criteria *Q: - Stroke *Q Stroke Criteria *Q: - AMI *Q AMI Criteria *Q: <Miguel Sahu - Last Filed: 01/15/17 15:49> Discharge Summary - Patient Summary/Data Consults: Consultations 01/13/17 19:36 PT Evaluation and Treatment [CONS] Routine - Patient Data Vitals - Most Recent: Last Vital Signs Temp 36.0 C 01/14/17 08:00 Pulse 64 01/14/17 07:11 Resp 15 01/14/17 09:00 BP 160/50 H 01/14/17 09:00 Pulse Ox 94 L 01/14/17 09:00 Med Orders - Current: Current Medications Discontinued Medications Acetaminophen (Tylenol) 650 mg PO Q6H PRN PRN Reason: Pain Last Admin: 01/14/17 11:13 Dose: 650 mg Hydrocodone Bitart/Acetaminophen (Marathon 325-5 Mg) 1 tab PO Q4H PRN PRN Reason: Pain Last Admin: 01/14/17 11:59 Dose: 1 tab Albuterol/Ipratropium (Duoneb 3.0-0.5 Mg/3 Ml) 3 ml NEB ONETIME ONE Stop: 01/11/17 21:57 Last Admin: 01/11/17 22:16 Dose: 3 ml Albuterol/Ipratropium (Duoneb 3.0-0.5 Mg/3 Ml) 3 ml NEB Q6HRRT [facility] Last Admin: 01/14/17 12:22 Dose: Not Given Albuterol/Ipratropium (Duoneb 3.0-0.5 Mg/3 Ml) 3 ml NEB Q1H PRN PRN Reason: Wheezing Atorvastatin Calcium (Lipitor) 20 mg PO DAILY [facility] Last Admin: 01/14/17 08:05 Dose: 20 mg Budesonide (Pulmicort) 0.5 mg NEB ONETIME ONE Stop: 01/12/17 12:01 Last Admin: 01/12/17 11:28 Dose: 0.5 mg Budesonide (Pulmicort) 0.5 mg NEB BIDRT@0600,1200 [facility] Last Admin: 01/14/17 06:54 Dose: 0.5 mg Budesonide (Pulmicort) 0.5 mg NEB ONETIME ONE Stop: 01/12/17 18:01 Last Admin: 01/12/17 18:14 Dose: 0.5 mg Budesonide (Pulmicort) 0.5 mg NEB BIDRT@0600,1800 [facility] Last Admin: 01/14/17 09:13 Dose: Not Given Bupropion HCl (Wellbutrin Xl) 150 mg PO DAILY [facility] Last Admin: 01/14/17 08:05 Dose: 150 mg Calcium Carbonate (Caltrate 600+D 1500 Mg-400 Units) 1 tab PO BID [facility] Last Admin: 01/14/17 08:05 Dose: 1 tab Divalproex Sodium (Divalproex Sodium) 250 mg PO TIDMEALS [facility] Last Admin: 01/14/17 11:13 Dose: 250 mg Docusate Sodium (Colace) 200 mg PO DAILY [facility] Last Admin: 01/14/17 09:00 Dose: Not Given Ferrous Sulfate (Ferrous Sulfate) 325 mg PO BID [facility] Last Admin: 01/14/17 08:05 Dose: 325 mg Furosemide (Lasix) 40 mg PO DAILY [facility] Last Admin: 01/14/17 08:05 Dose: 40 mg Furosemide (Lasix) 40 mg PO ONETIME ONE Stop: 01/12/17 20:02 Last Admin: 01/12/17 20:37 Dose: Not Given Gabapentin (Neurontin) 600 mg PO TID [facility] Last Admin: 01/12/17 21:42 Dose: 600 mg Gabapentin (Neurontin) 600 mg PO TID [facility] Last Admin: 01/14/17 06:09 Dose: 600 mg Sodium Chloride (Normal Saline) 1,000 mls @ 999 mls/hr IV STAT ONE Stop: 01/11/17 22:23 Last Admin: 01/12/17 09:27 Dose: Not Given Cefepime HCl 2 gm/ Premix 50 mls @ 100 mls/hr IV ONETIME ONE Stop: 01/11/17 22:23 Last Admin: 01/12/17 00:59 Dose: 100 mls/hr Vancomycin HCl 1 gm/ Sodium (Chloride) 250 mls @ 166 mls/hr IV ONETIME ONE Stop: 01/11/17 23:24 Last Admin: 01/11/17 22:16 Dose: 166 mls/hr Levofloxacin/Dextrose 750 mg/ (Premix) 150 mls @ 100 mls/hr IV ONETIME ONE Stop: 01/11/17 23:44 Last Admin: 01/12/17 02:47 Dose: 100 mls/hr Cefepime HCl 2 gm/ Premix 50 mls @ 100 mls/hr IV Q8H [facility] Last Admin: 01/14/17 08:06 Dose: 100 mls/hr Levofloxacin/Dextrose 750 mg/ (Premix) 150 mls @ 100 mls/hr IV Q24H [facility] Last Admin: 01/13/17 02:35 Dose: 100 mls/hr Vancomycin HCl 1 gm/ Sodium (Chloride) 250 mls @ 166 mls/hr IV ONETIME ONE Stop: 01/12/17 00:30 Last Admin: 01/12/17 01:23 Dose: 166 mls/hr Vancomycin HCl 2 gm/ Sodium (Chloride) 500 mls @ 333.333 mls/hr IV Q24H [facility] Last Admin: 01/13/17 22:28 Dose: 333.333 mls/hr Cefepime HCl (Maxipime In D5w 1 Gm/50 Ml) Confirm Administered Dose 50 mls @ as directed .ROUTE .STK-MED ONE Stop: 01/12/17 00:55 Last Admin: 01/12/17 00:58 Dose: Not Given Cefepime HCl (Maxipime In D5w 2 Gm/50 Ml) Confirm Administered Dose 50 mls @ as directed .ROUTE .STK-MED ONE Stop: 01/12/17 00:58 Last Admin: 01/12/17 01:11 Dose: Not Given Sodium Chloride (Normal Saline) 1,000 mls @ 20 mls/hr IV ASDIRECTED [facility] Last Admin: 01/12/17 12:40 Dose: 100 mls/hr Pantoprazole Sodium 40 mg/ (Sodium Chloride) 10 mls @ 300 mls/hr IVPUSH BID [facility] Last Admin: 01/14/17 08:48 Dose: 300 mls/hr Insulin Aspart (Novolog) 0 unit SUBCUT TIDAC QUINN PRN Reason: Protocol Last Admin: 01/14/17 12:22 Dose: Not Given Levetiracetam (Keppra) 1,000 mg PO BID [facility] Last Admin: 01/14/17 08:05 Dose: 1,000 mg Multivit/Ca Carb/B Cmplx/FA/Prenat (Renal Caps Softgel) 1 cap PO DAILY [facility] Last Admin: 01/14/17 12:30 Dose: 1 cap Nitroglycerin (Nitrostat) 0.4 mg SL ASDIRECTED PRN PRN Reason: Chest Pain Nystatin (Nystop) 2 gm TOP TID [facility] Last Admin: 01/14/17 06:10 Dose: 1 applic Ondansetron HCl (Zofran) 4 mg IVPUSH Q4H PRN PRN Reason: Nausea Prednisone (Prednisone) 40 mg PO DAILY [facility] Last Admin: 01/14/17 08:05 Dose: 40 mg Sodium Chloride (Saline Flush) 10 ml FLUSH ASDIRECTED PRN PRN Reason: Keep Vein Open Sodium Chloride (Saline Flush) 2.5 ml FLUSH ASDIRECTED PRN PRN Reason: Keep Vein Open Temazepam (Restoril) 15 mg PO BEDTIME PRN PRN Reason: Insomnia Last Admin: 01/12/17 21:43 Dose: 15 mg Vancomycin HCl (Pharmacy To Dose - Vancomycin) 1 dose .XX ASDIRECTED QUINN *Q Meaningful Use (DIS) - VTE *Q VTE Criteria *Q: - Stroke *Q Stroke Criteria *Q: - AMI *Q AMI Criteria *Q: - Free Text/Narrative Note: I have examined the patient. I have discussed findings and treatment plan with resident. I agree with the assessment and plan outlined in the following resident's note.
[2017-01-14] MEDS: Acetaminophen/HYDROcodone 325-5 MG Tab PO PRN (11:59)
== END 2017-01-14 12:53 | disposition left against medical advice (07) | DRG 139 ==
LOC: MW.ED 21:07 → MW.ICU 22:29
PROVIDERS: ADMIT Internal Medicine; ATTEND Internal Medicine
DX: J18.9 Pneumonia, unspecified organism (principal); J96.10 Chronic respiratory failure, unspecified whether with hypoxia or hypercapnia; E11.9 Type 2 diabetes mellitus without complications; G40.909 Epilepsy, unspecified, not intractable, without status epilepticus; I50.9 Heart failure, unspecified; I10 Essential (primary) hypertension; J44.9 Chronic obstructive pulmonary disease, unspecified; E11.40 Type 2 diabetes mellitus with diabetic neuropathy, unspecified; F41.8 Other specified anxiety disorders; F17.200 Nicotine dependence, unspecified, uncomplicated; Z79.4 Long term (current) use of insulin; Z99.81 Dependence on supplemental oxygen; Z91.14 Patient's other noncompliance with medication regimen; Z88.8 Allergy status to other drugs, medicaments and biological substances; Z79.899 Other long term (current) drug therapy
CPT/HCPCS: 36415; 71010; 71010-26; 80048; 80053; 80069; 81001; 82962; 83605; 83735; 83880; 84484; 85025; 85027; 87040; 87070; 87205; 93005; 94640; 96365; 99283; 99285-25; A9270-GY; C9113; J0692; J1815-GY; J1956; J3370; J7040; J7050

== ENCOUNTER 2017-01-27 20:42 | Emergency (ER) | payer BC, MEDICARE ==
[2017-01-27] MEDS ORDERED: Sodium Chloride 0.9% 2.5 ML Syringe FLUSH PRN (20:44)
[2017-01-27] MEDS ORDERED: Sodium Chloride 0.9% 10 ML Syringe FLUSH PRN (20:44)
--- NOTE | 2017-01-27 20:48 | EDM.PDOC ---
ED HPI GENERAL MEDICAL PROBLEM - General Chief Complaint: Respiratory Problem Stated Complaint: MENTAL Time Seen by Provider: 01/27/17 20:44 - History of Present Illness INITIAL COMMENTS - FREE TEXT/NARRATIVE: HISTORY AND PHYSICAL: History of present illness: Patient is a 61-year-old white female is well-known to our emergency department history of COPD and multiple other medical problems presents with concern of altered mental status she is also noted be hypoxemic paramedics transported nonrebreather and also noted blood pressure in the systolic 80s to no reported fever no other history available patient has had similar presentations in the past. Review of systems: As per history of present illness and below otherwise all systems reviewed and negative. Past medical history: As per history of present illness and as reviewed below otherwise noncontributory. Surgical history: As per history of present illness and as reviewed below otherwise noncontributory. Social history: No reported history of drug or alcohol abuse. Family history: As per history of present illness and as reviewed below otherwise noncontributory. Physical exam: HEENT: Atraumatic, normocephalic, pupils reactive, negative for conjunctival pallor or scleral icterus, mucous membranes moist, throat clear, neck supple, nontender, trachea midline. Lungs: Clear to auscultation, diminished bilaterally breath sounds equal bilaterally, chest nontender. Heart: S1S2, regular, negative for clicks, rubs, or JVD. Abdomen: Soft, nondistended, nontender. Negative for masses or hepatosplenomegaly. Negative for costovertebral tenderness. Pelvis: Stable nontender. Genitourinary: Deferred. Rectal: Deferred. Extremities: Atraumatic, negative for cords or calf pain. Neurovascular unremarkable. Neuro: Patient follows commands is arousable to voice was all extremities is limited but grossly nonfocal exam Diagnostics: CBC CMP troponin PT/INR urine drug screen ABG chest x-ray CT brain UA urine culture and sensitivity blood culture 2 lactic acid Therapeutics: IV O2 monitor BiPAP Impression: #1 altered mental status #2 history of COPD Definitive disposition and diagnosis as appropriate pending reevaluation and review of above. Patient received 45 minutes of critical care time exclusive of procedures - Related Data Allergies Allergy/AdvReac Type Severity Reaction Status Date / Time amlodipine besylate Allergy Headache Verified 01/11/17 21:11 [From [facility]] doxepin Allergy unknown Verified 01/11/17 21:11 doxycycline Allergy unknown Verified 01/11/17 21:11 hydromorphone Allergy unknown Verified 01/11/17 21:11 ketorolac Allergy Itching Verified 01/11/17 21:11 latex Allergy unknown Verified 01/11/17 21:11 milnacipran HCl Allergy Headache Verified 01/11/17 21:11 [From [facility]] aspirin AdvReac Abdominal Verified 01/11/17 21:11 Pain Home Meds: Home Meds Pioglitazone [Actos] 30 mg PO DAILY 03/28/15 [History] levETIRAcetam [Keppra] 1,000 mg PO BID 03/28/15 [History] Pantoprazole [ProTONIX] 40 mg PO ACBREAKFAST 09/14/15 [History] Calcium Carbonate/Vitamin D3 [Calcium 500 + Vit D 400] 1 each PO BID 07/11/16 [ History] Divalproex Sodium 250 mg PO TIDMEALS 07/11/16 [History] Gabapentin [Neurontin] 600 mg PO TID 07/11/16 [History] atorvaSTATin [Lipitor] 20 mg PO DAILY 07/11/16 [History] Temazepam [Restoril] 15 mg PO BEDTIME PRN #20 cap 07/16/16 [Rx] Ferrous Sulfate 325 mg PO BID 12/30/16 [History] Hydrocodone/Acetaminophen [Plato 5-325] 1 tab PO Q4HR PRN 12/30/16 [History] Nitrofurantoin 100 gm MC BID #20 powder 12/30/16 [Rx] glipiZIDE [Glucotrol XL] 2.5 mg PO DAILY 12/30/16 [History] Albuterol [IJD: Albuterol] 1 inh INH Q4H PRN 01/03/17 [History] Ascorbic Acid 1 tab PO DAILY 01/03/17 [History] Budesonide [Pulmicort] 1 inh INH BID 01/03/17 [History] Docusate Sodium [Colace] 2 cap PO DAILY 01/03/17 [History] Furosemide 1 tab PO DAILY 01/03/17 [History] Insulin Lispro [Humalog Kwikpen U-100] 0 unit SUBCUT ASDIRECTED 01/03/17 [ History] Lactobacillus Acidophilus [Acidophilus Lactobacillus] 1 cap PO BID 01/03/17 [ History] Levalbuterol HCl [Xopenex] 1 inh INH Q4H PRN 01/03/17 [History] Nitroglycerin [Nitrostat] 1 tab SL ASDIRECTED PRN 01/03/17 [History] Azithromycin [IJD: Azithromycin] 250 mg PO DAILY #2 tab 01/06/17 [Rx] Linezolid 600 mg PO BID #14 tablet 01/06/17 [Rx] Nicotine [Habitrol] 14 mg TRDERM Q24H #30 patch 01/06/17 [Rx] Nystatin [Nystop] 100,000 units TOP TID #1 bottle 01/06/17 [Rx] Cefuroxime [Ceftin] 500 mg PO BID 5 Days #10 tablet 01/14/17 [Rx] Past Medical History HEENT History: Reports: Glaucoma Cardiovascular History: Reports: Heart Failure, Hypertension Other Cardiovascular History: CHF Respiratory History: Reports: COPD, Interstitial Lung Disease, Pulmonary Fibrosis, Other (See Below) Other Respiratory History: DIPF,. home O2 dependent at 3L Gastrointestinal History: Reports: Gastritis Genitourinary History: Reports: Other (See Below) Other Genitourinary History: only has left kidney [employer] History: Reports: Musculoskeletal History: Reports: Fibromyalgia, Osteoporosis Neurological History: Reports: Neuropathy, Diabetic, Neuropathy, Peripheral, Seizure Psychiatric History: Reports: Anxiety, Depression Endocrine/Metabolic History: Reports: Diabetes, Type II, Obesity/BMI 30+, Osteoporosis Hematologic History: Reports: Anemia, Blood Transfusion(s) Immunologic History: Reports: None Oncologic (Cancer) History: Reports: Renal, Other (See Below) Other Oncologic History: mets to liver treated without recurrence. Dermatologic History: Reports: None - Infectious Disease History Infectious Disease History: Reports: Chicken Pox, Measles Other Infectious Disease History: Not sure - Past Surgical History GI Surgical History: Reports: EGD, Other (See Below) Musculoskeletal Surgical History: Reports: Other (See Below) Social & Family History - Family History Family Medical History: Noncontributory - Tobacco Use Smoking Status *Q: Current Some Day Smoker Years of Tobacco use: 40 Packs/Tins Daily: 0.1 Used Tobacco, but Quit: Yes Month Tobacco Last Used: Feb 2015 Second Hand Smoke Exposure: No - Caffeine Use Caffeine Use: Reports: Soda - Recreational Drug Use Recreational Drug Use: No ED ROS GENERAL - Review of Systems Review Of Systems: ROS reveals no pertinent complaints other than HPI. ED EXAM, GENERAL - Physical Exam Exam: See Below (See dictation) Course - Vital Signs Last Recorded V/S: Last Vital Signs Temp 35.8 C 01/27/17 20:44 Pulse 61 01/27/17 20:44 Resp 26 H 01/27/17 20:44 BP 117/89 01/27/17 20:44 Pulse Ox 89 L 01/27/17 20:44 - Orders/Labs/Meds Orders: Active Orders 24 hr Category Date Time Status BIPAP Adult [RT BiPAP/CPAP] [RC] ASDIRECTED Care 01/27/17 21:36 Active Cardiac Monitoring [RC] . DIRECTED Care 01/27/17 20:44 Active EKG Documentation Completion [RC] STAT Care 01/27/17 20:44 Active Oxygen Therapy, ED [RC] ASDIRECTED Care 01/27/17 20:44 Active Pulse Oximetry [RC] ASDIRECTED Care 01/27/17 20:44 Active Chest 1V Frontal [CR] Stat Exams 01/27/17 20:45 Taken Head wo Cont [CT] Stat Exams 01/27/17 20:45 Taken BLOOD GAS ARTERIAL [BG] Stat Lab 01/27/17 21:38 Ordered CULTURE BLOOD [BC] Stat Lab 01/27/17 20:54 Received CULTURE BLOOD [BC] Stat Lab 01/27/17 21:04 Received CULTURE URINE [RM] Stat Lab 01/27/17 21:02 Received Sodium Chloride 0.9% [Normal Saline] 1,000 ml Med 01/27/17 21:15 Active IV ASDIRECTED Sodium Chloride 0.9% [Saline Flush] Med 01/27/17 20:44 Active 10 ml FLUSH ASDIRECTED PRN Sodium Chloride 0.9% [Saline Flush] Med 01/27/17 20:44 Active 2.5 ml FLUSH ASDIRECTED PRN cefTRIAXone [Rocephin in Dextrose,Iso-Osm 2 GM/50 ML] 2 Med 01/27/17 22:31 Ordered gm Premix Bag 1 bag IV ONETIME Blood Culture x2 Reflex Set [OM.PC] Stat Oth 01/27/17 20:44 Ordered Saline Lock Insert [OM.PC] Stat Oth 01/27/17 20:44 Ordered Medication Orders Sodium Chloride (Normal Saline) 1,000 mls @ 125 mls/hr IV ASDIRECTED QUINN Last Admin: 01/27/17 21:11 Dose: 125 mls/hr Ceftriaxone Sodium/Dextrose 2 (gm/ Premix) 50 mls @ 100 mls/hr IV ONETIME ONE Stop: 01/27/17 23:00 Sodium Chloride (Saline Flush) 10 ml FLUSH ASDIRECTED PRN PRN Reason: Keep Vein Open Last Admin: 01/27/17 21:11 Dose: 10 ml Sodium Chloride (Saline Flush) 2.5 ml FLUSH ASDIRECTED PRN PRN Reason: Keep Vein Open Last Admin: 01/27/17 21:11 Dose: 2.5 ml Labs: Laboratory Tests 01/27/17 01/27/17 01/27/17 Range/Units 20:54 20:54 20:54 WBC (4.0-11.0) K/uL RBC (4.30-5.90) M/uL Hgb (12.0-16.0) g/dL Hct (36.0-46.0) % MCV (80.0-98.0) fL MCH (27.0-32.0) pg MCHC (31.0-37.0) g/dL RDW Std Deviation (28.0-62.0) fl RDW Coeff of Morales (11.0-15.0) % Plt Count (150-400) K/uL MPV (7.40-12.00) fL Neut % (Auto) (48.0-80.0) % Lymph % (Auto) (16.0-40.0) % Cross % (Auto) (0.0-15.0) % Eos % (Auto) (0.0-7.0) % Baso % (Auto) (0.0-1.5) % Neut # (Auto) (1.4-5.7) K/uL Lymph # (Auto) (0.6-2.4) K/uL Cross # (Auto) (0.0-0.8) K/uL Eos # (Auto) (0.0-0.7) K/uL Baso # (Auto) (0.0-0.1) K/uL Nucleated RBC % /100WBC Nucleated RBCs # K/uL INR 1.10 (0.86-1.11) ABG pH (7.35-7.45) ABG pCO2 (35-45) mmHG ABG pO2 (75-100) mmHG ABG HCO3 (22-26) mEq/L ABG Total CO2 ABG Base Excess (-2.0-2.0) Lactate (0.20-2.00) mmol/L Sodium 146 (136-146) mmol/L Potassium 4.8 (3.5-5.1) mmol/L Chloride 93 L (98-110) mmol/L Carbon Dioxide > 43 H (21-31) mmol/L BUN 20 (6.0-23.0) mg/dL Creatinine 1.6 H (0.6-1.5) mg/dL Est Cr Clr Drug Dosing TNP Estimated GFR (MDRD) 33.0 ml/min Glucose 54 L (60-110) mg/dL POC Glucose (60-110) mg/dL Calcium 9.6 (8.8-10.8) mg/dL Total Bilirubin 0.5 (0.1-1.5) mg/dL AST 9 (5-40) IU/L ALT 12 (8-54) IU/L Alkaline Phosphatase 84 (40-150) Troponin I (0.0-0.29) NG/ML B-Natriuretic Peptide 1240 H (<100) PG/ML Total Protein 6.5 (6.0-8.0) g/dL Albumin 3.4 L (3.5-5.0) g/dL Globulin 3.1 (2.0-3.5) g/dL Albumin/Globulin Ratio 1.1 L (1.3-2.8) TSH 3rd Generation 2.75 (0.47-5.0) uIU/mL Urine Color Urine Appearance Urine pH (5.0-8.0) Ur Specific [place] (1.001-1.035) Urine Protein (NEGATIVE) mg/dL Urine Glucose (UA) (NEGATIVE) mg/dL Urine Ketones (NEGATIVE) mg/dL Urine Occult Blood (NEGATIVE) Urine Nitrite (NEGATIVE) Urine Bilirubin (NEGATIVE) Urine Urobilinogen (<2.0) EU/dL Ur Leukocyte Esterase (NEGATIVE) Urine RBC (0-2/HPF) Urine WBC (0-5/HPF) Ur Epithelial Cells (NONE-FEW) Calcium Oxalate Crystal (NEGATIVE) Urine Bacteria (NEGATIVE) Urine Yeast Urine Opiates Screen (NEGATIVE) Ur Oxycodone Screen (NEGATIVE) Urine Methadone Screen (NEGATIVE) Ur Barbiturates Screen (NEGATIVE) Ur Phencyclidine Scrn (NEGATIVE) Ur Amphetamine Screen (NEGATIVE) U Methamphetamines Scrn (NEGATIVE) U Benzodiazepines Scrn (NEGATIVE) U Cocaine Metab Screen (NEGATIVE) U Marijuana (THC) Screen (NEGATIVE) 01/27/17 01/27/17 01/27/17 Range/Units 20:56 20:59 21:02 WBC 5.66 (4.0-11.0) K/uL RBC 2.86 L (4.30-5.90) M/uL Hgb 9.1 L (12.0-16.0) g/dL Hct 33.4 L (36.0-46.0) % MCV 116.8 H (80.0-98.0) fL MCH 31.8 (27.0-32.0) pg MCHC 27.2 L (31.0-37.0) g/dL RDW Std Deviation 71.0 H (28.0-62.0) fl RDW Coeff of Morales 17 H (11.0-15.0) % Plt Count 99 L (150-400) K/uL MPV 9.90 (7.40-12.00) fL Neut % (Auto) 65.5 (48.0-80.0) % Lymph % (Auto) 20.7 (16.0-40.0) % Cross % (Auto) 10.1 (0.0-15.0) % Eos % (Auto) 3.0 (0.0-7.0) % Baso % (Auto) 0.7 (0.0-1.5) % Neut # (Auto) 3.7 (1.4-5.7) K/uL Lymph # (Auto) 1.2 (0.6-2.4) K/uL Cross # (Auto) 0.6 (0.0-0.8) K/uL Eos # (Auto) 0.2 (0.0-0.7) K/uL Baso # (Auto) 0.0 (0.0-0.1) K/uL Nucleated RBC % 0.5 /100WBC Nucleated RBCs # 0 K/uL INR (0.86-1.11) ABG pH (7.35-7.45) ABG pCO2 (35-45) mmHG ABG pO2 (75-100) mmHG ABG HCO3 (22-26) mEq/L ABG Total CO2 ABG Base Excess (-2.0-2.0) Lactate (0.20-2.00) mmol/L Sodium (136-146) mmol/L Potassium (3.5-5.1) mmol/L Chloride (98-110) mmol/L Carbon Dioxide (21-31) mmol/L BUN (6.0-23.0) mg/dL Creatinine (0.6-1.5) mg/dL Est Cr Clr Drug Dosing Estimated GFR (MDRD) ml/min Glucose (60-110) mg/dL POC Glucose 60 (60-110) mg/dL Calcium (8.8-10.8) mg/dL Total Bilirubin (0.1-1.5) mg/dL AST (5-40) IU/L ALT (8-54) IU/L Alkaline Phosphatase (40-150) Troponin I (0.0-0.29) NG/ML B-Natriuretic Peptide (<100) PG/ML Total Protein (6.0-8.0) g/dL Albumin (3.5-5.0) g/dL Globulin (2.0-3.5) g/dL Albumin/Globulin Ratio (1.3-2.8) TSH 3rd Generation (0.47-5.0) uIU/mL Urine Color YELLOW Urine Appearance SLT CLOUDY Urine pH 5.5 (5.0-8.0) Ur Specific [place] 1.025 (1.001-1.035) Urine Protein 30 (NEGATIVE) mg/dL Urine Glucose (UA) NEGATIVE (NEGATIVE) mg/dL Urine Ketones NEGATIVE (NEGATIVE) mg/dL Urine Occult Blood LARGE H (NEGATIVE) Urine Nitrite POSITIVE H (NEGATIVE) Urine Bilirubin NEGATIVE (NEGATIVE) Urine Urobilinogen 0.2 (<2.0) EU/dL Ur Leukocyte Esterase SMALL (NEGATIVE) Urine RBC 1-3 (0-2/HPF) Urine WBC 10-20 (0-5/HPF) Ur Epithelial Cells FEW (NONE-FEW) Calcium Oxalate Crystal RARE (NEGATIVE) Urine Bacteria 2+ H (NEGATIVE) Urine Yeast MODERATE Urine Opiates Screen (NEGATIVE) Ur Oxycodone Screen (NEGATIVE) Urine Methadone Screen (NEGATIVE) Ur Barbiturates Screen (NEGATIVE) Ur Phencyclidine Scrn (NEGATIVE) Ur Amphetamine Screen (NEGATIVE) U Methamphetamines Scrn (NEGATIVE) U Benzodiazepines Scrn (NEGATIVE) U Cocaine Metab Screen (NEGATIVE) U Marijuana (THC) Screen (NEGATIVE) 01/27/17 01/27/17 01/27/17 Range/Units 21:02 21:04 21:04 WBC (4.0-11.0) K/uL RBC (4.30-5.90) M/uL Hgb (12.0-16.0) g/dL Hct (36.0-46.0) % MCV (80.0-98.0) fL MCH (27.0-32.0) pg MCHC (31.0-37.0) g/dL RDW Std Deviation (28.0-62.0) fl RDW Coeff of Morales (11.0-15.0) % Plt Count (150-400) K/uL MPV (7.40-12.00) fL Neut % (Auto) (48.0-80.0) % Lymph % (Auto) (16.0-40.0) % Cross % (Auto) (0.0-15.0) % Eos % (Auto) (0.0-7.0) % Baso % (Auto) (0.0-1.5) % Neut # (Auto) (1.4-5.7) K/uL Lymph # (Auto) (0.6-2.4) K/uL Cross # (Auto) (0.0-0.8) K/uL Eos # (Auto) (0.0-0.7) K/uL Baso # (Auto) (0.0-0.1) K/uL Nucleated RBC % /100WBC Nucleated RBCs # K/uL INR (0.86-1.11) ABG pH (7.35-7.45) ABG pCO2 (35-45) mmHG ABG pO2 (75-100) mmHG ABG HCO3 (22-26) mEq/L ABG Total CO2 ABG Base Excess (-2.0-2.0) Lactate 0.8 (0.20-2.00) mmol/L Sodium (136-146) mmol/L Potassium (3.5-5.1) mmol/L Chloride (98-110) mmol/L Carbon Dioxide (21-31) mmol/L BUN (6.0-23.0) mg/dL Creatinine (0.6-1.5) mg/dL Est Cr Clr Drug Dosing Estimated GFR (MDRD) ml/min Glucose (60-110) mg/dL POC Glucose (60-110) mg/dL Calcium (8.8-10.8) mg/dL Total Bilirubin (0.1-1.5) mg/dL AST (5-40) IU/L ALT (8-54) IU/L Alkaline Phosphatase (40-150) Troponin I < 0.10 (0.0-0.29) NG/ML B-Natriuretic Peptide (<100) PG/ML Total Protein (6.0-8.0) g/dL Albumin (3.5-5.0) g/dL Globulin (2.0-3.5) g/dL Albumin/Globulin Ratio (1.3-2.8) TSH 3rd Generation (0.47-5.0) uIU/mL Urine Color Urine Appearance Urine pH (5.0-8.0) Ur Specific [place] (1.001-1.035) Urine Protein (NEGATIVE) mg/dL Urine Glucose (UA) (NEGATIVE) mg/dL Urine Ketones (NEGATIVE) mg/dL Urine Occult Blood (NEGATIVE) Urine Nitrite (NEGATIVE) Urine Bilirubin (NEGATIVE) Urine Urobilinogen (<2.0) EU/dL Ur Leukocyte Esterase (NEGATIVE) Urine RBC (0-2/HPF) Urine WBC (0-5/HPF) Ur Epithelial Cells (NONE-FEW) Calcium Oxalate Crystal (NEGATIVE) Urine Bacteria (NEGATIVE) Urine Yeast Urine Opiates Screen NEGATIVE (NEGATIVE) Ur Oxycodone Screen POSITIVE (NEGATIVE) Urine Methadone Screen NEGATIVE (NEGATIVE) Ur Barbiturates Screen NEGATIVE (NEGATIVE) Ur Phencyclidine Scrn NEGATIVE (NEGATIVE) Ur Amphetamine Screen NEGATIVE (NEGATIVE) U Methamphetamines Scrn NEGATIVE (NEGATIVE) U Benzodiazepines Scrn POSITIVE (NEGATIVE) U Cocaine Metab Screen NEGATIVE (NEGATIVE) U Marijuana (THC) Screen NEGATIVE (NEGATIVE) 01/27/17 01/27/17 Range/Units 21:15 22:11 WBC (4.0-11.0) K/uL RBC (4.30-5.90) M/uL Hgb (12.0-16.0) g/dL Hct (36.0-46.0) % MCV (80.0-98.0) fL MCH (27.0-32.0) pg MCHC (31.0-37.0) g/dL RDW Std Deviation (28.0-62.0) fl RDW Coeff of Morales (11.0-15.0) % Plt Count (150-400) K/uL MPV (7.40-12.00) fL Neut % (Auto) (48.0-80.0) % Lymph % (Auto) (16.0-40.0) % Cross % (Auto) (0.0-15.0) % Eos % (Auto) (0.0-7.0) % Baso % (Auto) (0.0-1.5) % Neut # (Auto) (1.4-5.7) K/uL Lymph # (Auto) (0.6-2.4) K/uL Cross # (Auto) (0.0-0.8) K/uL Eos # (Auto) (0.0-0.7) K/uL Baso # (Auto) (0.0-0.1) K/uL Nucleated RBC % /100WBC Nucleated RBCs # K/uL INR (0.86-1.11) ABG pH 7.321 L (7.35-7.45) ABG pCO2 90 H (35-45) mmHG ABG pO2 78 (75-100) mmHG ABG HCO3 47 H (22-26) mEq/L ABG Total CO2 44.7 ABG Base Excess 17.6 H (-2.0-2.0) Lactate (0.20-2.00) mmol/L Sodium (136-146) mmol/L Potassium (3.5-5.1) mmol/L Chloride (98-110) mmol/L Carbon Dioxide (21-31) mmol/L BUN (6.0-23.0) mg/dL Creatinine (0.6-1.5) mg/dL Est Cr Clr Drug Dosing Estimated GFR (MDRD) ml/min Glucose (60-110) mg/dL POC Glucose 149 H (60-110) mg/dL Calcium (8.8-10.8) mg/dL Total Bilirubin (0.1-1.5) mg/dL AST (5-40) IU/L ALT (8-54) IU/L Alkaline Phosphatase (40-150) Troponin I (0.0-0.29) NG/ML B-Natriuretic Peptide (<100) PG/ML Total Protein (6.0-8.0) g/dL Albumin (3.5-5.0) g/dL Globulin (2.0-3.5) g/dL Albumin/Globulin Ratio (1.3-2.8) TSH 3rd Generation (0.47-5.0) uIU/mL Urine Color Urine Appearance Urine pH (5.0-8.0) Ur Specific [place] (1.001-1.035) Urine Protein (NEGATIVE) mg/dL Urine Glucose (UA) (NEGATIVE) mg/dL Urine Ketones (NEGATIVE) mg/dL Urine Occult Blood (NEGATIVE) Urine Nitrite (NEGATIVE) Urine Bilirubin (NEGATIVE) Urine Urobilinogen (<2.0) EU/dL Ur Leukocyte Esterase (NEGATIVE) Urine RBC (0-2/HPF) Urine WBC (0-5/HPF) Ur Epithelial Cells (NONE-FEW) Calcium Oxalate Crystal (NEGATIVE) Urine Bacteria (NEGATIVE) Urine Yeast Urine Opiates Screen (NEGATIVE) Ur Oxycodone Screen (NEGATIVE) Urine Methadone Screen (NEGATIVE) Ur Barbiturates Screen (NEGATIVE) Ur Phencyclidine Scrn (NEGATIVE) Ur Amphetamine Screen (NEGATIVE) U Methamphetamines Scrn (NEGATIVE) U Benzodiazepines Scrn (NEGATIVE) U Cocaine Metab Screen (NEGATIVE) U Marijuana (THC) Screen (NEGATIVE) Meds: Medications Generic Name Dose Route Start Last Admin Trade Name Freq PRN Reason Stop Dose Admin Sodium Chloride 1,000 mls @ 125 mls/hr 01/27/17 21:15 01/27/17 21:11 Normal Saline IV 125 mls/hr ASDIRECTED QUINN Administration Ceftriaxone Sodium/Dextrose 2 50 mls @ 100 mls/hr 01/27/17 22:31 gm/ Premix IV 01/27/17 23:00 ONETIME ONE Sodium Chloride 10 ml 01/27/17 20:44 01/27/17 21:11 Saline Flush FLUSH 10 ml ASDIRECTED PRN Administration Keep Vein Open Sodium Chloride 2.5 ml 01/27/17 20:44 01/27/17 21:11 Saline Flush FLUSH 2.5 ml ASDIRECTED PRN Administration Keep Vein Open Discontinued Medications Generic Name Dose Route Start Last Admin Trade Name Freq PRN Reason Stop Dose Admin Dextrose/Water 50 ml 01/27/17 21:02 01/27/17 21:12 Dextrose 50% In Water IVPUSH 01/27/17 21:03 50 ml NOW STA Administration Furosemide 20 mg 01/27/17 22:31 Lasix IVPUSH 01/27/17 22:32 NOW ONE Departure - Departure Time of Disposition: 22:33 Disposition: DC/Tfer to Acute Hospital 02 Condition: Serious Clinical Impression: Altered mental status, Hypercarbia - Discharge Information Forms: ED Department Discharge - My Orders Last 24 Hours: My Active Orders 01/27/17 20:44 Cardiac Monitoring [RC] . DIRECTED EKG Documentation Completion [RC] STAT Oxygen Therapy, ED [RC] ASDIRECTED Pulse Oximetry [RC] ASDIRECTED Sodium Chloride 0.9% [Saline Flush] 10 ml FLUSH ASDIRECTED PRN Sodium Chloride 0.9% [Saline Flush] 2.5 ml FLUSH ASDIRECTED PRN Blood Culture x2 Reflex Set [OM.PC] Stat Saline Lock Insert [OM.PC] Stat 01/27/17 20:45 Chest 1V Frontal [CR] Stat Head wo Cont [CT] Stat 01/27/17 20:54 CULTURE BLOOD [BC] Stat 01/27/17 21:02 CULTURE URINE [RM] Stat 01/27/17 21:04 CULTURE BLOOD [BC] Stat 01/27/17 21:15 Sodium Chloride 0.9% [Normal Saline] 1,000 ml IV ASDIRECTED 01/27/17 21:36 BIPAP Adult [RT BiPAP/CPAP] [RC] ASDIRECTED 01/27/17 21:38 BLOOD GAS ARTERIAL [BG] Stat 01/27/17 22:31 cefTRIAXone [Rocephin in Dextrose,Iso-Osm 2 GM/50 ML] 2 gm Premix Bag 1 bag IV ONETIME - Assessment/Plan Last 24 Hours: My Active Orders 01/27/17 20:44 Cardiac Monitoring [RC] . DIRECTED EKG Documentation Completion [RC] STAT Oxygen Therapy, ED [RC] ASDIRECTED Pulse Oximetry [RC] ASDIRECTED Sodium Chloride 0.9% [Saline Flush] 10 ml FLUSH ASDIRECTED PRN Sodium Chloride 0.9% [Saline Flush] 2.5 ml FLUSH ASDIRECTED PRN Blood Culture x2 Reflex Set [OM.PC] Stat Saline Lock Insert [OM.PC] Stat 01/27/17 20:45 Chest 1V Frontal [CR] Stat Head wo Cont [CT] Stat 01/27/17 20:54 CULTURE BLOOD [BC] Stat 01/27/17 21:02 CULTURE URINE [RM] Stat 01/27/17 21:04 CULTURE BLOOD [BC] Stat 01/27/17 21:15 Sodium Chloride 0.9% [Normal Saline] 1,000 ml IV ASDIRECTED 01/27/17 21:36 BIPAP Adult [RT BiPAP/CPAP] [RC] ASDIRECTED 01/27/17 21:38 BLOOD GAS ARTERIAL [BG] Stat 01/27/17 22:31 cefTRIAXone [Rocephin in Dextrose,Iso-Osm 2 GM/50 ML] 2 gm Premix Bag 1 bag IV ONETIME
[2017-01-27] MEDS ORDERED: 50% Dextrose in Water 50 ML Syringe IVPUSH STA (21:02)
[2017-01-27] MEDS ORDERED: Sodium Chloride 0.9% 1,000 ML IV SCH (21:15)
[2017-01-27 21:41] LABS: CHLORIDE,CL 93 mmol/L (98-110); SODIUM,NA 146 mmol/L (136-146)
[2017-01-27] MEDS ORDERED: Furosemide 40 MG/4 ML VIAL IVPUSH ONE (22:31)
[2017-01-27] MEDS ORDERED: cefTRIAXone 2 GM in Premix Bag 1 BAG IV ONE (22:31)
[2017-01-28] MEDS ORDERED: Etomidate 2 MG/ML 20 ML SDV IVPUSH STA (00:42)
[2017-01-28] MEDS ORDERED: Succinylcholine 200 MG/10 ML MDV IV STA (00:43)
[2017-01-28] MEDS ORDERED: Rocuronium 50 MG/5 ML Vial IVPUSH STA (00:49)
[2017-01-28] MEDS ORDERED: Midazolam 5 MG/ML SDV ONE (00:52)
[2017-01-28] MEDS ORDERED: Midazolam 5 MG/ML SDV IVPUSH STA (00:55)
[2017-01-28 04:20] VITALS: BP 106/71
--- NOTE | 2017-01-28 10:41 | CR ---
EXAM DATE: 01/27/17 PATIENT'S AGE: 61 Patient: VALERIA KC Facility: [place], [place] Site . Site : 1955 Study: XRay Chest [id number] 9:57:39 PM Ordering Physician: Doctor Brewer Final Report: INDICATION: Shortness of breath TECHNIQUE: Chest radiograph 1 view COMPARISON: 01/11/2017 FINDINGS: Mediastinum: The mediastinum is normal in appearance. The heart silhouette is normal in size and morphology. Lungs: Moderate pulmonary vascular congestion is present with mild perihilar edema seen. A small right pleural effusion is suspected. No pneumothorax is identified. Bones: Unremarkable for age. Miscellaneous: Consolidation of the left hemithorax is noted without interval change. IMPRESSIONS: 1. There been no significant interval changes. Dictated by Tom Shanks MD @ 01/27/2017 10:12:33 PM Dictated by: Tom Shanks MD @ 01/27/2017 22:12:41 (Electronic Signature) Report Signed by Proxy. [facility]
--- NOTE | 2017-01-28 10:42 | CT ---
EXAM DATE: 01/27/17 PATIENT'S AGE: 61 Patient: VALERIA KC Facility: [place], [place] : 1955 Study: CT Head [id number]/16/2017 9:58:55 PM Ordering Physician: VERNA Final Report: INDICATION: Headache, Altered mental status TECHNIQUE: CT Head without i. v. contrast. COMPARISON: 12/05/2015 FINDINGS: CSF spaces: Within normal limits for age. Brain parenchyma: The brain parenchyma is normal in appearance with preservation of the harrington-white matter junction. No sign of mass, hemorrhage, or midline shift. Skull base and calvarium: The visualized paranasal sinuses are well aerated. The mastoid air cells are clear. The visualized orbits are grossly unremarkable. No skull fractures are seen. IMPRESSION: 1. No CT evidence of acute infarct, hemorrhage, or mass effect seen. Dictated by: Tom Shanks MD @ 01/27/2017 22:14:31 (Electronic Signature) Report Signed by Proxy. [facility]
--- NOTE | 2017-01-28 10:44 | CR ---
EXAM DATE: 01/27/17 PATIENT'S AGE: 61 Patient: VALERIA KC Facility: [place], [place] Site . Site : 1955 Study: XRay Chest [id number]/17/2017 1:10:52 AM Ordering Physician: Brandon Barrera Final Report: INDICATION: Respiratory distress TECHNIQUE: Chest 1 view COMPARISON: 01/27/2017 FINDINGS: Cardiovascular and mediastinum: The heart silhouette is normal in size and morphology. The mediastinum is normal in appearance. The endotracheal (ET) tube has its tip approximately 7.5 cm from the franchesca. Lungs and pleural spaces: Consolidation in the left hemithorax has slightly decreased with improved aeration of the left apex seen. Large left pleural effusion present. The right lateral costophrenic sulcus is excluded. No pneumothorax is identified. Bones and soft tissues: No significant findings. IMPRESSION: 1. Slightly improved aeration of the left apex seen. Dictated by Tom Shanks MD @ 01/28/2017 1:18:15 AM Dictated by: Tom Shanks MD @ 01/28/2017 01:18:18 (Electronic Signature) Report Signed by Proxy. DOE
== END 2017-01-28 01:10 ==
LOC: EEVIPCON 20:42 → MW.ED 20:42
DX: R41.82 Altered mental status, unspecified (principal); R06.89 Other abnormalities of breathing; I11.0 Hypertensive heart disease with heart failure; I50.9 Heart failure, unspecified; J44.9 Chronic obstructive pulmonary disease, unspecified; F32.9 Major depressive disorder, single episode, unspecified; E11.9 Type 2 diabetes mellitus without complications; F17.210 Nicotine dependence, cigarettes, uncomplicated; E66.9 Obesity, unspecified; Z86.2 Personal history of diseases of the blood and blood-forming organs and certain disorders involving the immune mechanism; Z79.4 Long term (current) use of insulin; Z79.2 Long term (current) use of antibiotics; Z79.899 Other long term (current) drug therapy; Z88.6 Allergy status to analgesic agent; Z88.1 Allergy status to other antibiotic agents; Z88.8 Allergy status to other drugs, medicaments and biological substances; Z91.040 Latex allergy status
CPT/HCPCS: 31500; 36415; 36600; 70450; 71010; 80053; 80305; 81001; 82803; 82962; 83605; 83880; 84443; 84484; 85025; 85610; 87040; 87086; 87088; 87186; 93005; 94660; 96361; 96365; 96374; 96375; 99285; J0330; J0696; J1940; J2250; J7040; J7060; 99291

== ENCOUNTER 2017-05-21 06:05 | Emergency (ER) | payer BC, MEDICARE ==
[2017-05-21] MEDS ORDERED: Sodium Chloride 0.9% 10 ML Syringe FLUSH PRN (06:13)
[2017-05-21] MEDS ORDERED: Sodium Chloride 0.9% 2.5 ML Syringe FLUSH PRN (06:13)
--- NOTE | 2017-05-21 06:20 | EDM.PDOC ---
ED HPI GENERAL MEDICAL PROBLEM - General Stated Complaint: AMBULANCE Time Seen by Provider: 05/21/17 06:11 - History of Present Illness INITIAL COMMENTS - FREE TEXT/NARRATIVE: HISTORY AND PHYSICAL: History of present illness: The patient is a 61-year-old female who is well known to me in the ED staff for multiple ER visits and admissions for multiple medical problems which include congestive heart failure/acute respiratory failure fluid overload diabetes cellulitis COPD seizure disorder and who presents via EMS with her for fluid overload. The patient is unable to offer any history and she is only able to open up eyes to voice but the says that she did not eat or drink much today and that since last evening she has become more altered and unresponsive. He says that over the last few days she has been acutely fluid in her legs and abdomen and she has only taken one dose of her Lasix 40 mg day before yesterday. She has instructions when her weight is up to take her Lasix but it does not seem that she has been doing that. She follows at [facility] with Dr. Lex Mcclelland and she only gets around with a wheelchair. The patient has a long-standing history of problems since bilateral ankle fractures and has had multiple complications related to that. EMS transported and on their arrival her sats were in the 80s which came up with oxygen but her mental status did not improve. Patient cannot offer any answers to questions here in the ED Patient's admission from January was briefly reviewed by me and the patient did have C Pap but then eventually was intubated and I discussed this with the . Review of systems: As per history of present illness and below otherwise all systems reviewed and negative. Past medical history: As per history of present illness and as reviewed below otherwise noncontributory. Surgical history: As per history of present illness and as reviewed below otherwise noncontributory. Social history: No reported history of drug or alcohol abuse. Family history: As per history of present illness and as reviewed below otherwise noncontributory. Physical exam: Gen.: Well-developed well-nourished obese female who is nonverbal in the ED but opens eyes to voice and is maintaining her airway. HEENT: Atraumatic, normocephalic, pupils reactive, negative for conjunctival pallor or scleral icterus, mucous membranes area dry, throat clear, neck supple , nontender, trachea midline. Lungs: Diminished breath sounds for all augustine with very poor effort and crackles and coarse breath sounds bilaterally, breath sounds equal bilaterally, chest nontender. Heart: S1S2, regular rhythm and very tachycardic rate and evaluation, murmur cannot be appreciated because of the high Abdomen: Soft, nondistended, nontender. Negative for masses or hepatosplenomegaly. Sounds are hypoactive Pelvis: Stable nontender. Genitourinary: Deferred. Rectal: Deferred. Extremities: Atraumatic with old scars and old traumatic changes seen on bilateral lower legs and bilateral lower legs have some ill-defined redness and some old scab seen. The patient has brawny edema of her legs following up to her abdomen Neurovascular unremarkable exam is difficult due to patient's inability to cooperate and move spontaneously.. Neuro: Patient opens eyes to voice only and otherwise cannot follow simple commands. Exam cannot be performed other than this. She is breathing spontaneously Skin: She is not diaphoretic and there are no overt rashes and lesions other than described on the legs above Diagnostics: EKG CBC CMP INR BNP troponin UA chest x-ray lactic acid blood cultures 2 Therapeutics: IV O2 monitor IV fluids Zosyn and vancomycin Tylenol Wiggins catheter After patient's arrival a stat ABG was performed and reviewed by me which revealed a normal pH and PCO2 of 59. At this point we will try CPAP and discuss this case immediately with the hospitalist input regarding whether or not he would like to feel comfortable with admitting her here or does he want transfer. I discussed with the and her ABG results as well as her chest x-ray which doesn't like fluid overload cardiomegaly which has been seen in the past but the right base also looks like there is a pneumonia. The patient's rectal temperature was 102 Tylenol be given and antibiotics will be ordered. I am getting a flight team here and will intubate the patient and she will need fluid resuscitation which will compound her congestive heart failure. 0642: Case was discussed with Dr. Jung at [facility] who accepts the patient for transfer. They're flight team is here in [place] and will come to transport the patient. at bedside is also aware of the need for this. Dr. Jung is aware that I will give vancomycin and Zosyn for antibiotics and that she has received Tylenol and will get IV fluids due to the septic nature of this presentation. He is also aware that she is likely in fluid overload as well and we will treat appropriately into the team arrives for transport. I will continue to monitor the patient's labs and test results until the patient departs. Critical care time excluding procedures--35min Impression: History respiratory failure with history of same, sepsis, fluid overload Definitive disposition and diagnosis as appropriate pending reevaluation and review of above. - Related Data Allergies Allergy/AdvReac Type Severity Reaction Status Date / Time amlodipine besylate Allergy Headache Verified 05/21/17 06:17 [From [facility]] doxepin Allergy unknown Verified 05/21/17 06:17 doxycycline Allergy unknown Verified 05/21/17 06:17 hydromorphone Allergy unknown Verified 05/21/17 06:17 ketorolac Allergy Itching Verified 05/21/17 06:17 latex Allergy unknown Verified 05/21/17 06:17 milnacipran HCl Allergy Headache Verified 05/21/17 06:17 [From [facility]] aspirin AdvReac Abdominal Verified 05/21/17 06:17 Pain Home Meds: Home Meds Pioglitazone [Actos] 30 mg PO DAILY 03/28/15 [History] levETIRAcetam [Keppra] 1,000 mg PO BID 03/28/15 [History] Pantoprazole [ProTONIX] 40 mg PO ACBREAKFAST 09/14/15 [History] Calcium Carbonate/Vitamin D3 [Calcium 500 + Vit D 400] 1 each PO BID 07/11/16 [ History] Divalproex Sodium 250 mg PO TIDMEALS 07/11/16 [History] Gabapentin [Neurontin] 600 mg PO TID 07/11/16 [History] atorvaSTATin [Lipitor] 20 mg PO DAILY 07/11/16 [History] Temazepam [Restoril] 15 mg PO BEDTIME PRN #20 cap 07/16/16 [Rx] Ferrous Sulfate 325 mg PO BID 12/30/16 [History] Hydrocodone/Acetaminophen [[place] 5-325] 1 tab PO Q4HR PRN 12/30/16 [History] Nitrofurantoin 100 gm MC BID #20 powder 12/30/16 [Rx] glipiZIDE [Glucotrol XL] 2.5 mg PO DAILY 12/30/16 [History] Albuterol [IJD: Albuterol] 1 inh INH Q4H PRN 01/03/17 [History] Ascorbic Acid 1 tab PO DAILY 01/03/17 [History] Budesonide [Pulmicort] 1 inh INH BID 01/03/17 [History] Docusate Sodium [Colace] 200 mg PO DAILY 01/03/17 [History] Insulin Lispro [Humalog Kwikpen U-100] 0 unit SUBCUT ASDIRECTED 01/03/17 [ History] Lactobacillus Acidophilus [Acidophilus Lactobacillus] 1 cap PO BID 01/03/17 [ History] Levalbuterol HCl [Xopenex] 1 inh INH Q4H PRN 01/03/17 [History] Nitroglycerin [Nitrostat] 1 tab SL ASDIRECTED PRN 01/03/17 [History] Nicotine [Habitrol] 14 mg TRDERM Q24H #30 patch 01/06/17 [Rx] Nystatin [Nystop] 100,000 units TOP TID #1 bottle 01/06/17 [Rx] Past Medical History HEENT History: Reports: Glaucoma Cardiovascular History: Reports: Heart Failure, Hypertension Other Cardiovascular History: CHF Respiratory History: Reports: COPD, Interstitial Lung Disease, Pulmonary Fibrosis, Other (See Below) Other Respiratory History: DIPF,. home O2 dependent at 3L Gastrointestinal History: Reports: Gastritis Genitourinary History: Reports: Other (See Below) Other Genitourinary History: only has left kidney [employer] History: Reports: Musculoskeletal History: Reports: Fibromyalgia, Osteoporosis Neurological History: Reports: Neuropathy, Diabetic, Neuropathy, Peripheral, Seizure Psychiatric History: Reports: Anxiety, Depression Endocrine/Metabolic History: Reports: Diabetes, Type II, Obesity/BMI 30+, Osteoporosis Hematologic History: Reports: Anemia, Blood Transfusion(s) Immunologic History: Reports: None Oncologic (Cancer) History: Reports: Renal, Other (See Below) Other Oncologic History: mets to liver treated without recurrence. Dermatologic History: Reports: None - Infectious Disease History Infectious Disease History: Reports: Chicken Pox, Measles Other Infectious Disease History: Not sure - Past Surgical History GI Surgical History: Reports: EGD, Other (See Below) Musculoskeletal Surgical History: Reports: Other (See Below) Social & Family History - Family History Family Medical History: Noncontributory - Tobacco Use Smoking Status *Q: Current Some Day Smoker Years of Tobacco use: 40 Packs/Tins Daily: 0.1 Used Tobacco, but Quit: Yes Month Tobacco Last Used: Feb 2015 Second Hand Smoke Exposure: No - Caffeine Use Caffeine Use: Reports: Soda - Recreational Drug Use Recreational Drug Use: No ED ROS GENERAL - Review of Systems Review Of Systems: ROS reveals no pertinent complaints other than HPI. ED EXAM, GENERAL - Physical Exam Exam: See Below (see dictation) Course - Vital Signs Last Recorded V/S: Last Vital Signs Temp 39.2 C H 05/21/17 06:36 Pulse 163 H 05/21/17 06:05 Resp 24 H 05/21/17 06:05 BP 131/70 05/21/17 06:05 Pulse Ox 95 05/21/17 06:05 - Orders/Labs/Meds Orders: Active Orders 24 hr Category Date Time Status Blood Glucose Check, Bedside [RC] ONETIME Care 05/21/17 06:12 Active Cardiac Monitoring [RC] . DIRECTED Care 05/21/17 06:12 Active EKG Documentation Completion [RC] STAT Care 05/21/17 06:12 Active Oxygen Therapy, ED [RC] ASDIRECTED Care 05/21/17 06:12 Active Pulse Oximetry [RC] ASDIRECTED Care 05/21/17 06:12 Active RT BiPAP/CPAP [RC] ASDIRECTED Care 05/21/17 06:32 Active Chest 1V Frontal [CR] Stat Exams 05/21/17 06:13 Taken COMPREHENSIVE METABOLIC PN,CMP [CHEM] Stat Lab 05/21/17 06:16 Received CULTURE BLOOD [BC] Stat Lab 05/21/17 06:16 Results CULTURE BLOOD [BC] Stat Lab 05/21/17 06:23 Received CULTURE URINE [RM] Stat Lab 05/21/17 06:32 Uncollected INR,PT,PROTHROMBIN TIME [COAG] Stat Lab 05/21/17 06:16 Received TROPONIN I [CHEM] Stat Lab 05/21/17 06:16 Received UA W/MICROSCOPIC [URIN] Stat Lab 05/21/17 06:12 Uncollected Piperacillin/Tazobactam [Piperacil-Tazobact] 3.375 gm Med 05/21/17 06:39 Active Sodium Chloride 0.9% [Normal Saline] 50 ml IV ONETIME Sodium Chloride 0.9% [Normal Saline] 1,000 ml Med 05/21/17 06:31 Active IV STAT Sodium Chloride 0.9% [Saline Flush] Med 05/21/17 06:13 Active 10 ml FLUSH ASDIRECTED PRN Sodium Chloride 0.9% [Saline Flush] Med 05/21/17 06:13 Active 2.5 ml FLUSH ASDIRECTED PRN Vancomycin 1,000 mg Med 05/21/17 06:39 Active Dextrose 5% in Water 250 ml IV ONETIME Blood Culture x2 Reflex Set [OM.PC] Stat Oth 05/21/17 06:13 Ordered Saline Lock Insert [OM.PC] Stat Oth 05/21/17 06:12 Ordered Medication Orders Sodium Chloride (Normal Saline) 1,000 mls @ 50 mls/hr IV STAT ONE Stop: 05/22/17 02:30 Last Admin: 05/21/17 06:38 Dose: 50 mls/hr Piperacillin Sod/Tazobactam (Sod 3.375 gm/ Sodium Chloride) 50 mls @ 100 mls/ hr IV ONETIME ONE Stop: 05/21/17 07:08 Vancomycin HCl 1,000 mg/ (Dextrose/Water) 250 mls @ 167 mls/hr IV ONETIME ONE Stop: 05/21/17 08:08 Sodium Chloride (Saline Flush) 10 ml FLUSH ASDIRECTED PRN PRN Reason: Keep Vein Open Sodium Chloride (Saline Flush) 2.5 ml FLUSH ASDIRECTED PRN PRN Reason: Keep Vein Open Labs: Laboratory Tests 05/21/17 05/21/17 05/21/17 Range/Units 06:15 06:16 06:16 WBC 12.88 H (4.0-11.0) K/uL RBC 4.00 L (4.30-5.90) M/uL Hgb 12.0 (12.0-16.0) g/dL Hct 40.1 (36.0-46.0) % MCV 100.3 H (80.0-98.0) fL MCH 30.0 (27.0-32.0) pg MCHC 29.9 L (31.0-37.0) g/dL RDW Std Deviation 57.9 (28.0-62.0) fl RDW Coeff of Morales 16 H (11.0-15.0) % Plt Count 136 L (150-400) K/uL MPV 9.30 (7.40-12.00) fL Neut % (Auto) 82.2 H (48.0-80.0) % Lymph % (Auto) 7.6 L (16.0-40.0) % Eagle % (Auto) 9.9 (0.0-15.0) % Eos % (Auto) 0.0 (0.0-7.0) % Baso % (Auto) 0.3 (0.0-1.5) % Neut # (Auto) 10.6 H (1.4-5.7) K/uL Lymph # (Auto) 1.0 (0.6-2.4) K/uL Eagle # (Auto) 1.3 H (0.0-0.8) K/uL Eos # (Auto) 0.0 (0.0-0.7) K/uL Baso # (Auto) 0.0 (0.0-0.1) K/uL Nucleated RBC % 0.5 /100WBC Nucleated RBCs # 0 K/uL ABG pH 7.423 (7.35-7.45) ABG pCO2 59 H (35-45) mmHG ABG pO2 106 H (75-100) mmHG ABG HCO3 39 H (22-26) mEq/L ABG Total CO2 35.2 ABG Base Excess 12.1 H (-2.0-2.0) Lactate 1.7 (0.20-2.00) mmol/L B-Natriuretic Peptide 1117 H (<100) PG/ML Meds: Medications Generic Name Dose Route Start Last Admin Trade Name Freq PRN Reason Stop Dose Admin Sodium Chloride 1,000 mls @ 50 mls/hr 05/21/17 06:31 05/21/17 06:38 Normal Saline IV 05/22/17 02:30 50 mls/hr STAT ONE Administration Piperacillin Sod/Tazobactam 50 mls @ 100 mls/hr 05/21/17 06:39 Sod 3.375 gm/ Sodium Chloride IV 05/21/17 07:08 ONETIME ONE Vancomycin HCl 1,000 mg/ 250 mls @ 167 mls/hr 05/21/17 06:39 Dextrose/Water IV 05/21/17 08:08 ONETIME ONE Sodium Chloride 10 ml 05/21/17 06:13 Saline Flush FLUSH ASDIRECTED PRN Keep Vein Open Sodium Chloride 2.5 ml 05/21/17 06:13 Saline Flush FLUSH ASDIRECTED PRN Keep Vein Open Discontinued Medications Generic Name Dose Route Start Last Admin Trade Name Rodo PRN Reason Stop Dose Admin Acetaminophen 1,000 mg 05/21/17 06:38 Tylenol RECTAL 05/21/17 06:39 NOW ONE Acetaminophen Confirm 05/21/17 06:40 Tylenol Administered 05/21/17 06:41 Dose 1,300 mg .ROUTE .STK-MED ONE Fentanyl Confirm 05/21/17 06:38 Sublimaze Administered 05/21/17 06:39 Dose 100 mcg .ROUTE .STK-MED ONE Sodium Chloride Confirm 05/21/17 06:42 Normal Saline Administered 05/21/17 06:43 Dose 50 mls @ as directed .ROUTE .STK-MED ONE Sodium Chloride Confirm 05/21/17 06:42 Normal Saline Administered 05/21/17 06:43 Dose 250 mls @ as directed .ROUTE .STK-MED ONE Midazolam HCl Confirm 05/21/17 06:38 Versed 1 Mg/Ml Administered 05/21/17 06:39 Dose 2 mg .ROUTE .STK-MED ONE Piperacillin Sod/Tazobactam Sod Confirm 05/21/17 06:40 Zosyn Administered 05/21/17 06:41 Dose 2.25 gm .ROUTE .STK-MED ONE Vancomycin HCl Confirm 05/21/17 06:41 Vancocin Administered 05/21/17 06:42 Dose 1 gm .ROUTE .STK-MED ONE Departure - Departure Time of Disposition: 06:51 Disposition: DC/Tfer to Acute Hospital 02 Condition: Critical Clinical Impression: Sepsis Qualifiers: Sepsis type: sepsis due to unspecified organism Qualified Code(s): A41.9 - Sepsis, unspecified organism Altered mental status Qualifiers: Altered mental status type: somnolence Qualified Code(s): R40.0 - Somnolence Fluid overload Qualifiers: Hypervolemia type: unspecified Qualified Code(s): E87.70 - Fluid overload, unspecified - Discharge Information - My Orders Last 24 Hours: My Active Orders 05/21/17 06:12 Blood Glucose Check, Bedside [RC] ONETIME Cardiac Monitoring [RC] . DIRECTED EKG Documentation Completion [RC] STAT Oxygen Therapy, ED [RC] ASDIRECTED Pulse Oximetry [RC] ASDIRECTED UA W/MICROSCOPIC [URIN] Stat Saline Lock Insert [OM.PC] Stat 05/21/17 06:13 Chest 1V Frontal [CR] Stat Sodium Chloride 0.9% [Saline Flush] 10 ml FLUSH ASDIRECTED PRN Sodium Chloride 0.9% [Saline Flush] 2.5 ml FLUSH ASDIRECTED PRN Blood Culture x2 Reflex Set [OM.PC] Stat 05/21/17 06:16 COMPREHENSIVE METABOLIC PN,CMP [CHEM] Stat CULTURE BLOOD [BC] Stat INR,PT,PROTHROMBIN TIME [COAG] Stat TROPONIN I [CHEM] Stat 05/21/17 06:23 CULTURE BLOOD [BC] Stat 05/21/17 06:31 Sodium Chloride 0.9% [Normal Saline] 1,000 ml IV STAT 05/21/17 06:32 RT BiPAP/CPAP [RC] ASDIRECTED CULTURE URINE [RM] Stat 05/21/17 06:39 Piperacillin/Tazobactam [Piperacil-Tazobact] 3.375 gm Sodium Chloride 0.9% [ Normal Saline] 50 ml IV ONETIME Vancomycin 1,000 mg Dextrose 5% in Water 250 ml IV ONETIME - Assessment/Plan Last 24 Hours: My Active Orders 05/21/17 06:12 Blood Glucose Check, Bedside [RC] ONETIME Cardiac Monitoring [RC] . DIRECTED EKG Documentation Completion [RC] STAT Oxygen Therapy, ED [RC] ASDIRECTED Pulse Oximetry [RC] ASDIRECTED UA W/MICROSCOPIC [URIN] Stat Saline Lock Insert [OM.PC] Stat 05/21/17 06:13 Chest 1V Frontal [CR] Stat Sodium Chloride 0.9% [Saline Flush] 10 ml FLUSH ASDIRECTED PRN Sodium Chloride 0.9% [Saline Flush] 2.5 ml FLUSH ASDIRECTED PRN Blood Culture x2 Reflex Set [OM.PC] Stat 05/21/17 06:16 COMPREHENSIVE METABOLIC PN,CMP [CHEM] Stat CULTURE BLOOD [BC] Stat INR,PT,PROTHROMBIN TIME [COAG] Stat TROPONIN I [CHEM] Stat 05/21/17 06:23 CULTURE BLOOD [BC] Stat 05/21/17 06:31 Sodium Chloride 0.9% [Normal Saline] 1,000 ml IV STAT 05/21/17 06:32 RT BiPAP/CPAP [RC] ASDIRECTED CULTURE URINE [RM] Stat 05/21/17 06:39 Piperacillin/Tazobactam [Piperacil-Tazobact] 3.375 gm Sodium Chloride 0.9% [ Normal Saline] 50 ml IV ONETIME Vancomycin 1,000 mg Dextrose 5% in Water 250 ml IV ONETIME
[2017-05-21] MEDS ORDERED: Etomidate 2 MG/ML 20 ML SDV IVPUSH ONE (06:30)
[2017-05-21] MEDS ORDERED: Succinylcholine 200 MG/10 ML MDV ONE (06:30)
[2017-05-21] MEDS ORDERED: Rocuronium 50 MG/5 ML Vial ONE (06:30)
[2017-05-21] MEDS ORDERED: Sodium Chloride 0.9% 1,000 ML IV ONE ×2 (06:31→06:45)
[2017-05-21] MEDS ORDERED: fentaNYL 100 MCG/2 ML SDV ONE (06:38)
[2017-05-21] MEDS ORDERED: Midazolam 1 MG/ML 2 ML SDV ONE (06:38)
[2017-05-21] MEDS ORDERED: Acetaminophen 650 MG Supp RECTAL ONE (06:38)
[2017-05-21] MEDS ORDERED: Piperacillin/Tazobactam 3.375 GM in Sodium Chloride 0.9% 50 ML IV ONE (06:39)
[2017-05-21] MEDS ORDERED: Acetaminophen 650 MG Supp ONE (06:40)
[2017-05-21] MEDS ORDERED: Vancomycin 1 GM AdvVial ONE (06:41)
[2017-05-21] MEDS ORDERED: Sodium Chloride 0.9% 50 ML ONE (06:42)
[2017-05-21] MEDS ORDERED: Sodium Chloride 0.9% 250 ML ONE (06:42)
[2017-05-21 06:55] LABS: CHLORIDE,CL 97 mmol/L (98-110); SODIUM,NA 142 mmol/L (136-146)
--- NOTE | 2017-05-21 07:21 | PCM.SN ---
- Free Text/Narrative Note: Notified by Dr Andres of patient in need of intubation. On arrival pt only responds to deep noxious stimuli. Pt does not follow commands. VS HR 155 ST, RR 18, SpO2 94% on NRB 15 LPM, BP 155/84. Temp 102.6 RSI performed using the following: Etomidate 30mg IVP Rocuronium 10mg IVP Succinylcholine 160mg IVP DL with Freire 2 yields Grade II view with copious redundant tissue noted, 7.0 ETT cuffed was placed at 22cm at the lips. +BBS, + EtCO2. VSS throughout intubation. CXR pending. Versed 2mg IV and Fentanyl 50mcg IV were given at the end of intubation for continued sedation. Post Intubation VS HR 152 RR - 20 Controlled (EtCO2 40) BP - 114/78 SpO2 - 99%, FiO2 100% Vent Settings TV - 550 R - 18 P - 5 FiO2 - 100% Flight team currently at the bedside for report.
[2017-05-21 08:29] VITALS: BP 120/83
--- NOTE | 2017-05-21 09:57 | CR ---
EXAM DATE: 05/21/17 PATIENT'S AGE: 61 Patient: VALERIA KC Facility: [place], [place] Site . Site : 1955 Study: XRay Chest [id number]/7/2018 6:35:37 AM Ordering Physician: Mckenna Batista Final Report: INDICATION: Shortness of breath TECHNIQUE: Chest 1 views COMPARISON: 01/27/2017 FINDINGS: Cardiovascular and mediastinum: Persistent cardiomegaly. There is diffuse pulmonary venous congestion. Lungs and pleural spaces: The left hemithorax is mostly opacified. No focal infiltrate in the right lung. No pneumothorax. Bones and soft tissues: No significant findings. IMPRESSION: Cardiomegaly with diffuse pulmonary vascular congestion consistent with CHF. Persistent near complete opacification of the left hemithorax which may be secondary to a pleural effusion, infiltrate and/or atelectasis. Findings are not significantly changed from the prior exam. Dictated by Augusto Tim MD @ 05/21/2017 6:48:00 AM Dictated by: Augusto Tim MD @ 05/21/2017 06:48:04 (Electronic Signature) Report Signed by Proxy. DOE
--- NOTE | 2017-05-21 09:58 | CR ---
EXAM DATE: 05/21/17 PATIENT'S AGE: 61 Patient: VALERIA KC Facility: [place], [place] Site . Site : 1955 Study: XRay Chest [id number]/7/2018 7:13:10 AM Ordering Physician: Mckenna Batista Final Report: Indication: Intubation Technique: Chest 1 view Comparison: May 21, 2017 Findings/Impression: Cardiovascular and mediastinum: Endotracheal tube is 4 cm above the franchesca. Stable cardiomegaly. Lungs and pleural space: Stable interstitial edema. Possible left-sided pleural effusion. No pneumothorax. No significant change from the earlier exam. Bones and soft tissues: No acute findings. Dictated by Augusto Tim MD @ 05/21/2017 7:46:53 AM Dictated by: Augusto Tim MD @ 05/21/2017 07:47:01 (Electronic Signature) Report Signed by Proxy. [employer]
== END 2017-05-21 08:05 ==
LOC: MW.ED 06:05
DX: A41.9 Sepsis, unspecified organism (principal); R40.0 Somnolence; E87.70 Fluid overload, unspecified; J44.9 Chronic obstructive pulmonary disease, unspecified; I11.0 Hypertensive heart disease with heart failure; I50.9 Heart failure, unspecified; F17.210 Nicotine dependence, cigarettes, uncomplicated; Z88.1 Allergy status to other antibiotic agents; Z91.040 Latex allergy status; Z88.6 Allergy status to analgesic agent; Z88.5 Allergy status to narcotic agent; Z88.8 Allergy status to other drugs, medicaments and biological substances; Z79.899 Other long term (current) drug therapy
CPT/HCPCS: 36415; 36600; 71045; 80053; 81001; 82803; 82962; 83605; 83880; 84484; 85025; 85610; 87040; 87086; 93005; 96360; 96365; 99291; 99292; J0330; J3370; J7040; J7060; 31500; 87088; 87186

== ENCOUNTER 2017-07-07 22:33 | Inpatient (IN) | payer OTHER, BC, MEDICARE ==
[2017-07-07] MEDS ORDERED: Diltiazem 25 MG/5 ML SDV IVPUSH ONE (23:19)
[2017-07-07 23:23] LABS: CHLORIDE,CL 97 mmol/L (98-107); SODIUM,NA 141 mmol/L (136-145)
--- NOTE | 2017-07-07 23:23 | EDM.PDOC ---
ED HPI GENERAL MEDICAL PROBLEM - General Chief Complaint: Respiratory Problem Stated Complaint: RESPIRATORY Time Seen by Provider: 07/07/17 23:15 - History of Present Illness INITIAL COMMENTS - FREE TEXT/NARRATIVE: HISTORY AND PHYSICAL: History of present illness: Patient is 61-year-old white female extensive past medical history presents with shortness of breath she on home O2 at 3 L per nasal cannula and presents with shortness of breath she states worse over last week she denies chest pain nausea vomiting fever chills or other concern. Review of systems: As per history of present illness and below otherwise all systems reviewed and negative. Past medical history: As per history of present illness and as reviewed below otherwise noncontributory. Surgical history: As per history of present illness and as reviewed below otherwise noncontributory. Social history: No reported history of drug or alcohol abuse. Family history: As per history of present illness and as reviewed below otherwise noncontributory. Physical exam: HEENT: Atraumatic, normocephalic, pupils reactive, negative for conjunctival pallor or scleral icterus, mucous membranes moist, throat clear, neck supple, nontender, trachea midline. Lungs: Coarse bilateral, breath sounds equal bilaterally, chest nontender. Heart: S1S2, irregular, negative for clicks, rubs, or JVD. Abdomen: Soft, nondistended, nontender. Negative for masses or hepatosplenomegaly. Negative for costovertebral tenderness. Pelvis: Stable nontender. Genitourinary: Deferred. Rectal: Deferred. Extremities: Rubor chronic stasis changes noted neurovascular exam unremarkable Neuro: Awake follows commands and moves all extremities somewhat somnolent limited but grossly nonfocal exam Diagnostics: CBC CMP troponin PT/INR chest x-ray EKG ABG Therapeutics: IV O2 monitor Impression: #1 dyspnea Definitive disposition and diagnosis as appropriate pending reevaluation and review of above. Chest Pain Score (Numeric/FACES): 8 Both legs Pain Score (Numeric/FACES): 8 - Related Data Allergies Allergy/AdvReac Type Severity Reaction Status Date / Time amlodipine besylate Allergy Headache Verified 07/07/17 22:50 [From [facility]] doxepin Allergy unknown Verified 07/07/17 22:50 doxycycline Allergy unknown Verified 07/07/17 22:50 hydromorphone Allergy unknown Verified 07/07/17 22:50 ketorolac Allergy Itching Verified 07/07/17 22:50 latex Allergy unknown Verified 07/07/17 22:50 milnacipran HCl Allergy Headache Verified 07/07/17 22:50 [From [facility]] aspirin AdvReac Abdominal Verified 07/07/17 22:50 Pain Home Meds: Home Meds Pioglitazone [Actos] 30 mg PO DAILY 03/28/15 [History] levETIRAcetam [Keppra] 1,000 mg PO BID 03/28/15 [History] Pantoprazole [ProTONIX] 40 mg PO ACBREAKFAST 09/14/15 [History] Calcium Carbonate/Vitamin D3 [Calcium 500 + Vit D 400] 1 each PO BID 07/11/16 [ History] Divalproex Sodium 250 mg PO TIDMEALS 07/11/16 [History] Gabapentin [Neurontin] 600 mg PO TID 07/11/16 [History] atorvaSTATin [Lipitor] 20 mg PO DAILY 07/11/16 [History] Ferrous Sulfate 325 mg PO BID 12/30/16 [History] Hydrocodone/Acetaminophen [[place] 5-325] 1 tab PO Q4HR PRN 12/30/16 [History] Nitrofurantoin 100 gm MC BID #20 powder 12/30/16 [Rx] glipiZIDE [Glucotrol XL] 2.5 mg PO DAILY 12/30/16 [History] Albuterol [IJD: Albuterol] 1 inh INH Q4H PRN 01/03/17 [History] Ascorbic Acid 1 tab PO DAILY 01/03/17 [History] Budesonide [Pulmicort] 1 inh INH BID 01/03/17 [History] Docusate Sodium [Colace] 200 mg PO ASDIRECTED 01/03/17 [History] Insulin Lispro [Humalog Kwikpen U-100] 0 unit SUBCUT ASDIRECTED 01/03/17 [ History] Lactobacillus Acidophilus [Acidophilus Lactobacillus] 1 cap PO BID 01/03/17 [ History] Levalbuterol HCl [Xopenex] 1 inh INH Q4H PRN 01/03/17 [History] Nitroglycerin [Nitrostat] 1 tab SL ASDIRECTED PRN 01/03/17 [History] Nicotine [Habitrol] 14 mg TRDERM Q24H #30 patch 01/06/17 [Rx] Nystatin [Nystop] 100,000 units TOP TID #1 bottle 01/06/17 [Rx] Past Medical History - Past Health History Medical/Surgical History: Denies Medical/Surgical History HEENT History: Reports: Glaucoma Cardiovascular History: Reports: Heart Failure, Hypertension Other Cardiovascular History: CHF Respiratory History: Reports: COPD, Interstitial Lung Disease, Pulmonary Fibrosis, Other (See Below) Other Respiratory History: DIPF,. home O2 dependent at 3L Gastrointestinal History: Reports: Gastritis Genitourinary History: Reports: Other (See Below) Other Genitourinary History: only has left kidney [employer] History: Reports: Musculoskeletal History: Reports: Fibromyalgia, Osteoporosis Neurological History: Reports: Neuropathy, Diabetic, Neuropathy, Peripheral, Seizure Psychiatric History: Reports: Anxiety, Depression Endocrine/Metabolic History: Reports: Diabetes, Type II, Obesity/BMI 30+, Osteoporosis Hematologic History: Reports: Anemia, Blood Transfusion(s) Immunologic History: Reports: None Oncologic (Cancer) History: Reports: Renal, Other (See Below) Other Oncologic History: mets to liver treated without recurrence. Dermatologic History: Reports: None - Infectious Disease History Infectious Disease History: Reports: Chicken Pox, Measles Other Infectious Disease History: Not sure - Past Surgical History GI Surgical History: Reports: EGD, Other (See Below) Musculoskeletal Surgical History: Reports: Other (See Below) Social & Family History - Family History Family Medical History: Noncontributory - Tobacco Use Smoking Status *Q: Never Smoker Years of Tobacco use: 40 Packs/Tins Daily: 0.1 Used Tobacco, but Quit: Yes Month/Year Tobacco Last Used: Feb 2015 Second Hand Smoke Exposure: No - Caffeine Use Caffeine Use: Reports: Soda - Recreational Drug Use Recreational Drug Use: No ED ROS GENERAL - Review of Systems Review Of Systems: ROS reveals no pertinent complaints other than HPI. ED EXAM, GENERAL - Physical Exam Exam: See Below (The dictation) Course - Vital Signs Last Recorded V/S: Last Vital Signs Temp 36.2 C 07/07/17 22:33 Pulse 144 H 07/07/17 23:29 Resp 22 H 07/07/17 23:29 BP 118/85 07/07/17 23:29 Pulse Ox 93 L 07/07/17 23:29 - Orders/Labs/Meds Orders: Active Orders 24 hr Category Date Time Status EKG 12 Lead [EKG Documentation Completion] [RC] STAT Care 07/07/17 22:53 Active EKG 12 Lead [EKG Documentation Completion] [RC] STAT Care 07/07/17 23:33 Active Chest 1V Frontal [CR] Stat Exams 07/07/17 22:42 Taken Sodium Chloride 0.9% [Normal Saline] 1,000 ml Med 07/07/17 23:45 Active IV ASDIRECTED Medication Orders Sodium Chloride (Normal Saline) 1,000 mls @ 50 mls/hr IV ASDIRECTED QUINN Labs: Laboratory Tests 07/07/17 07/07/17 07/07/17 Range/Units 22:43 22:43 22:43 WBC 8.39 (4.0-11.0) K/uL RBC 3.85 L (4.30-5.90) M/uL Hgb 11.7 L (12.0-16.0) g/dL Hct 39.3 (36.0-46.0) % MCV 102.1 H (80.0-98.0) fL MCH 30.4 (27.0-32.0) pg MCHC 29.8 L (31.0-37.0) g/dL RDW Std Deviation 72.1 H (28.0-62.0) fl RDW Coeff of Morales 20 H (11.0-15.0) % Plt Count 127 L (150-400) K/uL MPV 9.00 (7.40-12.00) fL Neut % (Auto) 69.2 (48.0-80.0) % Lymph % (Auto) 19.2 (16.0-40.0) % Dolores % (Auto) 9.8 (0.0-15.0) % Eos % (Auto) 0.8 (0.0-7.0) % Baso % (Auto) 1.0 (0.0-1.5) % Neut # (Auto) 5.8 H (1.4-5.7) K/uL Lymph # (Auto) 1.6 (0.6-2.4) K/uL Dolores # (Auto) 0.8 (0.0-0.8) K/uL Eos # (Auto) 0.1 (0.0-0.7) K/uL Baso # (Auto) 0.1 (0.0-0.1) K/uL Nucleated RBC % 0.6 /100WBC Nucleated RBCs # 0 K/uL INR 1.46 ABG pH (7.35-7.45) ABG pCO2 (35-45) mmHG ABG pO2 (75-100) mmHG ABG HCO3 (22-26) mEq/L ABG Total CO2 ABG Base Excess (-2.0-2.0) Sodium 141 (136-145) mmol/L Potassium 3.6 (3.5-5.1) mmol/L Chloride 97 L (98-107) mmol/L Carbon Dioxide 40.1 H (21.0-32.0) mmol/L BUN 28 H (7.0-18.0) mg/dL Creatinine 1.5 H (0.6-1.0) mg/dL Est Cr Clr Drug Dosing TNP Estimated GFR (MDRD) 35.5 ml/min Glucose 61 L (74-106) mg/dL Calcium 9.3 (8.5-10.1) mg/dL Total Bilirubin 1.8 H (0.2-1.0) mg/dL AST 716 H (15-37) IU/L ALT 429 H (14-63) IU/L Alkaline Phosphatase 76 (46-116) U/L CK-MB (CK-2) 0.6 (0-3.6) ng/mL Troponin I < 0.050 (0.000-0.056) ng/mL B-Natriuretic Peptide (<100) PG/ML Total Protein 7.1 (6.4-8.2) g/dL Albumin 2.9 L (3.4-5.0) g/dL Globulin 7.1 H (2.0-3.5) g/dL Albumin/Globulin Ratio 0.0 L (1.3-2.8) 07/07/17 07/07/17 Range/Units 22:43 23:30 WBC (4.0-11.0) K/uL RBC (4.30-5.90) M/uL Hgb (12.0-16.0) g/dL Hct (36.0-46.0) % MCV (80.0-98.0) fL MCH (27.0-32.0) pg MCHC (31.0-37.0) g/dL RDW Std Deviation (28.0-62.0) fl RDW Coeff of Morales (11.0-15.0) % Plt Count (150-400) K/uL MPV (7.40-12.00) fL Neut % (Auto) (48.0-80.0) % Lymph % (Auto) (16.0-40.0) % Dolores % (Auto) (0.0-15.0) % Eos % (Auto) (0.0-7.0) % Baso % (Auto) (0.0-1.5) % Neut # (Auto) (1.4-5.7) K/uL Lymph # (Auto) (0.6-2.4) K/uL Dolores # (Auto) (0.0-0.8) K/uL Eos # (Auto) (0.0-0.7) K/uL Baso # (Auto) (0.0-0.1) K/uL Nucleated RBC % /100WBC Nucleated RBCs # K/uL INR ABG pH 7.446 (7.35-7.45) ABG pCO2 65 H (35-45) mmHG ABG pO2 68 L (75-100) mmHG ABG HCO3 45 H (22-26) mEq/L ABG Total CO2 41.0 ABG Base Excess 17.8 H (-2.0-2.0) Sodium (136-145) mmol/L Potassium (3.5-5.1) mmol/L Chloride (98-107) mmol/L Carbon Dioxide (21.0-32.0) mmol/L BUN (7.0-18.0) mg/dL Creatinine (0.6-1.0) mg/dL Est Cr Clr Drug Dosing Estimated GFR (MDRD) ml/min Glucose (74-106) mg/dL Calcium (8.5-10.1) mg/dL Total Bilirubin (0.2-1.0) mg/dL AST (15-37) IU/L ALT (14-63) IU/L Alkaline Phosphatase (46-116) U/L CK-MB (CK-2) (0-3.6) ng/mL Troponin I (0.000-0.056) ng/mL B-Natriuretic Peptide 917 H (<100) PG/ML Total Protein (6.4-8.2) g/dL Albumin (3.4-5.0) g/dL Globulin (2.0-3.5) g/dL Albumin/Globulin Ratio (1.3-2.8) Meds: Medications Generic Name Dose Route Start Last Admin Trade Name Freq PRN Reason Stop Dose Admin Sodium Chloride 1,000 mls @ 50 mls/hr 07/07/17 23:45 Normal Saline IV ASDIRECTED QUINN Discontinued Medications Generic Name Dose Route Start Last Admin Trade Name Freq PRN Reason Stop Dose Admin Diltiazem HCl 20 mg 07/07/17 23:19 Diltiazem IVPUSH 07/07/17 23:20 ONETIME ONE Furosemide 20 mg 07/07/17 23:42 Lasix IVPUSH 07/07/17 23:43 ONETIME ONE Departure - Departure Time of Disposition: 23:45 Disposition: Home, Self-Care 01 Condition: Good Clinical Impression: Atrial fibrillation Dyspnea Qualifiers: Dyspnea type: shortness of breath Qualified Code(s): R06.02 - Shortness of breath Congestive heart failure (CHF) Qualifiers: Qualified Code(s): I50.30 - Unspecified diastolic (congestive) heart failure - Discharge Information Forms: ED Department Discharge - My Orders Last 24 Hours: My Active Orders 07/07/17 22:42 Chest 1V Frontal [CR] Stat 07/07/17 22:53 EKG 12 Lead [EKG Documentation Completion] [RC] STAT 07/07/17 23:33 EKG 12 Lead [EKG Documentation Completion] [RC] STAT 07/07/17 23:45 Sodium Chloride 0.9% [Normal Saline] 1,000 ml IV ASDIRECTED - Assessment/Plan Last 24 Hours: My Active Orders 07/07/17 22:42 Chest 1V Frontal [CR] Stat 07/07/17 22:53 EKG 12 Lead [EKG Documentation Completion] [RC] STAT 07/07/17 23:33 EKG 12 Lead [EKG Documentation Completion] [RC] STAT 07/07/17 23:45 Sodium Chloride 0.9% [Normal Saline] 1,000 ml IV ASDIRECTED
[2017-07-07] MEDS ORDERED: Furosemide 20 MG/2 ML VIAL IVPUSH ONE (23:42)
[2017-07-07] MEDS ORDERED: Furosemide 40 MG/4 ML VIAL IVPUSH ONE (23:45)
[2017-07-07] MEDS ORDERED: Sodium Chloride 0.9% 1,000 ML IV SCH (23:45)
[2017-07-08] MEDS: Diltiazem 25 MG/5 ML SDV IVPUSH PRN (01:09)
[2017-07-08] MEDS: levETIRAcetam 500 MG Tab PO SCH ×4 (02:21→18:03)
[2017-07-08] MEDS: Pantoprazole 40 MG Tab.CR PO SCH (07:00)
[2017-07-08] MEDS: Insulin Aspart 100 Units/ML 3 ML Pen SUBCUT SCH ×3 (07:30→17:53)
[2017-07-08] MEDS: Divalproex Sodium Delayed-Release 250 MG Tab.CR PO SCH ×3 (08:30→18:03)
[2017-07-08] MEDS: atorvaSTATin 10 MG Tab PO SCH (09:00)
[2017-07-08] MEDS: Albuterol/Ipratropium 3.0-0.5 MG/3 ML Neb Soln NEB SCH ×3 (09:53→19:20)
--- NOTE | 2017-07-08 10:34 | CR ---
EXAM DATE: 07/07/17 PATIENT'S AGE: 61 Patient: VALERIA KC Facility: [place], [place] Site . Site : 1955 Study: XRay Chest [id number]/26/[id number] 10:59:53 PM Ordering Physician: Doctor Brewer Final Report: HISTORY: Shortness of breath. FINDINGS: AP portable chest radiograph is compared with 21 May 2017. Patient is rotated to the left. Cardiac silhouette is at upper limits of normal. There is silhouetting of the left hemidiaphragm. There are persistent increased interstitial markings. Linear density in the medial right base. Lateral costophrenic angle sharp. IMPRESSION: 1. Silhouetting of the left hemidiaphragm. This may represent left lower lobe infiltrate, atelectasis and/or pleural effusion. 2. Small linear atelectasis medial right base. Dictated by Adelaide Lindquist MD @ 07/07/2017 11:05:52 PM Dictated by: Adelaide Lindquist MD @ 07/07/2017 23:06:02 (Electronic Signature) Report Signed by Proxy. DOE
[2017-07-08] MEDS ORDERED: Levofloxacin/Dextrose 5%-Water 750 MG in Premix Bag 1 BAG IV ONE (10:50)
[2017-07-08] MEDS ORDERED: AMIKACIN 1000 MG/4 ML IV SCH (11:00)
[2017-07-08] MEDS ORDERED: Morphine 4 MG/ML Syringe IVPUSH ONE (11:04)
[2017-07-08] MEDS ORDERED: Alum Hydrox/Mag Hydrox/Simeth 15 ML, Lidocaine 2% 5 ML PO ONE ×2 (11:04)
[2017-07-08] MEDS: Nystatin Topical Powder 15 GM Bottle TOP SCH ×3 (11:41→21:18)
--- NOTE | 2017-07-08 11:55 | PCM.HP ---
H&P History of Present Illness - General Date of Service: 07/08/17 Admit Problem/Dx: Admission Diagnosis/Problem Admission Diagnosis/Problem Atrial fibrillation - History of Present Illness Initial Comments - Free Text/Narative: Patient was admitted secondary to dyspnea and respiratory distress due to right lower lobe pneumonia that was seen on imaging, as well as likely acute COPD exacerbation. Patient states that she is having chills, feels tremulous, and felt unwell and that is why she was brought in. Patient is on 3 L at home nasal cannula visit her symptoms have gotten worse over the past week. Patient has an extensive and complicated past medical history. Chest Pain Score (Numeric/FACES): 8 Both legs Pain Score (Numeric/FACES): 8 - Related Data Allergies/Adverse Reactions: Allergies Allergy/AdvReac Type Severity Reaction Status Date / Time latex Allergy unknown Verified 07/07/17 22:50 Home Medications: Home Meds Pioglitazone [Actos] 30 mg PO DAILY 03/28/15 [History] levETIRAcetam [Keppra] 500 mg PO QID 03/28/15 [History] Pantoprazole [ProTONIX] 40 mg PO ACBREAKFAST 09/14/15 [History] Calcium Carbonate/Vitamin D3 [Calcium 500 + Vit D 400] 1 each PO BID 07/11/16 [ History] Divalproex Sodium 250 mg PO TIDMEALS 07/11/16 [History] Gabapentin [Neurontin] 600 mg PO TID 07/11/16 [History] atorvaSTATin [Lipitor] 20 mg PO DAILY 07/11/16 [History] Ferrous Sulfate 325 mg PO BID 12/30/16 [History] Hydrocodone/Acetaminophen [[place] 5-325] 1 tab PO Q4HR PRN 12/30/16 [History] glipiZIDE [Glucotrol XL] 2.5 mg PO DAILY 12/30/16 [History] Albuterol [IJD: Albuterol] 1 inh INH Q4H PRN 01/03/17 [History] Ascorbic Acid 1 tab PO DAILY 01/03/17 [History] Budesonide [Pulmicort] 1 inh INH BID 01/03/17 [History] Docusate Sodium [Colace] 200 mg PO ASDIRECTED PRN 01/03/17 [History] Insulin Lispro [Humalog Kwikpen U-100] 0 unit SUBCUT ASDIRECTED 01/03/17 [ History] Lactobacillus Acidophilus [Acidophilus Lactobacillus] 1 cap PO BID 01/03/17 [ History] Nitroglycerin [Nitrostat] 1 tab SL ASDIRECTED PRN 01/03/17 [History] Nystatin [Nystop] 100,000 units TOP TID #1 bottle 01/06/17 [Rx] Aspirin 81 mg PO DAILY 07/08/17 [History] Past Medical History - Past Health History Medical/Surgical History: Denies Medical/Surgical History HEENT History: Reports: Glaucoma Cardiovascular History: Reports: Heart Failure, Hypertension Other Cardiovascular History: CHF Respiratory History: Reports: COPD, Interstitial Lung Disease, Pulmonary Fibrosis, Other (See Below) Other Respiratory History: DIPF,. home O2 dependent at 3L Gastrointestinal History: Reports: Gastritis Genitourinary History: Reports: Other (See Below) Other Genitourinary History: only has left kidney, renal CA [employer] B [employer] History: Reports: Musculoskeletal History: Reports: Fibromyalgia, Osteoporosis Neurological History: Reports: Neuropathy, Diabetic, Neuropathy, Peripheral, Seizure Psychiatric History: Reports: Anxiety, Depression Endocrine/Metabolic History: Reports: Diabetes, Type II, Obesity/BMI 30+, Osteoporosis Hematologic History: Reports: Anemia, Blood Transfusion(s) Immunologic History: Reports: None Oncologic (Cancer) History: Reports: Renal, Other (See Below) Other Oncologic History: mets to liver Dermatologic History: Reports: None - Infectious Disease History Infectious Disease History: Reports: Chicken Pox, Measles Other Infectious Disease History: Not sure - Past Surgical History Respiratory Surgical History: Reports: Lung Biopsies GI Surgical History: Reports: EGD, Other (See Below) Musculoskeletal Surgical History: Reports: Other (See Below) Social & Family History - Family History Family Medical History: Noncontributory - Tobacco Use Smoking Status *Q: Former Smoker Years of Tobacco use: 40 Packs/Tins Daily: 0.1 Used Tobacco, but Quit: Yes Month/Year Tobacco Last Used: 4 years ago Second Hand Smoke Exposure: No - Caffeine Use Caffeine Use: Reports: Soda - Recreational Drug Use Recreational Drug Use: No H&P Review of Systems - Review of Systems: Review Of Systems: ROS reveals no pertinent complaints other than HPI. Exam - Exam Exam: See Below - Vital Signs Vital Signs: Last Vital Signs Temp 36.1 C 07/08/17 08:00 Pulse 97 07/08/17 08:00 Resp 16 07/08/17 08:00 BP 108/70 07/08/17 08:00 Pulse Ox 93 L 07/08/17 08:00 Weight: 128.82 kg - Exam Quality Assessment: Supplemental Oxygen General: Alert, Oriented, Mild Distress Lungs: Decreased Breath Sounds Cardiovascular: Regular Rate GI/Abdominal Exam: Tender Extremities: Normal Inspection, Non-Tender Skin: Other (She does have multiple petechiae/ecchymosis throughout her upper arms, and multiple wounds on her bilateral legs.) - Patient Data Lab Results Last 24 hrs: Laboratory Results - last 24 hr 07/07/17 07/07/17 07/07/17 Range/Units 22:43 22:43 22:43 WBC 8.39 (4.0-11.0) K/uL RBC 3.85 L (4.30-5.90) M/uL Hgb 11.7 L (12.0-16.0) g/dL Hct 39.3 (36.0-46.0) % MCV 102.1 H (80.0-98.0) fL MCH 30.4 (27.0-32.0) pg MCHC 29.8 L (31.0-37.0) g/dL RDW Std Deviation 72.1 H (28.0-62.0) fl RDW Coeff of Morales 20 H (11.0-15.0) % Plt Count 127 L (150-400) K/uL MPV 9.00 (7.40-12.00) fL Neut % (Auto) 69.2 (48.0-80.0) % Lymph % (Auto) 19.2 (16.0-40.0) % [place] % (Auto) 9.8 (0.0-15.0) % Eos % (Auto) 0.8 (0.0-7.0) % Baso % (Auto) 1.0 (0.0-1.5) % Neut # (Auto) 5.8 H (1.4-5.7) K/uL Lymph # (Auto) 1.6 (0.6-2.4) K/uL [place] # (Auto) 0.8 (0.0-0.8) K/uL Eos # (Auto) 0.1 (0.0-0.7) K/uL Baso # (Auto) 0.1 (0.0-0.1) K/uL Nucleated RBC % 0.6 /100WBC Nucleated RBCs # 0 K/uL INR 1.46 ABG pH (7.35-7.45) ABG pCO2 (35-45) mmHG ABG pO2 (75-100) mmHG ABG HCO3 (22-26) mEq/L ABG Total CO2 ABG Base Excess (-2.0-2.0) Sodium 141 (136-145) mmol/L Potassium 3.6 (3.5-5.1) mmol/L Chloride 97 L (98-107) mmol/L Carbon Dioxide 40.1 H (21.0-32.0) mmol/L BUN 28 H (7.0-18.0) mg/dL Creatinine 1.5 H (0.6-1.0) mg/dL Est Cr Clr Drug Dosing TNP Estimated GFR (MDRD) 35.5 ml/min Glucose 61 L (74-106) mg/dL POC Glucose (60-110) mg/dL Calcium 9.3 (8.5-10.1) mg/dL Total Bilirubin 1.8 H (0.2-1.0) mg/dL AST 716 H (15-37) IU/L ALT 429 H (14-63) IU/L Alkaline Phosphatase 76 (46-116) U/L CK-MB (CK-2) 0.6 (0-3.6) ng/mL Troponin I < 0.050 (0.000-0.056) ng/mL B-Natriuretic Peptide (<100) PG/ML Total Protein 7.1 (6.4-8.2) g/dL Albumin 2.9 L (3.4-5.0) g/dL Globulin 7.1 H (2.0-3.5) g/dL Albumin/Globulin Ratio 0.0 L (1.3-2.8) 07/07/17 07/07/17 07/08/17 Range/Units 22:43 23:30 01:50 WBC (4.0-11.0) K/uL RBC (4.30-5.90) M/uL Hgb (12.0-16.0) g/dL Hct (36.0-46.0) % MCV (80.0-98.0) fL MCH (27.0-32.0) pg MCHC (31.0-37.0) g/dL RDW Std Deviation (28.0-62.0) fl RDW Coeff of Morales (11.0-15.0) % Plt Count (150-400) K/uL MPV (7.40-12.00) fL Neut % (Auto) (48.0-80.0) % Lymph % (Auto) (16.0-40.0) % [place] % (Auto) (0.0-15.0) % Eos % (Auto) (0.0-7.0) % Baso % (Auto) (0.0-1.5) % Neut # (Auto) (1.4-5.7) K/uL Lymph # (Auto) (0.6-2.4) K/uL [place] # (Auto) (0.0-0.8) K/uL Eos # (Auto) (0.0-0.7) K/uL Baso # (Auto) (0.0-0.1) K/uL Nucleated RBC % /100WBC Nucleated RBCs # K/uL INR ABG pH 7.446 (7.35-7.45) ABG pCO2 65 H (35-45) mmHG ABG pO2 68 L (75-100) mmHG ABG HCO3 45 H (22-26) mEq/L ABG Total CO2 41.0 ABG Base Excess 17.8 H (-2.0-2.0) Sodium (136-145) mmol/L Potassium (3.5-5.1) mmol/L Chloride (98-107) mmol/L Carbon Dioxide (21.0-32.0) mmol/L BUN (7.0-18.0) mg/dL Creatinine (0.6-1.0) mg/dL Est Cr Clr Drug Dosing Estimated GFR (MDRD) ml/min Glucose (74-106) mg/dL POC Glucose 90 (60-110) mg/dL Calcium (8.5-10.1) mg/dL Total Bilirubin (0.2-1.0) mg/dL AST (15-37) IU/L ALT (14-63) IU/L Alkaline Phosphatase (46-116) U/L CK-MB (CK-2) (0-3.6) ng/mL Troponin I (0.000-0.056) ng/mL B-Natriuretic Peptide 917 H (<100) PG/ML Total Protein (6.4-8.2) g/dL Albumin (3.4-5.0) g/dL Globulin (2.0-3.5) g/dL Albumin/Globulin Ratio (1.3-2.8) 07/08/17 Range/Units 05:02 WBC 8.50 (4.0-11.0) K/uL RBC 3.91 L (4.30-5.90) M/uL Hgb 11.8 L (12.0-16.0) g/dL Hct 40.7 (36.0-46.0) % MCV 104.1 H (80.0-98.0) fL MCH 30.2 (27.0-32.0) pg MCHC 29.0 L (31.0-37.0) g/dL RDW Std Deviation 73.8 H (28.0-62.0) fl RDW Coeff of Morales 20 H (11.0-15.0) % Plt Count 144 L (150-400) K/uL MPV 9.20 (7.40-12.00) fL Neut % (Auto) 64.5 (48.0-80.0) % Lymph % (Auto) 22.9 (16.0-40.0) % [place] % (Auto) 10.7 (0.0-15.0) % Eos % (Auto) 0.8 (0.0-7.0) % Baso % (Auto) 1.1 (0.0-1.5) % Neut # (Auto) 5.5 (1.4-5.7) K/uL Lymph # (Auto) 2.0 (0.6-2.4) K/uL [place] # (Auto) 0.9 H (0.0-0.8) K/uL Eos # (Auto) 0.1 (0.0-0.7) K/uL Baso # (Auto) 0.1 (0.0-0.1) K/uL Nucleated RBC % 0.6 /100WBC Nucleated RBCs # 0 K/uL INR ABG pH (7.35-7.45) ABG pCO2 (35-45) mmHG ABG pO2 (75-100) mmHG ABG HCO3 (22-26) mEq/L ABG Total CO2 ABG Base Excess (-2.0-2.0) Sodium (136-145) mmol/L Potassium (3.5-5.1) mmol/L Chloride (98-107) mmol/L Carbon Dioxide (21.0-32.0) mmol/L BUN (7.0-18.0) mg/dL Creatinine (0.6-1.0) mg/dL Est Cr Clr Drug Dosing Estimated GFR (MDRD) ml/min Glucose (74-106) mg/dL POC Glucose (60-110) mg/dL Calcium (8.5-10.1) mg/dL Total Bilirubin (0.2-1.0) mg/dL AST (15-37) IU/L ALT (14-63) IU/L Alkaline Phosphatase (46-116) U/L CK-MB (CK-2) (0-3.6) ng/mL Troponin I (0.000-0.056) ng/mL B-Natriuretic Peptide (<100) PG/ML Total Protein (6.4-8.2) g/dL Albumin (3.4-5.0) g/dL Globulin (2.0-3.5) g/dL Albumin/Globulin Ratio (1.3-2.8) Result Diagrams: 07/08/17 05:02 07/08/17 05:02 Problem List Initiated/Reviewed/Updated: Yes Orders Last 24hrs: Active Orders 24 hr Category Date Time Status Patient Status [ADT] Stat ADT 07/07/17 23:46 Active Blood Glucose Check, Bedside [RC] TIDAC Care 07/08/17 07:30 Active EKG 12 Lead [EKG Documentation Completion] [RC] STAT Care 07/07/17 22:53 Active EKG 12 Lead [EKG Documentation Completion] [RC] STAT Care 07/07/17 23:33 Active EKG Documentation Completion [RC] STAT Care 07/08/17 11:04 Active RT Aerosol Therapy [RC] ASDIRECTED Care 07/08/17 01:24 Active Telemetry Monitoring [Cardiac Monitoring] [RC] . Care 07/08/17 00:03 Active DIRECTED Heart Healthy Diet [DIET] Diet 07/08/17 Breakfast Active BASIC METABOLIC PANEL,BMP [CHEM] Routine Lab 07/08/17 05:02 Received CULTURE SPUTUM + SMEAR [RM] Routine Lab 07/08/17 10:47 Ordered MAGNESIUM [CHEM] Routine Lab 07/08/17 11:21 Received TROPONIN I [CHEM] Stat Lab 07/08/17 11:21 Received UA W/MICROSCOPIC [URIN] Routine Lab 07/08/17 10:46 Ordered VANCOMYCIN TROUGH [CHEM] Routine Lab 07/09/17 11:00 Ordered Acetaminophen/HYDROcodone [[place] 325-5 MG] Med 07/08/17 01:25 Active 1 tab PO Q4HR PRN Albuterol/Ipratropium [DuoNeb 3.0-0.5 MG/3 ML] Med 07/08/17 06:00 Active 3 ml NEB Q6HRRT Amikacin 1,000 mg Med 07/08/17 13:00 Active Sodium Chloride 0.9% [Normal Saline] 250 ml IV Q24H Diltiazem Med 07/08/17 00:41 Active 10 mg IVPUSH Q3H PRN Divalproex Sodium Med 07/08/17 08:00 Active 250 mg PO TIDMEALS Gabapentin [Neurontin] Med 07/08/17 06:00 Active 600 mg PO TID Insulin Aspart [NovoLOG] Med 07/08/17 07:30 Active See Protocol SUBCUT TIDAC Levofloxacin/Dextrose 5%-Water [Levaquin in D5W 750 MG/ Med 07/08/17 10:50 Active 150 ML] 750 mg Premix Bag 1 bag IV ONETIME Levofloxacin/Dextrose 5%-Water [Levaquin in D5W 750 MG/ Med 07/10/17 11:00 Active 150 ML] 750 mg Premix Bag 1 bag IV Q48H Nystatin [Nystop] Med 07/08/17 10:51 Active 1 gm TOP TID Pantoprazole [ProTONIX] Med 07/08/17 07:30 Active 40 mg PO ACBREAKFAST Vancomycin 1,500 mg Med 07/08/17 12:00 Active Sodium Chloride 0.9% [Normal Saline] 500 ml IV Q8H Vancomycin Pharmacy to Dose [Pharmacy to Dose - Med 07/08/17 11:00 Active Vancomycin] 1 dose .XX ASDIRECTED atorvaSTATin [Lipitor] Med 07/08/17 09:00 Active 20 mg PO DAILY levETIRAcetam [Keppra] Med 07/08/17 01:27 Active 500 mg PO QID Medication Orders Hydrocodone Bitart/Acetaminophen ([place] 325-5 Mg) 1 tab PO Q4HR PRN PRN Reason: Pain Albuterol/Ipratropium (Duoneb 3.0-0.5 Mg/3 Ml) 3 ml NEB Q6HRRT [facility] Last Admin: 07/08/17 11:21 Dose: 3 ml Admin: 07/08/17 09:53 Dose: 3 ml Atorvastatin Calcium (Lipitor) 20 mg PO DAILY [facility] Last Admin: 07/08/17 09:00 Dose: 20 mg Diltiazem HCl (Diltiazem) 10 mg IVPUSH Q3H PRN PRN Reason: Tachycardia Last Admin: 07/08/17 01:09 Dose: 10 mg Divalproex Sodium (Divalproex Sodium) 250 mg PO TIDMEALS [facility] Last Admin: 07/08/17 11:37 Dose: 250 mg Admin: 07/08/17 08:30 Dose: 250 mg Gabapentin (Neurontin) 600 mg PO TID [facility] Levofloxacin/Dextrose 750 mg/ (Premix) 150 mls @ 100 mls/hr IV ONETIME ONE Stop: 07/08/17 12:19 Last Admin: 07/08/17 11:31 Dose: 100 mls/hr Levofloxacin/Dextrose 750 mg/ (Premix) 150 mls @ 100 mls/hr IV Q48H [facility] Vancomycin HCl 1,500 mg/ (Sodium Chloride) 500 mls @ 250 mls/hr IV Q8H [facility] Amikacin Sulfate 1,000 mg/ (Sodium Chloride) 254 mls @ 254 mls/hr IV Q24H [facility] Insulin Aspart (Novolog) 0 unit SUBCUT TIDAC [facility]; Protocol Last Admin: 07/08/17 07:30 Dose: Not Given Levetiracetam (Keppra) 500 mg PO QID [facility] Last Admin: 07/08/17 11:38 Dose: 500 mg Admin: 07/08/17 02:21 Dose: 500 mg Nystatin (Nystop) 1 gm TOP TID [facility] Last Admin: 07/08/17 11:41 Dose: 1 applic Pantoprazole Sodium (Protonix) 40 mg PO ACBREAKFAST [facility] Last Admin: 07/08/17 07:00 Dose: 40 mg Vancomycin HCl (Pharmacy To Dose - Vancomycin) 1 dose .XX ASDIRECTED [facility] Assessment/Plan Comment:: This is a 61-year-old female with a complicated past medical history admitted for a pneumonia seen on imaging, possible worsening of her respiratory symptoms secondary to the pneumonia. Patient to be put on amikacin, Levaquin, vancomycin for coverage of her pneumonia infection this will also cover for any possible urine infection that the patient may have as she does have a chronic history of urinary tract infections with extended spectrum beta lactamase Escherichia coli that is sensitive to amikacin.
[2017-07-08] MEDS ORDERED: Sodium Chloride 0.9% 10 ML Syringe FLUSH PRN (11:58)
[2017-07-08] MEDS ORDERED: Sodium Chloride 0.9% 2.5 ML Syringe FLUSH PRN (11:58)
[2017-07-08] MEDS: Enoxaparin 40 MG/0.4 ML Syringe SUBCUT SCH (12:44)
[2017-07-08 13:20] LABS: CHLORIDE,CL 97 mmol/L (98-107); SODIUM,NA 142 mmol/L (136-145)
[2017-07-08] MEDS: Gabapentin 300 MG Cap PO SCH ×3 (13:43→21:19)
[2017-07-08] MEDS: Acetaminophen/HYDROcodone 325-5 MG Tab PO PRN (18:33)
[2017-07-09] MEDS: Albuterol/Ipratropium 3.0-0.5 MG/3 ML Neb Soln NEB SCH ×4 (00:56→18:16)
[2017-07-09] MEDS: levETIRAcetam 500 MG Tab PO SCH ×5 (00:56→23:10)
[2017-07-09] MEDS: Gabapentin 300 MG Cap PO SCH ×3 (05:34→22:25)
[2017-07-09] MEDS: Diltiazem 25 MG/5 ML SDV IVPUSH PRN ×3 (05:35→20:08)
[2017-07-09] MEDS: Nystatin Topical Powder 15 GM Bottle TOP SCH ×3 (05:40→22:27)
[2017-07-09] MEDS: Pantoprazole 40 MG Tab.CR PO SCH (06:35)
[2017-07-09] MEDS: Insulin Aspart 100 Units/ML 3 ML Pen SUBCUT SCH ×3 (06:56→18:02)
[2017-07-09] MEDS: Divalproex Sodium Delayed-Release 250 MG Tab.CR PO SCH ×3 (08:59→18:25)
[2017-07-09] MEDS: atorvaSTATin 10 MG Tab PO SCH (09:00)
--- NOTE | 2017-07-09 10:45 | PCM.PN ---
- General Info Date of Service: 07/09/17 Subjective Update: Alley today states that she is not feeling all that well, she states that she had a unwitnessed seizure, she states that her seizures typically resulted in her having dark blotting of her visual augustine, as well as a headache. She states that the seizure lasted about 20 minutes and now has resolved. Not complaining of any abdominal pain currently. - Patient Data Vitals - Most Recent: Last Vital Signs Temp 35.9 C 07/09/17 08:00 Pulse 90 07/09/17 08:00 Resp 16 07/09/17 08:00 BP 113/80 07/09/17 08:00 Pulse Ox 95 07/09/17 04:00 Weight - Most Recent: 128.82 kg I&O - Last 24 Hours: Intake & Output 07/08/17 07/09/17 07/09/17 22:59 06:59 14:59 Intake Total 840 1050 250 Output Total 0 Balance 840 1050 250 Lab Results Last 24 Hours: Laboratory Results - last 24 hr 07/08/17 07/08/17 07/08/17 Range/Units 01:25 05:02 05:02 WBC 8.50 (4.0-11.0) K/uL RBC 3.91 L (4.30-5.90) M/uL Hgb 11.8 L (12.0-16.0) g/dL Hct 40.7 (36.0-46.0) % MCV 104.1 H (80.0-98.0) fL MCH 30.2 (27.0-32.0) pg MCHC 29.0 L (31.0-37.0) g/dL RDW Std Deviation 73.8 H (28.0-62.0) fl RDW Coeff of Morales 20 H (11.0-15.0) % Plt Count 144 L (150-400) K/uL MPV 9.20 (7.40-12.00) fL Neut % (Auto) 64.5 (48.0-80.0) % Lymph % (Auto) 22.9 (16.0-40.0) % [place] % (Auto) 10.7 (0.0-15.0) % Eos % (Auto) 0.8 (0.0-7.0) % Baso % (Auto) 1.1 (0.0-1.5) % Neut # (Auto) 5.5 (1.4-5.7) K/uL Lymph # (Auto) 2.0 (0.6-2.4) K/uL [place] # (Auto) 0.9 H (0.0-0.8) K/uL Eos # (Auto) 0.1 (0.0-0.7) K/uL Baso # (Auto) 0.1 (0.0-0.1) K/uL Nucleated RBC % 0.6 /100WBC Nucleated RBCs # 0 K/uL VBG pH (7.31-7.41) VBG pCO2 (35-45) mmHG VBG pO2 (30-40) mmHG VBG HCO3 (22-30) mEq/L VBG Total CO2 (41-51) mmol/L VBG Base Excess (-3.0-3.0) Sodium 142 (136-145) mmol/L Potassium 4.0 (3.5-5.1) mmol/L Chloride 97 L (98-107) mmol/L Carbon Dioxide 41.8 H (21.0-32.0) mmol/L BUN 27 H (7.0-18.0) mg/dL Creatinine 1.6 H (0.6-1.0) mg/dL Est Cr Clr Drug Dosing TNP Estimated GFR (MDRD) 33.0 ml/min Glucose 66 L (74-106) mg/dL POC Glucose (60-110) mg/dL Calcium 9.5 (8.5-10.1) mg/dL Magnesium (1.5-2.0) mg/dL Troponin I (0.000-0.056) ng/mL Urine Color YELLOW Urine Appearance CLEAR Urine pH 5.5 (5.0-8.0) Ur Specific [place] 1.015 (1.001-1.035) Urine Protein NEGATIVE (NEGATIVE) mg/dL Urine Glucose (UA) NEGATIVE (NEGATIVE) mg/dL Urine Ketones NEGATIVE (NEGATIVE) mg/dL Urine Occult Blood TRACE-INTACT (NEGATIVE) Urine Nitrite NEGATIVE (NEGATIVE) Urine Bilirubin NEGATIVE (NEGATIVE) Urine Urobilinogen 2.0 H (<2.0) EU/dL Ur Leukocyte Esterase NEGATIVE (NEGATIVE) Urine RBC NONE SEEN (0-2/HPF) Urine WBC 2-5 (0-5/HPF) Ur Epithelial Cells FEW (NONE-FEW) Urine Bacteria RARE (NEGATIVE) 07/08/17 07/08/17 07/08/17 Range/Units 06:16 06:48 11:21 WBC (4.0-11.0) K/uL RBC (4.30-5.90) M/uL Hgb (12.0-16.0) g/dL Hct (36.0-46.0) % MCV (80.0-98.0) fL MCH (27.0-32.0) pg MCHC (31.0-37.0) g/dL RDW Std Deviation (28.0-62.0) fl RDW Coeff of Morales (11.0-15.0) % Plt Count (150-400) K/uL MPV (7.40-12.00) fL Neut % (Auto) (48.0-80.0) % Lymph % (Auto) (16.0-40.0) % [place] % (Auto) (0.0-15.0) % Eos % (Auto) (0.0-7.0) % Baso % (Auto) (0.0-1.5) % Neut # (Auto) (1.4-5.7) K/uL Lymph # (Auto) (0.6-2.4) K/uL [place] # (Auto) (0.0-0.8) K/uL Eos # (Auto) (0.0-0.7) K/uL Baso # (Auto) (0.0-0.1) K/uL Nucleated RBC % /100WBC Nucleated RBCs # K/uL VBG pH (7.31-7.41) VBG pCO2 (35-45) mmHG VBG pO2 (30-40) mmHG VBG HCO3 (22-30) mEq/L VBG Total CO2 (41-51) mmol/L VBG Base Excess (-3.0-3.0) Sodium (136-145) mmol/L Potassium (3.5-5.1) mmol/L Chloride (98-107) mmol/L Carbon Dioxide (21.0-32.0) mmol/L BUN (7.0-18.0) mg/dL Creatinine (0.6-1.0) mg/dL Est Cr Clr Drug Dosing Estimated GFR (MDRD) ml/min Glucose (74-106) mg/dL POC Glucose 69 74 (60-110) mg/dL Calcium (8.5-10.1) mg/dL Magnesium 2.0 (1.5-2.0) mg/dL Troponin I (0.000-0.056) ng/mL Urine Color Urine Appearance Urine pH (5.0-8.0) Ur Specific [place] (1.001-1.035) Urine Protein (NEGATIVE) mg/dL Urine Glucose (UA) (NEGATIVE) mg/dL Urine Ketones (NEGATIVE) mg/dL Urine Occult Blood (NEGATIVE) Urine Nitrite (NEGATIVE) Urine Bilirubin (NEGATIVE) Urine Urobilinogen (<2.0) EU/dL Ur Leukocyte Esterase (NEGATIVE) Urine RBC (0-2/HPF) Urine WBC (0-5/HPF) Ur Epithelial Cells (NONE-FEW) Urine Bacteria (NEGATIVE) 07/08/17 07/08/17 07/08/17 Range/Units 11:21 11:23 16:03 WBC (4.0-11.0) K/uL RBC (4.30-5.90) M/uL Hgb (12.0-16.0) g/dL Hct (36.0-46.0) % MCV (80.0-98.0) fL MCH (27.0-32.0) pg MCHC (31.0-37.0) g/dL RDW Std Deviation (28.0-62.0) fl RDW Coeff of Morales (11.0-15.0) % Plt Count (150-400) K/uL MPV (7.40-12.00) fL Neut % (Auto) (48.0-80.0) % Lymph % (Auto) (16.0-40.0) % [place] % (Auto) (0.0-15.0) % Eos % (Auto) (0.0-7.0) % Baso % (Auto) (0.0-1.5) % Neut # (Auto) (1.4-5.7) K/uL Lymph # (Auto) (0.6-2.4) K/uL [place] # (Auto) (0.0-0.8) K/uL Eos # (Auto) (0.0-0.7) K/uL Baso # (Auto) (0.0-0.1) K/uL Nucleated RBC % /100WBC Nucleated RBCs # K/uL VBG pH (7.31-7.41) VBG pCO2 (35-45) mmHG VBG pO2 (30-40) mmHG VBG HCO3 (22-30) mEq/L VBG Total CO2 (41-51) mmol/L VBG Base Excess (-3.0-3.0) Sodium (136-145) mmol/L Potassium (3.5-5.1) mmol/L Chloride (98-107) mmol/L Carbon Dioxide (21.0-32.0) mmol/L BUN (7.0-18.0) mg/dL Creatinine (0.6-1.0) mg/dL Est Cr Clr Drug Dosing Estimated GFR (MDRD) ml/min Glucose (74-106) mg/dL POC Glucose 96 104 (60-110) mg/dL Calcium (8.5-10.1) mg/dL Magnesium (1.5-2.0) mg/dL Troponin I < 0.050 (0.000-0.056) ng/mL Urine Color Urine Appearance Urine pH (5.0-8.0) Ur Specific [place] (1.001-1.035) Urine Protein (NEGATIVE) mg/dL Urine Glucose (UA) (NEGATIVE) mg/dL Urine Ketones (NEGATIVE) mg/dL Urine Occult Blood (NEGATIVE) Urine Nitrite (NEGATIVE) Urine Bilirubin (NEGATIVE) Urine Urobilinogen (<2.0) EU/dL Ur Leukocyte Esterase (NEGATIVE) Urine RBC (0-2/HPF) Urine WBC (0-5/HPF) Ur Epithelial Cells (NONE-FEW) Urine Bacteria (NEGATIVE) 07/08/17 07/08/17 07/08/17 Range/Units 17:15 20:23 22:59 WBC (4.0-11.0) K/uL RBC (4.30-5.90) M/uL Hgb (12.0-16.0) g/dL Hct (36.0-46.0) % MCV (80.0-98.0) fL MCH (27.0-32.0) pg MCHC (31.0-37.0) g/dL RDW Std Deviation (28.0-62.0) fl RDW Coeff of Morales (11.0-15.0) % Plt Count (150-400) K/uL MPV (7.40-12.00) fL Neut % (Auto) (48.0-80.0) % Lymph % (Auto) (16.0-40.0) % [place] % (Auto) (0.0-15.0) % Eos % (Auto) (0.0-7.0) % Baso % (Auto) (0.0-1.5) % Neut # (Auto) (1.4-5.7) K/uL Lymph # (Auto) (0.6-2.4) K/uL [place] # (Auto) (0.0-0.8) K/uL Eos # (Auto) (0.0-0.7) K/uL Baso # (Auto) (0.0-0.1) K/uL Nucleated RBC % /100WBC Nucleated RBCs # K/uL VBG pH (7.31-7.41) VBG pCO2 (35-45) mmHG VBG pO2 (30-40) mmHG VBG HCO3 (22-30) mEq/L VBG Total CO2 (41-51) mmol/L VBG Base Excess (-3.0-3.0) Sodium (136-145) mmol/L Potassium (3.5-5.1) mmol/L Chloride (98-107) mmol/L Carbon Dioxide (21.0-32.0) mmol/L BUN (7.0-18.0) mg/dL Creatinine (0.6-1.0) mg/dL Est Cr Clr Drug Dosing Estimated GFR (MDRD) ml/min Glucose (74-106) mg/dL POC Glucose 116 H (60-110) mg/dL Calcium (8.5-10.1) mg/dL Magnesium (1.5-2.0) mg/dL Troponin I < 0.050 < 0.050 (0.000-0.056) ng/mL Urine Color Urine Appearance Urine pH (5.0-8.0) Ur Specific [place] (1.001-1.035) Urine Protein (NEGATIVE) mg/dL Urine Glucose (UA) (NEGATIVE) mg/dL Urine Ketones (NEGATIVE) mg/dL Urine Occult Blood (NEGATIVE) Urine Nitrite (NEGATIVE) Urine Bilirubin (NEGATIVE) Urine Urobilinogen (<2.0) EU/dL Ur Leukocyte Esterase (NEGATIVE) Urine RBC (0-2/HPF) Urine WBC (0-5/HPF) Ur Epithelial Cells (NONE-FEW) Urine Bacteria (NEGATIVE) 07/09/17 07/09/17 07/09/17 Range/Units 06:13 09:08 09:48 WBC (4.0-11.0) K/uL RBC (4.30-5.90) M/uL Hgb (12.0-16.0) g/dL Hct (36.0-46.0) % MCV (80.0-98.0) fL MCH (27.0-32.0) pg MCHC (31.0-37.0) g/dL RDW Std Deviation (28.0-62.0) fl RDW Coeff of Morales (11.0-15.0) % Plt Count (150-400) K/uL MPV (7.40-12.00) fL Neut % (Auto) (48.0-80.0) % Lymph % (Auto) (16.0-40.0) % [place] % (Auto) (0.0-15.0) % Eos % (Auto) (0.0-7.0) % Baso % (Auto) (0.0-1.5) % Neut # (Auto) (1.4-5.7) K/uL Lymph # (Auto) (0.6-2.4) K/uL [place] # (Auto) (0.0-0.8) K/uL Eos # (Auto) (0.0-0.7) K/uL Baso # (Auto) (0.0-0.1) K/uL Nucleated RBC % /100WBC Nucleated RBCs # K/uL VBG pH 7.37 (7.31-7.41) VBG pCO2 82 H (35-45) mmHG VBG pO2 26 L (30-40) mmHG VBG HCO3 47 H (22-30) mEq/L VBG Total CO2 50 (41-51) mmol/L VBG Base Excess 18 H (-3.0-3.0) Sodium (136-145) mmol/L Potassium (3.5-5.1) mmol/L Chloride (98-107) mmol/L Carbon Dioxide (21.0-32.0) mmol/L BUN (7.0-18.0) mg/dL Creatinine (0.6-1.0) mg/dL Est Cr Clr Drug Dosing Estimated GFR (MDRD) ml/min Glucose (74-106) mg/dL POC Glucose 111 H 129 H (60-110) mg/dL Calcium (8.5-10.1) mg/dL Magnesium (1.5-2.0) mg/dL Troponin I (0.000-0.056) ng/mL Urine Color Urine Appearance Urine pH (5.0-8.0) Ur Specific [place] (1.001-1.035) Urine Protein (NEGATIVE) mg/dL Urine Glucose (UA) (NEGATIVE) mg/dL Urine Ketones (NEGATIVE) mg/dL Urine Occult Blood (NEGATIVE) Urine Nitrite (NEGATIVE) Urine Bilirubin (NEGATIVE) Urine Urobilinogen (<2.0) EU/dL Ur Leukocyte Esterase (NEGATIVE) Urine RBC (0-2/HPF) Urine WBC (0-5/HPF) Ur Epithelial Cells (NONE-FEW) Urine Bacteria (NEGATIVE) 07/09/17 Range/Units 09:48 WBC 6.21 (4.0-11.0) K/uL RBC 3.85 L (4.30-5.90) M/uL Hgb 11.4 L (12.0-16.0) g/dL Hct 39.9 (36.0-46.0) % MCV 103.6 H (80.0-98.0) fL MCH 29.6 (27.0-32.0) pg MCHC 28.6 L (31.0-37.0) g/dL RDW Std Deviation 73.6 H (28.0-62.0) fl RDW Coeff of Morales 20 H (11.0-15.0) % Plt Count 122 L (150-400) K/uL MPV 9.20 (7.40-12.00) fL Neut % (Auto) 65.5 (48.0-80.0) % Lymph % (Auto) 19.3 (16.0-40.0) % [place] % (Auto) 12.9 (0.0-15.0) % Eos % (Auto) 1.3 (0.0-7.0) % Baso % (Auto) 1.0 (0.0-1.5) % Neut # (Auto) 4.1 (1.4-5.7) K/uL Lymph # (Auto) 1.2 (0.6-2.4) K/uL [place] # (Auto) 0.8 (0.0-0.8) K/uL Eos # (Auto) 0.1 (0.0-0.7) K/uL Baso # (Auto) 0.1 (0.0-0.1) K/uL Nucleated RBC % 0.0 /100WBC Nucleated RBCs # 0 K/uL VBG pH (7.31-7.41) VBG pCO2 (35-45) mmHG VBG pO2 (30-40) mmHG VBG HCO3 (22-30) mEq/L VBG Total CO2 (41-51) mmol/L VBG Base Excess (-3.0-3.0) Sodium (136-145) mmol/L Potassium (3.5-5.1) mmol/L Chloride (98-107) mmol/L Carbon Dioxide (21.0-32.0) mmol/L BUN (7.0-18.0) mg/dL Creatinine (0.6-1.0) mg/dL Est Cr Clr Drug Dosing Estimated GFR (MDRD) ml/min Glucose (74-106) mg/dL POC Glucose (60-110) mg/dL Calcium (8.5-10.1) mg/dL Magnesium (1.5-2.0) mg/dL Troponin I (0.000-0.056) ng/mL Urine Color Urine Appearance Urine pH (5.0-8.0) Ur Specific [place] (1.001-1.035) Urine Protein (NEGATIVE) mg/dL Urine Glucose (UA) (NEGATIVE) mg/dL Urine Ketones (NEGATIVE) mg/dL Urine Occult Blood (NEGATIVE) Urine Nitrite (NEGATIVE) Urine Bilirubin (NEGATIVE) Urine Urobilinogen (<2.0) EU/dL Ur Leukocyte Esterase (NEGATIVE) Urine RBC (0-2/HPF) Urine WBC (0-5/HPF) Ur Epithelial Cells (NONE-FEW) Urine Bacteria (NEGATIVE) Med Orders - Current: Current Medications Hydrocodone Bitart/Acetaminophen ([place] 325-5 Mg) 1 tab PO Q4HR PRN PRN Reason: Pain Last Admin: 07/08/17 18:33 Dose: 1 tab Albuterol/Ipratropium (Duoneb 3.0-0.5 Mg/3 Ml) 3 ml NEB Q6HRRT [facility] Last Admin: 07/09/17 06:16 Dose: 3 ml Atorvastatin Calcium (Lipitor) 20 mg PO DAILY [facility] Last Admin: 07/09/17 09:00 Dose: 20 mg Diltiazem HCl (Diltiazem) 10 mg IVPUSH Q3H PRN PRN Reason: Tachycardia Last Admin: 07/09/17 05:35 Dose: 10 mg Divalproex Sodium (Divalproex Sodium) 250 mg PO TIDMEALS [facility] Last Admin: 07/09/17 08:59 Dose: 250 mg Enoxaparin Sodium (Lovenox) 40 mg SUBCUT Q24H [facility] Last Admin: 07/08/17 12:44 Dose: 40 mg Gabapentin (Neurontin) 600 mg PO TID [facility] Last Admin: 07/09/17 05:34 Dose: 600 mg Levofloxacin/Dextrose 750 mg/ (Premix) 150 mls @ 100 mls/hr IV Q48H [facility] Amikacin Sulfate 1,000 mg/ (Sodium Chloride) 254 mls @ 254 mls/hr IV Q24H [facility] Last Admin: 07/08/17 14:05 Dose: 254 mls/hr Vancomycin HCl 1,500 mg/ (Sodium Chloride) 500 mls @ 250 mls/hr IV Q8H [facility] Last Admin: 07/09/17 06:35 Dose: 250 mls/hr Insulin Aspart (Novolog) 0 unit SUBCUT TIDAC [facility]; Protocol Last Admin: 07/09/17 06:56 Dose: Not Given Levetiracetam (Keppra) 500 mg PO QID [facility] Last Admin: 07/09/17 05:34 Dose: 500 mg Nystatin (Nystop) 1 gm TOP TID [facility] Last Admin: 07/09/17 05:40 Dose: 1 applic Pantoprazole Sodium (Protonix) 40 mg PO ACBREAKFAST [facility] Last Admin: 07/09/17 06:35 Dose: 40 mg Sodium Chloride (Saline Flush) 10 ml FLUSH ASDIRECTED PRN PRN Reason: Keep Vein Open Sodium Chloride (Saline Flush) 2.5 ml FLUSH ASDIRECTED PRN PRN Reason: Keep Vein Open Vancomycin HCl (Pharmacy To Dose - Vancomycin) 1 dose .XX ASDIRECTED [facility] Discontinued Medications Amikacin Sulfate (Amikacin) 966.15 mg 7.5 mg/kg (966.15 mg) IV Q24H [facility] Last Admin: 07/08/17 15:07 Dose: Not Given Al Hydroxide/Mg Hydroxide 15 (ml/ Lidocaine HCl 5 ml) 0 ml PO ONETIME ONE Stop: 07/08/17 11:05 Last Admin: 07/08/17 12:47 Dose: 1 each Diltiazem HCl (Diltiazem) 20 mg IVPUSH ONETIME ONE Stop: 07/07/17 23:20 Last Admin: 07/07/17 23:46 Dose: Not Given Furosemide (Lasix) 20 mg IVPUSH ONETIME ONE Stop: 07/07/17 23:43 Last Admin: 07/08/17 00:41 Dose: Not Given Furosemide (Lasix) 20 mg IVPUSH NOW ONE Stop: 07/07/17 23:46 Last Admin: 07/07/17 23:53 Dose: 20 mg Sodium Chloride (Normal Saline) 1,000 mls @ 50 mls/hr IV ASDIRECTED [facility] Last Admin: 07/07/17 23:52 Dose: 50 mls/hr Levofloxacin/Dextrose 750 mg/ (Premix) 150 mls @ 100 mls/hr IV ONETIME ONE Stop: 07/08/17 12:19 Last Admin: 07/08/17 11:31 Dose: 100 mls/hr Vancomycin HCl 1,500 mg/ (Sodium Chloride) 500 mls @ 250 mls/hr IV Q8H [facility] Last Admin: 07/08/17 15:17 Dose: Not Given Amikacin Sulfate 1,000 mg/ (Sodium Chloride) 104 mls @ 104 mls/hr IV Q24H [facility] Morphine Sulfate (Morphine) 2 mg IVPUSH ONETIME ONE Stop: 07/08/17 11:05 Last Admin: 07/08/17 11:26 Dose: 2 mg - Exam Quality Assessment: Supplemental Oxygen General: Alert, Cooperative, Mild Distress HEENT: Pupils Equal, Pupils Reactive Lungs: Normal Respiratory Effort, Decreased Breath Sounds GI/Abdominal Exam: Soft, Non-Tender - Problem List Review Problem List Initiated/Reviewed/Updated: Yes - My Orders Last 24 Hours: My Active Orders 07/08/17 11:58 Patient Status [ADT] Routine Height and Weight [RC] UPON Oxygen Therapy [RC] PRN Up With Assistance [RC] ASDIRECTED VTE/DVT Education [RC] PER UNIT ROUTINE Vital Signs [RC] Q4H Sodium Chloride 0.9% [Saline Flush] 10 ml FLUSH ASDIRECTED PRN Sodium Chloride 0.9% [Saline Flush] 2.5 ml FLUSH ASDIRECTED PRN Peripheral IV Insertion Adult [OM.PC] Routine Saline Lock Insert [OM.PC] Routine 07/08/17 12:00 Enoxaparin [Lovenox] 40 mg SUBCUT Q24H 07/08/17 12:01 Intake and Output [RC] Q12H Notify Provider Vital Signs [RC] ASDIRECTED Pulse Oximetry [RC] CONTINUOUS Sequential Compression Device [OM.PC] Per Unit Routine 07/09/17 09:48 COMPREHENSIVE METABOLIC PN,CMP [CHEM] Urgent - Plan Plan:: This is a 61-year-old female with a complicated past medical history admitted for a pneumonia seen on imaging, possible worsening of her respiratory symptoms secondary to the pneumonia. Patient to be put on amikacin, Levaquin, vancomycin for coverage of her pneumonia infection this will also cover for any possible urine infection that the patient may have as she does have a chronic history of urinary tract infections with extended spectrum beta lactamase Escherichia coli that is sensitive to amikacin. Assessment/plan: #1. Community-acquired pneumonia sputum culture pending -Continue with current IV antibiotic treatment #2. Respiratory distress likely secondary to community-acquired pneumonia and chronic COPD -Patient appears to be doing better from a respiratory standpoint, currently not complaining of any respiratory difficulties. #. Elevated LFTs, and total bilirubin with complaints of right upper quadrant pain yesterday -Trend LFTs, obtain an abdominal ultrasound to assess for possible gallbladder/ liver etiologies as well as get a hepatitis panel Patient status change from TO inpatient status.
[2017-07-09 10:53] LABS: CHLORIDE,CL 96 mmol/L (98-107); SODIUM,NA 140 mmol/L (136-145)
[2017-07-09] MEDS: Enoxaparin 40 MG/0.4 ML Syringe SUBCUT SCH (12:00)
[2017-07-09] MEDS: Acetaminophen/HYDROcodone 325-5 MG Tab PO PRN ×2 (13:08→22:27)
--- NOTE | 2017-07-09 16:43 | CR ---
EXAMINATION: Left shoulder and left humerus HISTORY: Fall COMPARISON: None TECHNIQUE: Single view end of the left shoulder and 2 views of the left humerus FINDINGS/IMPRESSION: There is no acute osseous abnormality, dislocation, or fracture. Bone mineraliza tion and joint spaces appear normal. No fracture or acute osseous abnormality. No focal soft tissue s welling.
--- NOTE | 2017-07-09 16:47 | US ---
EXAMINATION: Abdominal ultrasound HISTORY: Elevated LFTs COMPARISON: 09/15/2015 TECHNIQUE: Grayscale and color Doppler imaging obtained of the abdomen FINDINGS: Fine detail is obscured secondary to body habitus. The pancreas is not identified. The aort a is normal in caliber however not well characterized. Visualized IVC is normal. Liver is normal in c ontour and echotexture without a focal hepatic mass. Gallbladder wall thickness is mildly increased a t 4 mm. There is a gallstone noted near the neck of the gallbladder. The spleen is not identified. Hi story of right nephrectomy. The left kidney is not well characterized. Sonographic Robles sign is rep orted positive. No abdominal ascites. IMPRESSION: 1. Cholelithiasis with mild gallbladder wall thickening and a positive sonographic Robles sign. Corre late clinically for cholecystitis. 2. Right nephrectomy.
[2017-07-10] MEDS: Albuterol/Ipratropium 3.0-0.5 MG/3 ML Neb Soln NEB SCH ×3 (00:01→11:14)
[2017-07-10] MEDS: Diltiazem 25 MG/5 ML SDV IVPUSH PRN (02:38)
[2017-07-10] MEDS: Acetaminophen/HYDROcodone 325-5 MG Tab PO PRN ×3 (02:39→17:19)
[2017-07-10] MEDS: Gabapentin 300 MG Cap PO SCH ×2 (05:16→13:38)
[2017-07-10] MEDS: Nystatin Topical Powder 15 GM Bottle TOP SCH ×2 (05:16→13:40)
[2017-07-10] MEDS: levETIRAcetam 500 MG Tab PO SCH ×3 (05:16→17:26)
[2017-07-10] MEDS: Pantoprazole 40 MG Tab.CR PO SCH (06:31)
[2017-07-10] MEDS: Insulin Aspart 100 Units/ML 3 ML Pen SUBCUT SCH ×3 (06:31→18:54)
[2017-07-10] MEDS: atorvaSTATin 10 MG Tab PO SCH (09:12)
[2017-07-10] MEDS: Divalproex Sodium Delayed-Release 250 MG Tab.CR PO SCH ×3 (09:16→17:26)
[2017-07-10] MEDS ORDERED: Morphine 4 MG/ML Syringe IVPUSH ONE (10:53)
[2017-07-10] MEDS ORDERED: Levofloxacin/Dextrose 5%-Water 750 MG in Premix Bag 1 BAG IV SCH (11:00)
[2017-07-10] MEDS: Enoxaparin 40 MG/0.4 ML Syringe SUBCUT SCH (11:13)
--- NOTE | 2017-07-10 14:04 | PCM.DCSUM1 ---
Discharge Summary - Hospital Course HPI Initial Comments: Discharge Summary Date of admission: 07/08/2017 Date of discharge: 07/10/2017 Admitting diagnosis: #1. Dyspnea, chronic hypoxemia, shortness of breath secondary to possible pneumonia seen on imaging versus acute exacerbation of COPD #2. Atrial fibrillation with RVR #3. Significant past medical history of coronary artery disease, type 2 diabetes , multiple bouts of pneumonia, COPD, ESBL Escherichia coli UTIs, seizure disorder, chronic back pain, osteoporosis, and obesity #4. #5. Discharge diagnoses: #1. Respiratory symptoms now resolved, no elevation of leukocytosis throughout stay, possible community-acquired pneumonia being sent home on Levaquin #2. Right upper quadrant pain now subsiding, elevated LFTs, elevated total bili , right upper quadrant abdominal ultrasound indicating cholelithiasis #3. Atrial fibrillation with RVR now rate controlled #4. Significant past medical history of coronary artery disease, type 2 diabetes , COPD, seizure disorder, chronic back pain, osteoporosis, and obesity. #5. Consultations: None Procedures: None Hospitalization course: Patient was initially admitted for what appeared to be dyspnea and respiratory distress seen while in the ER, with x-ray indicating a possible right lower lobe pneumonia. Due to EMR being down, when patient was initially admitted to the floor not all labs were transitioned over, and initially we did not see the elevated LFTs and total bilirubin, patient only had very minimal abdominal tenderness, her primary complaint was of tremors in her extremities. She denied any worsening of her respiratory status then from baseline. She did have one episode of acute chest pain upon admission for which an EKG and troponins were drawn and trended which did not show any ischemic/cardiac findings. The chest pain was sharp in nature and was likely attributed to the musculoskeletal pain that the patient also chronically complains of. Patient was initially started on amikacin, vancomycin, Levaquin due to her multiple cultures done in the past both sputum and urine indicating resistant bacteria including ESBL Escherichia coli. Patient progressed very standpoint was stable throughout this process, did not require any IV steroids or increased respiratory support other than mild titration of her O2 levels. She is on 3 L nasal cannula at home. It is to be noted that this patient has a very complex medical history and is known to being noncompliant with her medical regimen. Patient is not taking any rate control medication for her atrial fibrillation, patient is not taking her that she was placed upon for her increased risk of stroke. Patient had a cardiology appointment to assess for the atrial fibrillation and anticoagulation therapy which the patient recently missed. Once all of the patient's laboratory values are crossed over we were able to see that the patient had an elevated LFTs in the 700s, as well as an elevated total bilirubin level with no rise in pancreatic enzymes, or alkaline phosphatase. Patient was complaining of mild to moderate right upper quadrant pain. An abdominal ultrasound was ordered which indicated cholelithiasis with a thickened gallbladder wall a 4 mm. The next set of LFTs were still elevated however there were trending downwards with the LFTs being in the mid 300s, total bilirubin also decreasing. I spoke with our general surgery on-call physician and explained the patient's presenting clinical condition, past medical history, imaging and laboratory values for an evaluation of a possible cholecystectomy and our general surgery team stated that due to the complicated nature of the patient's medical history that we would not be able to perform the cholecystectomy here, and that it was general surgery recommendation to have the patient transferred to [place] for a full evaluation and possible consideration of a cholecystectomy. When I explained to the patient the general surgeon's recommendation was for transfer and evaluation of a cholecystectomy and a larger facility in [place], the patient refused to go in because at that point in time she was not having any further abdominal pain, and she stated that she had plans to go to [place] to see her mother who is ailing and likely going to pass within the next couple of weeks. She stated that she was concerned that due to her complicated medical history if she were to have the procedure there was a higher risk of complications and a potentially longer stay in the hospital and that she would not have the opportunity to see her mother. I explained to the patient and her and family for over 2 hours the clinical implications of not having the gallbladder properly evaluated the possible complications of having further exacerbations of her abdominal pain, with the risk of a stone being lodged within the common bile duct possibly also causing acute pancreatitis or other serious issues. Patient and family understood these concerns and the possible complications and still sedated and insisted that she would like to be discharged, that she would first like to go to [place], and that she is willing to come in and see a GI physician in an outpatient setting after she gets back from [place]. I stated to her that we can try to get her in to see a GI physician prior to her departure on July 25 to [place] and again she denied this possibility stating that she would prefer to see GI after she comes back. And if she has any further complications she can always go to a hospital in [place]. Since the patient was medically stable, she was no longer having any right upper quadrant pain, her respiratory status was stable, patient was then subsequently discharged. Disposition on discharge: Home Condition on discharge: Stable Discharge medications: Continuation of home medication, patient was started on metoprolol tartrate 25 mg twice a day, Levaquin 750 for 7 more days. Follow-up instructions: Patient is to follow-up with her primary care physician , and to follow-up with GI when she gets back from [place] as well as make another appointment with her cardiology follow-up. - Discharge Data Discharge Date: 07/10/17 Discharge Disposition: Home, Self-Care 01 Condition: Stable - Patient Instructions Diet: Heart Healthy Diet, No Alcoholic Beverages, Diabetic Diet Activity: As Tolerated Driving: Do Not Drive Showering/Bathing: May Shower Notify Provider of: Fever, Increased Pain, Swelling and Redness, Drainage, Nausea and/or Vomiting Other/Special Instructions: Please make sure if you have any fevers or Right upper abdominal pain, to see your physician or come to ER right away. - Discharge Plan Prescriptions/Med Rec: Levofloxacin [Levaquin] 750 mg PO DAILY 7 Days #7 tab Metoprolol Tartrate 25 mg PO BID 30 Days #60 tablet Home Medications: Home Meds Pioglitazone [Actos] 30 mg PO DAILY 03/28/15 [History] levETIRAcetam [Keppra] 500 mg PO QID 03/28/15 [History] Pantoprazole [ProTONIX] 40 mg PO ACBREAKFAST 09/14/15 [History] Calcium Carbonate/Vitamin D3 [Calcium 500 + Vit D 400] 1 each PO BID 07/11/16 [ History] Divalproex Sodium 250 mg PO TIDMEALS 07/11/16 [History] Gabapentin [Neurontin] 600 mg PO TID 07/11/16 [History] atorvaSTATin [Lipitor] 20 mg PO DAILY 07/11/16 [History] Ferrous Sulfate 325 mg PO BID 12/30/16 [History] Hydrocodone/Acetaminophen [[place] 5-325] 1 tab PO Q4HR PRN 12/30/16 [History] glipiZIDE [Glucotrol XL] 2.5 mg PO DAILY 12/30/16 [History] Albuterol [IJD: Albuterol] 1 inh INH Q4H PRN 01/03/17 [History] Ascorbic Acid 1 tab PO DAILY 01/03/17 [History] Budesonide [Pulmicort] 1 inh INH BID 01/03/17 [History] Docusate Sodium [Colace] 200 mg PO ASDIRECTED PRN 01/03/17 [History] Insulin Lispro [Humalog Kwikpen U-100] 0 unit SUBCUT ASDIRECTED 01/03/17 [ History] Lactobacillus Acidophilus [Acidophilus Lactobacillus] 1 cap PO BID 01/03/17 [ History] Nitroglycerin [Nitrostat] 1 tab SL ASDIRECTED PRN 01/03/17 [History] Nystatin [Nystop] 100,000 units TOP TID #1 bottle 01/06/17 [Rx] Aspirin 81 mg PO DAILY 07/08/17 [History] Levofloxacin [Levaquin] 750 mg PO DAILY 7 Days #7 tab 07/10/17 [Rx] Metoprolol Tartrate 25 mg PO BID 30 Days #60 tablet 07/10/17 [Rx] Patient Handouts: Levofloxacin tablets, Heart Failure, [id number], Atrial Fibrillation, [id number] Referrals: Lex Mcclelland MD [Physician] - 07/17/17 2:00 pm - Discharge Summary/Plan Comment DC Time >30 min.: No - Patient Data Vitals - Most Recent: Last Vital Signs Temp 36.2 C 07/10/17 12:01 Pulse 117 H 07/10/17 12:01 Resp 20 07/10/17 12:01 BP 127/86 07/10/17 12:01 Pulse Ox 95 07/10/17 12:01 Weight - Most Recent: 142.5 kg I&O - Last 24 hours: Intake & Output 07/09/17 07/10/17 07/10/17 22:59 06:59 14:59 Intake Total 750 1476 Output Total 0 Balance 750 1476 Lab Results - Last 24 hrs: Laboratory Results - last 24 hr 03/28/18 03/28/18 03/29/18 Range/Units 14:40 17:16 06:23 WBC (4.0-11.0) K/uL RBC (4.30-5.90) M/uL Hgb (12.0-16.0) g/dL Hct (36.0-46.0) % MCV (80.0-98.0) fL MCH (27.0-32.0) pg MCHC (31.0-37.0) g/dL RDW Std Deviation (28.0-62.0) fl RDW Coeff of Morales (11.0-15.0) % Plt Count (150-400) K/uL MPV (7.40-12.00) fL Neut % (Auto) (48.0-80.0) % Lymph % (Auto) (16.0-40.0) % [place] % (Auto) (0.0-15.0) % Eos % (Auto) (0.0-7.0) % Baso % (Auto) (0.0-1.5) % Neut # (Auto) (1.4-5.7) K/uL Lymph # (Auto) (0.6-2.4) K/uL [place] # (Auto) (0.0-0.8) K/uL Eos # (Auto) (0.0-0.7) K/uL Baso # (Auto) (0.0-0.1) K/uL Nucleated RBC % /100WBC Nucleated RBCs # K/uL Sodium (136-145) mmol/L Potassium (3.5-5.1) mmol/L Chloride (98-107) mmol/L Carbon Dioxide (21.0-32.0) mmol/L BUN (7.0-18.0) mg/dL Creatinine (0.6-1.0) mg/dL Est Cr Clr Drug Dosing mL/min Estimated GFR (MDRD) ml/min Glucose (74-106) mg/dL POC Glucose 111 H 110 (60-110) mg/dL Calcium (8.5-10.1) mg/dL Total Bilirubin (0.2-1.0) mg/dL AST (15-37) IU/L ALT (14-63) IU/L Alkaline Phosphatase (46-116) U/L Total Protein (6.4-8.2) g/dL Albumin (3.4-5.0) g/dL Globulin (2.0-3.5) g/dL Albumin/Globulin Ratio (1.3-2.8) Amylase (25-115) U/L Lipase (73-393) U/L Vancomycin Trough 30.0 H (5.0-10.0) ug/mL 07/10/17 07/10/17 07/10/17 Range/Units 09:20 09:20 11:41 WBC 6.28 (4.0-11.0) K/uL RBC 3.86 L (4.30-5.90) M/uL Hgb 11.7 L (12.0-16.0) g/dL Hct 39.8 (36.0-46.0) % MCV 103.1 H (80.0-98.0) fL MCH 30.3 (27.0-32.0) pg MCHC 29.4 L (31.0-37.0) g/dL RDW Std Deviation 70.5 H (28.0-62.0) fl RDW Coeff of Morales 19 H (11.0-15.0) % Plt Count 127 L (150-400) K/uL MPV 9.20 (7.40-12.00) fL Neut % (Auto) 64.9 (48.0-80.0) % Lymph % (Auto) 18.8 (16.0-40.0) % [place] % (Auto) 12.6 (0.0-15.0) % Eos % (Auto) 2.4 (0.0-7.0) % Baso % (Auto) 1.3 (0.0-1.5) % Neut # (Auto) 4.1 (1.4-5.7) K/uL Lymph # (Auto) 1.2 (0.6-2.4) K/uL [place] # (Auto) 0.8 (0.0-0.8) K/uL Eos # (Auto) 0.2 (0.0-0.7) K/uL Baso # (Auto) 0.1 (0.0-0.1) K/uL Nucleated RBC % 0.0 /100WBC Nucleated RBCs # 0 K/uL Sodium 138 (136-145) mmol/L Potassium 3.8 (3.5-5.1) mmol/L Chloride 96 L (98-107) mmol/L Carbon Dioxide 41.0 H (21.0-32.0) mmol/L BUN 18 (7.0-18.0) mg/dL Creatinine 1.2 H (0.6-1.0) mg/dL Est Cr Clr Drug Dosing 50.92 mL/min Estimated GFR (MDRD) 46.0 ml/min Glucose 120 H (74-106) mg/dL POC Glucose 108 (60-110) mg/dL Calcium 9.0 (8.5-10.1) mg/dL Total Bilirubin 1.2 H (0.2-1.0) mg/dL AST 197 H (15-37) IU/L ALT 242 H (14-63) IU/L Alkaline Phosphatase 79 (46-116) U/L Total Protein 7.1 (6.4-8.2) g/dL Albumin 2.9 L (3.4-5.0) g/dL Globulin 4.2 H (2.0-3.5) g/dL Albumin/Globulin Ratio 0.7 L (1.3-2.8) Amylase 49 (25-115) U/L Lipase 127 (73-393) U/L Vancomycin Trough (5.0-10.0) ug/mL Med Orders - Current: Current Medications Hydrocodone Bitart/Acetaminophen ([place] 325-5 Mg) 1 tab PO Q4HR PRN PRN Reason: Pain Last Admin: 07/10/17 09:32 Dose: 1 tab Albuterol/Ipratropium (Duoneb 3.0-0.5 Mg/3 Ml) 3 ml NEB Q6HRRT [facility] Last Admin: 07/10/17 11:14 Dose: Not Given Atorvastatin Calcium (Lipitor) 20 mg PO DAILY [facility] Last Admin: 07/10/17 09:12 Dose: 20 mg Diltiazem HCl (Diltiazem) 10 mg IVPUSH Q3H PRN PRN Reason: Tachycardia Last Admin: 07/10/17 02:38 Dose: 10 mg Divalproex Sodium (Divalproex Sodium) 250 mg PO TIDMEALS [facility] Last Admin: 07/10/17 13:39 Dose: 250 mg Enoxaparin Sodium (Lovenox) 40 mg SUBCUT Q24H [facility] Last Admin: 07/10/17 11:13 Dose: 40 mg Gabapentin (Neurontin) 600 mg PO TID [facility] Last Admin: 07/10/17 13:38 Dose: 600 mg Levofloxacin/Dextrose 750 mg/ (Premix) 150 mls @ 100 mls/hr IV Q48H [facility] Last Admin: 07/10/17 11:13 Dose: 100 mls/hr Amikacin Sulfate 1,000 mg/ (Sodium Chloride) 254 mls @ 254 mls/hr IV Q24H [facility] Last Admin: 07/10/17 13:38 Dose: 254 mls/hr Vancomycin HCl 1 gm/ Sodium (Chloride) 250 mls @ 166.667 mls/hr IV Q12H [facility] Insulin Aspart (Novolog) 0 unit SUBCUT TIDAC [facility]; Protocol Last Admin: 07/10/17 11:42 Dose: Not Given Levetiracetam (Keppra) 500 mg PO QID [facility] Last Admin: 07/10/17 11:13 Dose: 500 mg Nystatin (Nystop) 1 gm TOP TID [facility] Last Admin: 07/10/17 13:40 Dose: 1 applic Pantoprazole Sodium (Protonix) 40 mg PO ACBREAKFAST [facility] Last Admin: 07/10/17 06:31 Dose: 40 mg Sodium Chloride (Saline Flush) 10 ml FLUSH ASDIRECTED PRN PRN Reason: Keep Vein Open Sodium Chloride (Saline Flush) 2.5 ml FLUSH ASDIRECTED PRN PRN Reason: Keep Vein Open Vancomycin HCl (Pharmacy To Dose - Vancomycin) 1 dose .XX ASDIRECTED [facility] Discontinued Medications Amikacin Sulfate (Amikacin) 966.15 mg 7.5 mg/kg (966.15 mg) IV Q24H [facility] Last Admin: 07/08/17 15:07 Dose: Not Given Al Hydroxide/Mg Hydroxide 15 (ml/ Lidocaine HCl 5 ml) 0 ml PO ONETIME ONE Stop: 07/08/17 11:05 Last Admin: 07/08/17 12:47 Dose: 1 each Diltiazem HCl (Diltiazem) 20 mg IVPUSH ONETIME ONE Stop: 07/07/17 23:20 Last Admin: 07/07/17 23:46 Dose: Not Given Furosemide (Lasix) 20 mg IVPUSH ONETIME ONE Stop: 07/07/17 23:43 Last Admin: 07/08/17 00:41 Dose: Not Given Furosemide (Lasix) 20 mg IVPUSH NOW ONE Stop: 07/07/17 23:46 Last Admin: 07/07/17 23:53 Dose: 20 mg Sodium Chloride (Normal Saline) 1,000 mls @ 50 mls/hr IV ASDIRECTED [facility] Last Admin: 07/07/17 23:52 Dose: 50 mls/hr Levofloxacin/Dextrose 750 mg/ (Premix) 150 mls @ 100 mls/hr IV ONETIME ONE Stop: 07/08/17 12:19 Last Admin: 07/08/17 11:31 Dose: 100 mls/hr Vancomycin HCl 1,500 mg/ (Sodium Chloride) 500 mls @ 250 mls/hr IV Q8H [facility] Last Admin: 07/08/17 15:17 Dose: Not Given Amikacin Sulfate 1,000 mg/ (Sodium Chloride) 104 mls @ 104 mls/hr IV Q24H [facility] Vancomycin HCl 1,500 mg/ (Sodium Chloride) 500 mls @ 250 mls/hr IV Q8H [facility] Last Admin: 07/09/17 16:32 Dose: Not Given Vancomycin HCl 1 gm/ Sodium (Chloride) 250 mls @ 166.667 mls/hr IV Q8H [facility] Morphine Sulfate (Morphine) 2 mg IVPUSH ONETIME ONE Stop: 07/08/17 11:05 Last Admin: 07/08/17 11:26 Dose: 2 mg Morphine Sulfate (Morphine) 2 mg IVPUSH ONETIME ONE Stop: 07/10/17 10:54 Last Admin: 07/10/17 11:12 Dose: 2 mg
[2017-07-10] MEDS ORDERED: Metoprolol Tartrate 25 MG Tab PO ONE (14:26)
[2017-07-10 14:46] VITALS: BP 127/72
== END 2017-07-10 18:25 | disposition home or self-care (01) | DRG 190 ==
LOC: MW.ED 22:33 → MW.MS 23:46 → OBSVTOIN 07-09 12:06 → MW.MS 07-09 12:40
PROVIDERS: ADMIT Internal Medicine; ATTEND Internal Medicine
DX: J44.0 Chronic obstructive pulmonary disease with (acute) lower respiratory infection (principal); J18.9 Pneumonia, unspecified organism; Z68.45 Body mass index [BMI] 70 or greater, adult; J44.1 Chronic obstructive pulmonary disease with (acute) exacerbation; R10.11 Right upper quadrant pain; K80.20 Calculus of gallbladder without cholecystitis without obstruction; I48.91 Unspecified atrial fibrillation; I25.10 Atherosclerotic heart disease of native coronary artery without angina pectoris; J44.9 Chronic obstructive pulmonary disease, unspecified; G40.909 Epilepsy, unspecified, not intractable, without status epilepticus; E11.40 Type 2 diabetes mellitus with diabetic neuropathy, unspecified; M54.9 Dorsalgia, unspecified; I50.9 Heart failure, unspecified; G89.29 Other chronic pain; M81.0 Age-related osteoporosis without current pathological fracture; I10 Essential (primary) hypertension; E66.9 Obesity, unspecified; F41.8 Other specified anxiety disorders; Z91.14 Patient's other noncompliance with medication regimen; Z91.040 Latex allergy status; Z79.899 Other long term (current) drug therapy; Z99.81 Dependence on supplemental oxygen
CPT/HCPCS: 36415; 36600; 71045; 71045-26; 73020-26-LT; 73020-LT; 73060-26-LT; 73060-LT; 76700; 76700-26; 80048; 80053; 80202; 81001; 82150; 82553; 82803; 82962; 83690; 83735; 83880; 84484; 85025; 85610; 93005; 94640; 96361; 96365; 96366; 96367; 96372; 96374; 96375; 96376; 99283; 99285-25; A9270-GY; G0378; J0278; J1650; J1940; J1956; J2270; J3370; J3490; J7040; J7050

== ENCOUNTER 2017-07-17 10:01 | Emergency (ER) | payer MEDICARE, BC ==
[2017-07-17] MEDS ORDERED: Sodium Chloride 0.9% 1,000 ML IV ONE ×3 (10:26→13:28)
--- NOTE | 2017-07-17 10:31 | EDM.PDOC ---
ED HPI GENERAL MEDICAL PROBLEM - General Chief Complaint: Abdominal Pain Stated Complaint: UNK, WAS TOLD TO REG. PT PER NURSE Time Seen by Provider: 07/17/17 10:05 Source of Information: Reports: Patient, Family History Limitations: Reports: No Limitations - History of Present Illness INITIAL COMMENTS - FREE TEXT/NARRATIVE: HISTORY AND PHYSICAL: History of present illness: [Is brought to the emergency room by EMS. She is well known to this emergency room. She is complaining of diffuse abdominal pain, but worse to her lower abdomen. Pain developed over the last 24 hours. States that she was diagnosed with gallstones approximately one week ago. Local surgeons are unable to operate here and she has been referred to surgery in [place]. This appointment is scheduled for August 22 per patient's . She complains of right upper quadrant pain that has been on and off for the past 2 weeks, but is not worse today. Has not been eating or drinking much fluids. No fever or chills. Feels fatigued and low energy. Denies chest pain, shortness of breath and difficulty breathing. Last bowel movement was yesterday morning and was normal. No constipation, diarrhea or blood in her stools. Uses a bedside commode as she has difficulty ambulating due to numerous lower leg surgeries. is at the bedside. Most recent hospitalization was July 07 for dyspnea due to pneumonia versus COPD exacerbation.] Review of systems: As per history of present illness and below otherwise all systems reviewed and negative. Past medical history: As per history of present illness and as reviewed below otherwise noncontributory. Surgical history: As per history of present illness and as reviewed below otherwise noncontributory. Social history: No reported history of drug or alcohol abuse. Family history: As per history of present illness and as reviewed below otherwise noncontributory. Physical exam: HEENT: Atraumatic, normocephalic. Oral mucous membranes are dry and sticky. Neck supple, no lymphadenopathy. Bruising appreciated to left jaw/TM joint area. Lungs: Clear to auscultation, breath sounds equal bilaterally. No wheezing crackles or rales. Heart: S1S2, regular, negative for clicks, rubs, or JVD. Abdomen: Abdomen is morbidly obese and heavy. Bowel sounds are normoactive throughout. Abdomen is soft. She is tender with palpation over the right upper quadrant, and over the suprapubic area. No masses guarding or rebound. No tenderness over right and left lower quadrant. No CVA tenderness. Pelvis: Stable nontender. Genitourinary: Deferred. Rectal: Deferred. Extremities: Lower legs are purplish in color. 5 mm pitting edema on the left foot and 2 mm pitting edema on the right. Pulses are equal bilaterally. Scarring and evidence of old surgeries appreciated to bilateral lower legs. No cords or calf pain. . Neurovascular unremarkable. Refill 2 seconds. Neuro: Sleeping on and off, arousable, oriented. Motor and sensory unremarkable throughout. Exam nonfocal. Diagnostics: [CBC, CMP, UA, lipase, amylase, lactic acid, urine culture, blood cultures 2] Therapeutics: [Rocephin 1 gram IV, 1 liter LR, 1 liter NS @ 250mL/hour] Impression: [UTI] Plan: [ Patient's BP on arrival is 101/60's. Throughout ER stay, remains 80's/40's. IV fluids running. Urine culture and blood cultures are pending. Rocephin started for UTI. 1345 patient is evaluated by Dr. Sahu in the emergency room. He declines admission at this time requesting she be transferred to a higher level of care where there is a surgeon available for cholecystectomy if needed. [facility] in [place] is contacted and Dr. Cotton agrees to accept patient in transfer for admission for UTI and dehydration. The patient verbalized understanding of today's discussion. All questions are answered and concerns are addressed.] Definitive disposition and diagnosis as appropriate pending reevaluation and review of above. Lower abdominal pain and lower back pain Pain Score (Numeric/FACES): 10 - Related Data Allergies Allergy/AdvReac Type Severity Reaction Status Date / Time latex Allergy unknown Verified 07/07/17 22:50 Home Meds: Home Meds levETIRAcetam [Keppra] 500 mg PO QID 03/28/15 [History] Pantoprazole [ProTONIX] 40 mg PO ACBREAKFAST 09/14/15 [History] Calcium Carbonate/Vitamin D3 [Calcium 500 + Vit D 400] 1 each PO BID 07/11/16 [ History] Divalproex Sodium 250 mg PO TIDMEALS 07/11/16 [History] Gabapentin [Neurontin] 600 mg PO TID 07/11/16 [History] atorvaSTATin [Lipitor] 20 mg PO DAILY 07/11/16 [History] Ferrous Sulfate 325 mg PO BID 12/30/16 [History] Hydrocodone/Acetaminophen [[place]ard 5-325] 1 tab PO Q4HR PRN 12/30/16 [History] glipiZIDE [Glucotrol XL] 2.5 mg PO DAILY 12/30/16 [History] Albuterol [IJD: Albuterol] 1 inh INH Q4H PRN 01/03/17 [History] Ascorbic Acid 1 tab PO DAILY 01/03/17 [History] Budesonide [Pulmicort] 1 inh INH BID 01/03/17 [History] Docusate Sodium [Colace] 200 mg PO ASDIRECTED PRN 01/03/17 [History] Insulin Lispro [Humalog Kwikpen U-100] 0 unit SUBCUT ASDIRECTED 01/03/17 [ History] Lactobacillus Acidophilus [Acidophilus Lactobacillus] 1 cap PO BID 01/03/17 [ History] Nitroglycerin [Nitrostat] 1 tab SL ASDIRECTED PRN 01/03/17 [History] Nystatin [Nystop] 100,000 units TOP TID #1 bottle 01/06/17 [Rx] Aspirin 81 mg PO DAILY 07/08/17 [History] Levofloxacin [Levaquin] 750 mg PO DAILY 7 Days #7 tab 07/10/17 [Rx] Metoprolol Tartrate 25 mg PO BID 30 Days #60 tablet 07/10/17 [Rx] Citalopram [Citalopram HBr] 20 mg PO DAILY 07/17/17 [History] Furosemide 40 mg PO DAILY 07/17/17 [History] Metoprolol Tartrate 25 mg PO BID 07/17/17 [History] Multivitamin [Multivitamins] 1 tab PO DAILY 07/17/17 [History] Ondansetron [IJD: Ondansetron ODT] 4 mg PO BID PRN 07/17/17 [History] atorvaSTATin [Lipitor] 20 mg PO DAILY 07/17/17 [History] buPROPion [buPROPion XL] 150 mg PO DAILY 07/17/17 [History] Past Medical History - Past Health History Medical/Surgical History: Denies Medical/Surgical History HEENT History: Reports: Glaucoma Cardiovascular History: Reports: Heart Failure, Hypertension Other Cardiovascular History: CHF Respiratory History: Reports: COPD, Interstitial Lung Disease, Pulmonary Fibrosis, Other (See Below) Other Respiratory History: DIPF,. 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: Musculoskeletal History: Reports: Fibromyalgia, Osteoporosis Neurological History: Reports: Neuropathy, Diabetic, Neuropathy, Peripheral, Seizure Psychiatric History: Reports: Anxiety, Depression Endocrine/Metabolic History: Reports: Diabetes, Type II, Obesity/BMI 30+, Osteoporosis Hematologic History: Reports: Anemia, Blood Transfusion(s) Immunologic History: Reports: None Oncologic (Cancer) History: Reports: Renal, Other (See Below) Other Oncologic History: mets to liver Dermatologic History: Reports: None - Infectious Disease History Infectious Disease History: Reports: Chicken Pox, Measles Other Infectious Disease History: Not sure - Past Surgical History Respiratory Surgical History: Reports: Lung Biopsies GI Surgical History: Reports: EGD, Other (See Below) Musculoskeletal Surgical History: Reports: Other (See Below) Social & Family History - Family History Family Medical History: Noncontributory - Tobacco Use Smoking Status *Q: Former Smoker Years of Tobacco use: 40 Packs/Tins Daily: 0.1 Used Tobacco, but Quit: Yes Month/Year Tobacco Last Used: 4 years ago Second Hand Smoke Exposure: No - Caffeine Use Caffeine Use: Reports: Soda - Recreational Drug Use Recreational Drug Use: No ED ROS GENERAL - Review of Systems Review Of Systems: ROS reveals no pertinent complaints other than HPI. ED EXAM, GI/ABD - Physical Exam Exam: See Below Course - Vital Signs Last Recorded V/S: Last Vital Signs Temp 96.6 F 07/17/17 13:20 Pulse 94 07/17/17 14:00 Resp 18 07/17/17 14:00 BP 92/69 07/17/17 14:25 Pulse Ox 86 L 07/17/17 14:00 - Orders/Labs/Meds Orders: Active Orders 24 hr Category Date Time Status CULTURE URINE [RM] Stat Lab 07/17/17 11:40 Received UA W/MICROSCOPIC [URIN] Stat Lab 07/17/17 11:40 Ordered Sodium Chloride 0.9% [Normal Saline] 1,000 ml Med 07/17/17 12:50 Active IV .Bolus Medication Orders Sodium Chloride (Normal Saline) 1,000 mls @ 250 mls/hr IV .Bolus ONE Stop: 07/17/17 16:49 Last Admin: 07/17/17 13:32 Dose: 250 mls/hr Labs: Laboratory Tests 07/17/17 07/17/17 07/17/17 Range/Units 10:45 10:45 10:45 WBC 6.56 (4.0-11.0) K/uL RBC 3.87 L (4.30-5.90) M/uL Hgb 11.6 L (12.0-16.0) g/dL Hct 39.4 (36.0-46.0) % MCV 101.8 H (80.0-98.0) fL MCH 30.0 (27.0-32.0) pg MCHC 29.4 L (31.0-37.0) g/dL RDW Std Deviation 68.0 H (28.0-62.0) fl RDW Coeff of Mor[place] 19 H (11.0-15.0) % Plt Count 145 L (150-400) K/uL MPV 9.20 (7.40-12.00) fL Neut % (Auto) 61.7 (48.0-80.0) % Lymph % (Auto) 22.7 (16.0-40.0) % [place] % (Auto) 12.7 (0.0-15.0) % Eos % (Auto) 2.1 (0.0-7.0) % Baso % (Auto) 0.8 (0.0-1.5) % Neut # (Auto) 4.1 (1.4-5.7) K/uL Lymph # (Auto) 1.5 (0.6-2.4) K/uL [place] # (Auto) 0.8 (0.0-0.8) K/uL Eos # (Auto) 0.1 (0.0-0.7) K/uL Baso # (Auto) 0.1 (0.0-0.1) K/uL Nucleated RBC % 0.0 /100WBC Nucleated RBCs # 0 K/uL Lactate 1.1 (0.20-2.00) mmol/L Sodium 140 (136-145) mmol/L Potassium 5.1 (3.5-5.1) mmol/L Chloride 96 L (98-107) mmol/L Carbon Dioxide 39.7 H (21.0-32.0) mmol/L BUN 40 H (7.0-18.0) mg/dL Creatinine 2.8 H (0.6-1.0) mg/dL Est Cr Clr Drug Dosing 21.82 mL/min Estimated GFR (MDRD) 17.3 ml/min Glucose 81 (74-106) mg/dL Calcium 8.8 (8.5-10.1) mg/dL Total Bilirubin 0.9 (0.2-1.0) mg/dL AST 27 (15-37) IU/L ALT 53 (14-63) IU/L Alkaline Phosphatase 75 (46-116) U/L Total Protein 7.0 (6.4-8.2) g/dL Albumin 2.9 L (3.4-5.0) g/dL Globulin 4.1 H (2.0-3.5) g/dL Albumin/Globulin Ratio 0.7 L (1.3-2.8) Amylase 35 (25-115) U/L Lipase 62 L (73-393) U/L Urine Color Urine Appearance Urine pH (5.0-8.0) Ur Specific [place] (1.001-1.035) Urine Protein (NEGATIVE) mg/dL Urine Glucose (UA) (NEGATIVE) mg/dL Urine Ketones (NEGATIVE) mg/dL Urine Occult Blood (NEGATIVE) Urine Nitrite (NEGATIVE) Urine Bilirubin (NEGATIVE) Urine Ictotest Urine Urobilinogen (<2.0) EU/dL Ur Leukocyte Esterase (NEGATIVE) Urine RBC (0-2/HPF) Urine WBC (0-5/HPF) Ur Epithelial Cells (NONE-FEW) Urine Bacteria (NEGATIVE) 07/17/17 Range/Units 11:40 WBC (4.0-11.0) K/uL RBC (4.30-5.90) M/uL Hgb (12.0-16.0) g/dL Hct (36.0-46.0) % MCV (80.0-98.0) fL MCH (27.0-32.0) pg MCHC (31.0-37.0) g/dL RDW Std Deviation (28.0-62.0) fl RDW Coeff of [place] (11.0-15.0) % Plt Count (150-400) K/uL MPV (7.40-12.00) fL Neut % (Auto) (48.0-80.0) % Lymph % (Auto) (16.0-40.0) % [place] % (Auto) (0.0-15.0) % Eos % (Auto) (0.0-7.0) % Baso % (Auto) (0.0-1.5) % Neut # (Auto) (1.4-5.7) K/uL Lymph # (Auto) (0.6-2.4) K/uL [place] # (Auto) (0.0-0.8) K/uL Eos # (Auto) (0.0-0.7) K/uL Baso # (Auto) (0.0-0.1) K/uL Nucleated RBC % /100WBC Nucleated RBCs # K/uL Lactate (0.20-2.00) mmol/L Sodium (136-145) mmol/L Potassium (3.5-5.1) mmol/L Chloride (98-107) mmol/L Carbon Dioxide (21.0-32.0) mmol/L BUN (7.0-18.0) mg/dL Creatinine (0.6-1.0) mg/dL Est Cr Clr Drug Dosing mL/min Estimated GFR (MDRD) ml/min Glucose (74-106) mg/dL Calcium (8.5-10.1) mg/dL Total Bilirubin (0.2-1.0) mg/dL AST (15-37) IU/L ALT (14-63) IU/L Alkaline Phosphatase (46-116) U/L Total Protein (6.4-8.2) g/dL Albumin (3.4-5.0) g/dL Globulin (2.0-3.5) g/dL Albumin/Globulin Ratio (1.3-2.8) Amylase (25-115) U/L Lipase (73-393) U/L Urine Color YELLOW Urine Appearance CLEAR Urine pH 5.5 (5.0-8.0) Ur Specific [place] >= 1.030 (1.001-1.035) Urine Protein NEGATIVE (NEGATIVE) mg/dL Urine Glucose (UA) NEGATIVE (NEGATIVE) mg/dL Urine Ketones NEGATIVE (NEGATIVE) mg/dL Urine Occult Blood NEGATIVE (NEGATIVE) Urine Nitrite NEGATIVE (NEGATIVE) Urine Bilirubin SMALL H (NEGATIVE) Urine Ictotest NEGATIVE Urine Urobilinogen 1.0 (<2.0) EU/dL Ur Leukocyte Esterase TRACE (NEGATIVE) Urine RBC 0-1 (0-2/HPF) Urine WBC 8-10 (0-5/HPF) Ur Epithelial Cells OCCASIONAL (NONE-FEW) Urine Bacteria RARE (NEGATIVE) Meds: Medications Generic Name Dose Route Start Last Admin Trade Name Freq PRN Reason Stop Dose Admin Sodium Chloride 1,000 mls @ 250 mls/hr 07/17/17 12:50 07/17/17 13:32 Normal Saline IV 07/17/17 16:49 250 mls/hr .Bolus ONE Administration Discontinued Medications Generic Name Dose Route Start Last Admin Trade Name Freq PRN Reason Stop Dose Admin Ceftriaxone Sodium 1,000 mg 07/17/17 12:45 07/17/17 13:40 Rocephin IVPUSH Not Given Q24H QUINN Sodium Chloride 1,000 mls @ 999 mls/hr 07/17/17 10:26 07/17/17 10:45 Normal Saline IV 07/17/17 11:26 999 mls/hr .Bolus ONE Administration Ceftriaxone Sodium/Dextrose 1 50 mls @ 100 mls/hr 07/17/17 12:55 07/17/17 14: 22 gm/ Premix IV 07/17/17 13:24 Not Given ONETIME ONE Ceftriaxone Sodium 1,000 mg/ 50 mls @ 200 mls/hr 07/17/17 13:45 07/17/17 14: 00 Dextrose/Water IV 07/17/17 13:59 200 mls/hr ONETIME ONE Administration Ketorolac Tromethamine 30 mg 07/17/17 10:53 07/17/17 11:00 Toradol IVPUSH 07/17/17 10:54 30 mg ONETIME ONE Administration Departure - Departure Time of Disposition: 14:45 Disposition: DC/Tfer to Acute Hospital 02 Condition: Fair Clinical Impression: UTI (urinary tract infection), Dehydration, Cholelithiasis - Discharge Information Referrals: PCP,None [Primary Care Provider] - Forms: ED Department Discharge - My Orders Last 24 Hours: My Active Orders 07/17/17 11:40 CULTURE URINE [RM] Stat UA W/MICROSCOPIC [URIN] Stat 07/17/17 12:50 Sodium Chloride 0.9% [Normal Saline] 1,000 ml IV .Bolus - Assessment/Plan Last 24 Hours: My Active Orders 07/17/17 11:40 CULTURE URINE [RM] Stat UA W/MICROSCOPIC [URIN] Stat 07/17/17 12:50 Sodium Chloride 0.9% [Normal Saline] 1,000 ml IV .Bolus
[2017-07-17] MEDS ORDERED: Ketorolac 30 MG/ML SDV IVPUSH ONE (10:53)
[2017-07-17] MEDS ORDERED: cefTRIAXone 1,000 MG VIAL IVPUSH SCH (12:45)
[2017-07-17] MEDS ORDERED: cefTRIAXone 1 GM in Premix Bag 1 BAG IV ONE (12:55)
[2017-07-17] MEDS: cefTRIAXone 1,000 MG in Dextrose 5% in Water 50 ML IV ONE ×4 (13:40→14:00)
[2017-07-17 14:30] VITALS: BP 92/69
--- NOTE | 2017-07-17 14:37 | CR ---
EXAMINATION: Portable chest radiograph. HISTORY: Shortness of breath. Comparison: 05/21/2017, 07/07/2017. FINDINGS: The trachea is midline. The heart is enlarged. Chronic interstitial prominence. Atelectasis and/or in filtrate noted within the left lung base with stable elevation of the left hemidiaphragm. Osseous structures appear unremarkable. IMPRESSION: Overall are unchanged chest x-ray with left basilar atelectasis and/or infiltrate and elevation of th e left hemidiaphragm.
== END 2017-07-17 16:07 ==
LOC: MW.ED 10:01
DX: K80.20 Calculus of gallbladder without cholecystitis without obstruction (principal); N39.0 Urinary tract infection, site not specified; E86.0 Dehydration; I11.0 Hypertensive heart disease with heart failure; I50.9 Heart failure, unspecified; J44.9 Chronic obstructive pulmonary disease, unspecified; E11.40 Type 2 diabetes mellitus with diabetic neuropathy, unspecified; E66.9 Obesity, unspecified; Z79.82 Long term (current) use of aspirin; Z91.040 Latex allergy status; Z79.899 Other long term (current) drug therapy; Z87.891 Personal history of nicotine dependence
CPT/HCPCS: 36415; 71045; 71045-26; 80053; 81001; 82150; 83605; 83690; 85025; 87040; 87086; 96361; 96374; 96375; 99285-25; J0696; J1885; J7040; J7060

== ENCOUNTER 2017-08-11 15:13 | Emergency (ER) | payer MEDICARE, BC ==
[2017-08-11] MEDS ORDERED: Sodium Chloride 0.9% 10 ML Syringe FLUSH PRN (15:34)
[2017-08-11] MEDS ORDERED: Sodium Chloride 0.9% 2.5 ML Syringe FLUSH PRN (15:34)
--- NOTE | 2017-08-11 15:45 | EDM.PDOC ---
ED HPI GENERAL MEDICAL PROBLEM - General Stated Complaint: PT OXYGEN LEVEL IS LOW Time Seen by Provider: 08/11/17 15:41 Source of Information: Reports: Patient, Family, Provider History Limitations: Reports: No Limitations - History of Present Illness INITIAL COMMENTS - FREE TEXT/NARRATIVE: HISTORY AND PHYSICAL: []41-year-old female presents per EMS from Dr[facility] with abdominal pain Anus been present for about one month History of Present Illness: []Patient was in [place] last week to the emergency room seen by many doctors they told her that she has a leak to her hernia. Physicians had talked to her about significant risk of having surgery to repair this but were willing to take her to surgery.patient at that time was not willing to undergo surgery. Review of Systems: As per history of present illness and below otherwise all systems reviewed and negative. Past medical history: As per history of present illness and as reviewed below otherwise noncontributory. Surgical history: As per history of present illness and as reviewed below otherwise noncontributory. Social history: No reported history of drug or alcohol abuse. Family history: As per history of present illness and as reviewed below otherwise noncontributory. Physical exam: Alert and oriented answering questions appropriately in full sentences she does have oxygen on. Significant other at bedside HEENT: Atraumatic, normocehpalic, pupils reactive, negative for conjunctival pallor or scleral icterus, mucous membranes moist, throat clear, neck supple, nontender, trachea midline. Lungs: Clear to auscultation, breath sounds equal bilaterally, chest non tender. Heart: S1S2, regular, negative for clicks, rubs, or JVD. Abdomen: Soft, nondistended, tender on the left lower. Negative for masses or hepatossplenmegaly. Negative for costovertebral tenderness. Pelvis: Stable nontender. Genitourinary: Deferred. Rectal: Deferred Extremities: Atraumatic, negative for cords or calf pain. Neurovascular unremarkable. Neuro: Awake, alert, oriented. Cranial nerves II through XII unremarkable. Cerebellum unremarkable. Motor and sensory unremarkable throughout. Exam nonfocal. I discussed this case with Dr. Russell who will examine the patient. (Dr. Becker see consult ). Patient and now questing to be transferred to [facility]. Concerns are voiced that she cannot sit in the car for [address] to [place] an ambulance is required. I have discussed this nonemergent transfer with Dr. Garcia at [facility] ER and he has accepted the patient for evaluation. Diagnostics: []CBC CMP amylase lipase abdomen pelvis CT with contrast Therapeutics: []IV fluids Dilaudid 1mg Impression: []Abdominal pain Plan: []discharge Definitive disposition and diagnosis as appropriate pending reevaluation and review of above. Onset: Gradual Duration: Day(s):, Getting Worse Location: Reports: Abdomen Quality: Reports: Throbbing Severity: Moderate Improves with: Reports: None Worsens with: Reports: None abdominal pain Pain Score (Numeric/FACES): 10 - Related Data Allergies Allergy/AdvReac Type Severity Reaction Status Date / Time latex Allergy unknown Verified 07/07/17 22:50 Home Meds: Home Meds levETIRAcetam [Keppra] 500 mg PO QID 03/28/15 [History] Pantoprazole [ProTONIX] 40 mg PO ACBREAKFAST 09/14/15 [History] Calcium Carbonate/Vitamin D3 [Calcium 500 + Vit D 400] 1 each PO BID 07/11/16 [ History] Divalproex Sodium 250 mg PO TIDMEALS 07/11/16 [History] Gabapentin [Neurontin] 600 mg PO TID 07/11/16 [History] atorvaSTATin [Lipitor] 20 mg PO DAILY 07/11/16 [History] Ferrous Sulfate 325 mg PO BID 12/30/16 [History] Hydrocodone/Acetaminophen [Bartlett 5-325] 1 tab PO Q4HR PRN 12/30/16 [History] glipiZIDE [Glucotrol XL] 2.5 mg PO DAILY 12/30/16 [History] Albuterol [IJD: Albuterol] 1 inh INH Q4H PRN 01/03/17 [History] Ascorbic Acid 1 tab PO DAILY 01/03/17 [History] Budesonide [Pulmicort] 1 inh INH BID 01/03/17 [History] Docusate Sodium [Colace] 200 mg PO ASDIRECTED PRN 01/03/17 [History] Insulin Lispro [Humalog Kwikpen U-100] 0 unit SUBCUT ASDIRECTED 01/03/17 [ History] Lactobacillus Acidophilus [Acidophilus Lactobacillus] 1 cap PO BID 09/22/17 [ History] Nitroglycerin [Nitrostat] 1 tab SL ASDIRECTED PRN 01/03/17 [History] Nystatin [Nystop] 100,000 units TOP TID #1 bottle 01/06/17 [Rx] Aspirin 81 mg PO DAILY 07/08/17 [History] Levofloxacin [Levaquin] 750 mg PO DAILY 7 Days #7 tab 07/10/17 [Rx] Metoprolol Tartrate 25 mg PO BID 30 Days #60 tablet 07/10/17 [Rx] Citalopram [Citalopram HBr] 20 mg PO DAILY 07/17/17 [History] Furosemide 40 mg PO DAILY 07/17/17 [History] Metoprolol Tartrate 25 mg PO BID 07/17/17 [History] Multivitamin [Multivitamins] 1 tab PO DAILY 07/17/17 [History] Ondansetron [IJD: Ondansetron ODT] 4 mg PO BID PRN 07/17/17 [History] atorvaSTATin [Lipitor] 20 mg PO DAILY 07/17/17 [History] buPROPion [buPROPion XL] 150 mg PO DAILY 07/17/17 [History] Past Medical History - Past Health History Medical/Surgical History: Denies Medical/Surgical History HEENT History: Reports: Glaucoma Cardiovascular History: Reports: Heart Failure, Hypertension Other Cardiovascular History: CHF Respiratory History: Reports: COPD, Interstitial Lung Disease, Pulmonary Fibrosis, Other (See Below) Other Respiratory History: DIPF,. home O2 dependent at 3L Gastrointestinal History: Reports: Gastritis Genitourinary History: Reports: Other (See Below) Other Genitourinary History: only has left kidney, renal [place] [employer] History: Reports: Musculoskeletal History: Reports: Fibromyalgia, Osteoporosis Neurological History: Reports: Neuropathy, Diabetic, Neuropathy, Peripheral, Seizure Psychiatric History: Reports: Anxiety, Depression Endocrine/Metabolic History: Reports: Diabetes, Type II, Obesity/BMI 30+, Osteoporosis Hematologic History: Reports: Anemia, Blood Transfusion(s) Immunologic History: Reports: None Oncologic (Cancer) History: Reports: Renal, Other (See Below) Other Oncologic History: mets to liver Dermatologic History: Reports: None - Infectious Disease History Infectious Disease History: Reports: Chicken Pox, Measles Other Infectious Disease History: Not sure - Past Surgical History Respiratory Surgical History: Reports: Lung Biopsies GI Surgical History: Reports: EGD, Other (See Below) Musculoskeletal Surgical History: Reports: Other (See Below) Social & Family History - Family History Family Medical History: Noncontributory - Tobacco Use Smoking Status *Q: Former Smoker Years of Tobacco use: 40 Packs/Tins Daily: 0.1 Used Tobacco, but Quit: Yes Month/Year Tobacco Last Used: 4 years ago Second Hand Smoke Exposure: No - Caffeine Use Caffeine Use: Reports: Soda - Recreational Drug Use Recreational Drug Use: No ED ROS GENERAL - Review of Systems Review Of Systems: ROS reveals no pertinent complaints other than HPI. ED EXAM, GENERAL - Physical Exam Exam: See Below (See dictation) Course - Vital Signs Last Recorded V/S: Last Vital Signs Temp 37.1 C 08/11/17 15:34 Pulse 110 H 08/11/17 19:20 Resp 19 08/11/17 19:20 BP 109/61 08/11/17 19:20 Pulse Ox 99 08/11/17 19:20 - Orders/Labs/Meds Orders: Active Orders 24 hr Category Date Time Status Notify Provider Consults [RC] ASDIRECTED Care 08/11/17 19:09 Active Consult to Physician [CONS] Stat Cons 08/11/17 19:08 Active UA W/MICROSCOPIC [URIN] Stat Lab 08/11/17 16:50 Ordered Sodium Chloride 0.9% [Saline Flush] Med 08/11/17 15:34 Active 10 ml FLUSH ASDIRECTED PRN Sodium Chloride 0.9% [Saline Flush] Med 08/11/17 15:34 Active 2.5 ml FLUSH ASDIRECTED PRN Saline Lock Insert [OM.PC] Stat Oth 08/11/17 15:34 Ordered Medication Orders Sodium Chloride (Saline Flush) 10 ml FLUSH ASDIRECTED PRN PRN Reason: Keep Vein Open Sodium Chloride (Saline Flush) 2.5 ml FLUSH ASDIRECTED PRN PRN Reason: Keep Vein Open Labs: Laboratory Tests 08/11/17 08/11/17 08/11/17 Range/Units 15:50 15:50 16:50 WBC 6.01 (4.0-11.0) K/uL RBC 3.40 L (4.30-5.90) M/uL Hgb 10.0 L (12.0-16.0) g/dL Hct 34.4 L (36.0-46.0) % MCV 101.2 H (80.0-98.0) fL MCH 29.4 (27.0-32.0) pg MCHC 29.1 L (31.0-37.0) g/dL RDW Std Deviation 63.3 H (28.0-62.0) fl RDW Coeff of Morales 18 H (11.0-15.0) % Plt Count 181 (150-400) K/uL MPV 8.90 (7.40-12.00) fL Neut % (Auto) 58.5 (48.0-80.0) % Lymph % (Auto) 23.1 (16.0-40.0) % [place] % (Auto) 14.3 (0.0-15.0) % Eos % (Auto) 3.3 (0.0-7.0) % Baso % (Auto) 0.8 (0.0-1.5) % Neut # (Auto) 3.5 (1.4-5.7) K/uL Lymph # (Auto) 1.4 (0.6-2.4) K/uL [place] # (Auto) 0.9 H (0.0-0.8) K/uL Eos # (Auto) 0.2 (0.0-0.7) K/uL Baso # (Auto) 0.1 (0.0-0.1) K/uL Nucleated RBC % 0.0 /100WBC Nucleated RBCs # 0 K/uL Sodium 146 H (136-145) mmol/L Potassium 3.9 (3.5-5.1) mmol/L Chloride 99 (98-107) mmol/L Carbon Dioxide 44.2 H (21.0-32.0) mmol/L BUN 23 H (7.0-18.0) mg/dL Creatinine 1.5 H (0.6-1.0) mg/dL Est Cr Clr Drug Dosing TNP Estimated GFR (MDRD) 35.5 ml/min Glucose 117 H (74-106) mg/dL Calcium 9.7 (8.5-10.1) mg/dL Total Bilirubin 1.0 (0.2-1.0) mg/dL AST 18 (15-37) IU/L ALT 15 (14-63) IU/L Alkaline Phosphatase 86 (46-116) U/L Total Protein 7.5 (6.4-8.2) g/dL Albumin 3.0 L (3.4-5.0) g/dL Globulin 4.5 H (2.0-3.5) g/dL Albumin/Globulin Ratio 0.7 L (1.3-2.8) Amylase 49 (25-115) U/L Lipase 141 (73-393) U/L Urine Color YELLOW Urine Appearance CLEAR Urine pH 5.5 (5.0-8.0) Ur Specific [place] 1.025 (1.001-1.035) Urine Protein NEGATIVE (NEGATIVE) mg/dL Urine Glucose (UA) NEGATIVE (NEGATIVE) mg/dL Urine Ketones NEGATIVE (NEGATIVE) mg/dL Urine Occult Blood NEGATIVE (NEGATIVE) Urine Nitrite NEGATIVE (NEGATIVE) Urine Bilirubin SMALL H (NEGATIVE) Urine Ictotest NEGATIVE Urine Urobilinogen 1.0 (<2.0) EU/dL Ur Leukocyte Esterase NEGATIVE (NEGATIVE) Urine RBC 0-1 (0-2/HPF) Urine WBC 0-1 (0-5/HPF) Ur Epithelial Cells FEW (NONE-FEW) Urine Bacteria RARE (NEGATIVE) Meds: Medications Generic Name Dose Route Start Last Admin Trade Name Freq PRN Reason Stop Dose Admin Sodium Chloride 10 ml 08/11/17 15:34 Saline Flush FLUSH ASDIRECTED PRN Keep Vein Open Sodium Chloride 2.5 ml 08/11/17 15:34 Saline Flush FLUSH ASDIRECTED PRN Keep Vein Open Discontinued Medications Generic Name Dose Route Start Last Admin Trade Name Freq PRN Reason Stop Dose Admin Hydromorphone HCl 1 mg 08/11/17 18:57 08/11/17 19:21 Dilaudid IVPUSH 08/11/17 18:58 1 mg ONETIME ONE Administration Departure - Departure Time of Disposition: 20:32 Disposition: DC/Tfer to Acute Hospital 02 Condition: Good Clinical Impression: Abdominal pain Qualifiers: Abdominal location: lower abdomen, unspecified Qualified Code(s): R10.30 - Lower abdominal pain, unspecified - Discharge Information Instructions: Abdominal Pain, Adult, [id number] Referrals: PCP,None [Primary Care Provider] - Additional Instructions: The following information is given to patients seen in the emergency department who are being discharged to home. This information is to outline your options for follow-up care. We provide all patients seen in our emergency department with a follow-up referral. The need for follow-up, as well as the timing and circumstances, are variable depending upon the specifics of your emergency department visit. If you don't have a primary care physician on staff, we will provide you with a referral. We always advise you to contact your personal physician following an emergency department visit to inform them of the circumstance of the visit and for follow-up with them and/or the need for any referrals to a consulting specialist. The emergency department will also refer you to a specialist when appropriate. This referral assures that you have the opportunity for followup care with a specialist. All of these measure are taken in an effort to provide you with optimal care, which includes your followup. Under all circumstances we always encourage you to contact your private physician who remains a resource for coordinating your care. When calling for followup care, please make the office aware that this follow-up is from your recent emergency room visit. If for any reason you are refused follow-up, please contact the [facility] emergency department at and asked to speak to the emergency department charge nurse. Being transferred per your request to [facility] emergency room - My Orders Last 24 Hours: My Active Orders 08/11/17 15:34 Sodium Chloride 0.9% [Saline Flush] 10 ml FLUSH ASDIRECTED PRN Sodium Chloride 0.9% [Saline Flush] 2.5 ml FLUSH ASDIRECTED PRN Saline Lock Insert [OM.PC] Stat 08/11/17 16:50 UA W/MICROSCOPIC [URIN] Stat 08/11/17 19:08 Consult to Physician [CONS] Stat 08/11/17 19:09 Notify Provider Consults [RC] ASDIRECTED - Assessment/Plan Last 24 Hours: My Active Orders 08/11/17 15:34 Sodium Chloride 0.9% [Saline Flush] 10 ml FLUSH ASDIRECTED PRN Sodium Chloride 0.9% [Saline Flush] 2.5 ml FLUSH ASDIRECTED PRN Saline Lock Insert [OM.PC] Stat 08/11/17 16:50 UA W/MICROSCOPIC [URIN] Stat 08/11/17 19:08 Consult to Physician [CONS] Stat 08/11/17 19:09 Notify Provider Consults [RC] ASDIRECTED
[2017-08-11 16:24] LABS: CHLORIDE,CL 99 mmol/L (98-107); SODIUM,NA 146 mmol/L (136-145)
[2017-08-11] MEDS ORDERED: HYDROmorphone 1 MG/ML Syringe IVPUSH ONE (18:57)
--- NOTE | 2017-08-11 19:11 | CT ---
EXAM DATE: 08/11/17 PATIENT'S AGE: 61 Patient: VALERIA KC Facility: [place], [place] Site . Site : 1955 Study: CT Abdomen/Pelvis WO CONT [id number]/30/2018 5:17:18 PM Ordering Physician: Doctor Brewer Final Report: INDICATION: ABD PAIN INDICATION: Abdominal pain TECHNIQUE: CT abdomen and pelvis without contrast. COMPARISON: 07/16/2010 FINDINGS: Lower chest: Small bilateral pleural effusions left greater than right with adjacent atelectasis. Liver: Lobulated hepatic contour. Correlate with cirrhosis clinically. Spleen: Unremarkable. Pancreas: Unremarkable. Gallbladder and bile ducts: Solitary 7 millimeter gallstone in a contracted gallbladder. Kidneys: The right kidney is absent. The left kidney demonstrates no evidence of ureteral stones and no hydronephrosis. Adrenal glands: Unremarkable. GI tract: Unremarkable. Appendix is normal. Vascular structures: Unremarkable. Lymph nodes: Subcentimeter aortocaval lymph nodes. Miscellaneous: Anasarca. No free air. Ascites. Pelvic Organs: Wiggins catheter identified within a decompressed urinary bladder. Bones: Unremarkable for age. IMPRESSION: Lobular hepatic contour with diffuse ascites and anasarca. Correlate with cirrhosis clinically. The right kidney is absent. Solitary 7 millimeter gallstone in a contracted gallbladder. Small bilateral pleural effusions left greater than right with adjacent atelectasis. Dictated by Deuce Felix MD @ 08/11/2017 6:10:12 PM Dictated by: Deuce Felix MD @ 08/11/2017 18:10:21 (Electronic Signature) Report Signed by Proxy. [facility]ITAL[facility]
--- NOTE | 2017-08-11 19:12 | CR ---
EXAM DATE: 08/11/17 PATIENT'S AGE: 61 Patient: VALERIA KC Facility: [place], [place] Site . Site : 1955 Study: XRay Chest [id number]/30/2018 5:30:41 PM Ordering Physician: Doctor Brewer Final Report: INDICATION: Chest pain, shortness of breath TECHNIQUE: Chest radiograph one-view COMPARISON: 07/17/2017 FINDINGS: Severe degradation of image quality noted due to body habitus. Mediastinum: The heart silhouette is normal in size and morphology. The mediastinum is normal in appearance. Lungs: Very small lung volumes are present with consolidation in left lung base and mild perihilar edema. The overall appearance is similar to prior examination. No sign of pleural effusion seen. No pneumothorax is identified. Bones and soft tissue: Unremarkable for age. IMPRESSION: 1. Very small lung volumes are present with consolidation in left lung base and mild perihilar edema. The overall appearance is similar to prior examination. Dictated by Tom Shanks MD @ 08/11/2017 6:00:24 PM Dictated by: Tom Shanks MD @ 08/11/2017 18:00:36 (Electronic Signature) Report Signed by Proxy. DOE
[2017-08-11 21:53] VITALS: BP 124/64
--- NOTE | 2017-08-12 11:34 | CONS ---
DATE OF CONSULTATION: 08/11/2017 DATE OF : 1955 PRIMARY CARE PHYSICIAN: None PCP CONSULTING QUESTION: Pain. HISTORY OF PRESENT ILLNESS: The patient is a 61-year-old morbidly obese, BMI of 50, lady, and complains of pain 01/21, seen in emergency room, pain has been going on for about one month, and per patient, they have been to [place] and talking about some surgery, but not a surgical candidate. The patient finally went home and now the patient presented to our emergency room. The patient, other than complaining of pain, denies shortness of breath, denies syncope, and denies bright red blood per rectum. The patient had her usual diet all the way today and kept it down, and the patient had a well-formed stool this morning, and the patient is passing gas in emergency room. ALLERGIES: Please refer to nursing for details. MEDICATIONS: Please refer to nursing for details. SOCIAL HISTORY: Non-alcohol drinker. REVIEW OF SYSTEMS: Same as history of present illness. FAMILY HISTORY: Noncontributory. PAST MEDICAL HISTORY: Significant for diabetic, hypertension. Denied TN and CVA. PAST SURGICAL HISTORY: The patient had more than 12 surgeries. Suffice it to say and multiple orthopedic surgeries bilateral lower extremity. PHYSICAL EXAMINATION: GENERAL: The patient is with the eyes closed and marginally cooperating with examination. HEENT: Normocephalic and atraumatic. Sclerae anicteric. LUNGS: Bilateral breath sound. ABDOMEN: Regular bowel sounds in all 4 quadrants. The patient has a large midline incision from epigastrium to pelvic pubis. LABORATORY DATA: White count 6,000. CAT scan shows gallstones. IMPRESSION: She has pain and does not seem to have a surgical issue at the present time with the patient's morbid obesity and bilateral pleural effusion and from family history, not a surgical candidate in [place]. The patient probable belong to a tertiary care center if the need for surgery. For the time being, the patient need to address her issue with pain, and it would probably be beneficial to see tertiary care center if there is any surgical need when the need arise. SHARLENE / HORTENCIA /[id number]
== END 2017-08-11 21:20 ==
LOC: MW.ED 15:13
DX: R10.32 Left lower quadrant pain (principal); I11.0 Hypertensive heart disease with heart failure; I50.9 Heart failure, unspecified; J44.9 Chronic obstructive pulmonary disease, unspecified; E11.42 Type 2 diabetes mellitus with diabetic polyneuropathy; D64.9 Anemia, unspecified; Z87.891 Personal history of nicotine dependence; Z91.040 Latex allergy status; Z79.899 Other long term (current) drug therapy; Z79.4 Long term (current) use of insulin
CPT/HCPCS: 36415; 71045; 74176; 80053; 81001; 82150; 83690; 85025; 96374; 99285; J1170

== ENCOUNTER 2017-10-24 19:28 | Emergency (ER) | payer BC ==
[2017-10-24] MEDS ORDERED: Sodium Chloride 0.9% 1,000 ML IV ONE (19:39)
[2017-10-24] MEDS ORDERED: Etomidate 2 MG/ML 20 ML SDV IVPUSH ONE (20:15)
[2017-10-24] MEDS ORDERED: Succinylcholine 200 MG/10 ML MDV IV ONE (20:15)
[2017-10-24] MEDS ORDERED: Rocuronium 50 MG/5 ML Vial IVPUSH ONE (20:15)
[2017-10-24 20:22] LABS: CHLORIDE,CL 102 mmol/L (98-107); SODIUM,NA 140 mmol/L (136-145)
[2017-10-24] MEDS ORDERED: cefTRIAXone 2 GM in Premix Bag 1 BAG IV ONE (20:30)
--- NOTE | 2017-10-24 20:46 | EDM.PDOC ---
ED HPI GENERAL MEDICAL PROBLEM - General Chief Complaint: Neuro Symptoms/Deficits Time Seen by Provider: 10/24/17 19:33 - History of Present Illness INITIAL COMMENTS - FREE TEXT/NARRATIVE: HISTORY AND PHYSICAL: History of present illness: Patient is 61-year-old female well-known emergency department with past medical history significant for CHF respiratory failure diabetes COPD seizure disorder who presents with altered mental status by EMS on arrival here patient is obtunded with poor respiratory effort pulse ox initially was 72 this did improve with supplemental oxygenation patient's ventilatory effort remained poor and arterial blood gas demonstrated ventilatory failure is in no reported trauma fever chills nausea or vomiting her Review of systems: As per history of present illness and below otherwise all systems reviewed and negative. Past medical history: As per history of present illness and as reviewed below otherwise noncontributory. Surgical history: As per history of present illness and as reviewed below otherwise noncontributory. Social history: No reported history of drug or alcohol abuse. Family history: As per history of present illness and as reviewed below otherwise noncontributory. Physical exam: HEENT: Atraumatic, normocephalic, pupils reactive, negative for conjunctival pallor or scleral icterus, mucous membranes dry, throat clear, neck supple, nontender, trachea midline. Lungs: Diminished, breath sounds equal bilaterally, chest nontender. Heart: S1S2, regular, negative for clicks, rubs, or JVD. Abdomen: Soft, nondistended, nontender. Negative for masses or hepatosplenomegaly. Negative for costovertebral tenderness. Pelvis: Stable nontender. Genitourinary: Deferred. Rectal: Deferred. Extremities: Atraumatic, negative for cords or calf pain. Neurovascular unremarkable. Neuro: Patient obtunded she will open eyes to command is not following commands consistently but does move all extremities Diagnostics: CBC CMP troponin PT/INR EKG chest x-ray lactic acid blood culture 2 arterial blood gas Therapeutics: Patient was intubated via rapid sequence intubation with an 8-0 ET tube breath sounds are equal status post bilaterally good color change chest x-ray pending Rocephin 2 g IV Impression: #1 altered mental status #2 acute ventilatory failure 3 UTI Definitive disposition and diagnosis as appropriate pending reevaluation and review of above. Treatments [employer]: Reports: Oxygen - Related Data Allergies Allergy/AdvReac Type Severity Reaction Status Date / Time latex Allergy unknown Verified 10/24/17 19:45 Home Meds: Home Meds levETIRAcetam [Keppra] 500 mg PO QID 03/28/15 [History] Pantoprazole [ProTONIX] 40 mg PO ACBREAKFAST 09/14/15 [History] Calcium Carbonate/Vitamin D3 [Calcium 500 + Vit D 400] 1 each PO BID 07/11/16 [ History] Divalproex Sodium 250 mg PO TIDMEALS 07/11/16 [History] Gabapentin [Neurontin] 600 mg PO TID 07/11/16 [History] atorvaSTATin [Lipitor] 20 mg PO DAILY 07/11/16 [History] Ferrous Sulfate 325 mg PO BID 12/30/16 [History] Hydrocodone/Acetaminophen [[place] 5-325] 1 tab PO Q4HR PRN 12/30/16 [History] glipiZIDE [Glucotrol XL] 2.5 mg PO DAILY 12/30/16 [History] Albuterol [IJD: Albuterol] 1 inh INH Q4H PRN 01/03/17 [History] Ascorbic Acid 1 tab PO DAILY 01/03/17 [History] Budesonide [Pulmicort] 1 inh INH BID 01/03/17 [History] Docusate Sodium [Colace] 200 mg PO ASDIRECTED PRN 01/03/17 [History] Insulin Lispro [Humalog Kwikpen U-100] 0 unit SUBCUT ASDIRECTED 01/03/17 [ History] Lactobacillus Acidophilus [Acidophilus Lactobacillus] 1 cap PO BID 01/03/17 [ History] Nitroglycerin [Nitrostat] 1 tab SL ASDIRECTED PRN 01/03/17 [History] Nystatin [Nystop] 100,000 units TOP TID #1 bottle 01/06/17 [Rx] Aspirin 81 mg PO DAILY 07/08/17 [History] Levofloxacin [Levaquin] 750 mg PO DAILY 7 Days #7 tab 07/10/17 [Rx] Metoprolol Tartrate 25 mg PO BID 30 Days #60 tablet 07/10/17 [Rx] Citalopram [Citalopram HBr] 20 mg PO DAILY 07/17/17 [History] Furosemide 40 mg PO DAILY 07/17/17 [History] Metoprolol Tartrate 25 mg PO BID 07/17/17 [History] Multivitamin [Multivitamins] 1 tab PO DAILY 07/17/17 [History] Ondansetron [IJD: Ondansetron ODT] 4 mg PO BID PRN 07/17/17 [History] atorvaSTATin [Lipitor] 20 mg PO DAILY 07/17/17 [History] buPROPion [buPROPion XL] 150 mg PO DAILY 07/17/17 [History] Past Medical History - Past Health History Medical/Surgical History: Denies Medical/Surgical History HEENT History: Reports: Glaucoma Cardiovascular History: Reports: Heart Failure, Hypertension Other Cardiovascular History: CHF Respiratory History: Reports: COPD, Interstitial Lung Disease, Pulmonary Fibrosis, Other (See Below) Other Respiratory History: DIPF,. home O2 dependent at 3L Gastrointestinal History: Reports: Gastritis Genitourinary History: Reports: Other (See Below) Other Genitourinary History: only has left kidney, renal CA TALENT SOURCER History: Reports: Musculoskeletal History: Reports: Fibromyalgia, Osteoporosis Neurological History: Reports: Neuropathy, Diabetic, Neuropathy, Peripheral, Seizure Psychiatric History: Reports: Anxiety, Depression Endocrine/Metabolic History: Reports: Diabetes, Type II, Obesity/BMI 30+, Osteoporosis Hematologic History: Reports: Anemia, Blood Transfusion(s) Immunologic History: Reports: None Oncologic (Cancer) History: Reports: Renal, Other (See Below) Other Oncologic History: mets to liver Dermatologic History: Reports: None - Infectious Disease History Infectious Disease History: Reports: Chicken Pox, Measles Other Infectious Disease History: Not sure - Past Surgical History Respiratory Surgical History: Reports: Lung Biopsies GI Surgical History: Reports: EGD, Other (See Below) Musculoskeletal Surgical History: Reports: Other (See Below) Social & Family History - Family History Family Medical History: Noncontributory - Caffeine Use Caffeine Use: Reports: Soda ED ROS GENERAL - Review of Systems Review Of Systems: ROS reveals no pertinent complaints other than HPI. ED EXAM, GENERAL - Physical Exam Exam: See Below (See dictation) Course - Vital Signs Text/Narrative:: I discussed case with Dr. Fabiana Dyer emergency department and graciously accepted the patient will be transferred via [facility] NG Wiggins was placed prior to transfer Last Recorded V/S: Last Vital Signs Temp 36.3 C 10/24/17 19:38 Pulse 149 H 10/24/17 19:38 Resp 17 10/24/17 19:38 BP 146/78 H 10/24/17 19:38 Pulse Ox 72 L 10/24/17 19:38 - Orders/Labs/Meds Orders: Active Orders 24 hr Category Date Time Status EKG Documentation Completion [RC] STAT Care 10/24/17 19:38 Active Insert Wiggins Catheter [Insert Urinary Catheter] [OM.PC] Care 10/24/17 20:00 Ordered Q24H Urinary Catheter Assessment [RC] ASDIRECTED Care 10/24/17 19:59 Active Chest 1V Frontal [CR] Stat Exams 10/24/17 19:38 Taken CULTURE BLOOD [BC] Stat Lab 10/24/17 19:39 Received CULTURE BLOOD [BC] Stat Lab 10/24/17 19:51 Received CULTURE URINE [RM] Stat Lab 10/24/17 19:45 Received UA W/MICROSCOPIC [URIN] Stat Lab 10/24/17 19:45 Ordered Blood Culture x2 Reflex Set [OM.PC] Stat Oth 10/24/17 19:45 Ordered Labs: Laboratory Tests 10/24/17 10/24/17 10/24/17 Range/Units 19:37 19:37 19:37 WBC 6.81 (4.0-11.0) K/uL RBC 3.81 L (4.30-5.90) M/uL Hgb 11.7 L (12.0-16.0) g/dL Hct 36.3 (36.0-46.0) % MCV 95.3 (80.0-98.0) fL MCH 30.7 (27.0-32.0) pg MCHC 32.2 (31.0-37.0) g/dL RDW Std Deviation 64.7 H (28.0-62.0) fl RDW Coeff of Mor[place] 19 H (11.0-15.0) % Plt Count 123 L (150-400) K/uL MPV 9.20 (7.40-12.00) fL Neut % (Auto) 67.5 (48.0-80.0) % Lymph % (Auto) 21.0 (16.0-40.0) % [place] % (Auto) 8.4 (0.0-15.0) % Eos % (Auto) 2.5 (0.0-7.0) % Baso % (Auto) 0.6 (0.0-1.5) % Neut # (Auto) 4.6 (1.4-5.7) K/uL Lymph # (Auto) 1.4 (0.6-2.4) K/uL [place] # (Auto) 0.6 (0.0-0.8) K/uL Eos # (Auto) 0.2 (0.0-0.7) K/uL Baso # (Auto) 0.0 (0.0-0.1) K/uL Nucleated RBC % 0.8 /100WBC Nucleated RBCs # 0 K/uL INR ABG pH (7.35-7.45) ABG pCO2 (35-45) mmHG ABG pO2 (75-100) mmHG ABG HCO3 (22-26) mEq/L ABG Total CO2 ABG Base Excess (-2.0-2.0) Lactate 0.9 (0.20-2.00) mmol/L Sodium 140 (136-145) mmol/L Potassium 5.2 H (3.5-5.1) mmol/L Chloride 102 (98-107) mmol/L Carbon Dioxide 34.4 H (21.0-32.0) mmol/L BUN 43 H (7.0-18.0) mg/dL Creatinine 1.7 H (0.6-1.0) mg/dL Est Cr Clr Drug Dosing 35.94 mL/min Estimated GFR (MDRD) 30.8 ml/min Glucose 125 H (74-106) mg/dL Calcium 9.1 (8.5-10.1) mg/dL Total Bilirubin 1.0 (0.2-1.0) mg/dL AST 28 (15-37) IU/L ALT 27 (14-63) IU/L Alkaline Phosphatase 93 (46-116) U/L Troponin I < 0.050 (0.000-0.056) ng/mL B-Natriuretic Peptide (<100) PG/ML Total Protein 8.0 (6.4-8.2) g/dL Albumin 3.6 (3.4-5.0) g/dL Globulin 4.4 H (2.0-3.5) g/dL Albumin/Globulin Ratio 0.8 L (1.3-2.8) Urine Color Urine Appearance Urine pH (5.0-8.0) Ur Specific [place] (1.001-1.035) Urine Protein (NEGATIVE) mg/dL Urine Glucose (UA) (NEGATIVE) mg/dL Urine Ketones (NEGATIVE) mg/dL Urine Occult Blood (NEGATIVE) Urine Nitrite (NEGATIVE) Urine Bilirubin (NEGATIVE) Urine Urobilinogen (<2.0) EU/dL Ur Leukocyte Esterase (NEGATIVE) Urine RBC (0-2/HPF) Urine WBC (0-5/HPF) Ur Epithelial Cells (NONE-FEW) Urine Bacteria (NEGATIVE) 10/24/17 10/24/17 10/24/17 Range/Units 19:37 19:37 19:45 WBC (4.0-11.0) K/uL RBC (4.30-5.90) M/uL Hgb (12.0-16.0) g/dL Hct (36.0-46.0) % MCV (80.0-98.0) fL MCH (27.0-32.0) pg MCHC (31.0-37.0) g/dL RDW Std Deviation (28.0-62.0) fl RDW Coeff of [place] (11.0-15.0) % Plt Count (150-400) K/uL MPV (7.40-12.00) fL Neut % (Auto) (48.0-80.0) % Lymph % (Auto) (16.0-40.0) % [place] % (Auto) (0.0-15.0) % Eos % (Auto) (0.0-7.0) % Baso % (Auto) (0.0-1.5) % Neut # (Auto) (1.4-5.7) K/uL Lymph # (Auto) (0.6-2.4) K/uL [place] # (Auto) (0.0-0.8) K/uL Eos # (Auto) (0.0-0.7) K/uL Baso # (Auto) (0.0-0.1) K/uL Nucleated RBC % /100WBC Nucleated RBCs # K/uL INR 1.04 ABG pH (7.35-7.45) ABG pCO2 (35-45) mmHG ABG pO2 (75-100) mmHG ABG HCO3 (22-26) mEq/L ABG Total CO2 ABG Base Excess (-2.0-2.0) Lactate (0.20-2.00) mmol/L Sodium (136-145) mmol/L Potassium (3.5-5.1) mmol/L Chloride (98-107) mmol/L Carbon Dioxide (21.0-32.0) mmol/L BUN (7.0-18.0) mg/dL Creatinine (0.6-1.0) mg/dL Est Cr Clr Drug Dosing mL/min Estimated GFR (MDRD) ml/min Glucose (74-106) mg/dL Calcium (8.5-10.1) mg/dL Total Bilirubin (0.2-1.0) mg/dL AST (15-37) IU/L ALT (14-63) IU/L Alkaline Phosphatase (46-116) U/L Troponin I (0.000-0.056) ng/mL B-Natriuretic Peptide 358 H (<100) PG/ML Total Protein (6.4-8.2) g/dL Albumin (3.4-5.0) g/dL Globulin (2.0-3.5) g/dL Albumin/Globulin Ratio (1.3-2.8) Urine Color YELLOW Urine Appearance HAZY Urine pH 6.0 (5.0-8.0) Ur Specific [place] 1.015 (1.001-1.035) Urine Protein NEGATIVE (NEGATIVE) mg/dL Urine Glucose (UA) NEGATIVE (NEGATIVE) mg/dL Urine Ketones NEGATIVE (NEGATIVE) mg/dL Urine Occult Blood NEGATIVE (NEGATIVE) Urine Nitrite POSITIVE H (NEGATIVE) Urine Bilirubin NEGATIVE (NEGATIVE) Urine Urobilinogen 2.0 H (<2.0) EU/dL Ur Leukocyte Esterase SMALL (NEGATIVE) Urine RBC 1-2 (0-2/HPF) Urine WBC 25-30 (0-5/HPF) Ur Epithelial Cells FEW (NONE-FEW) Urine Bacteria 3+ H (NEGATIVE) 10/24/17 Range/Units 19:45 WBC (4.0-11.0) K/uL RBC (4.30-5.90) M/uL Hgb (12.0-16.0) g/dL Hct (36.0-46.0) % MCV (80.0-98.0) fL MCH (27.0-32.0) pg MCHC (31.0-37.0) g/dL RDW Std Deviation (28.0-62.0) fl RDW Coeff of [place] (11.0-15.0) % Plt Count (150-400) K/uL MPV (7.40-12.00) fL Neut % (Auto) (48.0-80.0) % Lymph % (Auto) (16.0-40.0) % [place] % (Auto) (0.0-15.0) % Eos % (Auto) (0.0-7.0) % Baso % (Auto) (0.0-1.5) % Neut # (Auto) (1.4-5.7) K/uL Lymph # (Auto) (0.6-2.4) K/uL [place] # (Auto) (0.0-0.8) K/uL Eos # (Auto) (0.0-0.7) K/uL Baso # (Auto) (0.0-0.1) K/uL Nucleated RBC % /100WBC Nucleated RBCs # K/uL INR ABG pH 7.276 L (7.35-7.45) ABG pCO2 67 H (35-45) mmHG ABG pO2 70 L (75-100) mmHG ABG HCO3 31 H (22-26) mEq/L ABG Total CO2 29.4 ABG Base Excess 2.8 H (-2.0-2.0) Lactate (0.20-2.00) mmol/L Sodium (136-145) mmol/L Potassium (3.5-5.1) mmol/L Chloride (98-107) mmol/L Carbon Dioxide (21.0-32.0) mmol/L BUN (7.0-18.0) mg/dL Creatinine (0.6-1.0) mg/dL Est Cr Clr Drug Dosing mL/min Estimated GFR (MDRD) ml/min Glucose (74-106) mg/dL Calcium (8.5-10.1) mg/dL Total Bilirubin (0.2-1.0) mg/dL AST (15-37) IU/L ALT (14-63) IU/L Alkaline Phosphatase (46-116) U/L Troponin I (0.000-0.056) ng/mL B-Natriuretic Peptide (<100) PG/ML Total Protein (6.4-8.2) g/dL Albumin (3.4-5.0) g/dL Globulin (2.0-3.5) g/dL Albumin/Globulin Ratio (1.3-2.8) Urine Color Urine Appearance Urine pH (5.0-8.0) Ur Specific [place] (1.001-1.035) Urine Protein (NEGATIVE) mg/dL Urine Glucose (UA) (NEGATIVE) mg/dL Urine Ketones (NEGATIVE) mg/dL Urine Occult Blood (NEGATIVE) Urine Nitrite (NEGATIVE) Urine Bilirubin (NEGATIVE) Urine Urobilinogen (<2.0) EU/dL Ur Leukocyte Esterase (NEGATIVE) Urine RBC (0-2/HPF) Urine WBC (0-5/HPF) Ur Epithelial Cells (NONE-FEW) Urine Bacteria (NEGATIVE) Meds: Medications Discontinued Medications Generic Name Dose Route Start Last Admin Trade Name Freq PRN Reason Stop Dose Admin Sodium Chloride 1,000 mls @ 999 mls/hr 10/24/17 19:39 Normal Saline IV 10/24/17 20:39 STAT ONE Ceftriaxone Sodium/Dextrose Confirm 10/24/17 20:33 Rocephin In Dextrose,Iso-Osm 2 Gm/50 Ml Administered 10/24/17 20:34 Dose 50 mls @ as directed .ROUTE .STK-MED ONE Departure - Departure Time of Disposition: 20:45 Disposition: DC/Tfer to Acute Hospital 02 Condition: Serious Clinical Impression: Ventilatory failure, UTI (urinary tract infection) Mental status alteration Qualifiers: Altered mental status type: somnolence Qualified Code(s): R40.0 - Somnolence - Discharge Information Referrals: PCP,None [Primary Care Provider] - - My Orders Last 24 Hours: My Active Orders 10/24/17 19:39 CULTURE BLOOD [BC] Stat 10/24/17 19:45 CULTURE URINE [RM] Stat Blood Culture x2 Reflex Set [OM.PC] Stat 10/24/17 19:51 CULTURE BLOOD [BC] Stat 10/24/17 19:59 Urinary Catheter Assessment [RC] ASDIRECTED 10/24/17 20:00 Insert Wiggins Catheter [Insert Urinary Catheter] [OM.PC] Q24H - Assessment/Plan Last 24 Hours: My Active Orders 10/24/17 19:39 CULTURE BLOOD [BC] Stat 10/24/17 19:45 CULTURE URINE [RM] Stat Blood Culture x2 Reflex Set [OM.PC] Stat 10/24/17 19:51 CULTURE BLOOD [BC] Stat 10/24/17 19:59 Urinary Catheter Assessment [RC] ASDIRECTED 10/24/17 20:00 Insert Wiggins Catheter [Insert Urinary Catheter] [OM.PC] Q24H
[2017-10-24 21:10] VITALS: BP 138/85
--- NOTE | 2017-10-27 14:09 | CR ---
EXAM DATE: 10/24/17 PATIENT'S AGE: 61 Patient: VALERIA KC Facility: [place], [place] Site . Site : 1955 Study: XRay Chest [id number]/13/[id number] 7:59:23 PM Ordering Physician: Brandon Barrera Final Report: INDICATION: Change in mental status TECHNIQUE: Chest 1 view. COMPARISON: 08/11/2017 FINDINGS: Cardiovascular and mediastinum: Cardiomegaly. Mediastinum is within normal limits. Lungs and pleural space: Difficult to evaluate left lower lobe 2 underpenetration. No sign of pleural effusion. No pneumothorax. Bones and soft tissues: No significant findings. IMPRESSION: Cardiomegaly. Difficult to evaluate left lower lobe due to underpenetration. Dictated by Deuce Felix MD @ 10/24/2017 8:07:14 PM Dictated by: Deuce Felix MD @ 10/24/2017 20:07:20 (Electronic Signature) Report Signed by Proxy. DOE
--- NOTE | 2017-10-27 14:13 | CR ---
EXAM DATE: 10/24/17 PATIENT'S AGE: 61 Patient: VALERIA KC Facility: [place], [place] Site . Site : 1955 Study: XRay Chest [id number]/13/2018 8:53:24 PM Ordering Physician: Brandon Barrera Final Report: INDICATION: Post intubation. TECHNIQUE: Chest radiograph 1 view COMPARISON: 10/24/2017 at 7:39 p.m. FINDINGS: Current portable AP supine chest dated 10/24/2017 at 8:41 p.m. Interval placement of endotracheal tube, tip 3.2 centimeters above the franchesca. Interval placement of nasogastric tube, distal portion of tube not fully visualized in the upper left abdomen. Heart size enlarged. No pneumothorax. No definite blunting of costophrenic sulci. IMPRESSION: 1. Interval satisfactory placement of endotracheal tube. 2. Persistent cardiomegaly. Dictated by Ryan Adams MD @ 10/24/2017 9:02:28 PM Dictated by: Ryan Adams MD @ 10/24/2017 21:02:35 (Electronic Signature) Report Signed by Proxy. [facility]
== END 2017-10-24 20:25 ==
LOC: MW.ED 19:28
DX: R41.82 Altered mental status, unspecified (principal); J96.00 Acute respiratory failure, unspecified whether with hypoxia or hypercapnia; N39.0 Urinary tract infection, site not specified; I11.0 Hypertensive heart disease with heart failure; I50.9 Heart failure, unspecified; F41.9 Anxiety disorder, unspecified; F32.9 Major depressive disorder, single episode, unspecified; E11.9 Type 2 diabetes mellitus without complications; Z79.82 Long term (current) use of aspirin; Z79.4 Long term (current) use of insulin; Z91.040 Latex allergy status
CPT/HCPCS: 36415; 36600; 71045; 80053; 81001; 82803; 83605; 83880; 84484; 85025; 85610; 87040; 87086; 93005; 96361; 96374; 96375; 99285; J0330; J0696; J7040; 87088; 87186

== ENCOUNTER 2017-11-30 11:36 | Emergency (ER) | payer BC, MEDICARE ==
--- NOTE | 2017-11-30 11:55 | EDM.PDOC ---
ED HPI GENERAL MEDICAL PROBLEM - General Chief Complaint: Respiratory Problem Stated Complaint: UNREPONSIVE Time Seen by Provider: 11/30/17 11:45 - History of Present Illness INITIAL COMMENTS - FREE TEXT/NARRATIVE: HISTORY AND PHYSICAL: History of present illness: Patient's 61-year-old female well known to us with history of CHF and COPD was been seen on multiple prior occasions for similar presents with concern of hypoxemia and unresponsiveness. states patient had a temperature of 102 earlier today for which she gave Tylenol vomiting or other complaints. Review of systems: As per history of present illness and below otherwise all systems reviewed and negative. Past medical history: As per history of present illness and as reviewed below otherwise noncontributory. Surgical history: As per history of present illness and as reviewed below otherwise noncontributory. Social history: No reported history of drug or alcohol abuse. Family history: As per history of present illness and as reviewed below otherwise noncontributory. Physical exam: HEENT: Atraumatic, normocephalic, pupils reactive, negative for conjunctival pallor or scleral icterus, mucous membranes moist, throat clear, neck supple, nontender, trachea midline. Lungs: Clear to auscultation, breath sounds equal bilaterally, chest nontender. Heart: S1S2, regular, . Abdomen: Soft, nondistended, nontender. Negative for masses or hepatosplenomegaly. Pelvis: Stable nontender. Genitourinary: Deferred. Rectal: Deferred. Extremities: Atraumatic, negative for cords or calf pain. Neurovascular unremarkable. Neuro: Patient markedly decreased level of responsiveness she will open her eyes with encouragement she does move all extremities and is limited grossly nonfocal exam patient is not protecting her airway Diagnostics: CBC CMP troponin PT/INR BNP chest x-ray EKG UA urine culture blood culture 2 lactic acid ABG Therapeutics: IV O2 monitor patient was intubated via rapid sequence intubation vancomycin 1 g IV Zosyn 3.375 g IV NG tube Wiggins catheter Impression: #1 altered mental status with ventilatory failure #2 history of COPD #3 history of CHF Definitive disposition and diagnosis as appropriate pending reevaluation and review of above. - Related Data Allergies Allergy/AdvReac Type Severity Reaction Status Date / Time amlodipine [From [facility]] Allergy Cannot Verified 11/30/17 12:28 Remember codeine Allergy Other Verified 11/30/17 12:28 doxepin Allergy Other Verified 11/30/17 12:28 doxycycline Allergy Cannot Verified 11/30/17 12:28 Remember hydromorphone Allergy Cannot Verified 11/30/17 12:28 Remember ketorolac Allergy Cannot Verified 11/30/17 12:28 Remember latex Allergy unknown Verified 11/30/17 12:28 milnacipran [From [facility]] Allergy Cannot Verified 11/30/17 12:28 Remember Home Meds: Home Meds levETIRAcetam [Keppra] 1,000 mg PO BID 03/28/15 [History] Pantoprazole [ProTONIX] 40 mg PO ACBREAKFAST 09/14/15 [History] Calcium Carbonate/Vitamin D3 [Calcium 500 + Vit D 400] 1 each PO BID 07/11/16 [ History] Divalproex Sodium 250 mg PO TIDMEALS 07/11/16 [History] Gabapentin [Neurontin] 600 mg PO TID 07/11/16 [History] Albuterol [IJD: Albuterol] 1 inh INH Q4H PRN 01/03/17 [History] Insulin Lispro [Humalog Kwikpen U-100] 0 unit SUBCUT ASDIRECTED 01/03/17 [ History] Nitroglycerin [Nitrostat] 1 tab SL ASDIRECTED PRN 01/03/17 [History] Citalopram [Citalopram HBr] 40 mg PO DAILY 07/17/17 [History] Multivitamin [Multivitamins] 1 tab PO DAILY 07/17/17 [History] Ondansetron [IJD: Ondansetron ODT] 4 mg PO BID PRN 07/17/17 [History] Lactulose [Enulose] 45 ml PO DAILY 11/10/17 [History] oxyCODONE 1 tab PO TID PRN 11/10/17 [History] Albuterol [Ventolin HFA] 0 gm INH Q4H PRN #1 inhaler 11/13/17 [Rx] Amoxicillin/Potassium Clav [Augmentin 875-125 Tablet] 1 each PO BID 3 Days #6 tablet 11/13/17 [Rx] Apixaban [Eliquis] 5 mg PO BID 30 Days #30 tablet 11/13/17 [Rx] Furosemide 40 mg PO BID 30 Days #60 tablet 11/13/17 [Rx] Metoprolol Tartrate [Lopressor] 25 mg PO Q12H 30 Days #60 tablet 11/13/17 [Rx] Silver Nitrate 30 gm TP WEEKLY #1 oint...g. 11/13/17 [Rx] Spironolactone [Aldactone] 12.5 mg PO DAILY 30 Days #30 tab 11/13/17 [Rx] atorvaSTATin [Lipitor] 40 mg PO BID 15 Days #30 tablet 11/13/17 [Rx] predniSONE 40 mg PO WITHBREAKFAST 7 Days #14 tablet 11/13/17 [Rx] Past Medical History - Past Health History Medical/Surgical History: Denies Medical/Surgical History HEENT History: Reports: Glaucoma Cardiovascular History: Reports: Heart Failure, Hypertension Other Cardiovascular History: CHF Respiratory History: Reports: COPD, Interstitial Lung Disease, Intubation, Previous, Pulmonary Fibrosis, Other (See Below) Other Respiratory History: DIPF,. home O2 dependent at 3L. Respiratory failure Gastrointestinal History: Reports: Gastritis Genitourinary History: Reports: Other (See Below) Other Genitourinary History: only has left kidney, renal CA [employer] History: Reports: Musculoskeletal History: Reports: Fibromyalgia, Osteoporosis Neurological History: Reports: Neuropathy, Diabetic, Neuropathy, Peripheral, Seizure Psychiatric History: Reports: Anxiety, Depression Endocrine/Metabolic History: Reports: Diabetes, Type II, Obesity/BMI 30+, Osteoporosis Hematologic History: Reports: Anemia, Blood Transfusion(s) Immunologic History: Reports: None Oncologic (Cancer) History: Reports: Renal, Other (See Below) Other Oncologic History: mets to liver Dermatologic History: Reports: None - Infectious Disease History Infectious Disease History: Reports: Chicken Pox, Measles Other Infectious Disease History: Not sure - Past Surgical History Respiratory Surgical History: Reports: Lung Biopsies GI Surgical History: Reports: EGD Social & Family History - Family History Family Medical History: Noncontributory - Caffeine Use Caffeine Use: Reports: Soda ED ROS GENERAL - Review of Systems Review Of Systems: ROS reveals no pertinent complaints other than HPI. ED EXAM, GENERAL - Physical Exam Exam: See Below (The dictation) Course - Vital Signs Last Recorded V/S: Last Vital Signs Temp 36.1 C 11/30/17 11:36 Pulse 127 H 11/30/17 11:36 Resp 24 H 11/30/17 11:36 BP 74/41 L 11/30/17 11:36 Pulse Ox 98 11/30/17 11:36 - Orders/Labs/Meds Orders: Active Orders 24 hr Category Date Time Status EKG Documentation Completion [RC] STAT Care 11/30/17 11:53 Active Chest 1V Frontal [CR] Stat Exams 11/30/17 11:53 Ordered CBC WITH AUTO DIFF [HEME] Stat Lab 11/30/17 12:30 Received COMPREHENSIVE METABOLIC PN,CMP [CHEM] Stat Lab 11/30/17 12:30 Received CULTURE BLOOD [BC] Stat Lab 11/30/17 11:54 Ordered CULTURE BLOOD [BC] Stat Lab 11/30/17 12:30 Received CULTURE URINE [RM] Stat Lab 11/30/17 12:04 Ordered D-DIMER QUANTITATIVE [COAG] Stat Lab 11/30/17 12:30 Received INR,PT,PROTHROMBIN TIME [COAG] Stat Lab 11/30/17 12:30 Received TROPONIN I [CHEM] Stat Lab 11/30/17 12:30 Received UA W/MICROSCOPIC [URIN] Stat Lab 11/30/17 11:53 Ordered Sodium Chloride 0.9% [Normal Saline] 1,000 ml Med 11/30/17 12:17 Active IV .Bolus Vancomycin [Vancocin] 1 gm Med 11/30/17 12:00 Active Sodium Chloride 0.9% [Normal Saline] 250 ml IV ONETIME Blood Culture x2 Reflex Set [OM.PC] Stat Oth 11/30/17 11:54 Ordered Medication Orders Vancomycin HCl 1 gm/ Sodium (Chloride) 250 mls @ 250 mls/hr IV ONETIME ONE Stop: 11/30/17 12:59 Last Admin: 11/30/17 12:16 Dose: 250 mls/hr Sodium Chloride (Normal Saline) 1,000 mls @ 999 mls/hr IV .Bolus ONE Stop: 11/30/17 13:17 Last Admin: 11/30/17 12:17 Dose: 999 mls/hr Labs: Laboratory Tests 11/30/17 11/30/17 Range/Units 12:10 12:10 ABG pH 7.340 L (7.35-7.45) ABG pCO2 51 H (35-45) mmHG ABG pO2 57 L (75-100) mmHG ABG HCO3 28 H (22-26) mEq/L ABG Total CO2 26.1 ABG Base Excess 1.3 (-2.0-2.0) Lactate 1.6 (0.20-2.00) mmol/L Meds: Medications Generic Name Dose Route Start Last Admin Trade Name Freq PRN Reason Stop Dose Admin Vancomycin HCl 1 gm/ Sodium 250 mls @ 250 mls/hr 11/30/17 12:00 11/30/17 12: 16 Chloride IV 11/30/17 12:59 250 mls/hr ONETIME ONE Administration Sodium Chloride 1,000 mls @ 999 mls/hr 11/30/17 12:17 11/30/17 12:17 Normal Saline IV 11/30/17 13:17 999 mls/hr .Bolus ONE Administration Discontinued Medications Generic Name Dose Route Start Last Admin Trade Name Freq PRN Reason Stop Dose Admin Piperacillin Sod/Tazobactam 50 mls @ 100 mls/hr 11/30/17 12:00 11/30/17 12:16 Sod 3.375 gm/ Sodium Chloride IV 11/30/17 12:29 100 mls/hr ONETIME ONE Administration Departure - Departure Time of Disposition: 12:36 Disposition: DC/Tfer to Acute Hospital 02 Condition: Critical Clinical Impression: History of fever, Acute respiratory insufficiency Altered mental status Qualifiers: Altered mental status type: somnolence Qualified Code(s): R40.0 - Somnolence - Discharge Information *PRESCRIPTION DRUG MONITORING PROGRAM REVIEWED*: Not Applicable *COPY OF PRESCRIPTION DRUG MONITORING REPORT IN PATIENT CHELY: Not Applicable Referrals: Lex Mcclelland MD [Primary Care Provider] - Forms: ED Department Discharge - My Orders Last 24 Hours: My Active Orders 11/30/17 11:53 EKG Documentation Completion [RC] STAT Chest 1V Frontal [CR] Stat UA W/MICROSCOPIC [URIN] Stat 11/30/17 11:54 CULTURE BLOOD [BC] Stat Blood Culture x2 Reflex Set [OM.PC] Stat 11/30/17 12:00 Vancomycin [Vancocin] 1 gm Sodium Chloride 0.9% [Normal Saline] 250 ml IV ONETIME 11/30/17 12:04 CULTURE URINE [RM] Stat 11/30/17 12:17 Sodium Chloride 0.9% [Normal Saline] 1,000 ml IV .Bolus 11/30/17 12:30 CBC WITH AUTO DIFF [HEME] Stat COMPREHENSIVE METABOLIC PN,CMP [CHEM] Stat CULTURE BLOOD [BC] Stat D-DIMER QUANTITATIVE [COAG] Stat INR,PT,PROTHROMBIN TIME [COAG] Stat TROPONIN I [CHEM] Stat - Assessment/Plan Last 24 Hours: My Active Orders 11/30/17 11:53 EKG Documentation Completion [RC] STAT Chest 1V Frontal [CR] Stat UA W/MICROSCOPIC [URIN] Stat 11/30/17 11:54 CULTURE BLOOD [BC] Stat Blood Culture x2 Reflex Set [OM.PC] Stat 11/30/17 12:00 Vancomycin [Vancocin] 1 gm Sodium Chloride 0.9% [Normal Saline] 250 ml IV ONETIME 11/30/17 12:04 CULTURE URINE [RM] Stat 11/30/17 12:17 Sodium Chloride 0.9% [Normal Saline] 1,000 ml IV .Bolus 11/30/17 12:30 CBC WITH AUTO DIFF [HEME] Stat COMPREHENSIVE METABOLIC PN,CMP [CHEM] Stat CULTURE BLOOD [BC] Stat D-DIMER QUANTITATIVE [COAG] Stat INR,PT,PROTHROMBIN TIME [COAG] Stat TROPONIN I [CHEM] Stat
[2017-11-30] MEDS ORDERED: Piperacillin/Tazobactam 3.375 GM in Sodium Chloride 0.9% 50 ML IV ONE (12:00)
[2017-11-30] MEDS ORDERED: Sodium Chloride 0.9% 1,000 ML IV ONE (12:17)
[2017-11-30 12:27] VITALS: BP 74/41
[2017-11-30] MEDS ORDERED: Etomidate 2 MG/ML 20 ML SDV IVPUSH ONE ×2 (12:30→16:00)
[2017-11-30] MEDS ORDERED: Succinylcholine 200 MG/10 ML MDV IV ONE (12:30)
[2017-11-30] MEDS ORDERED: Rocuronium 50 MG/5 ML Vial IVPUSH ONE (12:31)
[2017-11-30 13:10] LABS: CHLORIDE,CL 105 mmol/L (98-107); SODIUM,NA 136 mmol/L (136-145)
[2017-11-30] MEDS ORDERED: Succinylcholine 200 MG/10 ML MDV ONE (16:00)
[2017-11-30] MEDS ORDERED: Rocuronium 100 MG/10 ML MDV ONE (16:00)
--- NOTE | 2017-12-01 14:25 | CR ---
EXAM DATE: 11/30/17 PATIENT'S AGE: 61 Patient: VALERIA KC Facility: [place], [place] Site . Site : [id number] Study: XRay Chest [id number]/[id number] 1:02:57 PM Ordering Physician: Brandon Barrera Final Report: INDICATION: Short of breath. Unresponsive. Line placement. TECHNIQUE: One-view portable chest. COMPARISON: Portable chest on 11/10/2017. FINDINGS: Distal tip of an endotracheal tube 4.5 cm above the franchesca. Distal tip of an orogastric tube well below the left diaphragm and off the inferior aspect of this image. No pneumothorax. The heart is enlarged and stable in size. The central pulmonary vessels are congested. Left lower lobe consolidation likely representing fluid and atelectasis. The right lung is clear. IMPRESSION: 1. Support tubes and catheters as described above. No pneumothorax. 2. Stable cardiomegaly. 3. Pulmonary vascular congestion. 4. Left lower lobe fluid and atelectasis. Dictated by Aiyana Mota MD @ Nov 30 2017 1:24PM (Electronic Signature) Report Signed by Proxy. DOE
== END 2017-11-30 13:15 ==
LOC: MW.ED 11:36
DX: J96.01 Acute respiratory failure with hypoxia (principal); R41.82 Altered mental status, unspecified; I11.0 Hypertensive heart disease with heart failure; I50.9 Heart failure, unspecified; E11.42 Type 2 diabetes mellitus with diabetic polyneuropathy; J44.9 Chronic obstructive pulmonary disease, unspecified; Z88.8 Allergy status to other drugs, medicaments and biological substances; Z91.040 Latex allergy status; Z79.899 Other long term (current) drug therapy; Z79.4 Long term (current) use of insulin
CPT/HCPCS: 36415; 36600; 43753; 71045; 80053; 81001; 82803; 83605; 84484; 85025; 85379; 85610; 87040; 87086; 96361; 96365; 96375; 99291; J0330; J2543; J3370; J3490; J7040; J7050